=== PATIENT | male | born 1940 | race African-American/Black ===

== ENCOUNTER 2019-12-27 18:01 | Inpatient (IN) | payer MEDICARE, MEDICAID, SELFPAY ==
[2019-12-27] VITALS (13 sets, daily range): BP systolic 53–111; BP diastolic 38–72; PULSE 55–73; RESP 12–22; TEMP 34.7–37.2; O2SAT 92–100
--- NOTE | ~2019-12-27 | XR_ITS ---
XR chest port-a-cath/central 12/27/2019 21:17 Indication: Central line placement Procedure: AP portable chest Comparison: 03/01/2018 Findings: Right IJ central line tip near the cavoatrial junction. There is extensive bilateral mixed interstitial and airspace disease. No pneumothorax. No acute osseous abnormality. Impression: 1: Diffuse mixed interstitial and airspace disease, likely interstitial edema, possibly superimposed on chronic fibrosis. Reviewed, dictated and finalized at location A. R&D LAB TECHNICIAN Impression: 1: Diffuse mixed interstitial and airspace disease, likely interstitial edema, possibly superimposed on chronic fibrosis.
--- NOTE | ~2019-12-27 | CT_ITS ---
EXAMINATION: CT abdomen pelvis wo con DATE: 12/27/2019 22:25 INDICATION: Left lower quadrant abdominal pain TECHNIQUE: Computed tomography (CT) of the abdomen and pelvis was performed without intravenous contr ast. The dose-length product was 1404.10 mGy-cm. Automated exposure control and iterative reconstruct ion technique were employed. COMPARISON: None. FINDINGS: There is patchy bilateral airspace consolidation superimposed on pulmonary fibrosis. There is honeycombing in the lung bases. Cardiomegaly. No significant pleural or pericardial effusion. Ther e is atherosclerosis of the aorta and coronary arteries. There is bilateral gynecomastia. Calcified m ediastinal and hilar lymph nodes consistent with chronic granulomatous disease. The liver, spleen, pancreas, adrenal glands and kidneys are unremarkable. There are multiple air-flui d levels in nondilated small bowel. There is thickening of the sigmoid colon and rectum with mild tang rounding pericolonic infiltration of the fat. St catheter present in the bladder. No evidence for perforation or abscess. No acute osseous abnormality. IMPRESSION: 1. Wall thickening of the sigmoid colon and rectum with mild surrounding inflammation, compatible wit h colitis, most likely infectious. 2: Patchy bilateral airspace disease, suspicious for pneumonia. 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 3: Gynecomastia. Reviewed, dictated and finalized at location A. MOTIVE REPAIR TECHNICIAN IMPRESSION: 1. Wall thickening of the sigmoid colon and rectum with mild surrounding inflam mation, compatible with colitis, most likely infectious. 2: Patchy bilateral airspace disease, suspicious for pneumonia. 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 3: Gynecomastia.
--- NOTE | ~2019-12-27 | XR_ITS ---
EXAMINATION: XR abdomen/kub 1V DATE: 12/30/2019 09:09 INDICATION: Abdominal distention. TECHNIQUE: A supine view of the abdomen on 2 radiographs was obtained. COMPARISON: CT abdomen and pelvis 12/27/2019 FINDINGS: There are no dilated loops of bowel. There is a paucity of stool in the colon. IMPRESSION: 1. Nonobstructive bowel gas pattern. Reviewed, dictated and finalized at location A. ER
--- NOTE | ~2019-12-27 | CT_ITS ---
EXAMINATION: CT brain wo con DATE: 12/28/2019 00:31 INDICATION: CVA. TECHNIQUE: Computed tomography (CT) of the head was performed without intravenous contrast. The dose- length product was 681.00 mGy-cm. The mA was adjusted according to patient size. Iterative reconstruc tion technique was employed. COMPARISON: None FINDINGS: There are scattered moderate periventricular and subcortical white matter changes, most lik derek related to small vessel ischemic disease (microangiopathy). No acute intracranial hemorrhage, inf arction, mass or mass effect. There is intracranial atherosclerosis. Paranasal sinuses and mastoids a re pneumatized. No depressed skull fractures. IMPRESSION: 1. No acute intracranial abnormality. 2: Chronic age-related findings. Reviewed, dictated and finalized at location A. LATION CUPOLA CHARGER
--- NOTE | ~2019-12-27 | XR_ITS ---
EXAMINATION: XR chest 1V portable DATE: 12/29/2019 05:50 INDICATION: Respiratory failure. TECHNIQUE: A single frontal view of the chest was obtained. COMPARISON: Chest single view 12/27/2019, CT abdomen and pelvis 12/27/2019 FINDINGS: There are coarse interstitial opacities throughout the lungs bilaterally with architectural distortion. No pleural effusion or pneumothorax. The heart size is normal. Calcified hilar and media stinal lymph nodes are consistent with old granulomatous disease. A right internal jugular central ve nous catheter is seen with tip at the superior cavoatrial junction. IMPRESSION: 1. Stable diffuse lung disease, likely chronic interstitial lung disease. Reviewed, dictated and finalized at location A. NT PARTNER
--- NOTE | ~2019-12-27 | US_ITS ---
US renal BI 12/28/2019 13:08 Procedure: Realtime transabdominal ultrasound of the kidneys and bladder. Indication: Acute renal insufficiency Comparison: No prior studies for comparison. Findings: Renal echotexture is normal bilaterally without hydronephrosis, contour deforming mass or r enal calculus. The right kidney measures 8.5 cm and left kidney measures 8.1 cm. Bladder not well vis ualized due to catheterization. Impression: 1: Unremarkable renal ultrasound. No stones, masses or hydronephrosis. Reviewed, dictated and finalized at location A. CHIPPER Impression: 1: Unremarkable renal ultrasound. No stones, masses or hydronephrosis.
--- NOTE | 2019-12-27 18:06 | ED.GENADULT ---
HPI - General Adult General Chief complaint: Altered Mental Status Stated complaint: lethargy Time Seen by Provider: 12/27/19 18:03 Source: patient Mode of arrival: EMS Limitations: clinical condition History of Present Illness HPI narrative: The pt is an 79 y/o male who presents to the ED, via EMS from [facility], with c/o lethary that began this evening. Per nurse, staff at the [facility] check on the pt earlier tonight and noticed that he was lethargic and had a bout of diarrhea. The staff checked on him again an hour after and found that the pt was still lethargic and had another bout of diarrhea. The pt and [facility] staff, the pt reports diarrhea and ABD pain, but denies bloody stool, CP, or SOB. The pt has a PMHx of schizophrenia, COPD, asthma, Parkinson's disease, hypothyroidism, and diabetes. A complete HPI was limited due to the pt's clinical condition. MD complaint: Lethargy Onset (ago): hour(s) (this evening) Associated symptoms: other (reports diarrhea, ABD pain) Related Data Home Medications Medication Instructions Recorded Confirmed acetaminophen 650 mg PO BID 12/27/19 12/28/19 amlodipine 10 mg PO DAILY 12/27/19 12/28/19 aspirin 81 mg PO DAILY 12/27/19 12/28/19 benztropine 2 mg PO BID 12/27/19 12/28/19 bisacodyl 10 mg NC DAILY PRN 12/27/19 12/28/19 carbidopa-levodopa 1 tablet PO Q6H 12/27/19 12/28/19 cyanocobalamin (vitamin B-12) 1,000 mcg IM MONTHLY 12/27/19 12/28/19 donepezil 20 mg PO HS 12/27/19 12/28/19 ergocalciferol (vitamin D2) 50,000 unit PO MONTHLY 12/27/19 12/28/19 [Vitamin D2] famotidine 20 mg PO DAILY 12/27/19 12/28/19 fluticasone propion-salmeterol 1 inh INHALATION BID 12/27/19 12/28/19 [Advair Diskus] gabapentin 300 mg PO BID 12/27/19 12/28/19 haloperidol 5 mg PO BID 12/27/19 12/28/19 levothyroxine 50 mcg PO DAILY 12/27/19 12/28/19 loperamide 2 mg PO PRN PRN 12/27/19 12/28/19 lurasidone [Latuda] 120 mg PO DAILY 12/27/19 12/28/19 magnesium hydroxide [Milk of 30 ml PO DAILY PRN 12/27/19 12/28/19 Magnesia] metoprolol succinate 50 mg PO DAILY 12/27/19 12/28/19 montelukast 10 mg PO DAILY 12/27/19 12/28/19 nortriptyline 25 mg PO HS 12/27/19 12/28/19 psyllium husk (aspartame) 1 packet PO BID PRN 12/27/19 12/28/19 [Metamucil Fiber Singles] trazodone 25 mg PO HS 12/27/19 12/28/19 acetaminophen 650 mg PO Q6H PRN MDD 3gram 12/28/19 12/28/19 wyvhdukjt-egpxigws-cqshz-w.pet 1 applic NC QID PRN 12/28/19 12/28/19 [Preparation H Maximum Strength] Allergies Allergy/AdvReac Type Severity Reaction Status Date / Time No Known Allergies Allergy Verified 12/27/19 18:21 Review of Systems Review of Systems: All systems reviewed & are unremarkable except as noted in HPI and below ROS unobtainable: other (A complete ROS was limited due to the pt's clinical condition) Constitutional: Constitutional: Reports other (lethargy) Cardiovascular: Cardiovascular: Denies chest pain Respiratory: Respiratory: Denies dyspnea Gastrointestinal: Gastrointestinal: Reports abdominal pain, Reports diarrhea and Denies other (bloody stool) [facility] Past Medical History Medical History Anemia Anxiety Arthritis Asthma Back pain Cataracts, bilateral COPD (chronic obstructive pulmonary disease) Depression Diabetes Fractures rt wrist Hypertension Hypothyroid Parkinsons disease Schizophrenia Seizures UTI (urinary tract infection) Surgical History Surgical History No pertinent past surgical history Family History Family History (Updated 12/28/19 @ 02:47 by Zenaida Funez RN) Mother Renal failure Father Asbestos exposure Sibling Liver cancer Lung cancer Social History Social History Smoking status: Former smoker Smoking end date: 11/26/97 Alcohol intake: unknown Substance use: unknown Gender identity (if verbalized
[2019-12-27 19:20] LABS: Alveolar/Arterial O2 Gradient 9.6 mmHg; Base Excess ABG -9.9 mEq/l (+/-2.0); Fractional Inspired Oxygen 28 %; HCO3 ABG 17.2 mEq/l (22.0-26.0); Oxygen Content ABG 15.2 %vol (16.0-22.0); Oxygen Saturation ABG 98.3 % (95.0-100.0); Oxyhemoglobin 97.4 % THb (90.0-100.0); PCO2 ABG 42.1 mmHg (35.0-45.0); PO2 ABG 140.4 mmHg (80.0-100.0); PO2 FiO2 Ratio Arterial Blood 5.01 %; Total Hemoglobin 10.9 g/dL (12.0-18.0)
[2019-12-27 19:23] LABS: Device NASAL CANNULA; Modified Allen's Test Pass; Site Drawn LEFT RADIAL; pH ABG 7.228 (7.350-7.450)
[2019-12-27 19:37] LABS: Basophils Percent Auto 0.3 % (0.2-1.2); Hematocrit 34.8 % (42.0-52.0); Hemoglobin 10.5 g/dL (14.0-18.0); Immature Granulocyte Absolute 0.06 K/mm3 (0.00-0.031); Immature Granulocyte Percent A 0.6 % (0-0.5); Lymphocytes Absolute Auto 1.13 K/mm3 (0.9-3.2); Lymphocytes Percent Auto 11.1 % (18.3-44.2); Mean Corpuscular HGB Conc 30.2 g/dl (32-36); Mean Corpuscular Hemoglobin 30.3 pg (26-34); Mean Corpuscular Volume 100.6 fl (80-100); Mean Platelet Volume 9.9 fl (7.4-10.4); Monocytes Absolute Auto 0.9 K/mm3 (0.1-0.6); Monocytes Percent Auto 8.4 % (2.6-8.5); Neutrophils Absolute Auto 8.1 K/mm3 (1.3-6.7); Neutrophils Percent Auto 79.6 % (45.5-73.1); Nucleated Red Blood Cells Perc 0.2 % (0.0-0.2); Platelet Count Result 187 k/mm3 (150-375); Red Blood Count 3.46 M/mm3 (4.6-6.20); Red Cell Distribution Width 15.3 % (11.5-14.5); White Blood Count 10.2 K/mm3 (4.5-10.0)
--- NOTE | 2019-12-27 19:40 | PC.NURSE ---
pt bp 70/40 manual edp notified. second RN to assess bp. 68/40 manual bp obtained. no further orders at this time.
[2019-12-27] MEDS: SODIUM CHLORIDE 0.9% IV 1,000 ML 999 ML IV CONT ×2 (19:41→19:55)
[2019-12-27 19:46] LABS: INR 1.1
[2019-12-27 19:47] LABS: Partial Thromboplastin Time 32.2 SECONDS (22.3-36.8)
[2019-12-27 19:52] LABS: Alanine Aminotransferase 12 U/L (4-50); Albumin Level 3.6 g/dL (3.5-5.1); Alkaline Phosphatase 163 U/L (38-126); Aspartate Amino Transferase 44 U/L (17-59); Bilirubin,Total 1.2 mg/dL (0.2-1.3); Blood Urea Nitrogen 26 mg/dL (9-20); Calcium 8.5 mg/dL (8.4-10.2); Carbon Dioxide 20 mmol/L (22-30); Chloride 101 mmol/L (98-107); Estimated CRCL calculation 38 ml/min; Estimated Glomerular Filt Rate 44; Glucose 97 mg/dL (75-110); Lipase 278 U/L (23-300); Sodium 135 mmol/L (137-145)
--- NOTE | 2019-12-27 20:11 | PC.NURSE ---
pt stuck mult times for blood draw. edp notified.
--- NOTE | 2019-12-27 20:13 | PC.NURSE ---
third L ns hung pts bp 76/40 edp notified.
--- NOTE | 2019-12-27 20:14 | PC.NURSE ---
central line setup per edp.
--- NOTE | 2019-12-27 20:14 | PC.NURSE ---
REDRAW OF UNRECEIVED BLOOD SAMPLES WERE ATTEMPTED MANY TIMES BY MULTIPLE PEOPLE AND ALL WERE UNABLE TO OBTAIN SAMPLES. DOCTOR ORDERED A CENTRAL LINE TO BE PLACED SO THE NURSE IS GOING TO DRAW BLOOD SAMPLES FROM THAT ONCE IT'S IN PLACE.
--- NOTE | 2019-12-27 21:14 | PC.NURSE ---
called pharmacy about norepinphrine drip. they are processing it now.
[2019-12-27] MEDS: NOREPINEPHRINE 8 MG/D5W 250 ML 8 MG/250 ML BAG 9.4 MG IV CONT (21:29)
--- NOTE | 2019-12-27 22:07 | PC.NURSE ---
called ct to take pt down for scan
--- NOTE | 2019-12-27 22:13 | PC.NURSE ---
pt down to ct
[2019-12-27 22:27] LABS: Free T4 Free Thyroxine 1.27 ng/mL (0.78-2.19)
[2019-12-27 22:28] LABS: T4 Thyroxine 6.02 ug/dL (5.53-11.0)
[2019-12-27 22:29] LABS: Total Triiodothyronine (T3) 0.76 NG/ML (0.97-1.69)
[2019-12-27 22:58] LABS: Add Urine Microscopic? YES; Amorphous Sediment Urine Few; Appearance Urine Clear (Clear); Bacteria Urine Trace /hpf; Bilirubin Urine 2+ (Negative); Blood Urine Negative (Negative); Calcium Oxalate Crystals Urine Present /hpf; Color Urine Red (Yellow); Glucose Urine UA Negative (Negative); Ketones Urine Trace mg/dL (Negative); Leukocyte Esterase Ur Negative LEU/UL (Negative); Mucus Urine Heavy /lpf; Nitrate Urine Positive (Negative); Protein Urine 2+ mg/dL (Negative); Specific Grav Ur 1.024 (1.001-1.035); Squamous Epithelial Cell Urine Occasional /hpf (Few); WBC Urine 0-3 /hpf
--- NOTE | 2019-12-27 23:42 | PC.NURSE ---
pt's poa called Fior Garg. She wants to be updated on Uncles status at all times. [id number].
[2019-12-27] MEDS: SODIUM CHLORIDE 0.9% IV 1,000 ML 999 ML (23:55)
[2019-12-28] VITALS (39 sets, daily range): BP systolic 94–145; BP diastolic 41–79; PULSE 58–92; RESP 12–24; TEMP 34.6–37.3; O2SAT 91–100; BMI 28.1
[2019-12-28 00:14] LABS: Reflex Lactic Acid Yes or No Add Lactic
--- NOTE | 2019-12-28 00:45 | PM.IMHP ---
H&P: HPI History of Present Illness Chief complaint: SEPTIC SHOCK COLITIS Narrative: This is an 79 year old diabetic male with known history of COPD, schizophrenia, Parkinson's disease and hypothyroidism who presented to the hospital from [facility] secondary after being found to be poorly responsive at the [facility]. Nursing staff reported the sulma good also had diarrhea. It's not known if the patient has been on any antibiotics recently. On arrival to the hospital the patient was found to be hypotensive and has been treated with 4 liters of NS IV bolus and a central line and levophed has been started in the ER. CT abd/pelvis revealed colitis. He has been started on Vancomycin and zosyn in the ER. Executive Sous Chef, Dr. Lang has been consulted. On my encounter with the patient he is obtunded and encephalopathic. No history is obtainable from him. Review of Systems Review of Systems: ROS unobtainable: unobtainable due to mental condition PMFSH Past Medical History Medical History Anemia Anxiety Arthritis Asthma Back pain Cataracts, bilateral COPD (chronic obstructive pulmonary disease) Depression Diabetes Fractures rt wrist Hypertension Hypothyroid Parkinsons disease Schizophrenia Seizures UTI (urinary tract infection) Surgical History Surgical History No pertinent past surgical history Family History Family History Mother Renal failure Father Asbestos exposure Sibling Liver cancer Lung cancer Social History Social History Smoking status: Former smoker Smoking end date: 11/26/97 Alcohol intake: unknown Substance use: unknown Gender identity (if verbalized by the patient): Male Meds Home Medications and Allergies Home Medications Medication Instructions Recorded Confirmed Type acetaminophen 650 mg PO BID 12/27/19 12/28/19 History amlodipine 10 mg PO DAILY 12/27/19 12/28/19 History aspirin 81 mg PO DAILY 12/27/19 12/28/19 History benztropine 2 mg PO BID 12/27/19 12/28/19 History bisacodyl 10 mg AR DAILY PRN 12/27/19 12/28/19 History carbidopa-levodopa 1 tablet PO Q6H 12/27/19 12/28/19 History cyanocobalamin (vitamin B-12) 1,000 mcg IM MONTHLY 12/27/19 12/28/19 History donepezil 20 mg PO HS 12/27/19 12/28/19 History ergocalciferol (vitamin D2) 50,000 unit PO MONTHLY 12/27/19 12/28/19 History [Vitamin D2] famotidine 20 mg PO DAILY 12/27/19 12/28/19 History fluticasone propion-salmeterol 1 inh INHALATION BID 12/27/19 12/28/19 History [Advair Diskus] gabapentin 300 mg PO BID 12/27/19 12/28/19 History haloperidol 5 mg PO BID 12/27/19 12/28/19 History levothyroxine 50 mcg PO DAILY 12/27/19 12/28/19 History loperamide 2 mg PO PRN PRN 12/27/19 12/28/19 History lurasidone [Latuda] 120 mg PO DAILY 12/27/19 12/28/19 History magnesium hydroxide [Milk of 30 ml PO DAILY PRN 12/27/19 12/28/19 History Magnesia] metoprolol succinate 50 mg PO DAILY 12/27/19 12/28/19 History montelukast 10 mg PO DAILY 12/27/19 12/28/19 History nortriptyline 25 mg PO HS 12/27/19 12/28/19 History psyllium husk (aspartame) 1 packet PO BID PRN 12/27/19 12/28/19 History [Metamucil Fiber Singles] trazodone 25 mg PO HS 12/27/19 12/28/19 History acetaminophen 650 mg PO Q6H PRN MDD 3gram 12/28/19 12/28/19 History hwytdtleq-wxspbhrd-lnimo-w.pet 1 applic AR QID PRN 12/28/19 12/28/19 History [Preparation H Maximum Strength] Allergies Allergy/AdvReac Type Severity Reaction Status Date / Time No Known Allergies Allergy Verified 12/27/19 18:21 Vital Signs Vital Signs - 24 hr 12/27/19 18:08 12/27/19 19:40 12/27/19 20:00 Temperature 36.2 C L Pulse Rate 63 66 62 Respiratory Rate 18 12 17 Blood Pressure 111/72 70/40 L 71/38 L Pulse Oximetry 100 100 100 12/27/19 20:20 12/27
[2019-12-28 01:46] LABS: Lactic Acid 3.4 mmol/L (0.7-2.1)
[2019-12-28] MEDS: LACTATED RINGERS 1,000 ML 150 ML IV CONT (01:53)
--- NOTE | 2019-12-28 02:42 | ADMGEN ---
This patient, Norm Maldonado, was admitted to Intensive Care Unit-3. Patient/family oriented to hospital policies and general routines including ID bracelet, bed and alarms, visiting hours, pain management, procedures, bathroom and other care routines, personal items, smoking policy, room service/diet, and visiting hours. Valuables list has been completed. Information on how to activate the Rapid Response Team has been discussed. Patient/Family are encouraged to report perceived risks to care and to ask questions if they do not understand what they are told or what they should do.
[2019-12-28 02:52] LABS: Alveolar/Arterial O2 Gradient 152.2 mmHg; Base Excess ABG -7.8 mEq/l (+/-2.0); Fractional Inspired Oxygen 36 %; HCO3 ABG 19.6 mEq/l (22.0-26.0); Oxygen Content ABG 12.5 %vol (16.0-22.0); Oxyhemoglobin 78.4 % THb (90.0-100.0); PCO2 ABG 47.7 mmHg (35.0-45.0); PO2 FiO2 Ratio Arterial Blood 1.37 %; Total Hemoglobin 11.3 g/dL (12.0-18.0)
[2019-12-28 02:54] LABS: Oxygen Saturation ABG 77.4 % (95.0-100.0); PO2 ABG 49.2 mmHg (80.0-100.0); pH ABG 7.231 (7.350-7.450)
[2019-12-28 02:55] LABS: Device NASAL CANNULA; Modified Allen's Test Pass; Site Drawn LEFT RADIAL
[2019-12-28 04:49] LABS: Alveolar/Arterial O2 Gradient 223.3 mmHg; Base Excess ABG -6.1 mEq/l (+/-2.0); Fractional Inspired Oxygen 50 %; HCO3 ABG 20.1 mEq/l (22.0-26.0); Oxygen Content ABG 14.2 %vol (16.0-22.0); Oxygen Saturation ABG 95.4 % (95.0-100.0); Oxyhemoglobin 94.5 % THb (90.0-100.0); PCO2 ABG 42.8 mmHg (35.0-45.0); PO2 ABG 85.1 mmHg (80.0-100.0); Total Hemoglobin 10.6 g/dL (12.0-18.0)
[2019-12-28 04:52] LABS: Device HIGH FLOW THERAPY; Modified Allen's Test Pass; Site Drawn LEFT RADIAL
[2019-12-28] MEDS: SODIUM CHLORIDE 0.9% IV 1,000 ML 125 ML IV CONT ×3 (05:20→22:25)
[2019-12-28 06:06] LABS: Basophils Absolute Auto 0.1 K/mm3 (0.0-0.1); Basophils Percent Auto 0.5 % (0.2-1.2); Hematocrit 31.6 % (42.0-52.0); Hemoglobin 9.6 g/dL (14.0-18.0); Immature Granulocyte Percent A 0.9 % (0-0.5); Lymphocytes Absolute Auto 0.89 K/mm3 (0.9-3.2); Lymphocytes Percent Auto 8.2 % (18.3-44.2); Mean Corpuscular HGB Conc 30.4 g/dl (32-36); Mean Corpuscular Hemoglobin 30.2 pg (26-34); Mean Corpuscular Volume 99.4 fl (80-100); Mean Platelet Volume 9.8 fl (7.4-10.4); Monocytes Absolute Auto 1.1 K/mm3 (0.1-0.6); Monocytes Percent Auto 9.8 % (2.6-8.5); Neutrophils Absolute Auto 8.7 K/mm3 (1.3-6.7); Neutrophils Percent Auto 80.6 % (45.5-73.1); Platelet Count Result 176 k/mm3 (150-375); Red Blood Count 3.18 M/mm3 (4.6-6.20); White Blood Count 10.8 K/mm3 (4.5-10.0)
[2019-12-28 06:18] LABS: Blood Urea Nitrogen 27 mg/dL (9-20); Calcium 7.4 mg/dL (8.4-10.2); Carbon Dioxide 19 mmol/L (22-30); Chloride 104 mmol/L (98-107); Estimated CRCL calculation 36 ml/min; Estimated Glomerular Filt Rate 42; Glucose 119 mg/dL (75-110); Magnesium 2.3 mg/dL (1.6-2.3); Sodium 135 mmol/L (137-145)
[2019-12-28 07:04] LABS: Lactic Acid 1.9 mmol/L (0.7-2.1)
[2019-12-28] MEDS: DEXTROSE 50% 25 GM/50 ML SYRINGE IV PUSH (09:03)
[2019-12-28] MEDS: INSULIN HUMAN REGULAR (*BKC) 100 UNITS/ML 10 UNITS IV PUSH (09:04)
--- NOTE | 2019-12-28 09:05 | WPDCNINT ---
Assessment and Plan Assessment and plan (1) Septic shock: Code(s): A41.9 - Sepsis, unspecified organism; R65.21 - Severe sepsis with septic shock Status: Acute Assessment and Plan: patient with altered mental status, diarrhea, Hypotensive, elevated lactic acid, leukocytosis, acute kidney injury - likely colitis - patient started on Zosyn and p.o. vancomycin - on Levophed, maintain mean arterial pressure is greater than 65 mmHg - lactic acid this morning has normalized (2) Acute respiratory failure: Qualifiers: Respiratory failure complication: hypoxia Qualified Code(s): J96.01 - Acute respiratory failure with hypoxia Code(s): J96.00 - Acute respiratory failure, unspecified whether with hypoxia or hypercapnia Status: Acute Assessment and Plan: patient with increased O2 requirements likely related to septic shock. Chest x-ray shows diffuse mixed interstitial airspace disease likely interstitial edema, possibly superimposed on chronic fibrosis - continue high-flow nasal cannula, O2 sats have been adequate, will continue to monitor (3) CRISTA (acute kidney injury): Code(s): N17.9 - Acute kidney failure, unspecified Status: Acute Assessment and Plan: acute kidney injury most likely related to hypotension, septic shock, ATN, dehydration, diarrhea - patient received adequate IV fluids, continue maintenance IV fluids - monitor urine output, renal function electrolytes - hyperkalemia likely related acidosis secondary to diarrhea, acute kidney injury, will treat hyperkalemia aggressively and recheck BMP - obtain renal ultrasound, urine lytes (4) Colitis: Code(s): K52.9 - Noninfective gastroenteritis and colitis, unspecified Status: Acute Assessment and Plan: CT scan of the abdomen and pelvis showed colitis, patient on Zosyn and p.o. vancomycin - unknown if patient was on recent antibiotics - patient has diarrhea, stool has been sent for culture and C diff which is pending (5) Schizophrenia: Qualifiers: Schizophrenia type: unspecified Qualified Code(s): F20.9 - Schizophrenia, unspecified Code(s): F20.9 - Schizophrenia, unspecified Status: Chronic Assessment and Plan: history of schizophrenia, patient on Haldol at home currently on hold (6) Parkinsons disease: Code(s): G20 - Parkinson's disease Status: Chronic Assessment and Plan: will check if patient can take p.o., if so, will restart his carbidopa and levodopa (7) COPD (chronic obstructive pulmonary disease): Qualifiers: COPD type: unspecified COPD Qualified Code(s): J44.9 - Chronic obstructive pulmonary disease, unspecified Code(s): J44.9 - Chronic obstructive pulmonary disease, unspecified Status: Chronic Assessment and Plan: patient with history of COPD, will add p.r.n. bronchodilators - continue supplemental oxygen (8) Diabetes: Qualifiers: Diabetes mellitus type: type 2 Diabetes mellitus custodial insulin use: without custodial use Diabetes mellitus complication status: without complication Qualified Code(s): E11.9 - Type 2 diabetes mellitus without complications Code(s): E11.9 - Type 2 diabetes mellitus without complications Status: Chronic Assessment and Plan: blood sugars have been stable, add Accu-Cheks and sliding scale insulin (9) Acute encephalopathy: Code(s): G93.40 - Encephalopathy, unspecified Status: Acute Assessment and Plan: acute insert follow-up a thin likely related to dehydration, septic shock, colitis - patient more awake this morning and following commands appropriately, will continue to monitor (10) DVT prophylaxis: Code(s): Z29.9 - Encounter for prophylactic measures, unspecified Status: Acute Assessment and Plan: SCDs, will add heparin SQ Additional Plan will discuss with family when valarie
[2019-12-28] MEDS: SODIUM BICARBONATE 8.4% 50 MEQ/50 ML VIAL 100 MEQ IV PUSH (09:13)
--- NOTE | 2019-12-28 10:13 | ECG_ITS ---
Measurements Intervals Farrell Rate: 77 P: 58 VT: 241 QRS: -10 QRSD: 100 T: 89 QT: 378 QTc: 430 Interpretive Statements SINUS RHYTHM WITH FIRST DEGREE AV BLOCK LOW QRS VOLTAGE IN PRECORDIAL LEADS BORDERLINE ST-T WAVE ABNORMALITY- DIFFUSE LEADS ABNORMAL ECG Electronically Signed On 12-28-2019 14:10:44 [employer] by Haseeb Hoff D.O.
[2019-12-28] MEDS: ALBUTEROL SULFATE NEB 2.5 MG/0.5 ML INH 15 MG INHALATION (10:20)
[2019-12-28 10:33] LABS: Glucose Point of Care 125 (65-105)
[2019-12-28 12:26] LABS: Blood Urea Nitrogen 24 mg/dL (9-20); Calcium 7.3 mg/dL (8.4-10.2); Carbon Dioxide 25 mmol/L (22-30); Chloride 105 mmol/L (98-107); Estimated CRCL calculation 40 ml/min; Estimated Glomerular Filt Rate 47; Glucose 122 mg/dL (75-110); Potassium 4.3 mmol/L (3.4-5.0); Sodium 137 mmol/L (137-145)
[2019-12-28 12:45] LABS: Creatinine Urine 37.7 mg/dL
[2019-12-28 12:50] LABS: Potassium Urine Random 27.3 meq/L; Sodium Urine Random 90 meq/L
[2019-12-28] MEDS: HEPARIN SODIUM 5,000 UNITS/ML VIAL 5000 UNITS SUB-Q ×2 (13:21→21:30)
[2019-12-28] MEDS: NOREPINEPHRINE 8 MG/D5W 250 ML 8 MG/250 ML BAG 18.8 MG IV CONT (13:35)
--- NOTE | 2019-12-28 17:03 | PM.IMPN ---
Progress Note: A&P Assessment and Plan (1) Septic shock: Code(s): A41.9 - Sepsis, unspecified organism; R65.21 - Severe sepsis with septic shock Status: Acute Assessment and Plan: Patient has remained hypotensive despite adequate IV fluid boluses in the ER and maintaining pressure now on low-dose pressors. . Continue wide-spectrum antibiotics. Source of infection appears to be from GI tract in colitis. Lactic acid peaked at 3.4 and now normal. Blood cultures pending. Check urine culture. (2) Acute respiratory failure: Qualifiers: Respiratory failure complication: hypoxia Qualified Code(s): J96.01 - Acute respiratory failure with hypoxia Code(s): J96.00 - Acute respiratory failure, unspecified whether with hypoxia or hypercapnia Status: Acute Assessment and Plan: May be secondary to being fluid overloaded from aggressive IV fluid hydration. We will administer high-flow oxygen therapy to the patient Continuous pulse oximetry. Continue supplemental oxygen. Could be some component of interstitial lung disease also (3) Acute encephalopathy: Code(s): G93.40 - Encephalopathy, unspecified Status: Acute Assessment and Plan: Likely secondary to septic shock. CT unremarkable Acute metabolic encephalopathy (4) Colitis: Code(s): K52.9 - Noninfective gastroenteritis and colitis, unspecified Status: Acute Assessment and Plan: C diff is pending. Check stool cultures. Continue wide-spectrum antibiotics for colitis. Blood cultures have been ordered. Continue IV fluid hydration. (5) Macrocytic anemia: Code(s): D53.9 - Nutritional anemia, unspecified Status: Chronic Assessment and Plan: No signs of acute blood loss tonight. Monitor H&H. Transfuse p.r.n. can check B12 (6) Acute renal failure: Qualifiers: Acute renal failure type: unspecified Qualified Code(s): N17.9 - Acute kidney failure, unspecified Code(s): N17.9 - Acute kidney failure, unspecified Status: Acute Assessment and Plan: Continue IV fluid challenge overnight. Monitor renal function and urine output. Avoid nephrotoxic agents. Renally dose medications. Consider renal ultrasound if the patient's renal function has not improved potassium down to 4.3 (7) Diabetes: Qualifiers: Diabetes mellitus type: type 2 Diabetes mellitus terminal make up operator insulin use: without residential use Diabetes mellitus complication status: without complication Qualified Code(s): E11.9 - Type 2 diabetes mellitus without complications Code(s): E11.9 - Type 2 diabetes mellitus without complications Status: Chronic Assessment and Plan: Accu-Cheks, sliding scale insulin coverage, hypoglycemia protocol. (8) COPD (chronic obstructive pulmonary disease): Qualifiers: COPD type: unspecified COPD Qualified Code(s): J44.9 - Chronic obstructive pulmonary disease, unspecified Code(s): J44.9 - Chronic obstructive pulmonary disease, unspecified Status: Chronic Assessment and Plan: Continue oxygen therapy, bronchodilators. (9) Schizophrenia: Qualifiers: Schizophrenia type: unspecified Qualified Code(s): F20.9 - Schizophrenia, unspecified Code(s): F20.9 - Schizophrenia, unspecified Status: Chronic Assessment and Plan: Continue psychiatric medications including Haldol (10) Parkinsons disease: Code(s): G20 - Parkinson's disease Status: Chronic Assessment and Plan: Continue Sinemet and benztropine (11) Hypertension: Qualifiers: Hypertension type: unspecified Qualified Code(s): I10 - Essential (primary) hypertension Code(s): I10 - Essential (primary) hypertension Status: Chronic Assessment and Plan: Patient has septic shock tonight. Will monitor blood pressure and hold home antihypertensives resume when appropriate. Subjecti
[2019-12-28] MEDS: VANCOMYCIN ORAL 125 MG/2.5 ML SYRUP PO (17:12)
[2019-12-28 17:15] LABS: Glucose Point of Care 119 (65-105)
[2019-12-29] VITALS (13 sets, daily range): BP systolic 111–138; BP diastolic 42–100; PULSE 86–115; RESP 12–96; TEMP 36.8–37.6; O2SAT 19–100
[2019-12-29] MEDS: SODIUM CHLORIDE 0.9% IV 1,000 ML 125 ML IV CONT ×3 (05:55→23:26)
[2019-12-29 06:02] LABS: Basophils Percent Auto 0.1 % (0.2-1.2); Eosinophils Percent Auto 0.1 % (0-4.4); Hematocrit 26.9 % (42.0-52.0); Hemoglobin 8.5 g/dL (14.0-18.0); Immature Granulocyte Absolute 0.05 K/mm3 (0.00-0.031); Immature Granulocyte Percent A 0.7 % (0-0.5); Lymphocytes Absolute Auto 1.35 K/mm3 (0.9-3.2); Lymphocytes Percent Auto 17.6 % (18.3-44.2); Mean Corpuscular HGB Conc 31.6 g/dl (32-36); Mean Corpuscular Hemoglobin 30.4 pg (26-34); Mean Corpuscular Volume 96.1 fl (80-100); Mean Platelet Volume 8.9 fl (7.4-10.4); Monocytes Absolute Auto 0.6 K/mm3 (0.1-0.6); Monocytes Percent Auto 7.9 % (2.6-8.5); Neutrophils Absolute Auto 5.7 K/mm3 (1.3-6.7); Neutrophils Percent Auto 73.6 % (45.5-73.1); Platelet Count Result 132 k/mm3 (150-375); White Blood Count 7.7 K/mm3 (4.5-10.0)
[2019-12-29 06:17] LABS: Alanine Aminotransferase 14 U/L (4-50); Albumin Level 2.7 g/dL (3.5-5.1); Alkaline Phosphatase 89 U/L (38-126); Aspartate Amino Transferase 30 U/L (17-59); Bilirubin,Total 0.3 mg/dL (0.2-1.3); Blood Urea Nitrogen 15 mg/dL (9-20); Calcium 7.5 mg/dL (8.4-10.2); Carbon Dioxide 26 mmol/L (22-30); Chloride 103 mmol/L (98-107); Estimated CRCL calculation 55 ml/min; Estimated Glomerular Filt Rate > 60; Glucose 108 mg/dL (75-110); Lipase 25 U/L (23-300); Magnesium 2.3 mg/dL (1.6-2.3); Potassium 4.2 mmol/L (3.4-5.0); Sodium 136 mmol/L (137-145)
[2019-12-29 06:57] LABS: CRP 22.6 mg/dL (<1.0)
[2019-12-29] MEDS: HEPARIN SODIUM 5,000 UNITS/ML VIAL 5000 UNITS SUB-Q ×2 (08:55→20:45)
[2019-12-29 09:01] LABS: Glucose Point of Care 93 (65-105)
--- NOTE | 2019-12-29 12:51 | WPDINTPN ---
Progress Note: A&P Assessment and Plan (1) Septic shock: Code(s): A41.9 - Sepsis, unspecified organism; R65.21 - Severe sepsis with septic shock Status: Acute Assessment and Plan: patient with altered mental status, diarrhea, Hypotensive, elevated lactic acid, leukocytosis, acute kidney injury - likely ischemic colitis - patient started on Zosyn , will d/c po vanc as c-diff is unlikely - on Levophed, maintain mean arterial pressure is greater than 65 mmHg - lactic acid this morning has normalized - off pressors this am (2) Acute respiratory failure: Qualifiers: Respiratory failure complication: hypoxia Qualified Code(s): J96.01 - Acute respiratory failure with hypoxia Code(s): J96.00 - Acute respiratory failure, unspecified whether with hypoxia or hypercapnia Status: Acute Assessment and Plan: patient with increased O2 requirements likely related to septic shock. Chest x-ray shows diffuse mixed interstitial airspace disease likely interstitial edema, possibly superimposed on chronic fibrosis - continue high-flow nasal cannula, O2 sats have been adequate, will continue to monitor - cxr with chronic changes (3) CRISTA (acute kidney injury): Code(s): N17.9 - Acute kidney failure, unspecified Status: Acute Assessment and Plan: acute kidney injury most likely related to hypotension, septic shock, ATN, dehydration, diarrhea - patient received adequate IV fluids, continue maintenance IV fluids - monitor urine output, renal function electrolytes - hyperkalemia likely related acidosis secondary to diarrhea, acute kidney injury, will treat hyperkalemia aggressively and recheck BMP - creatinine has improved this am (4) Colitis: Code(s): K52.9 - Noninfective gastroenteritis and colitis, unspecified Status: Acute Assessment and Plan: CT scan of the abdomen and pelvis showed colitis, patient on Zosyn and p.o. vancomycin - unknown if patient was on recent antibiotics - patient has diarrhea, stool has been sent for culture and C diff which is pending - will wait for c-diff before d/c po vancomycin (5) Schizophrenia: Qualifiers: Schizophrenia type: unspecified Qualified Code(s): F20.9 - Schizophrenia, unspecified Code(s): F20.9 - Schizophrenia, unspecified Status: Chronic Assessment and Plan: history of schizophrenia, patient on Haldol at home currently on hold (6) Parkinsons disease: Code(s): G20 - Parkinson's disease Status: Chronic Assessment and Plan: will check if patient can take p.o., if so, will restart his carbidopa and levodopa (7) COPD (chronic obstructive pulmonary disease): Qualifiers: COPD type: unspecified COPD Qualified Code(s): J44.9 - Chronic obstructive pulmonary disease, unspecified Code(s): J44.9 - Chronic obstructive pulmonary disease, unspecified Status: Chronic Assessment and Plan: patient with history of COPD, will add p.r.n. bronchodilators - continue supplemental oxygen (8) Diabetes: Qualifiers: Diabetes mellitus type: type 2 Diabetes mellitus oil heaterman insulin use: without mcc use Diabetes mellitus complication status: without complication Qualified Code(s): E11.9 - Type 2 diabetes mellitus without complications Code(s): E11.9 - Type 2 diabetes mellitus without complications Status: Chronic Assessment and Plan: blood sugars have been stable, add Accu-Cheks and sliding scale insulin (9) Acute encephalopathy: Code(s): G93.40 - Encephalopathy, unspecified Status: Acute Assessment and Plan: acute insert follow-up a thin likely related to dehydration, septic shock, colitis - patient more awake this morning and following commands appropriately, will continue to monitor (10) DVT prophylaxis: Code(s): Z29.9 - Encounter for prophylactic measures, unspecified
[2019-12-29 14:22] LABS: Glucose Point of Care 86 (65-105)
[2019-12-29] MEDS: CARBIDOPA/LEVODOPA 25/100 MG TABLET 1 TABLET PO ×3 (14:42→23:27)
[2019-12-29] MEDS: BENZTROPINE MESYLATE 1 MG TABLET 2 MG PO (18:06)
[2019-12-29] MEDS: HALOPERIDOL 5 MG TABLET PO (18:06)
[2019-12-29 18:08] LABS: Glucose Point of Care 93 (65-105)
--- NOTE | 2019-12-29 18:12 | PM.IMPN ---
Progress Note: A&P Assessment and Plan (1) Septic shock: Code(s): A41.9 - Sepsis, unspecified organism; R65.21 - Severe sepsis with septic shock Status: Acute Assessment and Plan: Patient remained hypotensive despite adequate IV fluid boluses in the ER and maintaining pressure now on low-dose pressors. . Continue wide-spectrum antibiotics. Source of infection appears to be from GI tract in colitis. Lactic acid peaked at 3.4 and now normal. Blood cultures and urine are negative as are stool. (2) Acute respiratory failure: Qualifiers: Respiratory failure complication: hypoxia Qualified Code(s): J96.01 - Acute respiratory failure with hypoxia Code(s): J96.00 - Acute respiratory failure, unspecified whether with hypoxia or hypercapnia Status: Acute Assessment and Plan: May be secondary to being fluid overloaded from aggressive IV fluid hydration. Or septic picture. Could be some component of interstitial lung disease also Tapering O2 and saturations improving as treating underlying condition (3) Acute encephalopathy: Code(s): G93.40 - Encephalopathy, unspecified Status: Acute Assessment and Plan: Likely secondary to septic shock. CT unremarkable Acute metabolic encephalopathy resolved (4) Colitis: Code(s): K52.9 - Noninfective gastroenteritis and colitis, unspecified Status: Acute Assessment and Plan: C diff is negative. Check stool cultures so far negative. Continue wide-spectrum antibiotics for colitis. Blood cultures negative. Continue IV fluid hydration. (5) Macrocytic anemia: Code(s): D53.9 - Nutritional anemia, unspecified Status: Chronic Assessment and Plan: No signs of acute blood loss tonight. Monitor H&H. Transfuse p.r.n. (6) Acute renal failure: Qualifiers: Acute renal failure type: unspecified Qualified Code(s): N17.9 - Acute kidney failure, unspecified Code(s): N17.9 - Acute kidney failure, unspecified Status: Acute Assessment and Plan: Continue IV fluid Avoid nephrotoxic agents. Creatinine dropped to 1.2 today (7) Diabetes: Qualifiers: Diabetes mellitus type: type 2 Diabetes mellitus jail insulin use: without printed circuit boards plasma etcher use Diabetes mellitus complication status: without complication Qualified Code(s): E11.9 - Type 2 diabetes mellitus without complications Code(s): E11.9 - Type 2 diabetes mellitus without complications Status: Chronic Assessment and Plan: Accu-Cheks, sliding scale insulin coverage, hypoglycemia protocol. (8) COPD (chronic obstructive pulmonary disease): Qualifiers: COPD type: unspecified COPD Qualified Code(s): J44.9 - Chronic obstructive pulmonary disease, unspecified Code(s): J44.9 - Chronic obstructive pulmonary disease, unspecified Status: Chronic Assessment and Plan: Continue oxygen therapy, bronchodilators. (9) Schizophrenia: Qualifiers: Schizophrenia type: unspecified Qualified Code(s): F20.9 - Schizophrenia, unspecified Code(s): F20.9 - Schizophrenia, unspecified Status: Chronic Assessment and Plan: Continue psychiatric medications including Haldol (10) Parkinsons disease: Code(s): G20 - Parkinson's disease Status: Chronic Assessment and Plan: Continue Sinemet and benztropine (11) Hypertension: Qualifiers: Hypertension type: unspecified Qualified Code(s): I10 - Essential (primary) hypertension Code(s): I10 - Essential (primary) hypertension Status: Chronic Assessment and Plan: Patient has septic shock . Will monitor blood pressure and hold home antihypertensives resume when appropriate. Subjective Date/time seen: 12/29/19 18:12 Interval history: Date of visit 12/29/2019. 79-year-old white male correction resident with Parkinson's disease schizophrenia, hypertension, p
[2019-12-29] MEDS: IPRATROPIUM BR 0.02% INH SOLN 0.5 MG/2.5 ML VIAL INHALATION (19:54)
[2019-12-29] MEDS: DONEPEZIL HCL 10 MG TABLET 20 MG PO (20:45)
[2019-12-29 23:33] LABS: Glucose Point of Care 85 (65-105)
[2019-12-30] VITALS (10 sets, daily range): BP systolic 119–148; BP diastolic 51–96; PULSE 94–115; RESP 14–23; TEMP 36.6–37.7; O2SAT 95–98; BMI 10.0
[2019-12-30 04:49] LABS: Hemoglobin 8.1 g/dL (14.0-18.0); Mean Corpuscular HGB Conc 31.2 g/dl (32-36); Mean Corpuscular Hemoglobin 30.1 pg (26-34); Mean Corpuscular Volume 96.7 fl (80-100); Mean Platelet Volume 9.6 fl (7.4-10.4); Platelet Count Result 129 k/mm3 (150-375); Red Blood Count 2.69 M/mm3 (4.6-6.20); Red Cell Distribution Width 15.2 % (11.5-14.5); White Blood Count 7.2 K/mm3 (4.5-10.0)
[2019-12-30 05:00] LABS: Blood Urea Nitrogen 10 mg/dL (9-20); Carbon Dioxide 25 mmol/L (22-30); Chloride 106 mmol/L (98-107); Estimated CRCL calculation 60 ml/min; Estimated Glomerular Filt Rate > 60; Glucose 89 mg/dL (75-110); Magnesium 2.2 mg/dL (1.6-2.3); Sodium 136 mmol/L (137-145)
[2019-12-30] MEDS: CARBIDOPA/LEVODOPA 25/100 MG TABLET 1 TABLET PO ×3 (06:13→18:36)
[2019-12-30] MEDS: LEVOTHYROXINE SODIUM 50 MCG TABLET PO (06:13)
[2019-12-30 08:28] LABS: Glucose Point of Care 88 (65-105)
[2019-12-30] MEDS: BENZTROPINE MESYLATE 1 MG TABLET 2 MG PO ×2 (08:37→17:17)
[2019-12-30] MEDS: HEPARIN SODIUM 5,000 UNITS/ML VIAL 5000 UNITS SUB-Q ×2 (08:38→21:03)
[2019-12-30] MEDS: HALOPERIDOL 5 MG TABLET PO ×2 (08:38→17:16)
--- NOTE | 2019-12-30 09:22 | P.PNIM_ITS ---
Progress Note: A&P Assessment and Plan (1) Septic shock: Code(s): A41.9 - Sepsis, unspecified organism; R65.21 - Severe sepsis with septic shock Status: Acute Assessment and Plan: * Due to colitis * Resolved * 2/for transfer to medical floor (2) Acute respiratory failure: Qualifiers: Respiratory failure complication: hypoxia Qualified Code(s): J96.01 - Acute respiratory failure with hypoxia Code(s): J96.00 - Acute respiratory failure, unspecified whether with hypoxia or hypercapnia Status: Acute Assessment and Plan: * Likely due to sepsis with V/Q mismatch * Improved (3) Acute encephalopathy: Code(s): G93.40 - Encephalopathy, unspecified Status: Acute Assessment and Plan: * Resolved (4) Colitis: Code(s): K52.9 - Noninfective gastroenteritis and colitis, unspecified Status: Acute Assessment and Plan: * Continue empiric treatment * 2/4 KUB (5) Macrocytic anemia: Code(s): D53.9 - Nutritional anemia, unspecified Status: Chronic Assessment and Plan: * Remained stable * Monitor (6) Acute renal failure: Qualifiers: Acute renal failure type: unspecified Qualified Code(s): N17.9 - Acute kidney failure, unspecified Code(s): N17.9 - Acute kidney failure, unspecified Status: Acute Assessment and Plan: * Likely ATN due to sepsis * Resolved (7) Diabetes: Qualifiers: Diabetes mellitus type: type 2 Diabetes mellitus superintendent container terminal insulin use: without intermediate use Diabetes mellitus complication status: without complication Qualified Code(s): E11.9 - Type 2 diabetes mellitus without complications Code(s): E11.9 - Type 2 diabetes mellitus without complications Status: Chronic Assessment and Plan: * Accu-Cheks, sliding scale insulin coverage, hypoglycemia protocol. (8) COPD (chronic obstructive pulmonary disease): Qualifiers: COPD type: unspecified COPD Qualified Code(s): J44.9 - Chronic obstructive pulmonary disease, unspecified Code(s): J44.9 - Chronic obstructive pulmonary disease, unspecified Status: Chronic Assessment and Plan: * Continue oxygen therapy, bronchodilators. (9) Schizophrenia: Qualifiers: Schizophrenia type: unspecified Qualified Code(s): F20.9 - Schizophrenia, unspecified Code(s): F20.9 - Schizophrenia, unspecified Status: Chronic Assessment and Plan: * Continue psychiatric medications including Haldol (10) Parkinsons disease: Code(s): G20 - Parkinson's disease Status: Chronic Assessment and Plan: * Continue Sinemet and benztropine (11) Hypertension: Qualifiers: Hypertension type: unspecified Qualified Code(s): I10 - Essential (primary) hypertension Code(s): I10 - Essential (primary) hypertension Status: Chronic Assessment and Plan: * Monitor pressure and resume medications when appropriate Subjective Date/time seen: 12/30/19 09:22 Interval history: 2/4 feels much better today. Denied pain. Denies shortness of breath. Bowels move this morning. No bleeding. No urinary symptoms. Did not eat any breakfast. Review of Systems Review of Systems: All systems reviewed & are unremarkable except as noted in HPI and below Exam Narrative: Exam Narrative: Pupils equal reactive to light sclera anicteric Lungs more clear with no wheezing today CV no murmurs
--- NOTE | 2019-12-30 09:22 | PM.IMPN ---
Progress Note: A&P Assessment and Plan (1) Septic shock: Code(s): A41.9 - Sepsis, unspecified organism; R65.21 - Severe sepsis with septic shock Status: Acute Assessment and Plan: Due to colitis Resolved 2/for transfer to medical floor (2) Acute respiratory failure: Qualifiers: Respiratory failure complication: hypoxia Qualified Code(s): J96.01 - Acute respiratory failure with hypoxia Code(s): J96.00 - Acute respiratory failure, unspecified whether with hypoxia or hypercapnia Status: Acute Assessment and Plan: Likely due to sepsis with V/Q mismatch Improved (3) Acute encephalopathy: Code(s): G93.40 - Encephalopathy, unspecified Status: Acute Assessment and Plan: Resolved (4) Colitis: Code(s): K52.9 - Noninfective gastroenteritis and colitis, unspecified Status: Acute Assessment and Plan: Continue empiric treatment 2/4 KUB (5) Macrocytic anemia: Code(s): D53.9 - Nutritional anemia, unspecified Status: Chronic Assessment and Plan: Remained stable Monitor (6) Acute renal failure: Qualifiers: Acute renal failure type: unspecified Qualified Code(s): N17.9 - Acute kidney failure, unspecified Code(s): N17.9 - Acute kidney failure, unspecified Status: Acute Assessment and Plan: Likely ATN due to sepsis Resolved (7) Diabetes: Qualifiers: Diabetes mellitus type: type 2 Diabetes mellitus [facility] insulin use: without dedicated intermodal truck driver use Diabetes mellitus complication status: without complication Qualified Code(s): E11.9 - Type 2 diabetes mellitus without complications Code(s): E11.9 - Type 2 diabetes mellitus without complications Status: Chronic Assessment and Plan: Accu-Cheks, sliding scale insulin coverage, hypoglycemia protocol. (8) COPD (chronic obstructive pulmonary disease): Qualifiers: COPD type: unspecified COPD Qualified Code(s): J44.9 - Chronic obstructive pulmonary disease, unspecified Code(s): J44.9 - Chronic obstructive pulmonary disease, unspecified Status: Chronic Assessment and Plan: Continue oxygen therapy, bronchodilators. (9) Schizophrenia: Qualifiers: Schizophrenia type: unspecified Qualified Code(s): F20.9 - Schizophrenia, unspecified Code(s): F20.9 - Schizophrenia, unspecified Status: Chronic Assessment and Plan: Continue psychiatric medications including Haldol (10) Parkinsons disease: Code(s): G20 - Parkinson's disease Status: Chronic Assessment and Plan: Continue Sinemet and benztropine (11) Hypertension: Qualifiers: Hypertension type: unspecified Qualified Code(s): I10 - Essential (primary) hypertension Code(s): I10 - Essential (primary) hypertension Status: Chronic Assessment and Plan: Monitor pressure and resume medications when appropriate Subjective Date/time seen: 12/30/19 09:22 Interval history: 2/4 feels much better today. Denied pain. Denies shortness of breath. Bowels move this morning. No bleeding. No urinary symptoms. Did not eat any breakfast. Review of Systems Review of Systems: All systems reviewed & are unremarkable except as noted in HPI and below Exam Narrative: Exam Narrative: Pupils equal reactive to light sclera anicteric Lungs more clear with no wheezing today CV no murmurs, regular rate Abdomen distended but soft, bowel sounds are present, no guarding or rebound Extremities without edema Neuro alert. Speech slurred Psychiatric alert and cooperative. Pleasant. Oriented to person place and year. Thought month was still November. Objective Data Vital Signs Vital Signs: Vital Signs - 24 hr 12/29/19 10:00 12/29/19 12:00 12/29/19 14:00 Temperature 99.5 F 99.6 F 99.6 F Pulse Rate 97 104 H 108 H Respiratory Rate 18 21 H 96 H Blood Pressure
--- NOTE | 2019-12-30 11:45 | PC.NURSE ---
This patient, Norm Maldonado, was received from IMU on 12/30/19 at 1145. Personal belongings list checked and signed. Patient/family oriented to unit policies and routines
--- NOTE | 2019-12-30 12:17 | PC.NURSE ---
This patient, Norm Maldonado, was transferred to [ 316 bed 1] on 12/30/19 at 1140. Personal belongings sent with patient. Belongings list checked and signed with receiving [ ]. Report given to [Rachel ]. Appropriate documentation sent with patient.
[2019-12-30 14:30] LABS: Glucose Point of Care 148 (65-105)
[2019-12-30 17:30] LABS: Glucose Point of Care 122 (65-105)
[2019-12-30] MEDS: DONEPEZIL HCL 10 MG TABLET 20 MG PO (21:03)
[2019-12-30 21:15] LABS: Glucose Point of Care 126 (65-105)
[2019-12-31] MEDS: CARBIDOPA/LEVODOPA 25/100 MG TABLET 1 TABLET PO ×4 (00:33→17:57)
[2019-12-31 06:00] VITALS: BP 127/59; PULSE 94; RESP 20; TEMP 36.8; O2SAT 95
[2019-12-31] MEDS: LEVOTHYROXINE SODIUM 50 MCG TABLET PO (06:09)
[2019-12-31 06:17] LABS: Hematocrit 25.4 % (42.0-52.0); Hemoglobin 8.1 g/dL (14.0-18.0); Mean Corpuscular HGB Conc 31.9 g/dl (32-36); Mean Corpuscular Hemoglobin 30.2 pg (26-34); Mean Corpuscular Volume 94.8 fl (80-100); Mean Platelet Volume 9.6 fl (7.4-10.4); Platelet Count Result 170 k/mm3 (150-375); Red Blood Count 2.68 M/mm3 (4.6-6.20); Red Cell Distribution Width 14.9 % (11.5-14.5); White Blood Count 7.9 K/mm3 (4.5-10.0)
[2019-12-31 06:33] LABS: Blood Urea Nitrogen 6 mg/dL (9-20); Calcium 8.7 mg/dL (8.4-10.2); Carbon Dioxide 26 mmol/L (22-30); Chloride 103 mmol/L (98-107); Estimated CRCL calculation 66 ml/min; Estimated Glomerular Filt Rate > 60; Glucose 108 mg/dL (75-110); Potassium 3.8 mmol/L (3.4-5.0); Sodium 135 mmol/L (137-145)
[2019-12-31 07:51] LABS: Glucose Point of Care 103 (65-105)
[2019-12-31 08:05] VITALS: O2SAT 95
[2019-12-31] MEDS: BENZTROPINE MESYLATE 1 MG TABLET 2 MG PO ×2 (09:59→17:00)
[2019-12-31] MEDS: HALOPERIDOL 5 MG TABLET PO ×2 (09:59→17:00)
[2019-12-31] MEDS: HEPARIN SODIUM 5,000 UNITS/ML VIAL 5000 UNITS SUB-Q ×2 (10:00→21:18)
[2019-12-31 11:29] LABS: Glucose Point of Care 106 (65-105)
[2019-12-31 12:46] LABS: Glucose Point of Care 108 (65-105)
[2019-12-31 14:28] VITALS: BP 143/46; PULSE 89; RESP 20; TEMP 36.6; O2SAT 95
--- NOTE | 2019-12-31 14:40 | PC.NURSE ---
On 12/31/19, the student, [Ashanti Smith ], provided care and completed [email or web address] documentation on this patient. I have reviewed the student's documentation and agree with the findings.
--- NOTE | 2019-12-31 16:49 | P.PNIM_ITS ---
Progress Note: A&P Assessment and Plan (1) Septic shock: Code(s): A41.9 - Sepsis, unspecified organism; R65.21 - Severe sepsis with septic shock Status: Acute Assessment and Plan: * Due to colitis * Resolved * 2/4 transfer to medical floor (2) Acute respiratory failure: Qualifiers: Respiratory failure complication: hypoxia Qualified Code(s): J96.01 - Acute respiratory failure with hypoxia Code(s): J96.00 - Acute respiratory failure, unspecified whether with hypoxia or hypercapnia Status: Acute Assessment and Plan: * Likely due to sepsis with V/Q mismatch * Improved (3) Acute encephalopathy: Code(s): G93.40 - Encephalopathy, unspecified Status: Acute Assessment and Plan: * Resolved (4) Colitis: Code(s): K52.9 - Noninfective gastroenteritis and colitis, unspecified Status: Acute Assessment and Plan: * Continue empiric treatment * 2/4 KUB improved * 2/5 improved, likely back to facility soon. (5) Macrocytic anemia: Code(s): D53.9 - Nutritional anemia, unspecified Status: Chronic Assessment and Plan: * Remained stable * Monitor (6) Acute renal failure: Qualifiers: Acute renal failure type: unspecified Qualified Code(s): N17.9 - Acute kidney failure, unspecified Code(s): N17.9 - Acute kidney failure, unspecified Status: Acute Assessment and Plan: * Likely ATN due to sepsis * Resolved (7) Diabetes: Qualifiers: Diabetes mellitus type: type 2 Diabetes mellitus intermission coordinator insulin use: without [facility] use Diabetes mellitus complication status: without complication Qualified Code(s): E11.9 - Type 2 diabetes mellitus without complications Code(s): E11.9 - Type 2 diabetes mellitus without complications Status: Chronic Assessment and Plan: * Accu-Cheks, sliding scale insulin coverage, hypoglycemia protocol. (8) COPD (chronic obstructive pulmonary disease): Qualifiers: COPD type: unspecified COPD Qualified Code(s): J44.9 - Chronic obstructive pulmonary disease, unspecified Code(s): J44.9 - Chronic obstructive pulmonary disease, unspecified Status: Chronic Assessment and Plan: * Continue oxygen therapy, bronchodilators. (9) Schizophrenia: Qualifiers: Schizophrenia type: unspecified Qualified Code(s): F20.9 - Schizophrenia, unspecified Code(s): F20.9 - Schizophrenia, unspecified Status: Chronic Assessment and Plan: * Continue psychiatric medications including Haldol (10) Parkinsons disease: Code(s): G20 - Parkinson's disease Status: Chronic Assessment and Plan: * Continue Sinemet and benztropine (11) Hypertension: Qualifiers: Hypertension type: unspecified Qualified Code(s): I10 - Essential (primary) hypertension Code(s): I10 - Essential (primary) hypertension Status: Chronic Assessment and Plan: * Monitor pressure and resume medications when appropriate Subjective Date/time seen: 12/31/19 16:49 Interval history: 2/5 feels good. Wants more solid food. Denied pain. Denies shortness of breath. Bowels move this morning. No bleeding. No urinary symptoms. Did not eat any breakfast. Review of Systems Review of Systems: All systems reviewed & are unremarkable except as noted in HPI and below Exam Narrative: Exam Narrative: Pupils equal reactive to light sclera anict
--- NOTE | 2019-12-31 16:49 | PM.IMPN ---
Progress Note: A&P Assessment and Plan (1) Septic shock: Code(s): A41.9 - Sepsis, unspecified organism; R65.21 - Severe sepsis with septic shock Status: Acute Assessment and Plan: Due to colitis Resolved 2/4 transfer to medical floor (2) Acute respiratory failure: Qualifiers: Respiratory failure complication: hypoxia Qualified Code(s): J96.01 - Acute respiratory failure with hypoxia Code(s): J96.00 - Acute respiratory failure, unspecified whether with hypoxia or hypercapnia Status: Acute Assessment and Plan: Likely due to sepsis with V/Q mismatch Improved (3) Acute encephalopathy: Code(s): G93.40 - Encephalopathy, unspecified Status: Acute Assessment and Plan: Resolved (4) Colitis: Code(s): K52.9 - Noninfective gastroenteritis and colitis, unspecified Status: Acute Assessment and Plan: Continue empiric treatment 2/4 KUB improved 2/5 improved, likely back to facility soon. (5) Macrocytic anemia: Code(s): D53.9 - Nutritional anemia, unspecified Status: Chronic Assessment and Plan: Remained stable Monitor (6) Acute renal failure: Qualifiers: Acute renal failure type: unspecified Qualified Code(s): N17.9 - Acute kidney failure, unspecified Code(s): N17.9 - Acute kidney failure, unspecified Status: Acute Assessment and Plan: Likely ATN due to sepsis Resolved (7) Diabetes: Qualifiers: Diabetes mellitus type: type 2 Diabetes mellitus skilled nursing insulin use: without joint terminal attack controller use Diabetes mellitus complication status: without complication Qualified Code(s): E11.9 - Type 2 diabetes mellitus without complications Code(s): E11.9 - Type 2 diabetes mellitus without complications Status: Chronic Assessment and Plan: Accu-Cheks, sliding scale insulin coverage, hypoglycemia protocol. (8) COPD (chronic obstructive pulmonary disease): Qualifiers: COPD type: unspecified COPD Qualified Code(s): J44.9 - Chronic obstructive pulmonary disease, unspecified Code(s): J44.9 - Chronic obstructive pulmonary disease, unspecified Status: Chronic Assessment and Plan: Continue oxygen therapy, bronchodilators. (9) Schizophrenia: Qualifiers: Schizophrenia type: unspecified Qualified Code(s): F20.9 - Schizophrenia, unspecified Code(s): F20.9 - Schizophrenia, unspecified Status: Chronic Assessment and Plan: Continue psychiatric medications including Haldol (10) Parkinsons disease: Code(s): G20 - Parkinson's disease Status: Chronic Assessment and Plan: Continue Sinemet and benztropine (11) Hypertension: Qualifiers: Hypertension type: unspecified Qualified Code(s): I10 - Essential (primary) hypertension Code(s): I10 - Essential (primary) hypertension Status: Chronic Assessment and Plan: Monitor pressure and resume medications when appropriate Subjective Date/time seen: 12/31/19 16:49 Interval history: 2/5 feels good. Wants more solid food. Denied pain. Denies shortness of breath. Bowels move this morning. No bleeding. No urinary symptoms. Did not eat any breakfast. Review of Systems Review of Systems: All systems reviewed & are unremarkable except as noted in HPI and below Exam Narrative: Exam Narrative: Pupils equal reactive to light sclera anicteric Lungs more clear with no wheezing today CV no murmurs, regular rate Abdomen distended but soft, bowel sounds are present, no guarding or rebound Extremities without edema Neuro alert. Speech slurred Psychiatric alert and cooperative. Pleasant. Oriented to person, place, year, and month. Objective Data Vital Signs Vital Signs: Vital Signs - 24 hr 12/30/19 22:00 12/31/19 06:00 12/31/19 08:05 Temperature 98.1 F 98.2 F Pulse Rate 106 H 94 Respiratory Rate
[2019-12-31 17:10] LABS: Glucose Point of Care 97 (65-105)
[2019-12-31 17:30] LABS: Chloride Rand Ur 89 mmol/L (32-290); Chloride/Creatinine Rand Ur 222 (23-275); Creatinine Random Urine 40 mg/dL (20-320)
[2019-12-31 19:56] VITALS: O2SAT 95
[2019-12-31] MEDS: DONEPEZIL HCL 10 MG TABLET 20 MG PO (21:18)
[2019-12-31 21:37] LABS: Glucose Point of Care 136 (65-105)
[2019-12-31 22:00] VITALS: BP 137/69; PULSE 115; RESP 20; TEMP 36.7; O2SAT 93
[2020-01-01] MEDS: CARBIDOPA/LEVODOPA 25/100 MG TABLET 1 TABLET PO ×5 (00:27→23:36)
[2020-01-01] MEDS: LEVOTHYROXINE SODIUM 50 MCG TABLET PO (05:53)
[2020-01-01 06:00] VITALS: BP 136/57; PULSE 104; RESP 20; TEMP 37.9; O2SAT 94
[2020-01-01 06:07] LABS: Hematocrit 28.8 % (42.0-52.0); Hemoglobin 9.1 g/dL (14.0-18.0); Mean Corpuscular HGB Conc 31.6 g/dl (32-36); Mean Corpuscular Hemoglobin 29.7 pg (26-34); Mean Corpuscular Volume 94.1 fl (80-100); Mean Platelet Volume 8.9 fl (7.4-10.4); Platelet Count Result 188 k/mm3 (150-375); Red Blood Count 3.06 M/mm3 (4.6-6.20); Red Cell Distribution Width 14.9 % (11.5-14.5); White Blood Count 8.7 K/mm3 (4.5-10.0)
[2020-01-01 06:25] LABS: Blood Urea Nitrogen 7 mg/dL (9-20); Calcium 9.2 mg/dL (8.4-10.2); Carbon Dioxide 25 mmol/L (22-30); Chloride 102 mmol/L (98-107); Estimated CRCL calculation 55 ml/min; Estimated Glomerular Filt Rate > 60; Glucose 120 mg/dL (75-110); Sodium 136 mmol/L (137-145)
[2020-01-01 08:58] VITALS: PULSE 107; RESP 16; O2SAT 96
[2020-01-01] MEDS: BENZTROPINE MESYLATE 1 MG TABLET 2 MG PO ×2 (09:00→17:11)
[2020-01-01] MEDS: HALOPERIDOL 5 MG TABLET PO ×2 (09:00→17:11)
[2020-01-01] MEDS: HEPARIN SODIUM 5,000 UNITS/ML VIAL 5000 UNITS SUB-Q ×2 (09:01→22:00)
[2020-01-01] MEDS: POTASSIUM CHLORIDE 20 MEQ TABLET 40 MEQ PO ×2 (09:10→17:11)
[2020-01-01 09:40] LABS: Glucose Point of Care 106 (65-105)
[2020-01-01 12:59] LABS: Glucose Point of Care 131 (65-105)
[2020-01-01 14:00] VITALS: BP 120/54; PULSE 92; RESP 18; TEMP 36.4; O2SAT 95
--- NOTE | 2020-01-01 15:41 | P.PNIM_ITS ---
Progress Note: A&P Assessment and Plan (1) Septic shock: Code(s): A41.9 - Sepsis, unspecified organism; R65.21 - Severe sepsis with septic shock Status: Acute Assessment and Plan: * Due to colitis * Resolved * 2/4 transfer to medical floor (2) Acute respiratory failure: Qualifiers: Respiratory failure complication: hypoxia Qualified Code(s): J96.01 - Acute respiratory failure with hypoxia Code(s): J96.00 - Acute respiratory failure, unspecified whether with hypoxia or hypercapnia Status: Acute Assessment and Plan: * Likely due to sepsis with V/Q mismatch * Improved (3) Acute encephalopathy: Code(s): G93.40 - Encephalopathy, unspecified Status: Acute Assessment and Plan: * Resolved (4) Colitis: Code(s): K52.9 - Noninfective gastroenteritis and colitis, unspecified Status: Acute Assessment and Plan: * Continue empiric treatment * 2/4 KUB improved * 2/5 improved, likely back to facility soon. * 2/ continues to improve, anticipate discharge 01/02 if improvement continues (5) Macrocytic anemia: Code(s): D53.9 - Nutritional anemia, unspecified Status: Chronic Assessment and Plan: * Remained stable * Monitor (6) Acute renal failure: Qualifiers: Acute renal failure type: unspecified Qualified Code(s): N17.9 - Acute kidney failure, unspecified Code(s): N17.9 - Acute kidney failure, unspecified Status: Acute Assessment and Plan: * Likely ATN due to sepsis * Resolved (7) Diabetes: Qualifiers: Diabetes mellitus type: type 2 Diabetes mellitus fci insulin use: without fci use Diabetes mellitus complication status: without complication Qualified Code(s): E11.9 - Type 2 diabetes mellitus without complications Code(s): E11.9 - Type 2 diabetes mellitus without complications Status: Chronic Assessment and Plan: * Accu-Cheks, sliding scale insulin coverage, hypoglycemia protocol. (8) COPD (chronic obstructive pulmonary disease): Qualifiers: COPD type: unspecified COPD Qualified Code(s): J44.9 - Chronic obstructive pulmonary disease, unspecified Code(s): J44.9 - Chronic obstructive pulmonary disease, unspecified Status: Chronic Assessment and Plan: * Continue oxygen therapy, bronchodilators. (9) Schizophrenia: Qualifiers: Schizophrenia type: unspecified Qualified Code(s): F20.9 - Schizophrenia, unspecified Code(s): F20.9 - Schizophrenia, unspecified Status: Chronic Assessment and Plan: * Continue psychiatric medications including Haldol (10) Parkinsons disease: Code(s): G20 - Parkinson's disease Status: Chronic Assessment and Plan: * Continue Sinemet and benztropine (11) Hypertension: Qualifiers: Hypertension type: unspecified Qualified Code(s): I10 - Essential (primary) hypertension Code(s): I10 - Essential (primary) hypertension Status: Chronic Assessment and Plan: * Monitor pressure and resume medications when appropriate Subjective Date/time seen: 01/01/20 15:41 Interval history: Feels better. Mild diarrhea. Tolerating diet. No n/v. No chest pain or sob. Mild abomdinal cramps. Exam Narrative: Exam Narrative: Pupils equal reactive to light sclera anicteric Lungs more clear with no wheezing today CV no murmurs, regular rate Abdomen distended but soft, bowel sounds are present, mild
--- NOTE | 2020-01-01 15:41 | PM.IMPN ---
Progress Note: A&P Assessment and Plan (1) Septic shock: Code(s): A41.9 - Sepsis, unspecified organism; R65.21 - Severe sepsis with septic shock Status: Acute Assessment and Plan: Due to colitis Resolved 2/ transfer to medical floor (2) Acute respiratory failure: Qualifiers: Respiratory failure complication: hypoxia Qualified Code(s): J96.01 - Acute respiratory failure with hypoxia Code(s): J96.00 - Acute respiratory failure, unspecified whether with hypoxia or hypercapnia Status: Acute Assessment and Plan: Likely due to sepsis with V/Q mismatch Improved (3) Acute encephalopathy: Code(s): G93.40 - Encephalopathy, unspecified Status: Acute Assessment and Plan: Resolved (4) Colitis: Code(s): K52.9 - Noninfective gastroenteritis and colitis, unspecified Status: Acute Assessment and Plan: Continue empiric treatment 2/ KUB improved 2/ improved, likely back to facility soon. 2 continues to improve, anticipate discharge 01/02 if improvement continues (5) Macrocytic anemia: Code(s): D53.9 - Nutritional anemia, unspecified Status: Chronic Assessment and Plan: Remained stable Monitor (6) Acute renal failure: Qualifiers: Acute renal failure type: unspecified Qualified Code(s): N17.9 - Acute kidney failure, unspecified Code(s): N17.9 - Acute kidney failure, unspecified Status: Acute Assessment and Plan: Likely ATN due to sepsis Resolved (7) Diabetes: Qualifiers: Diabetes mellitus type: type 2 Diabetes mellitus electric deicer assembler insulin use: without electric deicer assembler use Diabetes mellitus complication status: without complication Qualified Code(s): E11.9 - Type 2 diabetes mellitus without complications Code(s): E11.9 - Type 2 diabetes mellitus without complications Status: Chronic Assessment and Plan: Accu-Cheks, sliding scale insulin coverage, hypoglycemia protocol. (8) COPD (chronic obstructive pulmonary disease): Qualifiers: COPD type: unspecified COPD Qualified Code(s): J44.9 - Chronic obstructive pulmonary disease, unspecified Code(s): J44.9 - Chronic obstructive pulmonary disease, unspecified Status: Chronic Assessment and Plan: Continue oxygen therapy, bronchodilators. (9) Schizophrenia: Qualifiers: Schizophrenia type: unspecified Qualified Code(s): F20.9 - Schizophrenia, unspecified Code(s): F20.9 - Schizophrenia, unspecified Status: Chronic Assessment and Plan: Continue psychiatric medications including Haldol (10) Parkinsons disease: Code(s): G20 - Parkinson's disease Status: Chronic Assessment and Plan: Continue Sinemet and benztropine (11) Hypertension: Qualifiers: Hypertension type: unspecified Qualified Code(s): I10 - Essential (primary) hypertension Code(s): I10 - Essential (primary) hypertension Status: Chronic Assessment and Plan: Monitor pressure and resume medications when appropriate Subjective Date/time seen: 01/01/20 15:41 Interval history: Feels better. Mild diarrhea. Tolerating diet. No n/v. No chest pain or sob. Mild abomdinal cramps. Exam Narrative: Exam Narrative: Pupils equal reactive to light sclera anicteric Lungs more clear with no wheezing today CV no murmurs, regular rate Abdomen distended but soft, bowel sounds are present, mild diffuse tenderness, no guarding or rebound Extremities without edema Neuro alert. Speech slurred Psychiatric alert and cooperative. Pleasant. Oriented to person, place, year, and month. Objective Data Vital Signs Vital Signs: Vital Signs - 24 hr 12/31/19 19:56 12/31/19 22:00 01/01/20 06:00 Temperature 98.0 F 100.3 F H Pulse Rate 115 H 104 H Respiratory Rate 20 20 Blood Pressure 137/69 136/57 L Pulse Oximetry 95 93 94 01/01/20
[2020-01-01 18:00] LABS: Glucose Point of Care 121 (65-105)
[2020-01-01 22:00] VITALS: BP 144/69; PULSE 103; RESP 18; TEMP 37.4; O2SAT 95
[2020-01-01] MEDS: DONEPEZIL HCL 10 MG TABLET 20 MG PO (22:00)
[2020-01-01 22:17] LABS: Glucose Point of Care 108 (65-105)
--- NOTE | 2020-01-02 02:09 | PCRCNOTE ---
Window of time for administration has passed. See next scheduled administration.
[2020-01-02 04:44] LABS: Hemoglobin 8.2 g/dL (14.0-18.0); Mean Corpuscular HGB Conc 31.5 g/dl (32-36); Mean Corpuscular Volume 95.2 fl (80-100); Mean Platelet Volume 9.2 fl (7.4-10.4); Platelet Count Result 177 k/mm3 (150-375); Red Blood Count 2.73 M/mm3 (4.6-6.20)
[2020-01-02 04:56] LABS: Blood Urea Nitrogen 7 mg/dL (9-20); Carbon Dioxide 26 mmol/L (22-30); Chloride 104 mmol/L (98-107); Estimated CRCL calculation 51 ml/min; Estimated Glomerular Filt Rate > 60; Glucose 111 mg/dL (75-110); Potassium 3.4 mmol/L (3.4-5.0); Sodium 137 mmol/L (137-145)
[2020-01-02] MEDS: LEVOTHYROXINE SODIUM 50 MCG TABLET PO (05:18)
[2020-01-02] MEDS: CARBIDOPA/LEVODOPA 25/100 MG TABLET 1 TABLET PO ×3 (05:18→17:29)
[2020-01-02 05:58] VITALS: BP 115/66; PULSE 99; RESP 18; TEMP 36.7; O2SAT 94
[2020-01-02] MEDS: HEPARIN SODIUM 5,000 UNITS/ML VIAL 5000 UNITS SUB-Q (08:54)
[2020-01-02] MEDS: BENZTROPINE MESYLATE 1 MG TABLET 2 MG PO ×2 (08:55→17:29)
[2020-01-02] MEDS: HALOPERIDOL 5 MG TABLET PO ×2 (08:55→17:30)
[2020-01-02 09:02] LABS: Glucose Point of Care 103 (65-105)
--- NOTE | 2020-01-02 10:47 | P.DS_ITS ---
DS: Diagnosis Admitting Diagnosis Admitting Diagnosis: Sepsis, unspecified organism Discharge Diagnosis (1) Septic shock: Code(s): A41.9 - Sepsis, unspecified organism; R65.21 - Severe sepsis with septic shock Status: Acute Assessment and Plan: * Due to colitis * Resolved * 2/4 transfer to medical floor (2) Acute respiratory failure: Qualifiers: Respiratory failure complication: hypoxia Qualified Code(s): J96.01 - Acute respiratory failure with hypoxia Code(s): J96.00 - Acute respiratory failure, unspecified whether with hypoxia or hypercapnia Status: Acute Assessment and Plan: * Likely due to sepsis with V/Q mismatch * Improved (3) Acute encephalopathy: Code(s): G93.40 - Encephalopathy, unspecified Status: Acute Assessment and Plan: * Resolved (4) Colitis: Code(s): K52.9 - Noninfective gastroenteritis and colitis, unspecified Status: Acute Assessment and Plan: * Continue empiric treatment * 2/4 KUB improved * 2/5 improved, likely back to facility soon. * 2/ continues to improve, anticipate discharge 2 if improvement continues (5) Macrocytic anemia: Code(s): D53.9 - Nutritional anemia, unspecified Status: Chronic Assessment and Plan: * Remained stable * Monitor (6) Acute renal failure: Qualifiers: Acute renal failure type: unspecified Qualified Code(s): N17.9 - Acute kidney failure, unspecified Code(s): N17.9 - Acute kidney failure, unspecified Status: Acute Assessment and Plan: * Likely ATN due to sepsis * Resolved (7) Diabetes: Qualifiers: Diabetes mellitus complication status: without complication Diabetes mellitus buttermaker insulin use: without mcfp use Diabetes mellitus type: type 2 Qualified Code(s): E11.9 - Type 2 diabetes mellitus without complications Code(s): E11.9 - Type 2 diabetes mellitus without complications Status: Chronic Assessment and Plan: * Accu-Cheks, sliding scale insulin coverage, hypoglycemia protocol. (8) COPD (chronic obstructive pulmonary disease): Qualifiers: COPD type: unspecified COPD Qualified Code(s): J44.9 - Chronic obstructive pulmonary disease, unspecified Code(s): J44.9 - Chronic obstructive pulmonary disease, unspecified Status: Chronic Assessment and Plan: * Continue oxygen therapy, bronchodilators. (9) Schizophrenia: Qualifiers: Schizophrenia type: unspecified Qualified Code(s): F20.9 - Schizophrenia, unspecified Code(s): F20.9 - Schizophrenia, unspecified Status: Chronic Assessment and Plan: * Continue psychiatric medications including Haldol (10) Parkinsons disease: Code(s): G20 - Parkinson's disease Status: Chronic Assessment and Plan: * Continue Sinemet and benztropine (11) Hypertension: Qualifiers: Hypertension type: unspecified Qualified Code(s): I10 - Essential (primary) hypertension Code(s): I10 - Essential (primary) hypertension Status: Chronic Assessment and Plan: * Monitor pressure and resume medications when appropriate DS: Summary Hospital Course Reason for hospitalization: Septic shock Hospital Course: Patient presented with septic shock. Found to have colitis by imaging. Treated with IV Zosyn and bowel rest. Diet was advanced. He tolerated well. Diarrhea was down to maximum of 3 stools per day. By day of discharge he was at his baseli
--- NOTE | 2020-01-02 10:47 | PM.DS ---
DS: Diagnosis Admitting Diagnosis Admitting Diagnosis: Sepsis, unspecified organism Discharge Diagnosis (1) Septic shock: Code(s): A41.9 - Sepsis, unspecified organism; R65.21 - Severe sepsis with septic shock Status: Acute Assessment and Plan: Due to colitis Resolved 2/ transfer to medical floor (2) Acute respiratory failure: Qualifiers: Respiratory failure complication: hypoxia Qualified Code(s): J96.01 - Acute respiratory failure with hypoxia Code(s): J96.00 - Acute respiratory failure, unspecified whether with hypoxia or hypercapnia Status: Acute Assessment and Plan: Likely due to sepsis with V/Q mismatch Improved (3) Acute encephalopathy: Code(s): G93.40 - Encephalopathy, unspecified Status: Acute Assessment and Plan: Resolved (4) Colitis: Code(s): K52.9 - Noninfective gastroenteritis and colitis, unspecified Status: Acute Assessment and Plan: Continue empiric treatment 2 KUB improved 2 improved, likely back to facility soon. 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 (8) COPD (chronic obstructive pulmonary disease): Qualifiers: COPD type: unspecified COPD Qualified Code(s): J44.9 - Chronic obstructive pulmonary disease, unspecified Code(s): J44.9 - Chronic obstructive pulmonary disease, unspecified Status: Chronic Assessment and Plan: Continue oxygen therapy, bronchodilators. (9) Schizophrenia: Qualifiers: Schizophrenia type: unspecified Qualified Code(s): F20.9 - Schizophrenia, unspecified Code(s): F20.9 - Schizophrenia, unspecified Status: Chronic Assessment and Plan: Continue psychiatric medications including Haldol (10) Parkinsons disease: Code(s): G20 - Parkinson's disease Status: Chronic Assessment and Plan: Continue Sinemet and benztropine (11) Hypertension: Qualifiers: Hypertension type: unspecified Qualified Code(s): I10 - Essential (primary) hypertension Code(s): I10 - Essential (primary) hypertension Status: Chronic Assessment and Plan: Monitor pressure and resume medications when appropriate DS: Summary Hospital Course Reason for hospitalization: Septic shock Hospital Course: Patient presented with septic shock. Found to have colitis by imaging. Treated with IV Zosyn and bowel rest. Diet was advanced. He tolerated well. Diarrhea was down to maximum of 3 stools per day. By day of discharge he was at his baseline mental status and baseline functional status. He was tolerating his diet. Status at Discharge Functional status at discharge: wheelchair bound Overall status at discharge: patient is back to baseline Time Spent with Patient Time attestation: Total time spent providing and/or coordinating discharge services: 35 minutes Time spent: Greater than 30 minutes Exam Narrative: Exam Narrative: Pupils equal reactive to light scler
[2020-01-02 12:19] LABS: Glucose Point of Care 109 (65-105)
[2020-01-02] MEDS: NEOMYCIN/POLYMYXIN/BACITRACIN OINTMENT PACKET 1 PACKET (13:22)
[2020-01-02 15:03] VITALS: BP 115/50; PULSE 85; RESP 16; TEMP 37; O2SAT 95
== END 2020-01-02 17:45 | DRG 871 ==
LOC: ANHED 20:06 → ANHICU 23:50 → ANH3MEDSUR 12-30 22:12 → ANHICU 01-05 13:33
PROVIDERS: Internal Medicine; Internal Medicine Critical Care Medicine; Admitting Provider Family Medicine; Emergency Provider Emergency Medicine; Visit Provider Internal Medicine
DX: A41.9 Sepsis, unspecified organism (principal); R65.21 Severe sepsis with septic shock; J96.01 Acute respiratory failure with hypoxia; N17.0 Acute kidney failure with tubular necrosis; G93.41 Metabolic encephalopathy; K52.9 Noninfective gastroenteritis and colitis, unspecified; J44.9 Chronic obstructive pulmonary disease, unspecified; F20.9 Schizophrenia, unspecified; G20 Parkinson's disease; I10 Essential (primary) hypertension; E03.9 Hypothyroidism, unspecified; E11.9 Type 2 diabetes mellitus without complications; M19.90 Unspecified osteoarthritis, unspecified site; D53.9 Nutritional anemia, unspecified; G40.909 Epilepsy, unspecified, not intractable, without status epilepticus; F41.8 Other specified anxiety disorders; E87.5 Hyperkalemia
CPT/HCPCS: 36415; 36556; 36600; 51701; 70450; 71045; 74018; 74176; 76775; 80048; 80053; 81001; 82436; 82570; 82805; 83605; 83690; 83735; 84100; 84133; 84300; 84436; 84439; 84443; 84480; 85025; 85027; 85610; 85730; 85999; 86140; 86850; 86900; 86901; 87040; 87045; 87046; 87081; 87086; 87324; 87427; 89055; 93005; 94640; 96361; 96365; 96366; 96375; 97110; 97161; 97165; 99291; A9270; C1751; J1644; J1815; J2543; J7030; J7120

== ENCOUNTER 2020-03-23 12:58 | Inpatient (IN) | payer MEDICARE, MEDICAID, SELFPAY ==
[2020-03-23] VITALS (12 sets, daily range): BP systolic 73–174; BP diastolic 51–116; PULSE 58–100; RESP 14–20; TEMP 36.4; O2SAT 95–100; BMI 27.5
--- NOTE | ~2020-03-23 | XR_ITS ---
XR chest 1V portable 03/28/2020 08:13 Indication: Pneumonia Procedure: AP portable chest Comparison: Comparison to multiple prior studies sequentially, with oldest reviewed study dated 01/2020. Findings: Persistent mixed interstitial and airspace disease predominantly affecting the lung bases, left greater than right. No significant pleural effusion. No pneumothorax. Chronic granulomatous dise ase noted in the mediastinum. No acute osseous abnormality. Impression: 1: No significant change to mixed interstitial and airspace disease predominantly affecting the lower lungs, compatible with pneumonia. Possible superimposed pulmonary fibrosis. Reviewed, dictated and finalized at location A. Impression: 1: No significant change to mixed interstitial and airspace disease predominant ly affecting the lower lungs, compatible with pneumonia. Possible superimposed pulmonary fibrosis.
--- NOTE | ~2020-03-23 | XR_ITS ---
XR foot LT 2V 03/27/2020 12:39 Indication: Painful left foot Procedure: 2 views left foot Comparison: No prior studies for comparison. Findings: Diffuse osteopenia. Extensive arterial calcifications. Demineralization limits evaluation f or subtle nondisplaced fractures. No gross fracture or malalignment. Lisfranc joint appears to be int act. No erosive changes are identified. No focal soft tissue abnormality. No foreign bodies. 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 Impression: 1: No acute bone or joint abnormality. Reviewed, dictated and finalized at location A. Impression: 1: No acute bone or joint abnormality.
--- NOTE | ~2020-03-23 | XR_ITS ---
XR chest 1V portable 03/23/2020 13:49 Indication: Lethargy. Patient unresponsive. Procedure: AP portable chest Comparison: 12/29/2019 Findings: Cardiomegaly. Bibasilar airspace disease. There is a calcified mediastinal lymph nodes cons istent with chronic granulomatous disease. Possible small effusion. No pneumothorax. Impression: 1: Bibasilar airspace disease, left greater than right, suspicious for pneumonia. Edema less favored. 2: Cardiomegaly. Reviewed, dictated and finalized at location A. Impression: 1: Bibasilar airspace disease, left greater than right, suspicious for pneumoni a. Edema less favored. 2: Cardiomegaly.
--- NOTE | ~2020-03-23 | XR_ITS ---
XR chest 1V portable DATE: 03/25/2020 10:07 INDICATION: Pneumonia TECHNIQUE: Portable upright AP chest on 03/25/2020 at 0952 hours COMPARISON: 03/23/2020 portable upright AP chest 12/27/2019 portable AP chest 03/01/2018 two-view chest FINDINGS: There are increased interstitial markings including bilateral Rayo B-lines and evidence o f bronchiectasis, favoring the lower lung zones. The findings are likely due to chronic interstitial fibrotic changes. Superimposed interstitial edema is not excluded. The minor fissure appears prominen t which might be secondary to subpleural edema. There is pulmonary vascular redistribution. There may be very slight pleural effusions. Clinical correlation is advised. There may be mild atelectasis at the right lung base. No pulmonary consolidation is evident. Heart size appears borderline. There is aortic calcification and unfolding. The chin superimposes partially the apices, obscuring these areas. Diffuse idiopathic skeletal hyperostosis of the thoracic spine. Diffuse osteopenia. IMPRESSION: Chronic interstitial fibrotic changes and probable bronchiectasis of the lungs, predomina ting in the lower lung zones and superimposed pulmonary interstitial edema secondary to congestive ch anges is not excluded. Reviewed, dictated and finalized at location A. IMPRESSION: Chronic interstitial fibrotic changes and probable bronchiectasis o f the lungs, predominating in the lower lung zones and superimposed pulmonary i nterstitial edema secondary to congestive changes is not excluded.
--- NOTE | 2020-03-23 13:01 | ECG_ITS ---
Measurements Intervals [place] Rate: 74 P: 37 [place]: 199 QRS: -18 QRSD: 97 T: 125 QT: 371 QTc: 412 Interpretive Statements SINUS RHYTHM VOLTAGE CRITERIA FOR LVH NONSPECIFIC ST & T-WAVE ABNORMALITY- DIFFUSE LEADS BORDERLINE ECG Electronically Signed On 03-23-2020 17:41:32 CDT by Haseeb Hoff D.O.
[2020-03-23 13:33] LABS: Eosinophils Percent Auto 0.2 % (0-4.4); Hematocrit 35.2 % (42.0-52.0); Hemoglobin 10.9 g/dL (14.0-18.0); Immature Granulocyte Absolute 0.01 K/mm3 (0.00-0.031); Immature Granulocyte Percent A 0.2 % (0-0.5); Lymphocytes Absolute Auto 1.86 K/mm3 (0.9-3.2); Mean Corpuscular Hemoglobin 29.5 pg (26-34); Mean Corpuscular Volume 95.1 fl (80-100); Mean Platelet Volume 9.3 fl (7.4-10.4); Monocytes Absolute Auto 0.3 K/mm3 (0.1-0.6); Monocytes Percent Auto 7.5 % (2.6-8.5); Neutrophils Absolute Auto 2.3 K/mm3 (1.3-6.7); Neutrophils Percent Auto 51.1 % (45.5-73.1); Platelet Count Result 168 k/mm3 (150-375); Red Cell Distribution Width 13.8 % (11.5-14.5); White Blood Count 4.5 K/mm3 (4.5-10.0)
[2020-03-23 13:42] LABS: Prothrombin Time 12.7 Seconds (11.1-14.7)
[2020-03-23 13:45] LABS: Alanine Aminotransferase 14 U/L (4-50); Albumin Level 4.1 g/dL (3.5-5.1); Alkaline Phosphatase 76 U/L (38-126); Aspartate Amino Transferase 23 U/L (17-59); Bilirubin,Total 0.3 mg/dL (0.2-1.3); Blood Urea Nitrogen 16 mg/dL (9-20); Calcium 9.2 mg/dL (8.4-10.2); Carbon Dioxide 25 mmol/L (22-30); Chloride 105 mmol/L (98-107); Estimated CRCL calculation 58 ml/min; Estimated Glomerular Filt Rate 59; Glucose 119 mg/dL (75-110); Lipase 67 U/L (23-300); Potassium 4.3 mmol/L (3.4-5.0); Sodium 139 mmol/L (137-145)
[2020-03-23 13:57] LABS: Troponin I < 0.012 ng/mL (0.000-0.034)
[2020-03-23] MEDS: SODIUM CHLORIDE 0.9% IV 1,000 ML 999 ML IV CONT (14:49)
[2020-03-23] MEDS: SODIUM CHLORIDE 0.9% IV 1,000 ML 500 ML (14:49)
--- NOTE | 2020-03-23 15:11 | ED.GENADULT ---
HPI - General Adult General Chief complaint: Unspecified Stated complaint: alteredLOC History of Present Illness HPI narrative: Patient is an 79-year-old male who presents to the ER from his retirement due to having an episode of acute confusion with hypotension. In route patient has become oriented x3 and has had some normal blood pressures. Patient reports he is got some mild lower abdominal discomfort due to constipation. He is denying having fevers or chills or sweats or difficulty breathing. Patient seems to have inability to move himself around and the chart shows a has some chronic muscle wasting. Related Data Home Medications Medication Instructions Recorded Confirmed Latuda 120 mg PO DAILY 12/27/19 12/28/19 Metamucil Fiber Singles 1 packet PO BID PRN 12/27/19 12/28/19 acetaminophen 650 mg PO BID 12/27/19 12/28/19 aspirin 81 mg PO DAILY 12/27/19 12/28/19 benztropine 2 mg PO BID 12/27/19 12/28/19 bisacodyl 10 mg MN DAILY PRN 12/27/19 12/28/19 carbidopa-levodopa 1 tablet PO Q6H 12/27/19 12/28/19 cyanocobalamin (vitamin B-12) 1,000 mcg IM MONTHLY 12/27/19 12/28/19 donepezil 20 mg PO HS 12/27/19 12/28/19 ergocalciferol (vitamin D2) 50,000 unit PO MONTHLY 12/27/19 12/28/19 [Vitamin D2] famotidine 20 mg PO DAILY 12/27/19 12/28/19 fluticasone propion-salmeterol 1 inh INHALATION BID 12/27/19 12/28/19 [Advair Diskus] gabapentin 300 mg PO BID 12/27/19 12/28/19 haloperidol 5 mg PO BID 12/27/19 12/28/19 levothyroxine 50 mcg PO DAILY 12/27/19 12/28/19 loperamide 2 mg PO PRN PRN 12/27/19 12/28/19 magnesium hydroxide [Milk of 30 ml PO DAILY PRN 12/27/19 12/28/19 Magnesia] metoprolol succinate 50 mg PO DAILY 12/27/19 12/28/19 montelukast 10 mg PO DAILY 12/27/19 12/28/19 nortriptyline 25 mg PO HS 12/27/19 12/28/19 trazodone 25 mg PO HS 12/27/19 12/28/19 Preparation H Maximum Strength 1 applic MN QID PRN 12/28/19 12/28/19 acetaminophen 650 mg PO Q6H PRN MDD 3gram 12/28/19 12/28/19 Allergies Allergy/AdvReac Type Severity Reaction Status Date / Time No Known Allergies Allergy Verified 03/23/20 16:00 Review of Systems Review of Systems: All systems reviewed & are unremarkable except as noted in HPI and below ROS unobtainable: Yes other (Limited due to mental health disorder) Constitutional: Constitutional: Denies chills, Denies fever(s) and Reports weakness (chronic) ENT: Denies nasal congestion and Denies sore throat Cardiovascular: Cardiovascular: Denies chest pain and Denies radiating jaw, neck or arm pain Respiratory: Respiratory: Denies chest congestion, Denies cough and Denies dyspnea Gastrointestinal: Gastrointestinal: Reports abdominal pain, Reports constipation, Denies nausea and Denies vomiting [facility] Social History Social History Smoking status: Former smoker Smoking end date: 11/26/97 Alcohol intake: unknown Substance use: unknown Gender identity (if verbalized by the patient): Male Exam Narrative: Exam Narrative: GENERAL: Chronically ill-appearing, morbidly obese, and in no acute distress. HEAD: Normocephalic, atraumatic. ENT: Mucous membranes moist. CHEST: Clear to auscultation. No respiratory distress. HEART: Regular rate and rhythm. Normal peripheral pulses. ABDOMEN: Soft, mild lower abdominal discomfort without rebound or guarding, nondistended, normal active bowel sounds. SKIN: Warm, dry, no rash. NEURO: No focal deficits. Alert and oriented x3. PSYCH: Normal mood and affect. Course Course Emergency Course: Concern for pneumonia on chest x-ray, given hypotension at retirement and some hypotension here that has improved with IV fluid would like to observe the patient overnight and give IV antibiotics. Discussed with hospitalist service who is accepted the patient. Vital Signs Vital signs: Vital Signs Temperature 97.6 F 03/23/20 13:06 Pulse Rate 77 03/23/20 13:06 Respiratory Rate 20 03/23/20 13:06 Blood Pressur
[2020-03-23 15:20] LABS: Add Urine Microscopic? YES; Appearance Urine Clear (Clear); Bilirubin Urine Negative (Negative); Blood Urine Negative (Negative); Color Urine Yellow (Yellow); Glucose Urine UA Negative (Negative); Ketones Urine Negative (Negative); Leukocyte Esterase Ur Negative LEU/UL (Negative); Mucus Urine Rare /lpf; Nitrate Urine Negative (Negative); Protein Urine Negative (Negative); RBC Urine 0-2 /hpf (0-2); Specific Grav Ur 1.015 (1.001-1.035); WBC Urine 0-3 /hpf
[2020-03-23 17:04] LABS: Troponin I < 0.012 ng/mL (0.000-0.034)
--- NOTE | 2020-03-23 17:04 | ECG_ITS ---
Measurements Intervals [place] Rate: 34 P: [place]: 0 QRS: -14 QRSD: 98 T: 143 QT: 535 QTc: 405 Interpretive Statements SINUS BRADYCARDIA WITH SECOND DEGREE AV BLOCK, TYPE I ([place]) VOLTAGE CRITERIA FOR LVH T WAVE ABNORMALITY IN HIGH LATERAL LEADS- CONSIDER ISCHEMIA ABNORMAL ECG Electronically Signed On 03-23-2020 17:47:23 CDT by Haseeb Hoff D.O.
--- NOTE | 2020-03-23 17:10 | ECG_ITS ---
Measurements Intervals [place] Rate: 88 P: 31 [place]: 204 QRS: -14 QRSD: 93 T: 107 QT: 391 QTc: 475 Interpretive Statements SINUS RHYTHM BORDERLINE AV CONDUCTION DELAY CONSIDER INFERIOR INFARCT, AGE INDETERMINATE BORDERLINE T WAVE ABNORMALITY- LATERAL LEADS ABNORMAL ECG Electronically Signed On 03-23-2020 17:44:30 CDT by Haseeb Hoff D.O.
--- NOTE | 2020-03-23 17:17 | PC.NURSE ---
0.5mg atropine given per verbal order by Dr. Boyle at 1707 for HR of 27.
--- NOTE | 2020-03-23 18:57 | ADMGEN ---
This patient, Norm Maldonado, was admitted to Intensive Care Unit-3 at 1857. Patient/family oriented to hospital policies and general routines including ID bracelet, bed and alarms, visiting hours, pain management, procedures, bathroom and other care routines, personal items, smoking policy, room service/diet, and visiting hours. Valuables list has been completed. Information on how to activate the Rapid Response Team has been discussed. Patient/Family are encouraged to report perceived risks to care and to ask questions if they do not understand what they are told or what they should do.
--- NOTE | 2020-03-23 20:32 | PM.IMHP ---
H&P: HPI History of Present Illness Chief complaint: pneumonia Narrative: Norm Maldonado is a 79 year old male resides at a long term [facility]. The patient had an acute episode of confusion with hypotension. EN route the patient became orientated x3 and had normal blood pressure at that time. Patient had some lower abdominal discomfort due to constipation. No fever no chills no cough. Patient became hypotensive here and had a prolonged p.r. interval the patient also became bradycardic. The patient was admitted into ICU as a IMU step-down. The patient was also cyst checked for covid 19. Bibasilar airspace disease, left greater than right suspicious for pneumonia. Edema less favored. Cardiomegaly. Patient was started on a Zithromax and Rocephin. Of a covid 19 swab was obtained. Patient was placed on isolation. CRP an LDH have not been monitor. Date of service 03/23/2020 Review of Systems Review of Systems: Narrative: The patient has a history of schizophrenia. He is difficult to understand because he does not have his teeth in at this time. All systems reviewed & are unremarkable except as noted in HPI and below Constitutional: Constitutional: Reports as per HPI and Reports no additional constitutional complaints Eyes: Eyes: Reports as per HPI and Reports no additional eye complaints ENT: Reports system reviewed and no additional complaints, except as documented and Reports Normal hearing present Cardiovascular: Cardiovascular: Reports no additional cardiovascular complaints Respiratory: Respiratory: Reports no additional respiratory complaints and Reports no additional respiratory complaints Gastrointestinal: Gastrointestinal: Reports as per HPI and Reports no additional gastrointestinal complaints Musculoskeletal: Musculoskeletal: Reports no additional musculoskeletal complaints Integumentary/Breasts: Skin/Breast: Reports system reviewed and no additional complaints, except as docu and Reports as per HPI Neurologic: Reports system reviewed and no additional complaints, except as documented, Reports as per HPI and Reports Normal hearing present Psychiatric: Psychiatric: Reports no additional psychiatric complaints and Reports as per HPI Endocrine: Endocrine: Reports no additional endocrine complaints Hematologic/Lymphatic: Hematologic/Lymphatic: Reports no additional hematologic/lymphatic complaints Allergic/Immunologic: Allergic/Immunologic: Reports no additional allergic/immunologic complaints [facility] Surgical History Surgical History No pertinent past surgical history Family History Family History Mother Renal failure Father Asbestos exposure Sibling Liver cancer Lung cancer Social History Social History (Updated 03/23/20 @ 20:46 by Lina Griffith NP) Social History: He is from [facility]. He stated he was never and never had any children. He is a full code. Smoking status: Former smoker Smoking end date: 11/26/97 Alcohol intake: unknown Substance use: unknown Living arrangements: long term Occupation/Education: retired Gender identity (if verbalized by the patient): Male Spiritual care concerns: No Meds Home Medications and Allergies Home Medications Medication Instructions Recorded Confirmed Type Latuda 120 mg PO DAILY 12/27/19 12/28/19 History Metamucil Fiber Singles 1 packet PO BID PRN 12/27/19 12/28/19 History acetaminophen 650 mg PO BID 12/27/19 12/28/19 History aspirin 81 mg PO DAILY 12/27/19 12/28/19 History benztropine 2 mg PO BID 12/27/19 12/28/19 History bisacodyl 10 mg NM DAILY PRN 12/27/19 12/28/19 History carbidopa-levodopa 1 tablet PO Q6H 12/27/19 12/28/19 History cyanocobalamin (vitamin B-12) 1,000 mcg IM MONTHLY 12/27/19 12/28/19 History donepezil 20 mg PO HS 12/27/19 12/28/19
[2020-03-23 21:16] LABS: Troponin I < 0.012 ng/mL (0.000-0.034)
[2020-03-23] MEDS: hydrALAZINE HCL 20 MG/ML VIAL 10 MG IV PUSH (21:42)
[2020-03-23] MEDS: BENZTROPINE MESYLATE 1 MG TABLET 2 MG PO (21:42)
[2020-03-23] MEDS: GABAPENTIN 300 MG CAPSULE PO (21:43)
[2020-03-23] MEDS: TRAZODONE HCL 50 MG TABLET 25 MG PO (21:43)
[2020-03-23] MEDS: HALOPERIDOL 5 MG TABLET PO (21:43)
[2020-03-23] MEDS: NORTRIPTYLINE HCL 25 MG CAPSULE PO (21:43)
[2020-03-23] MEDS: CARBIDOPA/LEVODOPA 25/100 MG TABLET 1 TABLET PO (21:43)
[2020-03-24] VITALS (9 sets, daily range): BP systolic 127–167; BP diastolic 56–113; PULSE 59–83; RESP 13–23; TEMP 35.9–37.1; O2SAT 96–100
[2020-03-24] MEDS: LEVOTHYROXINE SODIUM 75 MCG TABLET PO (05:41)
[2020-03-24] MEDS: hydrALAZINE HCL 20 MG/ML VIAL 10 MG IV PUSH (06:30)
[2020-03-24 06:53] LABS: Potassium 3.9 mmol/L (3.4-5.0)
[2020-03-24 06:58] LABS: Albumin Level 3.8 g/dL (3.5-5.1); Alkaline Phosphatase 73 U/L (38-126); Aspartate Amino Transferase 22 U/L (17-59); Bilirubin,Total 0.3 mg/dL (0.2-1.3); Blood Urea Nitrogen 14 mg/dL (9-20); CRP 2.1 mg/dL (<1.0); Calcium 8.8 mg/dL (8.4-10.2); Carbon Dioxide 21 mmol/L (22-30); Chloride 108 mmol/L (98-107); Estimated CRCL calculation 57 ml/min; Estimated Glomerular Filt Rate > 60; Glucose 109 mg/dL (75-110); Lactate Dehydrogenase 378 U/L (313-618); Magnesium 2.1 mg/dL (1.6-2.3); Sodium 138 mmol/L (137-145)
[2020-03-24 07:01] LABS: Eosinophils Percent Auto 0.2 % (0-4.4); Hematocrit 34.1 % (42.0-52.0); Hemoglobin 10.9 g/dL (14.0-18.0); Immature Granulocyte Absolute 0.03 K/mm3 (0.00-0.031); Immature Granulocyte Percent A 0.6 % (0-0.5); Lymphocytes Absolute Auto 1.64 K/mm3 (0.9-3.2); Lymphocytes Percent Auto 32.5 % (18.3-44.2); Mean Corpuscular Hemoglobin 29.8 pg (26-34); Mean Corpuscular Volume 93.2 fl (80-100); Mean Platelet Volume 9.2 fl (7.4-10.4); Monocytes Absolute Auto 0.4 K/mm3 (0.1-0.6); Monocytes Percent Auto 8.5 % (2.6-8.5); Neutrophils Absolute Auto 2.9 K/mm3 (1.3-6.7); Neutrophils Percent Auto 58.2 % (45.5-73.1); Platelet Count Result 170 k/mm3 (150-375); Red Blood Count 3.66 M/mm3 (4.6-6.20); Red Cell Distribution Width 13.7 % (11.5-14.5); White Blood Count 5.1 K/mm3 (4.5-10.0)
[2020-03-24 08:15] LABS: Alanine Aminotransferase < 4 U/L (4-50)
[2020-03-24] MEDS: BENZTROPINE MESYLATE 1 MG TABLET 2 MG PO ×2 (09:04→21:15)
[2020-03-24] MEDS: FAMOTIDINE 20 MG TABLET PO (09:05)
[2020-03-24] MEDS: GABAPENTIN 300 MG CAPSULE PO ×2 (09:05→21:15)
[2020-03-24] MEDS: HALOPERIDOL 5 MG TABLET PO ×2 (09:05→21:16)
[2020-03-24] MEDS: CARBIDOPA/LEVODOPA 25/100 MG TABLET 1 TABLET PO ×4 (09:05→21:15)
[2020-03-24] MEDS: MONTELUKAST SODIUM 10 MG TABLET PO (09:06)
[2020-03-24] MEDS: ASPIRIN 81 MG CHEWABLE TABLET PO (09:06)
[2020-03-24 09:28] LABS: Glucose Point of Care 112 (65-105)
[2020-03-24 09:43] LABS: Free T4 Free Thyroxine Reflex 0.71 ng/dL (0.78-2.19)
[2020-03-24] MEDS: ENOXAPARIN 100 MG/ML SYRINGE 85 MG SUB-Q (13:00)
[2020-03-24 13:42] LABS: Glucose Point of Care 132 (65-105)
--- NOTE | 2020-03-24 15:05 | PCDIET ---
This patient, Norm Maldonado, was transferred to [ [id number]] on 03/24/20 at 1505. Personal belongings sent with patient. Belongings list checked and signed with receiving [ ]. Report given to [LEE Enrique ]. Appropriate documentation sent with patient.
--- NOTE | 2020-03-24 15:09 | PM.IMPN ---
Progress Note: A&P Assessment and Plan (1) Hypotensive episode: Code(s): I95.9 - Hypotension, unspecified Status: Acute Assessment and Plan: The patient's blood pressure is now elevated so will do p.r.n. hydralazine. 03/24/20 15:09 Patient is elderly resident of [facility] was sent to emergency department as he was most confused and was found to have hypotension as well as bradycardia, patient was found to have pneumonia, however there was a concern the patient may have COVID-19 as he is elderly and may have atypical response his CRP is slightly elevated his D-dimer is slightly elevated however his lymphocytes are normal range chest x-ray does not show significant concern for COVID-19 most importantly does not have fever, however his elderly resident of [facility] may have atypical presentation, will keep the patient isolated with droplet precaution, therefore patient was seen but not examined. Patient has a elevated D-dimer there is a concern the patient may be positive for COVID-19 and COVID-19 is known to hypercoagulable state will start the patient on Lovenox will stop once COVID-19 is negative (2) Bradycardia: Code(s): R00.1 - Bradycardia, unspecified Status: Acute Assessment and Plan: Will hold metoprolol for today. Reassess tomorrow. (3) Pneumonia: Code(s): J18.9 - Pneumonia, unspecified organism Status: Acute Assessment and Plan: The patient is to been treated with azithromycin and Rocephin. Sputum cultures pending. Patient is being checked for covid 19. Continue with albuterol inhaler and Advair. (4) Schizophrenia: Qualifiers: Schizophrenia type: unspecified Qualified Code(s): F20.9 - Schizophrenia, unspecified Code(s): F20.9 - Schizophrenia, unspecified Status: Chronic Assessment and Plan: Continue with Latuda, trazodone, Haldol, and nortriptyline (5) Hypothyroid: Qualifiers: Hypothyroidism type: unspecified Qualified Code(s): E03.9 - Hypothyroidism, unspecified Code(s): E03.9 - Hypothyroidism, unspecified Status: Chronic Assessment and Plan: Continue with levothyroxine and check thyroid level. (6) Hypertension: Qualifiers: Hypertension type: unspecified Qualified Code(s): I10 - Essential (primary) hypertension Code(s): I10 - Essential (primary) hypertension Status: Chronic Assessment and Plan: P.r.n. hydralazine with holding the metoprolol for tonight. (7) COPD (chronic obstructive pulmonary disease): Qualifiers: COPD type: unspecified COPD Qualified Code(s): J44.9 - Chronic obstructive pulmonary disease, unspecified Code(s): J44.9 - Chronic obstructive pulmonary disease, unspecified Status: Chronic Assessment and Plan: Continue with Advair and albuterol treatments. Continue with Singulair. (8) Parkinsons disease: Code(s): G20 - Parkinson's disease Status: Chronic Assessment and Plan: Continue with Aricept Subjective Date/time seen: 03/24/20 15:09 Patient is elderly resident [facility] was sent to emergency department as he was most confused and was found to have hypotension as well as bradycardia, patient was found to have pneumonia, however there was a concern the patient may have COVID-19 as he is elderly and may have atypical response his CRP is slightly elevated his D-dimer is slightly elevated however his lymphocytes are normal range chest x-ray does not show significant concern for COVID-19 most importantly does not have fever, however his elderly resident of [facility] may have atypical presentation, will keep the patient isolated with droplet precaution, therefore patient was seen but not examined. Review of Systems Review of Systems: ROS unobtainable: Yes unobtainable due to medical condition Exam Narrative: Exam Narrative: Elderly frail temperature is 96.7 pulse is 60 respiratory
[2020-03-24] MEDS: NORTRIPTYLINE HCL 25 MG CAPSULE PO (21:16)
[2020-03-24] MEDS: TRAZODONE HCL 50 MG TABLET 25 MG PO (21:17)
[2020-03-24 21:53] LABS: Glucose Point of Care 125 (65-105)
[2020-03-25 02:00] VITALS: BP 125/66; PULSE 60; RESP 16; TEMP 36.4; O2SAT 97
[2020-03-25 06:00] VITALS: BP 148/68; PULSE 61; RESP 20; TEMP 36.4; O2SAT 97
[2020-03-25] MEDS: LEVOTHYROXINE SODIUM 75 MCG TABLET PO (07:01)
[2020-03-25 08:06] LABS: Basophils Percent Auto 0.2 % (0.2-1.2); Hematocrit 33.8 % (42.0-52.0); Hemoglobin 10.7 g/dL (14.0-18.0); Immature Granulocyte Absolute 0.05 K/mm3 (0.00-0.031); Lymphocytes Absolute Auto 1.63 K/mm3 (0.9-3.2); Lymphocytes Percent Auto 32.1 % (18.3-44.2); Mean Corpuscular HGB Conc 31.7 g/dl (32-36); Mean Corpuscular Hemoglobin 29.6 pg (26-34); Mean Corpuscular Volume 93.4 fl (80-100); Mean Platelet Volume 10.1 fl (7.4-10.4); Monocytes Absolute Auto 0.5 K/mm3 (0.1-0.6); Monocytes Percent Auto 8.9 % (2.6-8.5); Neutrophils Absolute Auto 2.9 K/mm3 (1.3-6.7); Neutrophils Percent Auto 57.8 % (45.5-73.1); Platelet Count Result 178 k/mm3 (150-375); Red Blood Count 3.62 M/mm3 (4.6-6.20); Red Cell Distribution Width 13.9 % (11.5-14.5); White Blood Count 5.1 K/mm3 (4.5-10.0)
[2020-03-25 08:18] LABS: Albumin Level 3.8 g/dL (3.5-5.1); Alkaline Phosphatase 67 U/L (38-126); Aspartate Amino Transferase 25 U/L (17-59); Bilirubin,Total 0.4 mg/dL (0.2-1.3); Blood Urea Nitrogen 15 mg/dL (9-20); Calcium 8.9 mg/dL (8.4-10.2); Carbon Dioxide 26 mmol/L (22-30); Chloride 106 mmol/L (98-107); Estimated CRCL calculation 52 ml/min; Estimated Glomerular Filt Rate > 60; Glucose 106 mg/dL (75-110); Potassium 4.8 mmol/L (3.4-5.0); Sodium 139 mmol/L (137-145)
[2020-03-25 08:20] LABS: Alanine Aminotransferase < 6 U/L (4-50)
[2020-03-25] MEDS: ASPIRIN 81 MG CHEWABLE TABLET PO (08:37)
[2020-03-25] MEDS: FAMOTIDINE 20 MG TABLET PO (08:37)
[2020-03-25] MEDS: GABAPENTIN 300 MG CAPSULE PO ×2 (08:38→22:22)
[2020-03-25] MEDS: CARBIDOPA/LEVODOPA 25/100 MG TABLET 1 TABLET PO ×4 (08:38→22:21)
[2020-03-25] MEDS: BENZTROPINE MESYLATE 1 MG TABLET 2 MG PO ×2 (08:38→22:21)
[2020-03-25] MEDS: HALOPERIDOL 5 MG TABLET PO ×2 (08:38→22:22)
[2020-03-25] MEDS: MONTELUKAST SODIUM 10 MG TABLET PO (08:39)
[2020-03-25 10:00] VITALS: BP 110/61; PULSE 83; RESP 20; TEMP 36.7; O2SAT 98
[2020-03-25 10:42] LABS: D Dimer 0.73 ug/mL (<0.48)
[2020-03-25 12:00] VITALS: BP 109/56; PULSE 92; RESP 18; TEMP 36.4; O2SAT 96
--- NOTE | 2020-03-25 16:08 | PM.IMPN ---
Progress Note: A&P Assessment and Plan (1) Hypotensive episode: Code(s): I95.9 - Hypotension, unspecified Status: Acute Assessment and Plan: The patient's blood pressure is now elevated so will do p.r.n. hydralazine. 03/25/20 16:08 [facility] is [facility] was sent to emergency department as he was most confused and was found to have hypotension as well as bradycardia, patient was found to have pneumonia, however there was a concern the patient may have COVID-19 as he is elderly and may have atypical response his CRP is slightly elevated his D-dimer is slightly elevated however his lymphocytes are normal range chest x-ray does not show significant concern for COVID-19 most importantly does not have fever, however his [facility] may have atypical presentation, will keep the patient isolated with droplet precaution, therefore patient was seen but not examined. Patient has a elevated D-dimer there is a concern the patient may be positive for COVID-19 and COVID-19 is known to hypercoagulable state will start the patient on Lovenox will stop once COVID-19 is negative, today still quite confused and unable to provide any ROS. (2) Bradycardia: Code(s): R00.1 - Bradycardia, unspecified Status: Acute Assessment and Plan: Will hold metoprolol for today. Reassess tomorrow. (3) Pneumonia: Code(s): J18.9 - Pneumonia, unspecified organism Status: Acute Assessment and Plan: The patient is to been treated with azithromycin and Rocephin. Sputum cultures pending. Patient is being checked for covid 19. Continue with albuterol inhaler and Advair. (4) Schizophrenia: Qualifiers: Schizophrenia type: unspecified Qualified Code(s): F20.9 - Schizophrenia, unspecified Code(s): F20.9 - Schizophrenia, unspecified Status: Chronic Assessment and Plan: Continue with Latuda, trazodone, Haldol, and nortriptyline (5) Hypothyroid: Qualifiers: Hypothyroidism type: unspecified Qualified Code(s): E03.9 - Hypothyroidism, unspecified Code(s): E03.9 - Hypothyroidism, unspecified Status: Chronic Assessment and Plan: Continue with levothyroxine and check thyroid level. (6) Hypertension: Qualifiers: Hypertension type: unspecified Qualified Code(s): I10 - Essential (primary) hypertension Code(s): I10 - Essential (primary) hypertension Status: Chronic Assessment and Plan: P.r.n. hydralazine with holding the metoprolol for tonight. (7) COPD (chronic obstructive pulmonary disease): Qualifiers: COPD type: unspecified COPD Qualified Code(s): J44.9 - Chronic obstructive pulmonary disease, unspecified Code(s): J44.9 - Chronic obstructive pulmonary disease, unspecified Status: Chronic Assessment and Plan: Continue with Advair and albuterol treatments. Continue with Singulair. (8) Parkinsons disease: Code(s): G20 - Parkinson's disease Status: Chronic Assessment and Plan: Continue with Aricept Subjective Date/time seen: 03/25/20 16:08 [facility] is [facility] was [facility] to [facility] department as he was most confused and was found to have hypotension as well as bradycardia, patient was found to have pneumonia, however there was a concern the patient may have COVID-19 as he is elderly and may have atypical response his CRP is slightly elevated his D-dimer is slightly elevated however his lymphocytes are normal range chest x-ray does not show significant concern for COVID-19 most importantly does not have fever, however his [facility] may have atypical presentation, will keep the patient isolated with droplet precaution, therefore patient was seen but not examined. Patient has a elevated D-dimer there is a concern the patient may be positive for COVID-19 and COVID-19 is known to hypercoagulable s
[2020-03-25 18:00] VITALS: BP 137/63; PULSE 87; RESP 18; TEMP 36.4; O2SAT 98
[2020-03-25 22:00] VITALS: BP 131/89; PULSE 88; RESP 18; TEMP 36.3; O2SAT 99
[2020-03-25] MEDS: NORTRIPTYLINE HCL 25 MG CAPSULE PO (22:22)
[2020-03-25] MEDS: TRAZODONE HCL 50 MG TABLET 25 MG PO (22:23)
[2020-03-26] VITALS (8 sets, daily range): BP systolic 115–142; BP diastolic 51–78; PULSE 73–118; RESP 16–20; TEMP 36.5–36.7; O2SAT 95–100
[2020-03-26 06:07] LABS: Eosinophils Percent Auto 0.4 % (0-4.4); Hematocrit 31.1 % (42.0-52.0); Immature Granulocyte Absolute 0.01 K/mm3 (0.00-0.031); Immature Granulocyte Percent A 0.2 % (0-0.5); Lymphocytes Percent Auto 45.4 % (18.3-44.2); Mean Corpuscular HGB Conc 32.2 g/dl (32-36); Mean Corpuscular Hemoglobin 29.7 pg (26-34); Mean Corpuscular Volume 92.3 fl (80-100); Mean Platelet Volume 9.4 fl (7.4-10.4); Monocytes Absolute Auto 0.4 K/mm3 (0.1-0.6); Monocytes Percent Auto 8.4 % (2.6-8.5); Neutrophils Absolute Auto 2.1 K/mm3 (1.3-6.7); Neutrophils Percent Auto 45.6 % (45.5-73.1); Platelet Count Result 178 k/mm3 (150-375); Red Blood Count 3.37 M/mm3 (4.6-6.20); White Blood Count 4.6 K/mm3 (4.5-10.0)
[2020-03-26 06:21] LABS: Albumin Level 3.5 g/dL (3.5-5.1); Alkaline Phosphatase 65 U/L (38-126); Aspartate Amino Transferase 23 U/L (17-59); Bilirubin,Total 0.2 mg/dL (0.2-1.3); Blood Urea Nitrogen 13 mg/dL (9-20); Carbon Dioxide 28 mmol/L (22-30); Chloride 103 mmol/L (98-107); Estimated CRCL calculation 44 ml/min; Estimated Glomerular Filt Rate > 60; Glucose 101 mg/dL (75-110); Potassium 4.2 mmol/L (3.4-5.0); Sodium 137 mmol/L (137-145)
[2020-03-26 06:30] LABS: Alanine Aminotransferase < 6 U/L (4-50)
[2020-03-26] MEDS: LEVOTHYROXINE SODIUM 75 MCG TABLET PO (06:37)
[2020-03-26 08:03] LABS: SARS-CoV-2 RNA PCR Negative
[2020-03-26] MEDS: ASPIRIN 81 MG CHEWABLE TABLET PO (08:32)
[2020-03-26] MEDS: ERGOCALCIFEROL 50,000 UNIT CAPSULE 50000 UNITS PO (08:32)
[2020-03-26] MEDS: CARBIDOPA/LEVODOPA 25/100 MG TABLET 1 TABLET PO ×4 (08:32→20:56)
[2020-03-26] MEDS: BENZTROPINE MESYLATE 1 MG TABLET 2 MG PO ×2 (08:32→20:55)
[2020-03-26] MEDS: HALOPERIDOL 5 MG TABLET PO ×2 (08:33→20:56)
[2020-03-26] MEDS: MONTELUKAST SODIUM 10 MG TABLET PO (08:33)
[2020-03-26] MEDS: FAMOTIDINE 20 MG TABLET PO (08:33)
[2020-03-26] MEDS: GABAPENTIN 300 MG CAPSULE PO ×2 (08:33→20:56)
[2020-03-26] MEDS: CYANOCOBALAMIN INJ 1,000 MCG/ML VIAL 1000 MCG IM (08:33)
--- NOTE | 2020-03-26 13:15 | ECG_ITS ---
Measurements Intervals [place] Rate: 86 P: 57 VT: 199 QRS: -8 QRSD: 94 T: 137 QT: 396 QTc: 475 Interpretive Statements SINUS RHYTHM DELAYED PRECORDIAL R/S TRANSITION T WAVE ABNORMALITY IN HIGH LATERAL LEADS- CONSIDER ISCHEMIA BASELINE ARTIFACT- V5 ABNORMAL ECG Electronically Signed On 03-26-2020 13:52:43 CDT by Haseeb Hoff D.O.
--- NOTE | 2020-03-26 13:48 | PM.IMPN ---
Progress Note: A&P Assessment and Plan (1) Hypotensive episode: Code(s): I95.9 - Hypotension, unspecified Status: Acute Assessment and Plan: BP 87/51 at presentation. Several other soft blood pressures recorded. He then had an elevated reading at 174/116 so prn hydralazine was added. However, he has become hypotensive again. Continue to hold metoprolol Continue to monitor blood pressures Q6H. Stop prn hydralazine and monitor blood pressure trends (2) Bradycardia: Code(s): R00.1 - Bradycardia, unspecified Status: Acute Assessment and Plan: Patient had bradycardia at presentation and was noted to have second degree AV block type I. Cardiology notified per ED documentation but no consult has been made. Initially admitted to IMU but stepped down to 3 medsurg. Subsequent EKG did not reveal AV block. It is possible that this event was related to a vagal response. Monitor patient on telemetry for 24 hours. Repeat EKG Continue to hold metoprolol. Will need to consider reduction of metoprolol by 50% or discontinuing metoprolol at discharge (3) Pneumonia: Code(s): J18.9 - Pneumonia, unspecified organism Status: Acute Assessment and Plan: CXR revealed bibasilar airspace disease suspicious for pneumonia. COVID-19 was negative. Patient endorses cough. He has been afebrile and without leukocytosis. He has maintained adequate oxygen saturations without supplemental O2. Continue Azithromycin and Rocephin. Continue albuterol MDI Continue to monitor oxygen saturation and vitals (4) Schizophrenia: Qualifiers: Schizophrenia type: unspecified Qualified Code(s): F20.9 - Schizophrenia, unspecified Code(s): F20.9 - Schizophrenia, unspecified Status: Chronic Assessment and Plan: Appears stable. Continue with Latuda, trazodone, Haldol, and nortriptyline (5) Hypothyroid: Qualifiers: Hypothyroidism type: unspecified Qualified Code(s): E03.9 - Hypothyroidism, unspecified Code(s): E03.9 - Hypothyroidism, unspecified Status: Chronic Assessment and Plan: TSH within normal limits. Continue with levothyroxine (6) Hypertension: Qualifiers: Hypertension type: unspecified Qualified Code(s): I10 - Essential (primary) hypertension Code(s): I10 - Essential (primary) hypertension Status: Chronic Assessment and Plan: Patient has a history of HTN but has had hypotensive episodes as above. Continue to hold metoprolol Continue to monitor blood pressure trend. 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 There is no A1c noted in EMR. He notes a history of peripheral neuropathy and complains of numbness and tingling to his left foot. Initiate accu-checks ACHS, SSI, and hypoglycemic protocol Continue gabapentin Obtain A1c Continue gabapentin (8) COPD (chronic obstructive pulmonary disease): Qualifiers: COPD type: unspecified COPD Qualified Code(s): J44.9 - Chronic obstructive pulmonary disease, unspecified Code(s): J44.9 - Chronic obstructive pulmonary disease, unspecified Status: Chronic Assessment and Plan: Stable. Does not appear to be in exacerbation. 99% on room air. Continue with Advair, albuterol, and singulair. (9) Parkinsons disease: Code(s): G20 - Parkinson's disease Status: Chronic Assess
[2020-03-26 17:47] LABS: Glucose Point of Care 95 (65-105)
[2020-03-26 17:50] LABS: Hemoglobin A1C 6.1 % (<5.7)
[2020-03-26] MEDS: NORTRIPTYLINE HCL 25 MG CAPSULE PO (20:56)
[2020-03-26 21:45] LABS: Glucose Point of Care 98 (65-105)
[2020-03-27] VITALS (14 sets, daily range): BP systolic 112–154; BP diastolic 49–71; PULSE 68–103; RESP 16–20; TEMP 36.4–37; O2SAT 93–97
[2020-03-27] MEDS: LEVOTHYROXINE SODIUM 75 MCG TABLET PO (05:34)
[2020-03-27 07:08] LABS: Hematocrit 31.3 % (42.0-52.0); Hemoglobin 9.9 g/dL (14.0-18.0); Immature Granulocyte Absolute 0.01 K/mm3 (0.00-0.031); Immature Granulocyte Percent A 0.2 % (0-0.5); Lymphocytes Absolute Auto 2.31 K/mm3 (0.9-3.2); Mean Corpuscular HGB Conc 31.6 g/dl (32-36); Mean Corpuscular Hemoglobin 29.7 pg (26-34); Mean Platelet Volume 10.3 fl (7.4-10.4); Monocytes Absolute Auto 0.5 K/mm3 (0.1-0.6); Monocytes Percent Auto 10.2 % (2.6-8.5); Neutrophils Absolute Auto 2.1 K/mm3 (1.3-6.7); Neutrophils Percent Auto 42.6 % (45.5-73.1); Platelet Count Result 180 k/mm3 (150-375); Red Blood Count 3.33 M/mm3 (4.6-6.20); Red Cell Distribution Width 14.1 % (11.5-14.5); White Blood Count 4.9 K/mm3 (4.5-10.0)
[2020-03-27 07:24] LABS: Albumin Level 3.6 g/dL (3.5-5.1); Alkaline Phosphatase 64 U/L (38-126); Aspartate Amino Transferase 24 U/L (17-59); Bilirubin,Total 0.2 mg/dL (0.2-1.3); Blood Urea Nitrogen 16 mg/dL (9-20); Calcium 9.1 mg/dL (8.4-10.2); Carbon Dioxide 26 mmol/L (22-30); Chloride 102 mmol/L (98-107); Estimated CRCL calculation 49 ml/min; Estimated Glomerular Filt Rate > 60; Glucose 102 mg/dL (75-110); Potassium 4.2 mmol/L (3.4-5.0); Sodium 135 mmol/L (137-145)
[2020-03-27] MEDS: BENZTROPINE MESYLATE 1 MG TABLET 2 MG PO ×2 (07:37→20:09)
[2020-03-27] MEDS: CARBIDOPA/LEVODOPA 25/100 MG TABLET 1 TABLET PO ×4 (07:37→20:09)
[2020-03-27] MEDS: HALOPERIDOL 5 MG TABLET PO ×2 (07:37→20:09)
[2020-03-27] MEDS: FAMOTIDINE 20 MG TABLET PO (07:38)
[2020-03-27] MEDS: GABAPENTIN 300 MG CAPSULE PO ×2 (07:39→20:09)
[2020-03-27] MEDS: MONTELUKAST SODIUM 10 MG TABLET PO (07:40)
[2020-03-27] MEDS: ASPIRIN 81 MG CHEWABLE TABLET PO (07:41)
[2020-03-27 07:42] LABS: Alanine Aminotransferase < 6 U/L (4-50)
[2020-03-27 11:59] LABS: Glucose Point of Care 129 (65-105)
--- NOTE | 2020-03-27 14:53 | PM.IMPN ---
Progress Note: A&P Assessment and Plan (1) Hypotensive episode: Code(s): I95.9 - Hypotension, unspecified Status: Acute Assessment and Plan: BP 87/51 at presentation. Several other soft blood pressures recorded. He then had an elevated reading at 174/116 so prn hydralazine was added. However, he has become hypotensive again. Continue to hold metoprolol Continue to monitor blood pressures Q6H. Stop prn hydralazine and monitor blood pressure trends Patient is elderly resident of shelter was sent to emergency department as he was most confused and was found to have hypotension as well as bradycardia, patient was found to have pneumonia, however there was a concern the patient may have COVID-19 as he is elderly and may have atypical response his CRP is slightly elevated his D-dimer is slightly elevated however his lymphocytes are normal range chest x-ray does not show significant concern for COVID-19 most importantly does not have fever, however his elderly resident of shelter may have atypical presentation, will keep the patient isolated with droplet precaution, therefore patient was seen but not examined. Patient has a elevated D-dimer there is a concern the patient may be positive for COVID-19 and COVID-19 is known to hypercoagulable state will start the patient on Lovenox will stop once COVID-19 is negative, on 03/26 patient was found to have COVID-19 negative, today is able to provide some ROS denies any cough or shrotness of breath, does c/o pain in left foot unable to say what happened, left midfoot is tender, x-ray of the did not show any injury, metoprolol is still on hold, patient HR and BP are in normal range, will monitor and plan. (2) Bradycardia: Code(s): R00.1 - Bradycardia, unspecified Status: Acute Assessment and Plan: Patient had bradycardia at presentation and was noted to have second degree AV block type I. Cardiology notified per ED documentation but no consult has been made. Initially admitted to IMU but stepped down to 3 medsurg. Subsequent EKG did not reveal AV block. It is possible that this event was related to a vagal response. Monitor patient on telemetry for 24 hours. Repeat EKG Continue to hold metoprolol. Will need to consider reduction of metoprolol by 50% or discontinuing metoprolol at discharge (3) Pneumonia: Code(s): J18.9 - Pneumonia, unspecified organism Status: Acute Assessment and Plan: CXR revealed bibasilar airspace disease suspicious for pneumonia. COVID-19 was negative. Patient endorses cough. He has been afebrile and without leukocytosis. He has maintained adequate oxygen saturations without supplemental O2. Continue Azithromycin and Rocephin. Continue albuterol MDI Continue to monitor oxygen saturation and vitals (4) Schizophrenia: Qualifiers: Schizophrenia type: unspecified Qualified Code(s): F20.9 - Schizophrenia, unspecified Code(s): F20.9 - Schizophrenia, unspecified Status: Chronic Assessment and Plan: Appears stable. Continue with Latuda, trazodone, Haldol, and nortriptyline (5) Hypothyroid: Qualifiers: Hypothyroidism type: unspecified Qualified Code(s): E03.9 - Hypothyroidism, unspecified Code(s): E03.9 - Hypothyroidism, unspecified Status: Chronic Assessment and Plan: TSH within normal limits. Continue with levothyroxine (6) Hypertension: Qualifiers: Hypertension type: unspecified Qualified Code(s): I10 - Essential (primary) hypertension Code(s): I10 - Essential (primary) hypertension Status: Chronic Assessment and Plan: Patient has a history of HTN but has had hypotensive episodes as above. Continue to hold metoprolol Continue to monitor blood pressure trend. 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
[2020-03-27 18:39] LABS: Glucose Point of Care 130 (65-105)
[2020-03-27] MEDS: NORTRIPTYLINE HCL 25 MG CAPSULE PO (20:09)
[2020-03-27 21:37] LABS: Glucose Point of Care 87 (65-105)
[2020-03-28] VITALS (8 sets, daily range): BP systolic 122–153; BP diastolic 59–63; PULSE 70–95; RESP 16–20; TEMP 36.4–36.8; O2SAT 95–98
[2020-03-28 06:18] LABS: Eosinophils Percent Auto 0.2 % (0-4.4); Hematocrit 31.7 % (42.0-52.0); Hemoglobin 10.1 g/dL (14.0-18.0); Immature Granulocyte Absolute 0.01 K/mm3 (0.00-0.031); Immature Granulocyte Percent A 0.2 % (0-0.5); Lymphocytes Absolute Auto 1.83 K/mm3 (0.9-3.2); Lymphocytes Percent Auto 44.9 % (18.3-44.2); Mean Corpuscular HGB Conc 31.9 g/dl (32-36); Mean Corpuscular Hemoglobin 29.9 pg (26-34); Mean Corpuscular Volume 93.8 fl (80-100); Mean Platelet Volume 9.4 fl (7.4-10.4); Monocytes Absolute Auto 0.4 K/mm3 (0.1-0.6); Monocytes Percent Auto 9.8 % (2.6-8.5); Neutrophils Absolute Auto 1.8 K/mm3 (1.3-6.7); Neutrophils Percent Auto 44.9 % (45.5-73.1); Platelet Count Result 171 k/mm3 (150-375); Red Blood Count 3.38 M/mm3 (4.6-6.20); Red Cell Distribution Width 13.8 % (11.5-14.5); White Blood Count 4.1 K/mm3 (4.5-10.0)
[2020-03-28 06:41] LABS: Albumin Level 3.7 g/dL (3.5-5.1); Alkaline Phosphatase 64 U/L (38-126); Aspartate Amino Transferase 22 U/L (17-59); Bilirubin,Total 0.2 mg/dL (0.2-1.3); Blood Urea Nitrogen 17 mg/dL (9-20); Calcium 9.6 mg/dL (8.4-10.2); Carbon Dioxide 32 mmol/L (22-30); Chloride 100 mmol/L (98-107); Estimated CRCL calculation 50 ml/min; Estimated Glomerular Filt Rate > 60; Glucose 99 mg/dL (75-110); Potassium 4.5 mmol/L (3.4-5.0); Sodium 136 mmol/L (137-145)
[2020-03-28] MEDS: LEVOTHYROXINE SODIUM 75 MCG TABLET PO (07:00)
[2020-03-28 07:07] LABS: Glucose Point of Care 94 (65-105)
[2020-03-28 08:17] LABS: Alanine Aminotransferase < 12 U/L (4-50)
[2020-03-28] MEDS: ASPIRIN 81 MG CHEWABLE TABLET PO (09:52)
[2020-03-28] MEDS: HALOPERIDOL 5 MG TABLET PO (09:52)
[2020-03-28] MEDS: CARBIDOPA/LEVODOPA 25/100 MG TABLET 1 TABLET PO ×2 (09:52→12:28)
[2020-03-28] MEDS: FAMOTIDINE 20 MG TABLET PO (09:53)
[2020-03-28] MEDS: GABAPENTIN 300 MG CAPSULE PO (09:53)
[2020-03-28] MEDS: MONTELUKAST SODIUM 10 MG TABLET PO (09:53)
[2020-03-28] MEDS: BENZTROPINE MESYLATE 1 MG TABLET 2 MG PO (09:53)
[2020-03-28] MEDS: AMLODIPINE BESYLATE 2.5 MG TABLET PO (09:55)
--- NOTE | 2020-03-28 11:31 | PM.DS ---
DS: Diagnosis Admitting Diagnosis Admitting Diagnosis: Pneumonia, unspecified organism Discharge Diagnosis (1) Hypotensive episode: Code(s): I95.9 - Hypotension, unspecified Status: Acute Assessment and Plan: BP 87/51 at presentation. Several other soft blood pressures recorded. He then had an elevated reading at 174/116 so prn hydralazine was added. However, he has become hypotensive again. Continue to hold metoprolol Continue to monitor blood pressures Q6H. Stop prn hydralazine and monitor blood pressure trends Patient is [facility] was sent to emergency department as he was most confused and was found to have hypotension as well as bradycardia, patient was found to have pneumonia, however there was a concern the patient may have COVID-19 as he is elderly and may have atypical response his CRP is slightly elevated his D-dimer is slightly elevated however his lymphocytes are normal range chest x-ray does not show significant concern for COVID-19 most importantly does not have fever, however his [facility] may have atypical presentation, will keep the patient isolated with droplet precaution, therefore patient was seen but not examined. Patient has a elevated D-dimer there is a concern the patient may be positive for COVID-19 and COVID-19 is known to hypercoagulable state will start the patient on Lovenox will stop once COVID-19 is negative, on 03/26 patient was found to have COVID-19 negative, today is able to provide some ROS denies any cough or shrotness of breath, does c/o pain in left foot unable to say what happened, left midfoot is tender, x-ray of the did not show any injury, metoprolol is still on hold, patient HR and BP are in normal range, will monitor and plan. (2) Bradycardia: Code(s): R00.1 - Bradycardia, unspecified Status: Acute Assessment and Plan: Patient had bradycardia at presentation and was noted to have second degree AV block type I. Cardiology notified per ED documentation but no consult has been made. Initially admitted to IMU but stepped down to 3 medsurg. Subsequent EKG did not reveal AV block. It is possible that this event was related to a vagal response. Monitor patient on telemetry for 24 hours. Repeat EKG Continue to hold metoprolol. Will need to consider reduction of metoprolol by 50% or discontinuing metoprolol at discharge (3) Pneumonia: Code(s): J18.9 - Pneumonia, unspecified organism Status: Acute Assessment and Plan: CXR revealed bibasilar airspace disease suspicious for pneumonia. COVID-19 was negative. Patient endorses cough. He has been afebrile and without leukocytosis. He has maintained adequate oxygen saturations without supplemental O2. Continue Azithromycin and Rocephin. Continue albuterol MDI Continue to monitor oxygen saturation and vitals (4) Schizophrenia: Qualifiers: Schizophrenia type: unspecified Qualified Code(s): F20.9 - Schizophrenia, unspecified Code(s): F20.9 - Schizophrenia, unspecified Status: Chronic Assessment and Plan: Appears stable. Continue with Latuda, trazodone, Haldol, and nortriptyline (5) Hypothyroid: Qualifiers: Hypothyroidism type: unspecified Qualified Code(s): E03.9 - Hypothyroidism, unspecified Code(s): E03.9 - Hypothyroidism, unspecified Status: Chronic Assessment and Plan: TSH within normal limits. Continue with levothyroxine (6) Hypertension: Qualifiers: Hypertension type: unspecified Qualified Code(s): I10 - Essential (primary) hypertension Code(s): I10 - Essential (primary) hypertension Status: Chronic Assessment and Plan: Patient has a history of HTN but has had hypotensive episodes as above. Continue to hold metoprolol Continue to monitor blood pressure trend. (7) Diabetes: Qualifiers: Diabetes qamar
[2020-03-28 12:35] LABS: Glucose Point of Care 93 (65-105)
[2020-03-28 12:35] LABS: Glucose Point of Care 107 (65-105)
== END 2020-03-28 15:00 | DRG 195 ==
LOC: ANHED 17:21 → ANHICU 18:05 → ANH3MEDSUR 03-24 14:46
PROVIDERS: Emergency Medicine; Nurse Practitioner; Physician Assistant; Admitting Provider Internal Medicine; Emergency Provider Emergency Medicine; Visit Provider Family Medicine
DX: J18.9 Pneumonia, unspecified organism (principal); Z20.828 Contact with and (suspected) exposure to other viral communicable diseases; I95.9 Hypotension, unspecified; R00.1 Bradycardia, unspecified; F20.9 Schizophrenia, unspecified; E03.9 Hypothyroidism, unspecified; G20 Parkinson's disease; E66.01 Morbid (severe) obesity due to excess calories; I10 Essential (primary) hypertension; I44.1 Atrioventricular block, second degree; E11.9 Type 2 diabetes mellitus without complications
CPT/HCPCS: 36415; 71045; 73620; 80053; 81001; 83036; 83615; 83690; 83735; 84439; 84443; 84484; 85025; 85380; 85610; 86140; 87040; 87635; 93005; 94640; 96365; 96368; 96375; 96376; 99285; A9270; G0378; J0360; J0456; J0696; J1650; J3420; J7030; U0003

== ENCOUNTER 2020-08-11 16:04 | Emergency (ER) | payer MEDICARE, MEDICAID, SELFPAY ==
[2020-08-11] VITALS (14 sets, daily range): BP systolic 117–204; BP diastolic 62–99; PULSE 61–70; RESP 14–21; TEMP 36.4; O2SAT 100
--- NOTE | ~2020-08-11 | XR_ITS ---
EXAMINATION: XR foot LT min 3V DATE: 08/11/2020 17:23 INDICATION: Pain at the base of the fifth metatarsal. TECHNIQUE: Dorsoplantar, oblique and lateral views of the left foot were obtained. 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 Alignment is normal. Promi nent diffuse osteopenia which decreases sensitivity for nondisplaced fracture. No acute fractures xiomy ntified. Likely old healed fractures at the necks of the third and fourth and possibly second metatar sals. Mild osteoarthritis at the first metatarsophalangeal joint. No cortical erosions or periosteal reaction. Globular dystrophic calcification projecting over Kager's fat pad. Small plantar calcaneal spur. Minimal enthesopathic ossification at the distal Achilles tendon. Scattered vascular calcificat ions. Soft tissue swelling over the dorsum of the left foot. No soft tissue gas or radiopaque foreign bodies. IMPRESSION: 1. No acute osseous abnormality. Reviewed, dictated and finalized at location A.
--- NOTE | 2020-08-11 17:16 | ED.GENADULT ---
HPI - General Adult General Chief complaint: Unspecified Stated complaint: LETHARGY/GARBLED SPEECH Time Seen by Provider: 08/11/20 16:33 History of Present Illness HPI narrative: Patient is an 80-year-old male who presents the ER with concerns for [facility]bled [facility]. Patient is oriented and says he is only here for his left foot pain. Denies any other issues. Does have some mild stuttering and is little bit more difficult to understand due to the lack of dentition. Related Data Home Medications Medication Instructions Recorded Confirmed Latuda 120 mg PO DAILY 12/27/19 03/23/20 Metamucil Fiber Singles 1 packet PO BID PRN 12/27/19 03/23/20 acetaminophen 650 mg PO BID 12/27/19 03/23/20 aspirin 81 mg PO DAILY 12/27/19 03/23/20 benztropine 2 mg PO BID 12/27/19 03/23/20 carbidopa-levodopa 1 tablet PO Q6H 12/27/19 03/23/20 cyanocobalamin (vitamin B-12) 1,000 mcg IM MONTHLY 12/27/19 03/23/20 donepezil 20 mg PO HS 12/27/19 03/23/20 ergocalciferol (vitamin D2) 50,000 unit PO MONTHLY 12/27/19 03/23/20 [Vitamin D2] famotidine 20 mg PO DAILY 12/27/19 03/23/20 fluticasone propion-salmeterol 1 inh INHALATION BID 12/27/19 03/23/20 [Advair Diskus] gabapentin 300 mg PO BID 12/27/19 03/23/20 haloperidol 5 mg PO BID 12/27/19 03/23/20 loperamide 2 mg PO PRN PRN 12/27/19 03/23/20 magnesium hydroxide [Milk of 30 ml PO DAILY PRN 12/27/19 03/23/20 Magnesia] montelukast 10 mg PO DAILY 12/27/19 03/23/20 nortriptyline 25 mg PO HS 12/27/19 03/23/20 trazodone 25 mg PO HS 12/27/19 03/23/20 albuterol sulfate [ProAir HFA] 2 puff INHALATION Q4H PRN 03/23/20 03/23/20 levothyroxine 75 mcg PO DAILY 03/23/20 03/23/20 metoprolol succinate PO 08/11/20 Allergies Allergy/AdvReac Type Severity Reaction Status Date / Time No Known Allergies Allergy Verified 08/11/20 17:15 Review of Systems Review of Systems: All systems reviewed & are unremarkable except as noted in HPI and below Constitutional: Constitutional: Denies chills and Denies fever(s) ENT: Denies nasal congestion and Denies sore throat Cardiovascular: Cardiovascular: Denies chest pain and Denies radiating jaw, neck or arm pain Gastrointestinal: Gastrointestinal: Denies abdominal pain, Denies nausea and Denies vomiting Musculoskeletal: Musculoskeletal: Reports arthralgias and Denies joint swelling Neurologic: Denies headache(s), Denies focal weakness and Denies numbness PMFSH Social History Social History (Updated 03/23/20 @ 20:46 by Lina Griffith NP) Social History: He is from [facility]. He stated he was never and never had any children. He is a full code. Smoking status: Former smoker Smoking end date: 11/26/97 Alcohol intake: unknown Substance use: unknown Gender identity (if verbalized by the patient): Male Spiritual care concerns: No Exam Narrative: Exam Narrative: GENERAL: Well-appearing, well-nourished, and in no acute distress. HEAD: Normocephalic, atraumatic. ENT: Mucous membranes moist. CHEST: Clear to auscultation. No respiratory distress. HEART: Regular rate and rhythm. Normal peripheral pulses. ABDOMEN: Soft, nontender, nondistended. EXTREMITIES: Normal range of motion. Tender to palpation over the base of the fifth metatarsal on the left foot where there appears to be chronic rubbing injury/callus. No edema. SKIN: Warm, dry, no rash. NEURO: Alert and oriented x3. Course Vital Signs Vital signs: Vital Signs Temperature 97.5 F L 08/11/20 16:05 Pulse Rate 63 08/11/20 16:05 Respiratory Rate 14 08/11/20 16:05 Blood Pressure 117/99 H 08/11/20 16:05 Pulse Oximetry 100 08/11/20 16:05 Temperature 97.5 F L 08/11/20 16:05 Pulse Rate 63 08/11/20 18:46 Respiratory Rate 21 H 08/11/20 16:14 Blood Pressure 202/84 H 08/11/20 18:46 Pulse Oximetry 100 08/11/20 18:46 Medical Decision Making Vital Signs Vital Signs: Vital Signs Temperature 97.5 F L
--- NOTE | 2020-08-11 17:37 | PC.NURSE ---
Attempts to collect blood unsuccessful x2 per this RN.
[2020-08-11 17:56] LABS: Basophils Percent Auto 0.2 % (0.2-1.2); Eosinophils Percent Auto 0.2 % (0-4.4); Hemoglobin 10.6 g/dL (14.0-18.0); Immature Granulocyte Absolute 0.01 K/mm3 (0.00-0.031); Immature Granulocyte Percent A 0.2 % (0-0.5); Lymphocytes Percent Auto 33.6 % (18.3-44.2); Mean Corpuscular HGB Conc 31.2 g/dl (32-36); Mean Corpuscular Hemoglobin 29.9 pg (26-34); Mean Platelet Volume 9.1 fl (7.4-10.4); Monocytes Absolute Auto 0.5 K/mm3 (0.1-0.6); Monocytes Percent Auto 10.5 % (2.6-8.5); Neutrophils Absolute Auto 2.8 K/mm3 (1.3-6.7); Neutrophils Percent Auto 55.3 % (45.5-73.1); Platelet Count Result 206 k/mm3 (150-375); Red Blood Count 3.54 M/mm3 (4.6-6.20); Red Cell Distribution Width 14.5 % (11.5-14.5); White Blood Count 5.1 K/mm3 (4.5-10.0)
[2020-08-11 18:03] LABS: Add Urine Microscopic? YES; Appearance Urine Clear (Clear); Bilirubin Urine Negative (Negative); Blood Urine Negative (Negative); Color Urine Yellow (Yellow); Glucose Urine UA Negative (Negative); Hyaline Casts Urine 50+ /lpf; Ketones Urine Negative (Negative); Leukocyte Esterase Ur Negative LEU/UL (Negative); Mucus Urine Rare /lpf; Nitrate Urine Negative (Negative); Protein Urine 1+ mg/dL (Negative); RBC Urine 0-2 /hpf (0-2); Squamous Epithelial Cell Urine Rare /hpf (Few)
--- NOTE | 2020-08-11 18:16 | PC.NURSE ---
All of patient's blood collected per bi technical lead was unreceived per lab. Preparing to call phlebotomy to come down and attempt.
--- NOTE | 2020-08-11 18:54 | PC.NURSE ---
Phlebotomy at bedside for lab draw attempt.
[2020-08-11 19:24] LABS: Anion Gap 4 mmol/L (8-16); Blood Urea Nitrogen 14 mg/dL (9-20); Calcium 9.1 mg/dL (8.4-10.2); Carbon Dioxide 28 mmol/L (22-30); Chloride 105 mmol/L (98-107); Estimated CRCL calculation 66 ml/min; Estimated Glomerular Filt Rate > 60; Glucose 109 mg/dL (75-110); Potassium 4.3 mmol/L (3.4-5.0); Sodium 137 mmol/L (137-145)
--- NOTE | 2020-08-11 22:30 | PC.NURSE ---
berenice care provided at this time. full linen change and diaper placed on pt
== END 2020-08-11 22:30 ==
PROVIDERS: Emergency Provider Emergency Medicine
DX: M79.672 Pain in left foot (principal); Z87.891 Personal history of nicotine dependence
CPT/HCPCS: 36415; 51701; 73630; 80048; 81001; 85025; 99283

== ENCOUNTER 2021-07-15 16:55 | Inpatient (IN) | payer MEDICARE, MEDICAID, SELFPAY ==
[2021-07-15] VITALS (10 sets, daily range): BP systolic 142–158; BP diastolic 73–91; PULSE 56–68; RESP 13–20; TEMP 36.1–37.2; O2SAT 97–100
--- NOTE | ~2021-07-15 | CT_ITS ---
EXAMINATION: CT diagnostic chest wo con DATE: 07/17/2021 10:12 INDICATION: Cough. New oxygen requirement TECHNIQUE: Computed tomography (CT) of the chest was performed without intravenous contrast. Automate d exposure control and iterative reconstruction technique were employed. Exam dose: 793.67 mGy-cm to chrystal exam DLP. COMPARISON: Serial chest radiographs from 07/15/2021 through 03/01/2018 FINDINGS: Extensive patchy bilateral interstitial fibrosis is noted, involving particularly the anter ior segment of the right upper lobe, lateral segment middle lobe, lingula and both lower lobes. Super imposed interstitial pneumonitis is not excluded. Correlation with patient temperature and white bloo d cell count is recommended. Cardiomegaly. No thoracic aortic aneurysm. No pericardial or pleural effusion. There are extensive calcified nodes of the asif and mediastinum. No hilar or mediastinal mass lesion or lymphadenopathy is evident on this limited noncontrast examination. Degenerative disc disease of the lower cervical spine. Mild anterior wedging of T4 and T5. Chronic. 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 No suspicious osteolytic or osteoblast ic lesions are noted. Normal morphology of the adrenal glands. Included upper abdominal structures are unremarkable. IMPRESSION: Extensive patchy bilateral interstitial fibrosis; interstitial superimposed pneumonitis is not excluded Reviewed, dictated and finalized at Location [facility]. Reviewed, dictated and finalized at location A. IMPRESSION: Extensive patchy bilateral interstitial fibrosis; interstitial sup erimposed pneumonitis is not excluded
--- NOTE | ~2021-07-15 | CT_ITS ---
EXAMINATION: CT brain wo con DATE: 07/16/2021 02:42 INDICATION: Confusion, altered mental status. Lethargy. Difficult to wake. TECHNIQUE: Computed tomography (CT) of the head was performed without intravenous contrast. The mA wa s adjusted according to patient size. Iterative reconstruction technique was employed. Exam dose: 68 1.00 mGy-cm total exam DLP. COMPARISON: 12/28/2019 CT brain FINDINGS: Vertebral, basilar and prominent bilateral carotid siphon internal carotid artery calcifica tions. There is nonspecific diminished attenuation of the subcortical and periventricular cerebral white mat ter, likely due to chronic small vessel ischemic changes. There is moderately prominent cerebral and cerebellar volume loss. No intracranial mass lesion or hemorrhage or cerebrovascular accident is evident. There is no midline shift or mass effect effect. No subdural or epidural hematoma. Bilateral ocular lens replacements. No orbital mass lesion. No fracture or bone destruction of the cranial vault. Mastoid air cells and paranasal sinuses are normally developed and aerated. IMPRESSION: Cerebral atherosclerosis and chronic small vessel ischemic changes of cerebral white mat ter Moderate cerebral and cerebellar atrophy No acute intracranial finding Reviewed, dictated and finalized at [facility]. Reviewed, dictated and finalized at location A. IMPRESSION: Cerebral atherosclerosis and chronic small vessel ischemic changes of cerebral white matter Moderate cerebral and cerebellar atrophy No acute intracranial finding
--- NOTE | ~2021-07-15 | XR_ITS ---
EXAMINATION: XR barium swallow modified DATE: 07/16/2021 13:09 INDICATION: Dysphagia. Parkinson's disease. TECHNIQUE: The patient was given barium-containing material of multiple consistencies to swallow by josé manuel zhou speech pathologist while I performed fluoroscopy. Dose-area product was 1.499 Gy-cm2. 1.7 minutes fluoroscopy time FINDINGS: Oral Stage: Within functional limits Pharyngeal Phase: Within functional limits Cervical/Esophageal Stage: Within functional limits IMPRESSION: Modified esophagram findings as above. Please refer to the speech therapy report for spec [facility] recommendations. Reviewed, dictated and finalized at [facility]. Reviewed, dictated and finalized at location A. IMPRESSION: Modified esophagram findings as above. Please refer to the speech t herapy report for specific recommendations.
--- NOTE | ~2021-07-15 | XR_ITS ---
XR chest 2V DATE: 07/15/2021 17:59 INDICATION: Hypertension. Transient alteration of awareness. TECHNIQUE: AP and lateral views COMPARISON: 04/14/2020 portable AP chest FINDINGS: Chronic interstitial fibrotic changes of the lungs are noted, most prominent in the left lo wer lung. There is evidence of old pulmonary granulomatous disease. No interval pulmonary consolidation is evident. Cardiomegaly. Aortic calcification and unfolding. Diffuse osteopenia. IMPRESSION: Chronic interstitial fibrotic changes of the lungs, most pronounced in the left lower radha g Cardiomegaly, aortic atherosclerosis Reviewed, dictated and finalized at location A. IMPRESSION: Chronic interstitial fibrotic changes of the lungs, most pronounced in the left lower lung Cardiomegaly, aortic atherosclerosis
--- NOTE | 2021-07-15 17:05 | ECG_ITS ---
Measurements Intervals [place] Rate: 62 P: 68 [place]: 221 QRS: -5 QRSD: 101 T: 132 QT: 384 QTc: 391 Interpretive Statements SINUS RHYTHM WITH FIRST DEGREE AV BLOCK DELAYED PRECORDIAL R/S TRANSITION NONSPECIFIC ST & T-WAVE ABNORMALITY- DIFFUSE LEADS ABNORMAL ECG Electronically Signed On 07-15-2021 20:44:48 CDT by Haseeb Hoff D.O.
[2021-07-15 17:30] LABS: Add Urine Microscopic? NO; Appearance Urine Clear (Clear); Bilirubin Urine Negative (Negative); Blood Urine Negative (Negative); Color Urine Yellow (Yellow); Glucose Urine UA Negative (Negative); Ketones Urine Negative (Negative); Leukocyte Esterase Ur Negative LEU/UL (Negative); Nitrate Urine Negative (Negative); Protein Urine Negative (Negative); Specific Grav Ur 1.016 (1.001-1.035); Urobilinogen Urine Negative mg/dL (<2.0)
[2021-07-15 17:53] LABS: Eosinophils Absolute Auto 0.2 K/mm3 (0-0.3); Eosinophils Percent Auto 3.1 % (0-4.4); Hematocrit 33.9 % (42.0-52.0); Hemoglobin 10.4 g/dL (14.0-18.0); Immature Granulocyte Absolute 0.02 K/mm3 (0.00-0.031); Immature Granulocyte Percent A 0.4 % (0-0.5); Lymphocytes Absolute Auto 2.38 K/mm3 (0.9-3.2); Lymphocytes Percent Auto 45.9 % (18.3-44.2); Mean Corpuscular HGB Conc 30.7 g/dl (32-36); Mean Corpuscular Hemoglobin 30.4 pg (26-34); Mean Corpuscular Volume 99.1 fl (80-100); Mean Platelet Volume 9.8 fl (7.4-10.4); Monocytes Absolute Auto 0.5 K/mm3 (0.1-0.6); Monocytes Percent Auto 10.2 % (2.6-8.5); Neutrophils Absolute Auto 2.1 K/mm3 (1.3-6.7); Neutrophils Percent Auto 40.4 % (45.5-73.1); Platelet Count Result 153 k/mm3 (150-375); Red Blood Count 3.42 M/mm3 (4.6-6.20); Red Cell Distribution Width 14.2 % (11.5-14.5); White Blood Count 5.2 K/mm3 (4.5-10.0)
[2021-07-15] MEDS: LACTATED RINGERS 1,000 ML 150 ML IV CONT (18:01)
[2021-07-15 18:04] LABS: Alanine Aminotransferase 9 U/L (4-50); Albumin Level 3.8 g/dL (3.5-5.1); Alkaline Phosphatase 94 U/L (38-126); Anion Gap 8 mmol/L (8-16); Aspartate Amino Transferase 28 U/L (17-59); Bilirubin,Total 0.2 mg/dL (0.2-1.3); Blood Urea Nitrogen 19 mg/dL (9-20); Carbon Dioxide 25 mmol/L (22-30); Chloride 102 mmol/L (98-107); Estimated Glomerular Filt Rate > 60; Glucose 108 mg/dL (65-110); Potassium 4.2 mmol/L (3.4-5.0); Sodium 135 mmol/L (137-145)
[2021-07-15 18:28] LABS: Fractional Inspired Oxygen 21 %; HCO3 VBG 28.2 mEq/l (24.0-30.0); PCO2 VBG 56.7 mmHg (42.0-48.0); PO2 VBG 47.9 mmHg (35.0-45.0); pH VBG 7.314 (7.300-7.400)
[2021-07-15 18:29] LABS: Device ROOM AIR
[2021-07-15 18:41] LABS: Ammonia 15 umol/L (9-30)
--- NOTE | 2021-07-15 19:48 | PC.NURSE ---
pt remains asleep. arousable to loud speech but unable to answer questions. per last shift RN, pt a/o x 1-2 since arrival.
--- NOTE | 2021-07-15 20:41 | PM.IMHP ---
H&P: HPI History of Present Illness Date/Time: 07/15/21 20:41 Chief Complaint: ALTERED MENTAL STATUS Narrative: This is an 79 year old male with known history of COPD, schizophrenia, Parkinson's disease , hypothyroidism , T2 DM who presented to the hospital from [facility] due to a staph concerns for the patient's decreased responsiveness. At the time of my visit in the emergency room patient was awake and alert however he was confused could not answer my question but was able to follow some simple commands. Preliminary workup is significant for a blood gas with pCO2 of 56 and a PO2 in the 40s a chest x-ray was clear and a BMP and CBC unremarkable. Patient is unable to give any history which has been obtained mainly from reviewing old medical records and emergency room records as well. Patient has been placed in observation. Review of Systems Review of Systems: ROS unobtainable: Yes unobtainable due to mental status PMFSH Past Medical History Medical History (Updated 07/15/21 @ 22:47 by Vijay Espinal MD) Anemia Anxiety Arthritis Asthma Back pain Cataracts, bilateral COPD (chronic obstructive pulmonary disease) Depression Diabetes Fractures rt wrist Hypertension Hypothyroid Parkinsons disease Schizophrenia Seizures UTI (urinary tract infection) Surgical History Surgical History No pertinent past surgical history Family History Family History Mother Renal failure Father Asbestos exposure Sibling Liver cancer Lung cancer Social History Social History (Updated 03/23/20 @ 20:46 by Lina Griffith NP) Social History: He is from [facility]. He stated he was never and never had any children. He is a full code. Smoking status: Former smoker Smoking end date: 11/26/97 Alcohol intake: unknown Substance use: unknown Gender identity (if verbalized by the patient): Male Spiritual care concerns: No Meds Home Medications and Allergies Home Medications Medication Instructions Recorded Confirmed Type Latuda 120 mg PO DAILY 12/27/19 03/23/20 History Metamucil Fiber Singles 1 packet PO BID PRN 12/27/19 03/23/20 History acetaminophen 650 mg PO BID 12/27/19 03/23/20 History aspirin 81 mg PO DAILY 12/27/19 03/23/20 History benztropine 2 mg PO BID 12/27/19 03/23/20 History carbidopa-levodopa 1 tablet PO Q6H 12/27/19 03/23/20 History cyanocobalamin (vitamin B-12) 1,000 mcg IM MONTHLY 12/27/19 03/23/20 History donepezil 20 mg PO HS 12/27/19 03/23/20 History ergocalciferol (vitamin D2) 50,000 unit PO MONTHLY 12/27/19 03/23/20 History [Vitamin D2] famotidine 20 mg PO DAILY 12/27/19 03/23/20 History fluticasone propion-salmeterol 1 inh INHALATION BID 12/27/19 03/23/20 History [Advair Diskus] gabapentin 300 mg PO BID 12/27/19 03/23/20 History haloperidol 10 mg PO BID 12/27/19 03/23/20 History loperamide 2 mg PO PRN PRN 12/27/19 03/23/20 History magnesium hydroxide [Milk of 30 ml PO DAILY PRN 12/27/19 03/23/20 History Magnesia] montelukast 10 mg PO DAILY 12/27/19 03/23/20 History nortriptyline 25 mg PO HS 12/27/19 03/23/20 History trazodone 25 mg PO HS 12/27/19 03/23/20 History albuterol sulfate [ProAir HFA] 2 puff INHALATION Q4H PRN 03/23/20 03/23/20 History levothyroxine 75 mcg PO DAILY 03/23/20 03/23/20 History metoprolol succinate PO 08/11/20 History amantadine HCl 100 mg PO DAILY 07/15/21 07/15/21 History glipizide 2.5 mg PO DAILY 07/15/21 07/15/21 History Allergies Allergy/AdvReac Type Severity Reaction Status Date / Time No Known Allergies Allergy Verified 07/15/21 18:08 Vital Signs Vital Signs - 24 hr 07/15/21 16:56 07/15/21 17:28 07/15/21 18:50 Temperature 98.9 F Pulse Rate 65 64 59 L Respiratory Rate 20 20 20 Blood Pressure 158/76 H 155/73 H 158/87 H Pulse Oximetry 100 97 97 Exam Narrative: P
--- NOTE | 2021-07-15 20:55 | ED.AMS ---
HPI - Altered Mental Status General Chief Complaint: Altered Mental Status Stated Complaint: AMS Time Seen by Provider: 07/15/21 17:12 Source: EMS Mode of arrival: EMS Limitations: altered mental status and clinical condition History of Present Illness HPI narrative: 81-year-old male Here from residential with little supporting documentation apart from brief EMS report and note Apparently the patient is typically demented and oriented x1-2 It is said today he was difficult to wake up for residential staff but that EMS thought him to be more at normal baseline Patient not meaningfully contribute any history although he does seem to indicate that he is not having pain anywhere Related Data Home Medications Medication Instructions Recorded Confirmed Latuda 120 mg PO DAILY 12/27/19 03/23/20 Metamucil Fiber Singles 1 packet PO BID PRN 12/27/19 03/23/20 acetaminophen 650 mg PO BID 12/27/19 03/23/20 aspirin 81 mg PO DAILY 12/27/19 03/23/20 benztropine 2 mg PO BID 12/27/19 03/23/20 carbidopa-levodopa 1 tablet PO Q6H 12/27/19 03/23/20 cyanocobalamin (vitamin B-12) 1,000 mcg IM MONTHLY 12/27/19 03/23/20 donepezil 20 mg PO HS 12/27/19 03/23/20 ergocalciferol (vitamin D2) 50,000 unit PO MONTHLY 12/27/19 03/23/20 [Vitamin D2] famotidine 20 mg PO DAILY 12/27/19 03/23/20 fluticasone propion-salmeterol 1 inh INHALATION BID 12/27/19 03/23/20 [Advair Diskus] gabapentin 300 mg PO BID 12/27/19 03/23/20 haloperidol 10 mg PO BID 12/27/19 03/23/20 loperamide 2 mg PO PRN PRN 12/27/19 03/23/20 magnesium hydroxide [Milk of 30 ml PO DAILY PRN 12/27/19 03/23/20 Magnesia] montelukast 10 mg PO DAILY 12/27/19 03/23/20 nortriptyline 25 mg PO HS 12/27/19 03/23/20 trazodone 25 mg PO HS 12/27/19 03/23/20 albuterol sulfate [ProAir HFA] 2 puff INHALATION Q4H PRN 03/23/20 03/23/20 levothyroxine 75 mcg PO DAILY 03/23/20 03/23/20 metoprolol succinate PO 08/11/20 amantadine HCl 100 mg PO DAILY 07/15/21 07/15/21 glipizide 2.5 mg PO DAILY 07/15/21 07/15/21 Allergies Allergy/AdvReac Type Severity Reaction Status Date / Time No Known Allergies Allergy Verified 07/15/21 18:08 Review of Systems Review of Systems: ROS unobtainable: Yes unobtainable due to mental status [facility] Past Medical History Medical History (Updated 07/15/21 @ 22:47 by Vijay Espinal MD) Anemia Anxiety Arthritis Asthma Back pain Cataracts, bilateral COPD (chronic obstructive pulmonary disease) Depression Diabetes Fractures rt wrist Hypertension Hypothyroid Parkinsons disease Schizophrenia Seizures UTI (urinary tract infection) Surgical History Surgical History No pertinent past surgical history Family History Family History Mother Renal failure Father Asbestos exposure Sibling Liver cancer Lung cancer Social History Social History (Updated 03/23/20 @ 20:46 by Lina Griffith NP) Social History: He is from [facility]. He stated he was never and never had any children. He is a full code. Smoking status: Former smoker Smoking end date: 11/26/97 Alcohol intake: unknown Substance use: unknown Gender identity (if verbalized by the patient): Male Spiritual care concerns: No Exam Const: General: cooperative, no acute distress and ill appearing Limitations: altered mental status Other: Frail, elderly HENMT: Head: normal to inspection, normocephalic, atraumatic, no contusions and no hematomas Ears: external ears normal General nose exam: no epistaxis Mouth: Yes dry mucous membranes Eyes: Conjunctivae: conjunctivae normal EOM: EOMs intact bilaterally Neck: Neck: normal visual inspection, supple and no JVD Resp: Effort & Inspection: normal respiratory effort and not labored Auscultation: clear to auscultation bilaterally, no rales, no rhonchi, no wheezes and other (BS =) Cardi
[2021-07-15 23:49] LABS: Glucose Point of Care 97 mg/dl (65-105)
[2021-07-16] VITALS (22 sets, daily range): BP systolic 133–193; BP diastolic 56–82; PULSE 47–100; RESP 12–22; TEMP 35.9–36.8; O2SAT 98–100; BMI 34.0
--- NOTE | 2021-07-16 02:00 | PC.NURSE ---
This patient, Norm Maldonado, was admitted to IMU Room 201-01. Patient unable to be fully oriented to hospital policies and general routines due to drowsiness. Patient encouraged to report perceived risks to care and to ask questions if they do not understand what they are told or what they should do.
[2021-07-16] MEDS: LACTATED RINGERS 1,000 ML 75 ML IV CONT (04:17)
--- NOTE | 2021-07-16 04:44 | ECG_ITS ---
Measurements Intervals [place] Rate: 51 P: 51 [place]: 281 QRS: -14 QRSD: 96 T: 31 QT: 454 QTc: 419 Interpretive Statements SINUS BRADYCARDIA WITH FIRST DEGREE AV BLOCK BORDERLINE R WAVE PROGRESSION, ANTERIOR LEADS NONSPECIFIC ST & T-WAVE ABNORMALITY- DIFFUSE LEADS ABNORMAL ECG Electronically Signed On 07-16-2021 6:52:05 CDT by Haseeb Hoff D.O.
[2021-07-16 05:27] LABS: Hematocrit 38.1 % (42.0-52.0); Hemoglobin 11.3 g/dL (14.0-18.0); Immature Platelet Fraction Pct 3.7 % (0.9-11.2); Mean Corpuscular HGB Conc 29.7 g/dl (32-36); Mean Corpuscular Hemoglobin 30.4 pg (26-34); Mean Corpuscular Volume 102.4 fl (80-100); Mean Platelet Volume 9.8 fl (7.4-10.4); Platelet Count Result 136 k/mm3 (150-375); Red Blood Count 3.72 M/mm3 (4.6-6.20); Red Cell Distribution Width 13.9 % (11.5-14.5); White Blood Count 4.9 K/mm3 (4.5-10.0)
[2021-07-16 05:48] LABS: Potassium 4.8 mmol/L (3.4-5.0)
[2021-07-16 05:49] LABS: Anion Gap 9 mmol/L (8-16); Blood Urea Nitrogen 18 mg/dL (9-20); Calcium 8.8 mg/dL (8.4-10.2); Carbon Dioxide 24 mmol/L (22-30); Chloride 102 mmol/L (98-107); Estimated CRCL calculation 63 ml/min; Estimated Glomerular Filt Rate > 60; Glucose 77 mg/dL (65-110); Sodium 135 mmol/L (137-145)
[2021-07-16 07:59] LABS: Glucose Point of Care 77 mg/dl (65-105)
[2021-07-16] MEDS: EUCERIN CREAM 120 GM JAR 1 APPLIC TOPICAL (08:49)
[2021-07-16] MEDS: TOLNAFTATE 1% POWDER 45 GM BTL 1 APPLIC TOPICAL ×2 (08:49→22:26)
[2021-07-16] MEDS: FLUTICASONE/SALMETEROL 115-21 MCG INHALER 1 PUFF 2 PUFF INHALATION ×2 (09:22→21:26)
[2021-07-16] MEDS: hydrALAZINE HCL 20 MG/ML VIAL 10 MG IV PUSH (12:28)
--- NOTE | 2021-07-16 12:32 | PM.IMPN ---
Progress Note: A&P Assessment and Plan (1) AMS (altered mental status): Code(s): R41.82 - Altered mental status, unspecified Status: Acute Assessment and Plan: Suspect to be a combination of metabolic encephalopathy and hypoxic respiratory failure with hypercarbia as well Home medications reviewed Patient is on an extensive list of psychotropic medications Suspect a degree of dementia as reports are the patient is typically oriented x1-2 CT head no acute findings Check urine and blood culture Check troponin level Sputum cx and CT chest given cough Check CRP and procalcitonin Supportive care Swallow evaluation today (2) Acute respiratory failure with hypercapnia: Code(s): J96.02 - Acute respiratory failure with hypercapnia Status: Acute Assessment and Plan: BiPAP as needed Breathing treatments (3) Seizures: Code(s): R56.9 - Unspecified convulsions Status: Acute Assessment and Plan: Resume home meds Continue to monitor (4) Schizophrenia: Qualifiers: Schizophrenia type: unspecified Qualified Code(s): F20.9 - Schizophrenia, unspecified Code(s): F20.9 - Schizophrenia, unspecified Status: Chronic Assessment and Plan: Resume home meds Stable (5) Parkinsons disease: Code(s): G20 - Parkinson's disease Status: Chronic Assessment and Plan: Resume carbidopa levodopa (6) COPD (chronic obstructive pulmonary disease): Qualifiers: COPD type: unspecified COPD Qualified Code(s): J44.9 - Chronic obstructive pulmonary disease, unspecified Code(s): J44.9 - Chronic obstructive pulmonary disease, unspecified Status: Chronic Assessment and Plan: Continue breathing treatments. Subjective Date/time seen: 07/16/21 12:32 Hypertensive overnight, low heart rates down to the 40s observed, on BiPAP this morning when I visited with him. Impression above swallowing ability, and will have speech evaluation today. Hypoglycemic this morning. No urine output overnight, bladder scan the St inserted. 600 mL drained initially followed by 200 mL. Exam Narrative: Gen: Lethargic, intermittently alert Abd: Soft, NT, ND Heart: RRR Lungs: CTAB Ext: Trace bilateral lower extremity edema Objective Data Vital Signs Vital Signs: Vital Signs - 24 hr 07/15/21 16:56 07/15/21 17:28 07/15/21 18:50 Temperature 98.9 F Pulse Rate 65 64 59 L Respiratory Rate 20 20 20 Blood Pressure 158/76 H 155/73 H 158/87 H Pulse Oximetry 100 97 97 07/15/21 20:48 07/15/21 21:12 07/15/21 21:17 Temperature 97.0 F L Pulse Rate 68 67 Respiratory Rate 18 14 14 Blood Pressure 153/76 H Pulse Oximetry 100 100 07/15/21 22:17 07/15/21 22:42 07/15/21 23:53 Temperature 97.3 F L Pulse Rate 67 66 56 L Respiratory Rate 16 13 18 Blood Pressure 149/91 H 142/80 H Pulse Oximetry 99 100 100 07/15/21 23:54 07/16/21 00:45 07/16/21 00:52 Temperature Pulse Rate 60 65 Respiratory Rate 17 14 12 Blood Pressure 144/79 H Pulse Oximetry 100 100 07/16/21 01:42 07/16/21 01:45 07/16/21 01:51 Temperature 96.7 F L 98.2 F Pulse Rate 51 L 65 64 Respiratory Rate 15 22 H 19 Blood Pressure 169/82 H 152/62 H Pulse Oximetry 98 100 100 07/16/21 01:58 07/16/21 03:45 07/16/21 04:00 Temperature 96.9 F L Pulse Rate 62 52 L 55 L Respiratory Rate 15 Blood Pressure 174/66 H Pulse Oximetry 100 100 07/16/21 04:38 07/16/21 06:00 07/16/21 07:50 Temperature 97.1 F L Pulse Rate 47 L 51 L 100 Respiratory Rate 16 Blood Pressure 168/70 H Pulse Oximetry 100 07/16/21 08:00 07/16/21 09:34 07/16/21 10:00 Temperature Pulse Rate 52 L 58 L Respiratory Rate Blood Pressure Pulse Oximetry 100 99 07/16/21 12:00 Temperature 97.7 F Pulse Rate 59 L Respiratory Rate 16 Blood Pressure 193/79 H Pulse Oximetry 100 Intake/Output Intake/Output: Intake & Output 07/13/21 08
[2021-07-16 12:40] LABS: Glucose Point of Care 93 mg/dl (65-105)
[2021-07-16] MEDS: CARBIDOPA/LEVODOPA 25/100 MG TABLET 1 TABLET PO ×3 (13:27→22:25)
[2021-07-16] MEDS: GABAPENTIN 300 MG CAPSULE PO ×2 (13:27→18:36)
[2021-07-16] MEDS: FAMOTIDINE 20 MG TABLET PO (13:27)
[2021-07-16] MEDS: MONTELUKAST SODIUM 10 MG TABLET PO (13:28)
[2021-07-16] MEDS: AMANTADINE HCL 100 MG CAPSULE PO (13:29)
[2021-07-16] MEDS: HALOPERIDOL 5 MG TABLET 10 MG PO ×2 (13:29→18:37)
[2021-07-16] MEDS: ASPIRIN 81 MG CHEWABLE TABLET PO (13:34)
--- NOTE | 2021-07-16 13:44 | PCSTNOTE ---
Please refer to the Bedside Swallow Evaluation in the EMR. Please note, silent aspiration cannot be ruled out at bedside.
--- NOTE | 2021-07-16 13:45 | PCSTNOTE ---
Please refer to the Modified Barium Swallow Evaluation in the EMR.
[2021-07-16 14:41] LABS: CRP 1.7 mg/dL (<1.0)
[2021-07-16 14:50] LABS: Troponin I < 0.012 ng/mL (0.000-0.034)
[2021-07-16 17:05] LABS: Base Excess ABG 1.3 mEq/l (+/-2.0); Fractional Inspired Oxygen 21 %; HCO3 ABG 27.4 mEq/l (22.0-26.0); Oxygen Content ABG 17.4 %vol (16.0-22.0); Oxygen Saturation ABG 97.3 % (95.0-100.0); Oxyhemoglobin 96.3 % THb (90.0-100.0); PCO2 ABG 49.1 mmHg (35.0-45.0); PO2 ABG 100.2 mmHg (80.0-100.0); PO2 FiO2 Ratio Arterial Blood 4.77 %; Total Hemoglobin 12.8 g/dL (12.0-18.0); pH ABG 7.364 (7.350-7.450)
[2021-07-16 17:09] LABS: Device ROOM AIR; Modified Allen's Test Unable to perform; Site Drawn RIGHT RADIAL
[2021-07-16 18:31] LABS: Glucose Point of Care 147 mg/dl (65-105)
[2021-07-16] MEDS: BENZONATATE 100 MG CAPSULE 200 MG PO (18:35)
[2021-07-16] MEDS: BENZTROPINE MESYLATE 1 MG TABLET 2 MG PO (18:36)
[2021-07-16 20:52] LABS: Glucose Point of Care 122 mg/dl (65-105)
[2021-07-16] MEDS: traZODone HCL 25 MG TABLET PO (22:26)
[2021-07-16] MEDS: DONEPEZIL HCL 10 MG TABLET 20 MG PO (22:26)
[2021-07-17] VITALS (14 sets, daily range): BP systolic 107–158; BP diastolic 50–74; PULSE 68–93; RESP 14–21; TEMP 35.6–36.4; O2SAT 93–100
[2021-07-17 01:36] LABS: SARS-CoV-2 RNA PCR Negative
[2021-07-17] MEDS: LEVOTHYROXINE SODIUM 88 MCG TABLET PO (06:06)
[2021-07-17 08:35] LABS: Glucose Point of Care 120 mg/dl (65-105)
[2021-07-17] MEDS: FLUTICASONE/SALMETEROL 115-21 MCG INHALER 1 PUFF 2 PUFF INHALATION ×2 (08:50→21:18)
--- NOTE | 2021-07-17 09:03 | PM.IMPN ---
Progress Note: A&P Assessment and Plan (1) AMS (altered mental status): Code(s): R41.82 - Altered mental status, unspecified Status: Acute Assessment and Plan: Suspect to be a combination of metabolic encephalopathy and hypoxic respiratory failure with hypercarbia as well Patient is on an extensive list of psychotropic medications Suspect a degree of dementia as reports are the patient is typically oriented x1-2 His mental status is improving CT head no acute findings Check urine and blood culture Troponin level negative Sputum culture and CT chest given cough Supportive care Swallow evaluation 07/16 no evidence of aspiration or laryngeal penetration Appetite is better, d/c IVF (2) Acute respiratory failure with hypercapnia: Code(s): J96.02 - Acute respiratory failure with hypercapnia Status: Acute Assessment and Plan: BiPAP as needed, has not had real need and his CO2 on ABG only mildly elevated Does have night time desaturation, will obtain overnight ox Breathing treatments (3) Seizures: Code(s): R56.9 - Unspecified convulsions Status: Acute Assessment and Plan: Resume home meds Continue to monitor (4) Schizophrenia: Qualifiers: Schizophrenia type: unspecified Qualified Code(s): F20.9 - Schizophrenia, unspecified Code(s): F20.9 - Schizophrenia, unspecified Status: Chronic Assessment and Plan: Resume home meds Stable (5) Parkinsons disease: Code(s): G20 - Parkinson's disease Status: Chronic Assessment and Plan: Resume carbidopa levodopa (6) COPD (chronic obstructive pulmonary disease): Qualifiers: COPD type: unspecified COPD Qualified Code(s): J44.9 - Chronic obstructive pulmonary disease, unspecified Code(s): J44.9 - Chronic obstructive pulmonary disease, unspecified Status: Chronic Assessment and Plan: Continue albuterol and home montelukast Subjective Date/time seen: 07/17/21 09:03 Had some desaturation to upper 80s overnight and BiPAP was used, unclear whynot just O2 supp. He feels better. More alert. Dinner went well yesterday ate full dinner. Review of Systems Review of Systems: All systems reviewed & are unremarkable except as noted in HPI and below Exam Narrative: Gen: Lethargic, intermittently alert Abd: Soft, NT, ND Heart: RRR Lungs: CTAB Ext: Trace bilateral lower extremity edema Objective Data Vital Signs Vital Signs: Vital Signs - 24 hr 07/16/21 09:34 07/16/21 10:00 07/16/21 12:00 Temperature 97.7 F Pulse Rate 58 L 60 Respiratory Rate 16 Blood Pressure 193/79 H Pulse Oximetry 99 100 07/16/21 13:45 07/16/21 14:00 07/16/21 16:00 Temperature 97.9 F Pulse Rate 80 80 Respiratory Rate 20 Blood Pressure 133/56 L 135/74 Pulse Oximetry 100 07/16/21 18:00 07/16/21 20:00 07/16/21 22:00 Temperature 96.9 F L Pulse Rate 90 77 89 Respiratory Rate 20 Blood Pressure 143/69 H Pulse Oximetry 100 07/16/21 23:08 07/17/21 00:00 07/17/21 01:40 Temperature 97.3 F L Pulse Rate 82 81 79 Respiratory Rate 19 19 Blood Pressure 154/60 H Pulse Oximetry 100 100 07/17/21 04:00 07/17/21 05:45 07/17/21 07:57 Temperature 97.5 F L 96.9 F L Pulse Rate 77 87 68 Respiratory Rate 21 H 16 Blood Pressure 107/50 L 140/61 Pulse Oximetry 99 100 07/17/21 09:00 Temperature Pulse Rate 76 Respiratory Rate 18 Blood Pressure Pulse Oximetry 93 Intake/Output Intake/Output: Intake & Output 07/14/21 07/15/21 07/16/21 07/17/21 23:59 23:59 23:59 23:59 Intake Total 1360 200 Output Total 600 500 Balance 760 -300 Meds/Results Medications: Active Medications Generic Name Dose Route Start Last Admin Trade Name Ramonq PRN Reason Stop Dose Admin Acetaminophen 650 mg 07/16/21 04:11 Acetaminophen 325 Mg Tablet PO Q6H PRN Fever Or Pain Albuterol 2 puff 07/16/21 04:11 A
[2021-07-17] MEDS: MONTELUKAST SODIUM 10 MG TABLET PO (09:17)
[2021-07-17] MEDS: AMANTADINE HCL 100 MG CAPSULE PO (09:17)
[2021-07-17] MEDS: ENOXAPARIN 40 MG/0.4 ML SYRINGE SUB-Q (09:18)
[2021-07-17] MEDS: BENZTROPINE MESYLATE 1 MG TABLET 2 MG PO ×2 (09:18→17:19)
[2021-07-17] MEDS: METOPROLOL SUCCINATE EXT REL 50 MG TABCR PO (09:18)
[2021-07-17] MEDS: GABAPENTIN 300 MG CAPSULE PO ×3 (09:18→17:19)
[2021-07-17] MEDS: CARBIDOPA/LEVODOPA 25/100 MG TABLET 1 TABLET PO ×4 (09:19→20:54)
[2021-07-17] MEDS: HALOPERIDOL 5 MG TABLET 10 MG PO ×2 (09:20→17:18)
[2021-07-17] MEDS: BENZONATATE 100 MG CAPSULE 200 MG PO (09:20)
[2021-07-17] MEDS: FAMOTIDINE 20 MG TABLET PO (09:20)
[2021-07-17] MEDS: PSYLLIUM SUGAR FREE POWDER PACKET 1 PACKET PO ×2 (09:21→17:19)
[2021-07-17] MEDS: EUCERIN CREAM 120 GM JAR 1 APPLIC TOPICAL (09:21)
[2021-07-17] MEDS: TOLNAFTATE 1% POWDER 45 GM BTL 1 APPLIC TOPICAL ×2 (09:21→20:54)
[2021-07-17] MEDS: ASPIRIN 81 MG CHEWABLE TABLET PO (09:24)
[2021-07-17 12:47] LABS: Glucose Point of Care 127 mg/dl (65-105)
--- NOTE | 2021-07-17 16:58 | PC.NURSE ---
This patient, Norm Maldonado, was received from IMU on 07/17/21 at 1658. Patient/family oriented to unit policies and routines
[2021-07-17 17:25] LABS: Glucose Point of Care 97 mg/dl (65-105)
[2021-07-17 19:24] LABS: Glucose Point of Care 112 mg/dl (65-105)
[2021-07-17] MEDS: traZODone HCL 25 MG TABLET PO (20:53)
[2021-07-17] MEDS: DONEPEZIL HCL 10 MG TABLET 20 MG PO (20:53)
[2021-07-17 21:53] LABS: Glucose Point of Care 118 mg/dl (65-105)
[2021-07-18] VITALS (7 sets, daily range): BP systolic 117–147; BP diastolic 51–73; PULSE 69–88; RESP 20–22; TEMP 36.2–36.7; O2SAT 94–98; BMI 38.8
--- NOTE | 2021-07-18 00:21 | PCRCNOTE ---
Apnea link started 2339. Pt room air, all connections are green.
[2021-07-18] MEDS: LEVOTHYROXINE SODIUM 88 MCG TABLET PO (06:14)
[2021-07-18 07:21] LABS: Hematocrit 31.3 % (42.0-52.0); Hemoglobin 9.9 g/dL (14.0-18.0); Mean Corpuscular HGB Conc 31.6 g/dl (32-36); Mean Corpuscular Hemoglobin 30.7 pg (26-34); Mean Corpuscular Volume 96.9 fl (80-100); Mean Platelet Volume 9.5 fl (7.4-10.4); Platelet Count Result 145 k/mm3 (150-375); Red Blood Count 3.23 M/mm3 (4.6-6.20); Red Cell Distribution Width 14.2 % (11.5-14.5); White Blood Count 8.5 K/mm3 (4.5-10.0)
[2021-07-18 07:31] LABS: Anion Gap 7 mmol/L (8-16); Blood Urea Nitrogen 24 mg/dL (9-20); Calcium 8.9 mg/dL (8.4-10.2); Carbon Dioxide 26 mmol/L (22-30); Chloride 103 mmol/L (98-107); Estimated CRCL calculation 54 ml/min; Estimated Glomerular Filt Rate 59; Glucose 121 mg/dL (65-110); Potassium 4.1 mmol/L (3.4-5.0); Sodium 136 mmol/L (137-145)
[2021-07-18 08:03] LABS: Glucose Point of Care 115 mg/dl (65-105)
[2021-07-18] MEDS: CARBIDOPA/LEVODOPA 25/100 MG TABLET 1 TABLET PO ×4 (08:33→20:42)
[2021-07-18] MEDS: GABAPENTIN 300 MG CAPSULE PO ×3 (08:33→18:05)
[2021-07-18] MEDS: AMANTADINE HCL 100 MG CAPSULE PO (08:33)
[2021-07-18] MEDS: BENZONATATE 100 MG CAPSULE 200 MG PO (08:33)
[2021-07-18] MEDS: HALOPERIDOL 5 MG TABLET 10 MG PO ×2 (08:33→18:04)
[2021-07-18] MEDS: METOPROLOL SUCCINATE EXT REL 50 MG TABCR PO (08:33)
[2021-07-18] MEDS: BENZTROPINE MESYLATE 1 MG TABLET 2 MG PO ×2 (08:33→18:03)
[2021-07-18] MEDS: MONTELUKAST SODIUM 10 MG TABLET PO (08:34)
[2021-07-18] MEDS: PSYLLIUM SUGAR FREE POWDER PACKET 1 PACKET PO ×2 (08:34→18:04)
[2021-07-18] MEDS: ENOXAPARIN 40 MG/0.4 ML SYRINGE SUB-Q (08:34)
[2021-07-18] MEDS: FAMOTIDINE 20 MG TABLET PO (08:34)
[2021-07-18] MEDS: ASPIRIN 81 MG CHEWABLE TABLET PO (08:34)
[2021-07-18] MEDS: EUCERIN CREAM 120 GM JAR 1 APPLIC TOPICAL (08:36)
[2021-07-18] MEDS: TOLNAFTATE 1% POWDER 45 GM BTL 1 APPLIC TOPICAL ×2 (08:37→20:42)
[2021-07-18 12:42] LABS: Glucose Point of Care 99 mg/dl (65-105)
[2021-07-18 16:38] LABS: Glucose Point of Care 103 mg/dl (65-105)
--- NOTE | 2021-07-18 18:35 | PM.IMPN ---
Progress Note: A&P Assessment and Plan (1) Encephalopathy: Code(s): G93.40 - Encephalopathy, unspecified Status: Acute Assessment and Plan: Resolving, patient appears to be at baseline, which is AO1-2. During interview today, patient was AO2-3 and able to follow commands. CT head no acute findings, urine & blood culture not remarkable so far Passed swallow eval 07/16 without evidence of aspiration or laryngeal penetration Suspect to be a combination of metabolic encephalopathy and hypoxic respiratory failure with hypercarbia as well - can repeat abg tomorrow Patient is on an extensive list of psychotropic medications (2) Acute respiratory failure with hypercapnia: Code(s): J96.02 - Acute respiratory failure with hypercapnia Status: Acute Assessment and Plan: Showing some signs of scarring & fibrosis likely related to chronic COPD some concern for pneumonitis, however patient tolerated swallow study and is on RA, but will ctm Does have night time desaturation, will obtain overnight ox Breathing treatments (3) Seizures: Code(s): R56.9 - Unspecified convulsions Status: Acute Assessment and Plan: Resume home meds Continue to monitor (4) Schizophrenia: Qualifiers: Schizophrenia type: unspecified Qualified Code(s): F20.9 - Schizophrenia, unspecified Code(s): F20.9 - Schizophrenia, unspecified Status: Chronic Assessment and Plan: Resume home meds Stable (5) Parkinsons disease: Code(s): G20 - Parkinson's disease Status: Chronic Assessment and Plan: Resume carbidopa levodopa (6) COPD (chronic obstructive pulmonary disease): Qualifiers: COPD type: unspecified COPD Qualified Code(s): J44.9 - Chronic obstructive pulmonary disease, unspecified Code(s): J44.9 - Chronic obstructive pulmonary disease, unspecified Status: Chronic Assessment and Plan: Continue albuterol and home montelukast Subjective Date/time seen: 07/18/21 18:35 AO 2-3: aware of name and that he is in hospital, also knows year. Does not know why he is here. Review of Systems Review of Systems: All systems reviewed & are unremarkable except as noted in HPI and below Exam Const: General: no acute distress Neck: Neck: no JVD Resp: Effort & Inspection: normal respiratory effort Auscultation: clear to auscultation bilaterally Cardio: Rate: regular rate Rhythm: regular rhythm GI: GI Palp: Yes Soft to palpation and No Tenderness to palpation present (GI) Objective Data Vital Signs Vital Signs: Vital Signs - 24 hr 07/17/21 20:00 07/17/21 21:19 07/18/21 00:00 Temperature 96.9 F L 97.2 F L Pulse Rate 85 70 81 Respiratory Rate 20 14 22 H Blood Pressure 135/59 L 126/55 L Pulse Oximetry 97 94 07/18/21 04:00 07/18/21 08:33 07/18/21 10:00 Temperature 97.4 F L 97.5 F L Pulse Rate 72 72 88 Respiratory Rate 22 H 20 Blood Pressure 136/52 L 147/66 H Pulse Oximetry 94 98 07/18/21 14:00 Temperature 98.1 F Pulse Rate 69 Respiratory Rate 20 Blood Pressure 117/60 Pulse Oximetry 95 Intake/Output Intake/Output: Intake & Output 07/15/21 07/16/21 07/17/21 07/18/21 23:59 23:59 23:59 23:59 Intake Total 1360 880 580 Output Total 600 975 750 Balance 760 -95 -170 Meds/Results Medications: Active Medications Generic Name Dose Route Start Last Admin Trade Name Freq PRN Reason Stop Dose Admin Acetaminophen 650 mg 07/16/21 04:11 Acetaminophen 325 Mg Tablet PO Q6H PRN Fever Or Pain Albuterol 2 puff 07/16/21 04:11 Albuterol Sulfate (*Sp) Aerosol 1 Puff INHALATION Q4H PRN shortness of breath Amantadine HCl 100 mg 07/16/21 09:00 07/18/21 08:33 Amantadine Hcl 100 Mg Capsule PO 100 mg DAILY CHRISTINA Administration Aspirin 81 mg 07/16/21 08:00 07/18/21 08:34 Aspirin 81 Mg Chewable Tablet PO 81 mg DAILY@0800 [facility] Administration Benzonatate 200
[2021-07-18] MEDS: traZODone HCL 25 MG TABLET PO (20:42)
[2021-07-18] MEDS: DONEPEZIL HCL 10 MG TABLET 20 MG PO (20:42)
[2021-07-18 21:18] LABS: Glucose Point of Care 112 mg/dl (65-105)
[2021-07-19] VITALS (10 sets, daily range): BP systolic 106–153; BP diastolic 49–93; PULSE 64–76; RESP 12–21; TEMP 35.6–36.7; O2SAT 90–100
[2021-07-19] MEDS: LEVOTHYROXINE SODIUM 88 MCG TABLET PO (05:56)
[2021-07-19 06:08] LABS: Basophils Percent Auto 0.1 % (0.2-1.2); Eosinophils Absolute Auto 0.2 K/mm3 (0-0.3); Eosinophils Percent Auto 2.6 % (0-4.4); Hematocrit 36.3 % (42.0-52.0); Hemoglobin 11.1 g/dL (14.0-18.0); Immature Granulocyte Absolute 0.02 K/mm3 (0.00-0.031); Immature Granulocyte Percent A 0.3 % (0-0.5); Lymphocytes Absolute Auto 2.34 K/mm3 (0.9-3.2); Lymphocytes Percent Auto 33.6 % (18.3-44.2); Mean Corpuscular HGB Conc 30.6 g/dl (32-36); Mean Corpuscular Hemoglobin 29.6 pg (26-34); Mean Corpuscular Volume 96.8 fl (80-100); Mean Platelet Volume 9.7 fl (7.4-10.4); Monocytes Absolute Auto 0.7 K/mm3 (0.1-0.6); Monocytes Percent Auto 10.2 % (2.6-8.5); Neutrophils Absolute Auto 3.7 K/mm3 (1.3-6.7); Neutrophils Percent Auto 53.2 % (45.5-73.1); Platelet Count Result 152 k/mm3 (150-375); Red Blood Count 3.75 M/mm3 (4.6-6.20)
[2021-07-19 06:24] LABS: Albumin Level 3.7 g/dL (3.5-5.1); Alkaline Phosphatase 87 U/L (38-126); Anion Gap 10 mmol/L (8-16); Aspartate Amino Transferase 30 U/L (17-59); Bilirubin,Total 0.7 mg/dL (0.2-1.3); Blood Urea Nitrogen 22 mg/dL (9-20); Calcium 9.3 mg/dL (8.4-10.2); Carbon Dioxide 26 mmol/L (22-30); Chloride 99 mmol/L (98-107); Estimated CRCL calculation 61 ml/min; Estimated Glomerular Filt Rate > 60; Glucose 99 mg/dL (65-110); Magnesium 2.2 mg/dL (1.6-2.3); Phosphorus 3.8 mg/dL (2.5-4.5); Potassium 4.6 mmol/L (3.4-5.0); Sodium 135 mmol/L (137-145)
--- NOTE | 2021-07-19 06:58 | PC.NURSE ---
LAB CALLED WITH A CRITICAL TEST RESULT. I RECEIVED THE INFORMATION ON THE RESULTS OVER THE VOIC[facility] AND MISUNDERSTOOD THE PATIENT NAME I CHARTED IT FOR SHASHABHARTI TORRES. CALLED DR. BLANKENSHIP TO CLARIFY THE LAB RESULT WAS NOT FOR THIS PATIENT. SENDING BACK Claudio BEANYODIT TO PHARMACY
[2021-07-19 08:01] LABS: Glucose Point of Care 95 mg/dl (65-105)
[2021-07-19] MEDS: FLUTICASONE/SALMETEROL 115-21 MCG INHALER 1 PUFF 2 PUFF INHALATION ×2 (08:17→21:39)
[2021-07-19] MEDS: BENZTROPINE MESYLATE 1 MG TABLET 2 MG PO ×2 (09:51→18:15)
[2021-07-19] MEDS: BENZONATATE 100 MG CAPSULE 200 MG PO (09:51)
[2021-07-19] MEDS: MONTELUKAST SODIUM 10 MG TABLET PO (09:51)
[2021-07-19] MEDS: FAMOTIDINE 20 MG TABLET PO (09:52)
[2021-07-19] MEDS: GABAPENTIN 300 MG CAPSULE PO ×3 (09:52→18:15)
[2021-07-19] MEDS: CARBIDOPA/LEVODOPA 25/100 MG TABLET 1 TABLET PO ×4 (09:52→20:14)
[2021-07-19] MEDS: AMANTADINE HCL 100 MG CAPSULE PO (09:52)
[2021-07-19] MEDS: ASPIRIN 81 MG CHEWABLE TABLET PO (09:52)
[2021-07-19] MEDS: METOPROLOL SUCCINATE EXT REL 50 MG TABCR PO (09:52)
[2021-07-19] MEDS: ENOXAPARIN 40 MG/0.4 ML SYRINGE SUB-Q (09:53)
[2021-07-19] MEDS: PSYLLIUM SUGAR FREE POWDER PACKET 1 PACKET PO ×2 (09:53→18:15)
[2021-07-19] MEDS: EUCERIN CREAM 120 GM JAR 1 APPLIC TOPICAL (09:53)
[2021-07-19] MEDS: HALOPERIDOL 5 MG TABLET 10 MG PO ×2 (09:53→18:15)
[2021-07-19] MEDS: TOLNAFTATE 1% POWDER 45 GM BTL 1 APPLIC TOPICAL ×2 (09:53→20:16)
--- NOTE | 2021-07-19 10:12 | PCOTNOTE ---
Attempted to see 07/18. Pt. not appropriate for OT, dependent at baseline
[2021-07-19 11:43] LABS: Alanine Aminotransferase 9 U/L (4-50)
[2021-07-19 12:03] LABS: Glucose Point of Care 130 mg/dl (65-105)
--- NOTE | 2021-07-19 17:52 | PM.IMPN ---
Progress Note: A&P Assessment and Plan (1) Encephalopathy: Code(s): G93.40 - Encephalopathy, unspecified Status: Acute Assessment and Plan: Resolving, patient appears to be at baseline, which is AO1-2. During interview today, patient was AO2-3 and able to follow commands. CT head no acute findings, urine & blood culture not remarkable so far Passed swallow eval 07/16 without evidence of aspiration or laryngeal penetration Suspect to be a combination of metabolic encephalopathy and hypoxic respiratory failure with hypercarbia as well - can repeat abg As necessary Patient is on an extensive list of psychotropic medications (2) UTI (urinary tract infection): Code(s): N39.0 - Urinary tract infection, site not specified Status: Acute Assessment and Plan: most likely cause of encephalopathy as above Citrobacter growing in urine patient already has QT prolonging agents, therefore we will opt for Bactrim over Levaquin monitor for symptoms, mentation already improving with antibiotics (3) Acute respiratory failure with hypercapnia: Code(s): J96.02 - Acute respiratory failure with hypercapnia Status: Acute Assessment and Plan: Showing some signs of scarring & fibrosis likely related to chronic COPD some concern for pneumonitis, however patient tolerated swallow study and is on RA, but will ctm Does have night time desaturation, will obtain overnight ox Breathing treatments (4) Seizures: Code(s): R56.9 - Unspecified convulsions Status: Acute Assessment and Plan: Resume home meds Continue to monitor (5) Schizophrenia: Qualifiers: Schizophrenia type: unspecified Qualified Code(s): F20.9 - Schizophrenia, unspecified Code(s): F20.9 - Schizophrenia, unspecified Status: Chronic Assessment and Plan: Resume home meds Stable (6) Parkinsons disease: Code(s): G20 - Parkinson's disease Status: Chronic Assessment and Plan: Resume carbidopa levodopa (7) COPD (chronic obstructive pulmonary disease): Qualifiers: COPD type: unspecified COPD Qualified Code(s): J44.9 - Chronic obstructive pulmonary disease, unspecified Code(s): J44.9 - Chronic obstructive pulmonary disease, unspecified Status: Chronic Assessment and Plan: Continue albuterol and home montelukast Subjective Date/time seen: 07/19/21 17:52 Alert and oriented to self and year, knows he is in a hospital but not which one. Not answering more detailed questions. Review of Systems Review of Systems: Limited given patient's mentation. Exam Const: Other: Resting comfortably, eating, smiles and answers questions promptly. Neck: Neck: no JVD Resp: Effort & Inspection: normal respiratory effort Auscultation: clear to auscultation bilaterally Cardio: Rate: regular rate Rhythm: regular rhythm GI: Inspection: non-distended GI Palp: Yes Soft to palpation and No Tenderness to palpation present (GI) Skin: General skin exam: normal color and no rashes or lesions noted Neuro: Other: Not able to follow commands for detailed neurological exam. Objective Data Vital Signs Vital Signs: Vital Signs - 24 hr 07/18/21 18:00 07/18/21 20:00 07/19/21 00:00 Temperature 98.1 F 97.9 F 97.0 F L Pulse Rate 70 71 64 Respiratory Rate 20 20 18 Blood Pressure 127/51 L 132/73 153/65 H Pulse Oximetry 98 98 97 07/19/21 04:00 07/19/21 06:00 07/19/21 08:19 Temperature 97.4 F L 97.4 F L Pulse Rate 65 65 Respiratory Rate 20 20 Blood Pressure 144/58 H 144/58 H Pulse Oximetry 98 98 90 07/19/21 09:52 07/19/21 10:08 07/19/21 13:48 Temperature 96.1 F L 98.1 F Pulse Rate 76 67 68 Respiratory Rate 20 16 Blood Pressure 134/49 L 142/93 H Pulse Oximetry 99 97 Intake/Output Intake/Output: Intake & Output 07/16/21 07/17/21 07/18/21 07/19/21 23:59 23:59 23:59 23:59 Intake Total 1360 880 940 880 Output
[2021-07-19 18:13] LABS: Glucose Point of Care 112 mg/dl (65-105)
[2021-07-19] MEDS: traZODone HCL 25 MG TABLET PO (20:14)
[2021-07-19] MEDS: DONEPEZIL HCL 10 MG TABLET 20 MG PO (20:14)
[2021-07-19 21:11] LABS: Glucose Point of Care 105 mg/dl (65-105)
[2021-07-20] VITALS (10 sets, daily range): BP systolic 120–148; BP diastolic 48–60; PULSE 58–67; RESP 12–22; TEMP 36.3–36.8; O2SAT 97–100
[2021-07-20 05:27] LABS: Eosinophils Absolute Auto 0.2 K/mm3 (0-0.3); Eosinophils Percent Auto 2.7 % (0-4.4); Hematocrit 31.2 % (42.0-52.0); Immature Granulocyte Absolute 0.01 K/mm3 (0.00-0.031); Immature Granulocyte Percent A 0.2 % (0-0.5); Lymphocytes Absolute Auto 2.09 K/mm3 (0.9-3.2); Lymphocytes Percent Auto 35.7 % (18.3-44.2); Mean Corpuscular HGB Conc 32.1 g/dl (32-36); Mean Corpuscular Hemoglobin 30.6 pg (26-34); Mean Corpuscular Volume 95.4 fl (80-100); Monocytes Absolute Auto 0.6 K/mm3 (0.1-0.6); Monocytes Percent Auto 10.2 % (2.6-8.5); Neutrophils Percent Auto 51.2 % (45.5-73.1); Platelet Count Result 145 k/mm3 (150-375); Red Blood Count 3.27 M/mm3 (4.6-6.20); Red Cell Distribution Width 13.8 % (11.5-14.5); White Blood Count 5.9 K/mm3 (4.5-10.0)
[2021-07-20 05:47] LABS: Albumin Level 3.5 g/dL (3.5-5.1); Alkaline Phosphatase 89 U/L (38-126); Anion Gap 8 mmol/L (8-16); Aspartate Amino Transferase 24 U/L (17-59); Bilirubin,Total 0.2 mg/dL (0.2-1.3); Blood Urea Nitrogen 18 mg/dL (9-20); Calcium 9.1 mg/dL (8.4-10.2); Carbon Dioxide 27 mmol/L (22-30); Chloride 100 mmol/L (98-107); Estimated CRCL calculation 66 ml/min; Estimated Glomerular Filt Rate > 60; Glucose 103 mg/dL (65-110); Magnesium 2.1 mg/dL (1.6-2.3); Phosphorus 4.2 mg/dL (2.5-4.5); Potassium 3.6 mmol/L (3.4-5.0); Sodium 135 mmol/L (137-145)
[2021-07-20] MEDS: LEVOTHYROXINE SODIUM 88 MCG TABLET PO (06:07)
[2021-07-20] MEDS: FLUTICASONE/SALMETEROL 115-21 MCG INHALER 1 PUFF 2 PUFF INHALATION ×2 (07:40→20:20)
[2021-07-20 08:11] LABS: Glucose Point of Care 93 mg/dl (65-105)
[2021-07-20 08:45] LABS: Alanine Aminotransferase < 6 U/L (4-50)
[2021-07-20] MEDS: BENZTROPINE MESYLATE 1 MG TABLET 2 MG PO ×2 (10:07→16:56)
[2021-07-20] MEDS: FAMOTIDINE 20 MG TABLET PO (10:07)
[2021-07-20] MEDS: MONTELUKAST SODIUM 10 MG TABLET PO (10:07)
[2021-07-20] MEDS: AMANTADINE HCL 100 MG CAPSULE PO (10:07)
[2021-07-20] MEDS: CARBIDOPA/LEVODOPA 25/100 MG TABLET 1 TABLET PO ×4 (10:07→20:26)
[2021-07-20] MEDS: GABAPENTIN 300 MG CAPSULE PO ×3 (10:08→16:56)
[2021-07-20] MEDS: ASPIRIN 81 MG CHEWABLE TABLET PO (10:08)
[2021-07-20] MEDS: ENOXAPARIN 40 MG/0.4 ML SYRINGE SUB-Q (10:08)
[2021-07-20] MEDS: EUCERIN CREAM 120 GM JAR 1 APPLIC TOPICAL (10:08)
[2021-07-20] MEDS: TOLNAFTATE 1% POWDER 45 GM BTL 1 APPLIC TOPICAL (10:09)
[2021-07-20] MEDS: PSYLLIUM SUGAR FREE POWDER PACKET 1 PACKET PO ×2 (10:09→16:56)
[2021-07-20] MEDS: METOPROLOL SUCCINATE EXT REL 50 MG TABCR PO (10:09)
--- NOTE | 2021-07-20 10:29 | PM.IMPN ---
Progress Note: A&P Assessment and Plan (1) Encephalopathy: Code(s): G93.40 - Encephalopathy, unspecified Status: Acute Assessment and Plan: waxing and waning, today patient answering to name, where as yesterday and was aware where he was and what year was most likely associated with urinary tract infection, will continue to treat with antibiotics CT head no acute findings, blood culture not remarkable so far Passed swallow eval 07/16 without evidence of aspiration or laryngeal penetration; will consider repeating today if patient continues to be some somnolent Patient is on an extensive list of psychotropic medications, polypharmacy may contribute to altered mentation, will scale back medications as much as feasible (2) UTI (urinary tract infection): Code(s): N39.0 - Urinary tract infection, site not specified Status: Acute Assessment and Plan: most likely cause of encephalopathy as above Citrobacter growing in urine patient already has QT prolonging agents, therefore we will opt for Bactrim over Levaquin monitor for symptoms (3) Acute respiratory failure with hypercapnia: Code(s): J96.02 - Acute respiratory failure with hypercapnia Status: Acute Assessment and Plan: Showing some signs of scarring & fibrosis likely related to chronic COPD some concern for pneumonitis, however patient tolerated swallow study and is on RA, but will ctm Does have night time desaturation, will obtain overnight ox Breathing treatments (4) Seizures: Code(s): R56.9 - Unspecified convulsions Status: Acute Assessment and Plan: does not appear to be on chronic therapy will try to get more detail, including what chronic maintenance he is on for her (5) Schizophrenia: Qualifiers: Schizophrenia type: unspecified Qualified Code(s): F20.9 - Schizophrenia, unspecified Code(s): F20.9 - Schizophrenia, unspecified Status: Chronic Assessment and Plan: Resume home meds Stable (6) Parkinsons disease: Code(s): G20 - Parkinson's disease Status: Chronic Assessment and Plan: Resume carbidopa levodopa (7) COPD (chronic obstructive pulmonary disease): Qualifiers: COPD type: unspecified COPD Qualified Code(s): J44.9 - Chronic obstructive pulmonary disease, unspecified Code(s): J44.9 - Chronic obstructive pulmonary disease, unspecified Status: Chronic Assessment and Plan: Continue albuterol and home montelukast Subjective Date/time seen: 07/20/21 10:30 not able to engage in meaningful interview Review of Systems Review of Systems: All systems reviewed & are unremarkable except as noted in HPI and below Exam Const: General: no acute distress Neck: Neck: no JVD Resp: Effort & Inspection: normal respiratory effort Auscultation: clear to auscultation bilaterally Cardio: Rate: regular rate Rhythm: regular rhythm GI: GI Palp: Yes Soft to palpation and No Tenderness to palpation present (GI) Objective Data Vital Signs Vital Signs: Vital Signs - 24 hr 07/19/21 13:48 07/19/21 17:40 07/19/21 20:00 Temperature 98.1 F 96.2 F L Pulse Rate 68 65 65 Respiratory Rate 16 12 12 Blood Pressure 142/93 H 141/53 H Pulse Oximetry 97 100 100 07/19/21 22:00 07/20/21 02:00 07/20/21 06:00 Temperature 97.8 F 98.3 F 97.3 F L Pulse Rate 71 66 58 L Respiratory Rate 21 H 18 21 H Blood Pressure 106/74 145/58 H 148/59 H Pulse Oximetry 100 97 100 07/20/21 08:25 07/20/21 10:09 Temperature 97.8 F Pulse Rate 59 L 60 Respiratory Rate 12 Blood Pressure 128/48 L Pulse Oximetry 99 Intake/Output Intake/Output: Intake & Output 07/17/21 07/18/21 07/19/21 07/20/21 23:59 23:59 23:59 23:59 Intake Total 283 564 8600 400 Output Total 975 1350 1400 900 Balance -95 -410 410 -500 Meds/Results Medications: Active Medications Generic Name Dose Route Start Last Admin Trade Name Ramon
[2021-07-20 12:17] LABS: Glucose Point of Care 120 mg/dl (65-105)
[2021-07-20 16:50] LABS: Glucose Point of Care 98 mg/dl (65-105)
[2021-07-20] MEDS: DONEPEZIL HCL 10 MG TABLET 20 MG PO (20:26)
[2021-07-20 21:13] LABS: Glucose Point of Care 107 mg/dl (65-105)
[2021-07-21 00:22] VITALS: BP 149/48; PULSE 66; RESP 22; TEMP 36.3; O2SAT 96
[2021-07-21] MEDS: TOLNAFTATE 1% POWDER 45 GM BTL 1 APPLIC TOPICAL ×2 (02:03→08:02)
[2021-07-21 04:27] VITALS: BP 134/48; PULSE 65; RESP 22; TEMP 36.4; O2SAT 97
[2021-07-21] MEDS: LEVOTHYROXINE SODIUM 88 MCG TABLET PO (05:14)
[2021-07-21 05:43] LABS: Basophils Percent Auto 0.2 % (0.2-1.2); Eosinophils Absolute Auto 0.2 K/mm3 (0-0.3); Eosinophils Percent Auto 3.1 % (0-4.4); Hematocrit 32.3 % (42.0-52.0); Hemoglobin 10.2 g/dL (14.0-18.0); Immature Granulocyte Absolute 0.02 K/mm3 (0.00-0.031); Immature Granulocyte Percent A 0.3 % (0-0.5); Lymphocytes Percent Auto 39.2 % (18.3-44.2); Mean Corpuscular HGB Conc 31.6 g/dl (32-36); Mean Corpuscular Hemoglobin 30.1 pg (26-34); Mean Corpuscular Volume 95.3 fl (80-100); Mean Platelet Volume 9.6 fl (7.4-10.4); Monocytes Absolute Auto 0.7 K/mm3 (0.1-0.6); Monocytes Percent Auto 11.1 % (2.6-8.5); Neutrophils Absolute Auto 2.7 K/mm3 (1.3-6.7); Neutrophils Percent Auto 46.1 % (45.5-73.1); Platelet Count Result 168 k/mm3 (150-375); Red Blood Count 3.39 M/mm3 (4.6-6.20); White Blood Count 5.9 K/mm3 (4.5-10.0)
[2021-07-21 05:54] LABS: Albumin Level 3.6 g/dL (3.5-5.1); Alkaline Phosphatase 90 U/L (38-126); Anion Gap 6 mmol/L (8-16); Aspartate Amino Transferase 25 U/L (17-59); Bilirubin,Total 0.2 mg/dL (0.2-1.3); Blood Urea Nitrogen 19 mg/dL (9-20); Calcium 9.1 mg/dL (8.4-10.2); Carbon Dioxide 27 mmol/L (22-30); Chloride 101 mmol/L (98-107); Estimated CRCL calculation 61 ml/min; Estimated Glomerular Filt Rate > 60; Glucose 100 mg/dL (65-110); Magnesium 2.1 mg/dL (1.6-2.3); Potassium 3.7 mmol/L (3.4-5.0); Sodium 134 mmol/L (137-145)
[2021-07-21 07:53] LABS: Alanine Aminotransferase < 4 U/L (4-50)
[2021-07-21] MEDS: FLUTICASONE/SALMETEROL 115-21 MCG INHALER 1 PUFF 2 PUFF INHALATION (07:58)
[2021-07-21 07:59] VITALS: O2SAT 95
[2021-07-21] MEDS: AMANTADINE HCL 100 MG CAPSULE PO (07:59)
[2021-07-21] MEDS: ENOXAPARIN 40 MG/0.4 ML SYRINGE SUB-Q (07:59)
[2021-07-21] MEDS: GABAPENTIN 300 MG CAPSULE PO ×2 (08:00→13:24)
[2021-07-21] MEDS: BENZONATATE 100 MG CAPSULE 200 MG PO (08:00)
[2021-07-21] MEDS: CARBIDOPA/LEVODOPA 25/100 MG TABLET 1 TABLET PO ×2 (08:00→13:24)
[2021-07-21] MEDS: MONTELUKAST SODIUM 10 MG TABLET PO (08:00)
[2021-07-21] MEDS: ASPIRIN 81 MG CHEWABLE TABLET PO (08:00)
[2021-07-21] MEDS: FAMOTIDINE 20 MG TABLET PO (08:01)
[2021-07-21] MEDS: METOPROLOL SUCCINATE EXT REL 50 MG TABCR PO (08:01)
[2021-07-21] MEDS: PSYLLIUM SUGAR FREE POWDER PACKET 1 PACKET PO (08:01)
[2021-07-21] MEDS: BENZTROPINE MESYLATE 1 MG TABLET 2 MG PO (08:01)
[2021-07-21] MEDS: EUCERIN CREAM 120 GM JAR 1 APPLIC TOPICAL (08:02)
[2021-07-21 08:51] LABS: Glucose Point of Care 94 mg/dl (65-105)
[2021-07-21 10:59] VITALS: BP 129/46; PULSE 64; RESP 20; TEMP 36; O2SAT 96
[2021-07-21 14:36] LABS: Glucose Point of Care 110 mg/dl (65-105)
[2021-07-21 14:42] VITALS: BP 140/53; PULSE 63; RESP 20; TEMP 36.1; O2SAT 96
--- NOTE | 2021-07-21 23:50 | PM.DS ---
DS: Admitting Diagnosis Admitting Diagnosis ams DS: Discharge Diagnosis Discharge Diagnosis (1) UTI (urinary tract infection): Code(s): N39.0 - Urinary tract infection, site not specified Status: Acute DS: Summary Hospital Course Hospital Course: 81yo man with Parkinson's and schizophrenia presenting from inpatient nursing facility for altered mentation. CT head not showing bleed or any acute intracranial process. Chronic atherosclerosis and atrophy consistent with known dementia. Urinalysis showing acute UTI, and patient treated with po antibiotics. Given plethora of QTc prolonging agents, opted for bactrim instead of Levaquin .Swallow evaluation done, and no evidence of aspiration, and so diet resumed, and po antibiotics continued. Patient was back to baseline at time of discharge. He was answering questions and able to convey where he was and his name and year. Continued remainder of home meds. Time Spent with Patient Time attestation: Total time spent providing and/or coordinating discharge services: Exam Const: General: no acute distress Neck: Neck: no JVD Resp: Effort & Inspection: normal respiratory effort Auscultation: clear to auscultation bilaterally Cardio: Rate: regular rate Rhythm: regular rhythm GI: GI Palp: Yes Soft to palpation and No Tenderness to palpation present (GI) Discharge Plan Discharge Attending physician on discharge: Lazaro Hernandez Consulting providers: Jose Cole ; Haseeb Hoff ; Wai Bains Discharging Clinician: Lazaro Hernandez Patient Disposition: [place] [facility] Activity: no shower and no driving Diet: heart healthy, diabetic, low sodium, low cholesterol and low fat Stand Alone Forms: General Discharge Information Follow-up/Referrals: Jose Cole MD [Physician] - Call for Appointment Discharge Medications: Continued acetaminophen 325 mg Tablet 650 mg PO Q6H PRN (Reason: Fever Or Pain) RF: 0 haloperidol 5 mg Tablet 10 mg PO BID RF: 0 loperamide 2 mg Capsule 2 mg PO PRN PRN (Reason: Diarrhea) RF: 0 donepezil 10 mg Tablet 20 mg PO HS RF: 0 nortriptyline 25 mg Capsule 25 mg PO HS RF: 0 famotidine 20 mg Tablet 20 mg PO DAILY RF: 0 magnesium hydroxide [Milk of Magnesia] 400 mg/5 mL Suspension 30 ml PO DAILY PRN (Reason: Constipation) RF: 0 cyanocobalamin (vitamin B-12) 1,000 mcg/mL Solution 1,000 mcg IM MONTHLY RF: 0 benztropine 2 mg Tablet 2 mg PO BID RF: 0 gabapentin 300 mg Capsule 300 mg PO TID RF: 0 aspirin 81 mg Tablet,Chewable 81 mg PO DAILY RF: 0 montelukast 10 mg Tablet 10 mg PO DAILY RF: 0 ergocalciferol (vitamin D2) [Vitamin D2] 1,250 mcg (50,000 unit) Capsule 50,000 unit PO MONTHLY RF: 0 carbidopa-levodopa 25-100 mg Tablet 1 tablet PO Q6H RF: 0 Metamucil Fiber Singles 3.4 gram Powder In Packet 1 packet PO BID PRN (Reason: Constipation) RF: 0 Latuda 120 mg Tablet 120 mg PO DAILY RF: 0 albuterol sulfate [ProAir HFA] 90 mcg/actuation Hfa Aerosol Inhaler 2 puff INHALATION Q4H PRN (Reason: shortness of breath) RF: 0 metoprolol succinate 50 mg tablet extended release 24 hr 50 mg PO DAILY RF: 0 amantadine HCl 100 mg Capsule 100 mg PO DAILY RF: 0 glipizide 2.5 mg Tablet Extended Release 24hr 2.5 mg PO DAILY RF: 0 fluticasone propion-salmeterol [Advair Diskus] 250-50 mcg/dose Blister With Device 1 inh INHALATION Q12H RF: 0 levothyroxine 88 mcg Tablet 88 mcg PO DAILY RF: 0 nystatin [Nystop] 100,000 unit/gram Powder 1 applic TOPICAL TID RF: 0 emollient [Vanicream] Cream 1 applic TOPICAL DAILY RF: 0 Held trazodone 50 mg Tablet 25 mg PO HS RF: 0 Hold Instructions: Resume on 07/28/21. Date of admission: 07/15/21 22:40 Primary Care Provider: PHYSICIAN,TIBC[employer] DEVELOPER Admitting Provider: Kellee Pardo V. Attending physician on admission: Dee Dee Alvares Condition: Serious
== END 2021-07-21 14:50 | DRG 689 ==
LOC: ANHED 22:47 → ANHIMU 07-16 07:05 → ANH2MED 07-21 12:37 → ANHIMU 07-22 14:48
PROVIDERS: Emergency Medicine; Internal Medicine; Admitting Provider Internal Medicine; Emergency Provider Emergency Medicine; Visit Provider Internal Medicine Nephrology
DX: N39.0 Urinary tract infection, site not specified (principal); J96.02 Acute respiratory failure with hypercapnia; G93.41 Metabolic encephalopathy; B96.89 Other specified bacterial agents as the cause of diseases classified elsewhere; Z20.822 Contact with and (suspected) exposure to COVID-19; R56.9 Unspecified convulsions; J44.9 Chronic obstructive pulmonary disease, unspecified; F20.9 Schizophrenia, unspecified; G20 Parkinson's disease; E03.9 Hypothyroidism, unspecified; E11.9 Type 2 diabetes mellitus without complications; D64.9 Anemia, unspecified; F41.9 Anxiety disorder, unspecified; F32.9 Major depressive disorder, single episode, unspecified; M19.90 Unspecified osteoarthritis, unspecified site; I10 Essential (primary) hypertension; Z87.891 Personal history of nicotine dependence
CPT/HCPCS: 36415; 36600; 51701; 70450; 71046; 71250; 80048; 80053; 81003; 82140; 82803; 82805; 82948; 83735; 84100; 84145; 84484; 85025; 85027; 85055; 86140; 87040; 87077; 87086; 87088; 87186; 92610; 92611; 93005; 94002; 94003; 94640; 94762; 96360; 96361; 97161; 99291; A9270; C9803; J0360; J1650; J7120; U0003; U0005

== ENCOUNTER 2021-09-07 08:27 | Outpatient (CLI) | payer MEDICARE, MEDICAID, SELFPAY ==
--- NOTE | ~2021-09-07 | CT_ITS ---
EXAMINATION: CT foot LT w con DATE: 09/07/2021 09:41 INDICATION: Diabetic wound TECHNIQUE: High resolution computed tomography (CT) of the left foot and ankle was performed with 100 mL Omnipaque-350 intravenous contrast. Additional sagittal and coronal reconstructions were performe d. Automated exposure control and iterative reconstruction technique were employed. The dose-length p roduct was 88.01 mGy-cm. COMPARISON: Radiograph dated 08/11/2020 FINDINGS: Second-fifth claw toes. There is also increase dorsiflexion at the first interphalangeal joint. The f irst distal phalanx appears small suggesting prior osteotomy at the tuft. No evident cortical erosion s or periosteal reaction to suggest osteomyelitis. No acute fracture. Old healed fractures suggests a t the necks of the third, fourth and possibly second metacarpals based primarily on the appearance of the prior radiographs. Mild osteoarthritis at the first metatarsophalangeal joint. There is diffuse fatty atrophy of the intrinsic musculature of the foot. Soft tissue swelling with subcutaneous edema over the dorsum of the foot. There is three-vessel runoff to below the level of the left ankle. No mansi int effusions, abscess or other abnormal fluid collections. No abnormally enhancing lesions identifie d. Small plantar calcaneal spur and mild enthesopathic ossification at the distal Achilles tendon. Ad ditional heterotopic ossification at T8 Kager fat pad. IMPRESSION: 1. No abscess, evident osteomyelitis or other acute osseous abnormality. Reviewed, dictated and finalized at location A.
[2021-09-07 09:20] LABS: Estimated Glomerular Filt Rate 47
== END 2021-09-07 08:28 | disposition home or self-care (01) ==
PROVIDERS: Visit Provider Nurse Practitioner Family
DX: L97.529 Non-pressure chronic ulcer of other part of left foot with unspecified severity (principal); E11.621 Type 2 diabetes mellitus with foot ulcer; E11.622 Type 2 diabetes mellitus with other skin ulcer
CPT/HCPCS: 73701; Q9967

== ENCOUNTER 2021-10-13 09:01 | Inpatient (IN) | payer MEDICARE, MEDICAID, SELFPAY ==
[2021-10-13] VITALS (22 sets, daily range): BP systolic 135–162; BP diastolic 65–86; PULSE 59–83; RESP 12–19; TEMP 36.5–36.6; O2SAT 93–100; BMI 29.9
--- NOTE | ~2021-10-13 | CT_ITS ---
EXAMINATION: CT abdomen pelvis w con DATE: 10/13/2021 10:55 INDICATION: Abdominal pain. TECHNIQUE: Computed tomography (CT) of the abdomen and pelvis was performed with 100 mL Omnipaque 350 intravenous contrast. Automated exposure control and iterative reconstruction technique were employe d. The dose-length product was 1585.01 mGy-cm. COMPARISON: CT abdomen and pelvis 12/27/2019, chest CT 07/17/2021 FINDINGS: The visualized portions of the lung bases demonstrate severe chronic interstitial lung dise ase. No pleural effusion. The heart size is normal. No pericardial effusion. Calcified hilar and medi astinal lymph nodes are consistent with old granulomatous disease. The liver, gallbladder, spleen, pa ncreas, and left adrenal gland are normal. There is a 1.8 cm mass of fat in right adrenal gland, cons istent with a myelolipoma. There is cortical thinning of the kidneys. There is a large volume of stoo l in the colon. There is wall thickening of the rectosigmoid, which is distended. The appendix is nor mal. There are no pathologically enlarged lymph nodes. There is no free intraperitoneal fluid. There is chronic diffuse bladder wall thickening, likely secondary to chronic obstruction from the mildly e nlarged prostate. There is mild thoracolumbar spondylosis. IMPRESSION: 1. Wall thickening of the rectosigmoid, which is distended, consistent with colitis and adynamic ileu s. 2. Severe chronic interstitial lung disease. Reviewed, dictated and finalized at location A. DEMONSTRATION AGENT IMPRESSION: 1. Wall thickening of the rectosigmoid, which is distended, consistent with col itis and adynamic ileus. 2. Severe chronic interstitial lung disease.
--- NOTE | ~2021-10-13 | CT_ITS ---
EXAMINATION: CT chest high resolution wo co DATE: 10/14/2021 18:25 INDICATION: ILD TECHNIQUE: Computed tomography (CT) of the chest was performed without intravenous contrast. Addition al 3D reconstructions utilizing coronal maximum intensity projection (MIP) were performed. Automated exposure control and iterative reconstruction technique were employed. The dose-length product was 66 8.57 mGy-cm. COMPARISON: 07/17/2021 FINDINGS: Decreased lung volumes with no significant change in peripheral and lower lung predominant irregular septal line thickening, groundglass opacities and peripheral honeycombing consistent with usual inter stitial pneumonia (UIP) pattern chronic interstitial lung disease. There is mild associated clinical bronchiectasis in the most severely affected regions of lung. No pleural effusion. Mild cardiomegaly. Small amount of atherosclerotic coronary artery calcification. Aortic valve calcific location. No pe ricardial effusion. Thoracic aorta is normal in caliber with additional scattered atherosclerotic inocencio cification. Multiple calcified mediastinal and bilateral hilar lymph nodes consistent with old granul omatous disease. Esophagus appears mildly patulous. Vicariously excreted contrast from an earlier con trast-enhanced CT delineates multiple relatively more lucent gallstones in the dependent aspect of th e normal gallbladder. 1.8 cm macroscopic fat attenuation right adrenal myelolipoma. IMPRESSION: 1. No significant change in extensive chronic interstitial lung disease with usual interstitial pneum onia (UIP) pattern. This can be caused by collagen vascular disease, hypersensitivity pneumonitis, me dications/drugs, or can be idiopathic. 2. Cholelithiasis. Reviewed, dictated and finalized at location A. ING APPAREL FOLDER IMPRESSION: 1. No significant change in extensive chronic interstitial lung disease with us ual interstitial pneumonia (UIP) pattern. This can be caused by collagen vascul ar disease, hypersensitivity pneumonitis, medications/drugs, or can be idiopath ic. 2. Cholelithiasis.
--- NOTE | ~2021-10-13 | CT_ITS ---
EXAMINATION: CT brain wo con DATE: 10/14/2021 18:25 INDICATION: Altered mental status TECHNIQUE: Computed tomography (CT) of the head was performed without intravenous contrast. Sagittal and coronal reconstructions were performed. The mA was adjusted according to patient size. Iterative reconstruction technique was employed. The dose-length product was 681.00 mGy-cm. COMPARISON: head CT dated 07/16/2021 FINDINGS: No acute intracranial hemorrhage, acute infarction or abnormal extra axial fluid collection. There is moderate scattered white matter hypoattenuation consistent with chronic small vessel ischemic diseas e. Symmetric prominence of the sulci and ventricles consistent with mild to moderate age-appropriate diffuse cerebral volume loss. No mass/mass effect. Changes of left intraocular lens replacement. The orbits, paranasal sinuses and mastoid air cells are normal. Intracranial calcified cerebral atheroscl erosis is noted. IMPRESSION: 1. No acute intracranial process. 2. Age-related changes including mild to moderate diffuse on loss and moderate scattered white matter hypoattenuation consistent with chronic small vessel ischemic disease. Reviewed, dictated and finalized at location A. ORT FILLER IMPRESSION: 1. No acute intracranial process. 2. Age-related changes including mild to moderate diffuse on loss and moderate scattered white matter hypoattenuation consistent with chronic small vessel isc hemic disease.
--- NOTE | ~2021-10-13 | XR_ITS ---
EXAMINATION: XR abdomen/kub 1V EXAM DATE: 10/15/2021 14:47 INDICATION: Abdominal distention. TECHNIQUE: Frontal projection(s) of the abdomen for interpretation. Correlation is made to CT abdomen pelvis from 10/13/2021. FINDINGS: Moderate to large amount of colonic gas and stool, could be ileus. No dilated air-filled sm all bowel loops. There is no organomegaly. There are bony degenerative changes. IMPRESSION: Moderate to large amount of colonic stool and gas, consider constipation, colonic ileus. Reviewed, dictated and finalized at location A. BLOOD TESTER IMPRESSION: Moderate to large amount of colonic stool and gas, consider consti pation, colonic ileus.
[2021-10-13 10:02] LABS: Basophils Percent Auto 0.3 % (0.2-1.2); Eosinophils Percent Auto 0.4 % (0-4.4); Hematocrit 34.8 % (42.0-52.0); Immature Granulocyte Absolute 0.02 K/mm3 (0.00-0.031); Immature Granulocyte Percent A 0.3 % (0-0.5); Lymphocytes Absolute Auto 2.74 K/mm3 (0.9-3.2); Lymphocytes Percent Auto 36.9 % (18.3-44.2); Mean Corpuscular HGB Conc 31.6 g/dl (32-36); Mean Platelet Volume 9.9 fl (7.4-10.4); Monocytes Absolute Auto 0.9 K/mm3 (0.1-0.6); Monocytes Percent Auto 11.7 % (2.6-8.5); Neutrophils Absolute Auto 3.7 K/mm3 (1.3-6.7); Neutrophils Percent Auto 50.4 % (45.5-73.1); Platelet Count Result 186 k/mm3 (150-375); Red Blood Count 3.55 M/mm3 (4.6-6.20); Red Cell Distribution Width 15.3 % (11.5-14.5); White Blood Count 7.4 K/mm3 (4.5-10.0)
--- NOTE | 2021-10-13 10:02 | ED.ABDPAIN ---
HPI - Abdominal Pain General Chief Complaint: Abdominal Pain Stated Complaint: diarrhea, abd pain Time Seen by Provider: 10/13/21 09:07 Source: patient Mode of arrival: EMS Limitations: no limitations History of Present Illness HPI narrative: Patient is a 81-year-old male presenting with chief complaint of diarrhea over the past 2 days. Patient also reports intermittent abdominal cramping to his lower left in upper left quadrant. Patient denies any blood or mucus in his stool. He denies any nausea or vomiting. Patient reports at this time he does not have any abdominal pain. He reports he is not sure how many bouts of diarrhea he has had as he wears depends diapers. Patient reports that he resides at [facility]. Staff states KUB yesterday was performed and did not show bowel obstruction but they are still concerned for obstruction. He denies any known causes for his symptoms. Patient denies any fevers, chest pain, shortness of breath, weakness or acute neurologic deficits. Related Data Home Medications Medication Instructions Recorded Confirmed Latuda 120 mg PO DAILY 12/27/19 07/16/21 Metamucil Fiber Singles 1 packet PO BID PRN 12/27/19 07/16/21 acetaminophen 650 mg PO Q6H PRN 12/27/19 07/16/21 aspirin 81 mg PO DAILY 12/27/19 07/16/21 benztropine 2 mg PO BID 12/27/19 07/16/21 carbidopa-levodopa 1 tablet PO Q6H 12/27/19 07/16/21 cyanocobalamin (vitamin B-12) 1,000 mcg IM MONTHLY 12/27/19 07/16/21 donepezil 20 mg PO HS 12/27/19 07/16/21 ergocalciferol (vitamin D2) 50,000 unit PO MONTHLY 12/27/19 07/16/21 [Vitamin D2] famotidine 20 mg PO DAILY 12/27/19 07/16/21 gabapentin 300 mg PO TID 12/27/19 07/16/21 haloperidol 10 mg PO BID 12/27/19 07/16/21 loperamide 2 mg PO PRN PRN 12/27/19 07/16/21 magnesium hydroxide [Milk of 30 ml PO DAILY PRN 12/27/19 07/16/21 Magnesia] montelukast 10 mg PO DAILY 12/27/19 07/16/21 nortriptyline 25 mg PO HS 12/27/19 07/16/21 trazodone 25 mg PO HS 12/27/19 07/16/21 albuterol sulfate [ProAir HFA] 2 puff INHALATION Q4H PRN 03/23/20 07/16/21 metoprolol succinate 50 mg PO DAILY 08/11/20 07/16/21 amantadine HCl 100 mg PO DAILY 07/15/21 07/15/21 glipizide 2.5 mg PO DAILY 07/15/21 07/15/21 emollient [Vanicream] 1 applic TOPICAL DAILY 07/16/21 07/16/21 fluticasone propion-salmeterol 1 inh INHALATION Q12H 07/16/21 07/16/21 [Advair Diskus] levothyroxine 88 mcg PO DAILY 07/16/21 07/16/21 nystatin [Nystop] 1 applic TOPICAL TID 07/16/21 07/16/21 Allergies Allergy/AdvReac Type Severity Reaction Status Date / Time No Known Allergies Allergy Verified 10/13/21 09:07 Review of Systems Review of Systems: CONSTITUTIONAL: Denies fever, chills, or sweats. EYES: Denies visual changes, redness, or discharge. ENT: Denies rhinorrhea, congestion, sore throat, or otalgia. CARDIOVASCULAR: Denies chest pain, palpitations, or edema. RESPIRATORY: Denies cough or dyspnea. GASTROINTESTINAL: Reports intermittent abdominal pain and diarrhea. Denies nausea and vomiting GENITOURINARY: Denies dysuria or hematuria. SKIN: Denies rash or itching. MUSCULOSKELETAL: Denies back pain, joint pain, or myalgia. NEUROLOGIC: Denies headache, numbness, dizziness, or weakness. PSYCHIATRIC: Denies anxiety or depression. [facility] Past Medical History Medical History (Updated 10/13/21 @ 13:51 by Denia Cordon PA-C) Anemia Anxiety Arthritis Asthma Back pain Cataracts, bilateral COPD (chronic obstructive pulmonary disease) Depression Diabetes Fractures rt wrist Hypertension Hypothyroid Parkinsons disease Schizophrenia Seizures UTI (urinary tract infection) UTI (urinary tract infection) Surgical History Surgical History No pertinent past surgical history Family History Family History Mother Renal failure Father Asbestos exposure Sibling Liver cancer Lung cancer Social History
[2021-10-13 10:14] LABS: Alanine Aminotransferase 39 U/L (4-50); Albumin Level 4.1 g/dL (3.5-5.1); Alkaline Phosphatase 114 U/L (38-126); Anion Gap 9 mmol/L (8-16); Aspartate Amino Transferase 30 U/L (17-59); Bilirubin,Total 0.4 mg/dL (0.2-1.3); Blood Urea Nitrogen 20 mg/dL (9-20); Calcium 9.5 mg/dL (8.4-10.2); Carbon Dioxide 24 mmol/L (22-30); Chloride 107 mmol/L (98-107); Estimated Glomerular Filt Rate > 60; Glucose 106 mg/dL (65-110); Lipase 35 U/L (23-300); Potassium 3.9 mmol/L (3.4-5.0); Sodium 140 mmol/L (137-145)
[2021-10-13 11:28] LABS: Add Urine Microscopic? YES; Appearance Urine Cloudy (Clear); Bacteria Urine Trace /hpf; Bilirubin Urine Negative (Negative); Blood Urine Negative (Negative); Color Urine Yellow (Yellow); Glucose Urine UA Negative (Negative); Ketones Urine Negative (Negative); Leukocyte Esterase Ur 3+ LEU/UL (Negative); Nitrate Urine Positive (Negative); Protein Urine Negative (Negative); Specific Grav Ur 1.015 (1.001-1.035); Urobilinogen Urine Negative mg/dL (<2.0); WBC Clumps Urine Present /HPF; WBC Urine >75 /hpf
[2021-10-13] MEDS: PANTOPRAZOLE SODIUM IV 40 MG VIAL IV PUSH ×2 (13:11→20:21)
--- NOTE | 2021-10-13 14:30 | ADMGEN ---
This patient, Norm Maldonado, was admitted to Medical Room 253-01. Patient/family oriented to hospital policies and general routines including ID bracelet, bed and alarms, visiting hours, pain management, procedures, bathroom and other care routines, personal items, smoking policy, room service/diet, and visiting hours. Information on how to activate the Rapid Response Team has been discussed. Patient/Family are encouraged to report perceived risks to care and to ask questions if they do not understand what they are told or what they should do.
--- NOTE | 2021-10-13 14:36 | PM.IMHP ---
H&P: HPI History of Present Illness Date/Time: 10/13/21 14:36 this is a 81-year-old male patient who resides at a assisted facility. The patient was complaining of having diarrhea for the last 2 days. He has been having intermittent abdominal pain he tells me that he is having pain in the left upper quadrant as well as the lower quadrant as well. He denied any blood or mucus in his stool. No nausea or vomiting. The patient was not able to describe how many loose stools he had are the consistency of the stool. The patient does wear depends diapers and is unable to determine how many times he has had loose bowel movement. The patient had a KUB yesterday reportedly and it did not show any bowel obstruction. Patient denied any fever chest pain. No shortness of breath. No weakness. Abdominal wall CT was read as wall thickening of the rectosigmoid, which is distended, consistent with colitis and adynamic ileus. Severe chronic interstitial lung disease. The patient was started on Protonix and ceftriaxone. The patient was found have UTI. A rectal exam was performed in the emergency room in the stool was soft but did not appear bloody. Hemoccult shows positive. H&H is 11.0 in 34.0. Which appears to be his baseline. The patient was found to be positive for UTI. The patient is being admitted to observation status on the date of service of 10/13/2021. Chief Complaint: Abdominal discomfort Review of Systems Review of Systems: All systems reviewed & are unremarkable except as noted in HPI and below Constitutional: Constitutional: Reports as per HPI and Reports no additional constitutional complaints Eyes: Eyes: Reports as per HPI and Reports no additional eye complaints ENT: Reports system reviewed and no additional complaints, except as documented and Reports Normal hearing present Cardiovascular: Cardiovascular: Reports no additional cardiovascular complaints Respiratory: Respiratory: Reports no additional respiratory complaints and Reports no additional respiratory complaints Gastrointestinal: Gastrointestinal: Reports as per HPI and Reports no additional gastrointestinal complaints Musculoskeletal: Musculoskeletal: Reports no additional musculoskeletal complaints Integumentary/Breasts: Skin/Breast: Reports system reviewed and no additional complaints, except as docu and Reports as per HPI Neurologic: Reports system reviewed and no additional complaints, except as documented, Reports as per HPI and Reports Normal hearing present Psychiatric: Psychiatric: Reports no additional psychiatric complaints and Reports as per HPI Endocrine: Endocrine: Reports no additional endocrine complaints Hematologic/Lymphatic: Hematologic/Lymphatic: Reports no additional hematologic/lymphatic complaints Allergic/Immunologic: Allergic/Immunologic: Reports no additional allergic/immunologic complaints [facility] Past Medical History Medical History (Updated 10/13/21 @ 15:03 by Lina Griffith NP) Anemia Anxiety Arthritis Asthma Back pain Cataracts, bilateral COPD (chronic obstructive pulmonary disease) Depression Diabetes Fractures rt wrist Hypertension Hypothyroid Parkinsons disease Schizophrenia Seizures UTI (urinary tract infection) UTI (urinary tract infection) Surgical History Surgical History No pertinent past surgical history Family History Family History Mother Renal failure Father Asbestos exposure Sibling Liver cancer Lung cancer Social History Social History Social History: He is from [facility]. He stated he was never and never had any children. He is a full code. Smoking status: Unknown if ever smoked Smoking end date: 11/26/97 Alcohol intake: unknown Substance use: unknown Gender identity (if verba
[2021-10-13 15:54] LABS: Hematocrit 38.5 % (42.0-52.0)
[2021-10-13 16:35] LABS: Glucose Point of Care 133 mg/dl (65-105)
[2021-10-13] MEDS: metroNIDAZOLE 250 MG TABLET 500 MG PO ×2 (17:20→20:21)
[2021-10-13] MEDS: SENNA/DOCUSATE SODIUM TABLET 1 TAB PO (20:21)
[2021-10-13 20:56] LABS: Hematocrit 36.3 % (42.0-52.0); Hemoglobin 11.7 g/dL (14.0-18.0)
[2021-10-13 21:14] LABS: Glucose Point of Care 104 mg/dl (65-105)
[2021-10-14] VITALS (8 sets, daily range): BP systolic 115–132; BP diastolic 56–78; PULSE 70–77; RESP 14–18; TEMP 36.4–36.6; O2SAT 93–100
[2021-10-14] MEDS: NORTRIPTYLINE HCL 25 MG CAPSULE PO (00:12)
[2021-10-14] MEDS: DONEPEZIL HCL 10 MG TABLET 20 MG PO ×2 (00:12→20:41)
[2021-10-14] MEDS: HALOPERIDOL 5 MG TABLET 10 MG PO ×2 (00:13→20:41)
[2021-10-14] MEDS: traZODone HCL 25 MG TABLET PO ×2 (00:13→20:41)
[2021-10-14] MEDS: CARBIDOPA/LEVODOPA 25/100 MG TABLET 1 TABLET PO ×4 (00:13→20:41)
[2021-10-14] MEDS: BENZTROPINE MESYLATE 1 MG TABLET 2 MG PO ×3 (00:13→20:41)
[2021-10-14] MEDS: GABAPENTIN 300 MG CAPSULE PO ×3 (00:13→20:42)
[2021-10-14] MEDS: ALBUTEROL SULFATE (*SP) AEROSOL 1 PUFF 2 PUFF INHALATION ×2 (02:16→20:10)
[2021-10-14 03:35] LABS: Alanine Aminotransferase 13 U/L (4-50); Albumin Level 3.9 g/dL (3.5-5.1); Alkaline Phosphatase 112 U/L (38-126); Anion Gap 8 mmol/L (8-16); Aspartate Amino Transferase 29 U/L (17-59); Bilirubin,Total 0.5 mg/dL (0.2-1.3); Blood Urea Nitrogen 20 mg/dL (9-20); Calcium 9.5 mg/dL (8.4-10.2); Carbon Dioxide 26 mmol/L (22-30); Chloride 105 mmol/L (98-107); Estimated CRCL calculation 49 ml/min; Estimated Glomerular Filt Rate > 60; Glucose 121 mg/dL (65-110); Lactate Dehydrogenase 470 U/L (313-618); Potassium 3.7 mmol/L (3.4-5.0); Sodium 139 mmol/L (137-145)
[2021-10-14 03:36] LABS: Basophils Percent Auto 0.2 % (0.2-1.2); Eosinophils Percent Auto 0.4 % (0-4.4); Hematocrit 33.1 % (42.0-52.0); Hemoglobin 10.6 g/dL (14.0-18.0); Hemoglobin A1C 5.9 % (<5.7); Immature Granulocyte Absolute 0.01 K/mm3 (0.00-0.031); Immature Granulocyte Percent A 0.2 % (0-0.5); Lactic Acid Reflex 1.1 mmol/L (0.7-2.1); Lymphocytes Absolute Auto 2.07 K/mm3 (0.9-3.2); Lymphocytes Percent Auto 37.2 % (18.3-44.2); Mean Corpuscular Volume 96.8 fl (80-100); Mean Platelet Volume 9.7 fl (7.4-10.4); Monocytes Absolute Auto 0.7 K/mm3 (0.1-0.6); Monocytes Percent Auto 11.7 % (2.6-8.5); Neutrophils Absolute Auto 2.8 K/mm3 (1.3-6.7); Neutrophils Percent Auto 50.3 % (45.5-73.1); Nucleated Red Blood Cells Perc 0.4 % (0.0-0.2); Platelet Count Result 190 k/mm3 (150-375); Red Blood Count 3.42 M/mm3 (4.6-6.20); White Blood Count 5.6 K/mm3 (4.5-10.0)
[2021-10-14] MEDS: LEVOTHYROXINE SODIUM 88 MCG TABLET PO (05:32)
[2021-10-14] MEDS: metroNIDAZOLE 250 MG TABLET 500 MG PO ×4 (05:32→23:28)
[2021-10-14 07:48] LABS: Glucose Point of Care 97 mg/dl (65-105)
[2021-10-14] MEDS: PANTOPRAZOLE SODIUM IV 40 MG VIAL IV PUSH ×2 (09:20→20:42)
[2021-10-14] MEDS: EUCERIN CREAM 120 GM JAR 1 APPLIC TOPICAL (09:21)
[2021-10-14 10:05] LABS: Hematocrit 32.5 % (42.0-52.0); Hemoglobin 10.6 g/dL (14.0-18.0)
[2021-10-14 11:44] LABS: Glucose Point of Care 94 mg/dl (65-105)
--- NOTE | 2021-10-14 12:13 | PCSTNOTE ---
Patient did not awaken to therapist speech. Nurse Rosa reported patient has received some medication that is making him too drowsy to participate in Bedside Swallow Eval. Will complete when patient more awake and alert.
[2021-10-14] MEDS: ASPIRIN 81 MG CHEWABLE TABLET PO (12:14)
[2021-10-14] MEDS: MONTELUKAST SODIUM 10 MG TABLET PO (12:15)
[2021-10-14] MEDS: METOPROLOL SUCCINATE EXT REL 50 MG TABCR PO (12:23)
--- NOTE | 2021-10-14 14:10 | PCSTNOTE ---
ST attempted bedside swallow evaluation after lunch in the afternoon. Patient was unable to be aroused despite sternal rub. MD Fraser aware and decided to make the patient NPO. ST to attempt again tomorrow if the patient is alert for PO trials.
--- NOTE | 2021-10-14 14:17 | PM.IMPN ---
Progress Note: A&P Assessment and Plan (1) AMS (altered mental status): Code(s): R41.82 - Altered mental status, unspecified Status: Acute Assessment and Plan: Patient very somnolent but arouses to sternal rub. He did receive a bulk of his medications late into the evening which may have hangover effect. Consider also related tot he UTI. Will hold his morning medications (RN informed) and monitor closely. Glucose is stable and within normal limits. Will check CT of the brain. Informed later that patient is now more awake and alert. (2) Adynamic ileus: Code(s): K56.0 - Paralytic ileus Status: Acute Assessment and Plan: CT scan shows large volume stool in the colon with wall thickening of the rectosigmoid, which is distended, consistent with colitis and adynamic ileus. He had a soapsuds enema with some stool output. Flagyl added. Continue with laxatives and stool softeners. Continue Flagyl (3) Urinary tract infection: Qualifiers: Hematuria presence: without hematuria Urinary tract infection type: acute cystitis Qualified Code(s): N30.00 - Acute cystitis without hematuria Code(s): N39.0 - Urinary tract infection, site not specified Status: Acute Assessment and Plan: UA noted. Urine and blood cultures are pending. Patient has been started on ceftriaxone. Follow-up on urine culture results. Narrow antibiotics when able. UCx returned as GNB. (4) ILD (interstitial lung disease): Code(s): J84.9 - Interstitial pulmonary disease, unspecified Status: Acute Assessment and Plan: Patient has had evidence of interstitial lung disease since at least 2018. CT scan on admission now classifying it as severe chronic interstitial lung disease. Etiology unclear. Will check swallow study. Check SUZETTE, Ig in the morning. Check HRCT. Not on O2. Consider pulmonary consult or have him follow up as outpatient. (5) Stool guaiac positive: Code(s): R19.5 - Other fecal abnormalities Status: Acute Assessment and Plan: Patient is guaiac positive. Probably has mild colitis noted on CT scan. Hemoglobin 11.0 on admission has been in the 10-11 range since admission. No overt signs of acute blood loss. May consider GI consult. However at this time patient was slightly positive stool guaiac related to the colitis. Continue to monitor. (6) Seizures: Code(s): R56.9 - Unspecified convulsions Status: Acute Assessment and Plan: History of seizures. Continue with home gabapentin. (7) Schizophrenia: Qualifiers: Schizophrenia type: unspecified Qualified Code(s): F20.9 - Schizophrenia, unspecified Code(s): F20.9 - Schizophrenia, unspecified Status: Chronic Assessment and Plan: Difficult to assess. Patient is on Latuda and Haldol which have been continued. He is also on Cogentin to ameliorate the side effects. Will continue these current medications but considered decreasing Haldol if he continues to be overly somnolent. (8) Parkinsons disease: Code(s): G20 - Parkinson's disease Status: Chronic Assessment and Plan: Difficult to assess. Continue with Sinemet and donepezil. Patietn very somnolent so will hold nortriptyline. Continue trazodone for now. (9) Hypothyroid: Qualifiers: Hypothyroidism type: unspecified Qualified Code(s): E03.9 - Hypothyroidism, unspecified Code(s): E03.9 - Hypothyroidism, unspecified Status: Chronic Assessment and Plan: TSH is normal. Continue with levothyroxine. (10) Hypertension: Qualifiers: Hypertension type: unspecified Qualified Code(s): I10 - Essential (primary) hypertension Code(s): I10 - Essential (primary) hypertension Status: Chronic Assessment and Plan: Patient's blood pressure was reviewed on 10/14 Blood pressure remains well controlled.
[2021-10-14 16:23] LABS: Glucose Point of Care 89 mg/dl (65-105)
[2021-10-14] MEDS: FLUTICASONE/SALMETEROL 115-21 MCG INHALER 1 PUFF 2 PUFF INHALATION (20:09)
[2021-10-14] MEDS: SENNA/DOCUSATE SODIUM TABLET 1 TAB PO (20:41)
[2021-10-14 21:31] LABS: Glucose Point of Care 102 mg/dl (65-105)
[2021-10-15] MEDS: ALBUTEROL SULFATE (*SP) AEROSOL 1 PUFF 2 PUFF INHALATION ×4 (03:38→17:40)
[2021-10-15 05:11] VITALS: BP 122/65; PULSE 64; RESP 20; TEMP 37; O2SAT 93
[2021-10-15] MEDS: LEVOTHYROXINE SODIUM 88 MCG TABLET PO (05:30)
[2021-10-15] MEDS: metroNIDAZOLE 250 MG TABLET 500 MG PO ×4 (05:30→22:49)
[2021-10-15] MEDS: GABAPENTIN 300 MG CAPSULE PO ×3 (05:30→20:26)
[2021-10-15 07:59] LABS: Glucose Point of Care 95 mg/dl (65-105)
[2021-10-15] MEDS: CARBIDOPA/LEVODOPA 25/100 MG TABLET 1 TABLET PO ×4 (09:15→20:27)
[2021-10-15] MEDS: BENZTROPINE MESYLATE 1 MG TABLET 2 MG PO ×2 (09:15→20:26)
[2021-10-15 09:16] VITALS: PULSE 64
[2021-10-15] MEDS: METOPROLOL SUCCINATE EXT REL 50 MG TABCR PO (09:16)
[2021-10-15] MEDS: MONTELUKAST SODIUM 10 MG TABLET PO (09:17)
[2021-10-15] MEDS: FLUTICASONE/SALMETEROL 115-21 MCG INHALER 1 PUFF 2 PUFF INHALATION ×2 (09:17→17:40)
[2021-10-15] MEDS: HALOPERIDOL 5 MG TABLET 10 MG PO ×2 (09:18→20:29)
[2021-10-15] MEDS: ASPIRIN 81 MG CHEWABLE TABLET PO (09:18)
[2021-10-15] MEDS: EUCERIN CREAM 120 GM JAR 1 APPLIC TOPICAL (09:19)
[2021-10-15 09:57] LABS: Albumin Level 4.1 g/dL (3.5-5.1); Anion Gap 12 mmol/L (8-16); Blood Urea Nitrogen 27 mg/dL (9-20); Calcium 9.5 mg/dL (8.4-10.2); Carbon Dioxide 22 mmol/L (22-30); Chloride 107 mmol/L (98-107); Estimated CRCL calculation 43 ml/min; Estimated Glomerular Filt Rate 54; Glucose 112 mg/dL (65-110); Magnesium 2.2 mg/dL (1.6-2.3); Phosphorus 4.9 mg/dL (2.5-4.5); Sodium 141 mmol/L (137-145)
[2021-10-15 10:05] LABS: Immunoglobulin A 687 mg/dL (70-400); Immunoglobulin G 2503 mg/dL (700-1600); Immunoglobulin M 110 mg/dL (40-230)
[2021-10-15 10:08] LABS: Basophils Percent Auto 0.4 % (0.2-1.2); Eosinophils Percent Auto 0.4 % (0-4.4); Hematocrit 36.2 % (42.0-52.0); Hemoglobin 11.2 g/dL (14.0-18.0); Immature Granulocyte Absolute 0.02 K/mm3 (0.00-0.031); Immature Granulocyte Percent A 0.4 % (0-0.5); Lymphocytes Absolute Auto 2.05 K/mm3 (0.9-3.2); Mean Corpuscular HGB Conc 30.9 g/dl (32-36); Mean Corpuscular Hemoglobin 31.1 pg (26-34); Mean Corpuscular Volume 100.6 fl (80-100); Mean Platelet Volume 9.8 fl (7.4-10.4); Monocytes Absolute Auto 0.8 K/mm3 (0.1-0.6); Monocytes Percent Auto 13.5 % (2.6-8.5); Neutrophils Absolute Auto 2.7 K/mm3 (1.3-6.7); Neutrophils Percent Auto 48.3 % (45.5-73.1); Nucleated Red Blood Cells Perc 0.4 % (0.0-0.2); Platelet Count Result 203 k/mm3 (150-375); Red Cell Distribution Width 15.4 % (11.5-14.5); White Blood Count 5.5 K/mm3 (4.5-10.0)
[2021-10-15 11:57] LABS: Glucose Point of Care 119 mg/dl (65-105)
--- NOTE | 2021-10-15 12:00 | PCSTNOTE ---
Please refer to the Bedside Swallow Evaluation in the EMR. Please note, silent aspiration cannot be ruled out at bedside.
--- NOTE | 2021-10-15 12:49 | PM.IMPN ---
Progress Note: A&P Assessment and Plan (1) AMS (altered mental status): Code(s): R41.82 - Altered mental status, unspecified Status: Acute Assessment and Plan: Likely 2/2 to medication dosing time previous afternoon plus urinary tract infection. CT w/o acute findings to explain the somnolence. Significantly improved today and is likely at or near baseline given the sleepiness that can be caused from Parkinson's treatment medications. Will continue to monitor. -Treat UTI -Limit sedating medication -Out of bed to chair (2) Bacteremia due to Gram-positive bacteria: Code(s): R78.81 - Bacteremia Status: Acute Assessment and Plan: BCX x 1 with gram positive cocci clusters in the setting of patient with UTI and altered mental status. Afebrile w/o leukocytosis but elevated monocytes. -Repeat blood cultures -Pharmacy consulted for dosing of vancomycin -Increase ceftriaxone 2g IV daily for now (3) Urinary tract infection: Qualifiers: Hematuria presence: without hematuria Urinary tract infection type: acute cystitis Qualified Code(s): N30.00 - Acute cystitis without hematuria Code(s): N39.0 - Urinary tract infection, site not specified Status: Acute Assessment and Plan: Citrobacter koseri pansensitive on urine culture. If repeat blood cultures unremarkable will de-escalate and start cefdinir 300 mg twice a day for a total of 7 days of treatment. -Continue ceftriaxone day 2/3 (4) ILD (interstitial lung disease): Code(s): J84.9 - Interstitial pulmonary disease, unspecified Status: Acute Assessment and Plan: HRCT notes relatively unchanged ILD w/ cholelithiasis. SUZETTE pending. IgA and IgG elevated. IgM normal. Saturating well on room air. -Will consult pulmonology tomorrow morning (5) Adynamic ileus: Code(s): K56.0 - Paralytic ileus Status: Acute Assessment and Plan: Has had a few bowel movements but persistently distended without being tense or having peritoneal signs. Pseudo-obstruction?Notable thickening of rectosigmoid on CT w/ stool guaiac positive w/o signs of overt GI bleed. Will monitor in house and may consult GI. Clinically the patient appears to be improving overall. Will get KUB to see if less stool burden vs more overt signs of obstruction. -KUB -CBC daily (6) Macrocytic anemia: Code(s): D53.9 - Nutritional anemia, unspecified Status: Chronic Assessment and Plan: MCV 100.3 Will check labs. -Vitamin b12 -Folate (7) Parkinsons disease: Code(s): G20 - Parkinson's disease Status: Chronic Assessment and Plan: No notable tremor on exam. On sinemet, donepezil, nortriptyline and trazodone at home. -Continue home medications (8) Schizophrenia: Qualifiers: Schizophrenia type: unspecified Qualified Code(s): F20.9 - Schizophrenia, unspecified Code(s): F20.9 - Schizophrenia, unspecified Status: Chronic Assessment and Plan: Controlled w/ latuda and haloperidol. Continue home medications. -Haloperidol 10 mg BID -Latuda 120 mg po daily (9) Hypertension: Qualifiers: Hypertension type: unspecified Qualified Code(s): I10 - Essential (primary) hypertension Code(s): I10 - Essential (primary) hypertension Status: Chronic Assessment and Plan: Well controlled on metoprolol. -Metoprolol xl 50 mg daily (10) Hypothyroid: Qualifiers: Hypothyroidism type: unspecified Qualified Code(s): E03.9 - Hypothyroidism, unspecified Code(s): E03.9 - Hypothyroidism, unspecified Status: Chronic Assessment and Plan: TSH within range on lab. Euthyroid. Continue home levothyroxine dose. -Levothyroxine 88 mcg daily (11) Seizures: Code(s): R56.9 - Unspecified convulsions Status: Acute Assessment and Plan: History of seizue. Will continue home gabapentin. -G
[2021-10-15 14:10] VITALS: BP 113/51; PULSE 72; RESP 18; TEMP 36; O2SAT 97
--- NOTE | 2021-10-15 14:48 | PC.NURSE ---
Patient to Xray per stretcher [id number] 10/15/21
[2021-10-15] MEDS: PANTOPRAZOLE 40 MG TABLET PO ×2 (15:00→20:30)
--- NOTE | 2021-10-15 16:24 | PC.NURSE ---
Pharmacy unable to obtain dose of Latuda for Sunday. Discussed issue with Dr Abreu & patient's niece, Fior Garg. Fior states that she would rather med be held for one day rather than substitute with Sergio. Fior states patient has had bad reactions with medication changes. Pharmacy notified of these conversations.
[2021-10-15 16:53] LABS: Glucose Point of Care 159 mg/dl (65-105)
[2021-10-15] MEDS: SALINE LOCK FLUSH 10 ML IV PUSH ×3 (17:35→20:31)
[2021-10-15 17:41] VITALS: O2SAT 94
[2021-10-15] MEDS: MAGNESIUM HYDROXIDE SUSP 30 ML UDC PO (17:55)
[2021-10-15] MEDS: polyethylene glycoL 3350 17 GM POWD.PACK PO ×2 (17:55→20:30)
[2021-10-15] MEDS: DONEPEZIL HCL 10 MG TABLET 20 MG PO (20:29)
[2021-10-15] MEDS: SENNA/DOCUSATE SODIUM TABLET 1 TAB PO (20:29)
[2021-10-15] MEDS: traZODone HCL 25 MG TABLET PO (20:31)
[2021-10-15 20:42] LABS: Glucose Point of Care 91 mg/dl (65-105)
[2021-10-15 21:41] VITALS: BP 128/57; PULSE 65; RESP 16; TEMP 36.1; O2SAT 99
[2021-10-16] MEDS: ALBUTEROL SULFATE (*SP) AEROSOL 1 PUFF 2 PUFF INHALATION ×4 (01:58→22:41)
[2021-10-16 04:42] VITALS: BP 121/56; PULSE 65; RESP 16; TEMP 36.1; O2SAT 95
[2021-10-16] MEDS: metroNIDAZOLE 250 MG TABLET 500 MG PO ×4 (05:55→23:26)
[2021-10-16] MEDS: SALINE LOCK FLUSH 10 ML IV PUSH ×5 (05:55→21:18)
[2021-10-16] MEDS: LEVOTHYROXINE SODIUM 88 MCG TABLET PO (05:56)
[2021-10-16] MEDS: GABAPENTIN 300 MG CAPSULE PO ×3 (05:56→21:13)
[2021-10-16 06:56] LABS: Basophils Percent Auto 0.2 % (0.2-1.2); Hematocrit 34.2 % (42.0-52.0); Hemoglobin 10.7 g/dL (14.0-18.0); Immature Granulocyte Absolute 0.03 K/mm3 (0.00-0.031); Immature Granulocyte Percent A 0.6 % (0-0.5); Lymphocytes Percent Auto 36.5 % (18.3-44.2); Mean Corpuscular HGB Conc 31.3 g/dl (32-36); Mean Corpuscular Hemoglobin 30.1 pg (26-34); Mean Corpuscular Volume 96.3 fl (80-100); Mean Platelet Volume 9.7 fl (7.4-10.4); Monocytes Absolute Auto 0.7 K/mm3 (0.1-0.6); Neutrophils Absolute Auto 2.5 K/mm3 (1.3-6.7); Neutrophils Percent Auto 48.7 % (45.5-73.1); Platelet Count Result 185 k/mm3 (150-375); Red Blood Count 3.55 M/mm3 (4.6-6.20); Red Cell Distribution Width 14.8 % (11.5-14.5); White Blood Count 5.2 K/mm3 (4.5-10.0)
[2021-10-16 07:20] LABS: Anion Gap 11 mmol/L (8-16); Blood Urea Nitrogen 29 mg/dL (9-20); Calcium 9.2 mg/dL (8.4-10.2); Carbon Dioxide 25 mmol/L (22-30); Chloride 108 mmol/L (98-107); Estimated CRCL calculation 46 ml/min; Estimated Glomerular Filt Rate 59; Glucose 124 mg/dL (65-110); Potassium 3.9 mmol/L (3.4-5.0); Sodium 144 mmol/L (137-145)
[2021-10-16 08:00] LABS: Glucose Point of Care 107 mg/dl (65-105)
--- NOTE | 2021-10-16 08:13 | PM.IMPN ---
Progress Note: A&P Assessment and Plan (1) AMS (altered mental status): Code(s): R41.82 - Altered mental status, unspecified Status: Acute Assessment and Plan: Likely 2/2 to medication dosing time previous afternoon plus urinary tract infection. CT w/o acute findings to explain the somnolence. Even more improved today after lurasidone has been held due to outage. -Treat UTI -Limit sedating medication -PT/OT (2) Bacteremia due to Gram-positive bacteria: Code(s): R78.81 - Bacteremia Status: Acute Assessment and Plan: BCX x 1 with gram positive cocci clusters in the setting of patient with UTI and altered mental status. Afebrile. Repeat blood cultures w/ no growth but positive culture w/o speciation. Will continue broad coverage until speciation of organism. -Pharmacy consulted for dosing of vancomycin -Ceftriaxone 2g IV (3) Urinary tract infection: Qualifiers: Hematuria presence: without hematuria Urinary tract infection type: acute cystitis Qualified Code(s): N30.00 - Acute cystitis without hematuria Code(s): N39.0 - Urinary tract infection, site not specified Status: Acute Assessment and Plan: Citrobacter koseri pansensitive on urine culture. Today is the last day of treatment of UTI required with ceftriaxone. -Continue ceftriaxone day 3/ (4) ILD (interstitial lung disease): Code(s): J84.9 - Interstitial pulmonary disease, unspecified Status: Acute Assessment and Plan: HRCT notes relatively unchanged ILD w/ cholelithiasis. SUZETTE pending. IgA and IgG elevated. IgM normal. Saturating well on room air. -Pulmonology consulted (5) Adynamic ileus: Code(s): K56.0 - Paralytic ileus Status: Acute Assessment and Plan: Has had a few bowel movements but persistently distended without being tense or having peritoneal signs. Pseudo-obstruction?Notable thickening of rectosigmoid on CT w/ stool guaiac positive w/o signs of overt GI bleed. Will monitor in house and may consult GI. KUB notes significant stool burden. Soap suds enema unsuccessful. -Suppository x 1 (6) Macrocytic anemia: Code(s): D53.9 - Nutritional anemia, unspecified Status: Chronic Assessment and Plan: MCV 100.3 Will check labs. (7) Parkinsons disease: Code(s): G20 - Parkinson's disease Status: Chronic Assessment and Plan: No notable tremor on exam. On sinemet, donepezil, nortriptyline and trazodone at home. -Continue home medications (8) Schizophrenia: Qualifiers: Schizophrenia type: unspecified Qualified Code(s): F20.9 - Schizophrenia, unspecified Code(s): F20.9 - Schizophrenia, unspecified Status: Chronic Assessment and Plan: Controlled w/ latuda and haloperidol. Today latuda/lurasidone was held today due to a pharmacy outage. Yesterday nursing was kind enough to discuss this with his contact, Karyn, who preferred to hold the lurasidone for just today instead of substituting geodon. With holding the lurasidone the patient is remarkably more alert and interactive. Patient may benefit from discussing a decrease in lurasidone with the prescribing physician. -Haloperidol 10 mg BID -Latuda 120 mg po held today (9) Hypertension: Qualifiers: Hypertension type: unspecified Qualified Code(s): I10 - Essential (primary) hypertension Code(s): I10 - Essential (primary) hypertension Status: Chronic Assessment and Plan: Well controlled on metoprolol. -Metoprolol xl 50 mg daily (10) Hypothyroid: Qualifiers: Hypothyroidism type: unspecified Qualified Code(s): E03.9 - Hypothyroidism, unspecified Code(s): E03.9 - Hypothyroidism, unspecified Status: Chronic Assessment and Plan: TSH within range on lab. Euthyroid. Continue home levothyroxine dose. -Levothyroxine 88 mcg daily (11) Seizures:
[2021-10-16] MEDS: polyethylene glycoL 3350 17 GM POWD.PACK PO ×2 (08:17→21:13)
[2021-10-16 08:18] VITALS: PULSE 65
[2021-10-16] MEDS: PANTOPRAZOLE 40 MG TABLET PO ×2 (08:18→21:15)
[2021-10-16] MEDS: HALOPERIDOL 5 MG TABLET 10 MG PO ×2 (08:18→21:13)
[2021-10-16] MEDS: METOPROLOL SUCCINATE EXT REL 50 MG TABCR PO (08:18)
[2021-10-16] MEDS: MONTELUKAST SODIUM 10 MG TABLET PO (08:18)
[2021-10-16] MEDS: BENZTROPINE MESYLATE 1 MG TABLET 2 MG PO ×2 (08:18→21:14)
[2021-10-16] MEDS: ASPIRIN 81 MG CHEWABLE TABLET PO (08:20)
[2021-10-16] MEDS: EUCERIN CREAM 120 GM JAR 1 APPLIC TOPICAL (08:20)
[2021-10-16] MEDS: CARBIDOPA/LEVODOPA 25/100 MG TABLET 1 TABLET PO ×4 (08:21→21:13)
[2021-10-16] MEDS: FLUTICASONE/SALMETEROL 115-21 MCG INHALER 1 PUFF 2 PUFF INHALATION ×2 (09:27→22:41)
[2021-10-16 11:42] LABS: Glucose Point of Care 122 mg/dl (65-105)
[2021-10-16] MEDS: cefTRIAXone 2 GM in SODIUM CHLORIDE 0.9% IV 100 ML IVPB (12:31)
[2021-10-16 14:00] VITALS: BP 122/48; PULSE 64; RESP 16; TEMP 36.1; O2SAT 100
[2021-10-16] MEDS: BISACODYL 10 MG SUPPOSITORY RECTAL (15:49)
[2021-10-16] MEDS: MAGNESIUM HYDROXIDE SUSP 30 ML UDC PO (15:49)
[2021-10-16 17:14] LABS: Glucose Point of Care 134 mg/dl (65-105)
[2021-10-16] MEDS: traZODone HCL 25 MG TABLET PO (21:13)
[2021-10-16] MEDS: DONEPEZIL HCL 10 MG TABLET 20 MG PO (21:14)
[2021-10-16] MEDS: SENNA/DOCUSATE SODIUM TABLET 1 TAB PO (21:15)
[2021-10-16] MEDS: TAMSULOSIN HCL 0.4 MG CAPSULE PO (21:26)
[2021-10-16 22:08] VITALS: BP 145/56; PULSE 65; RESP 20; TEMP 36.1; O2SAT 97
[2021-10-16 22:14] LABS: Glucose Point of Care 131 mg/dl (65-105)
[2021-10-16 22:48] VITALS: PULSE 68; O2SAT 93
[2021-10-17] VITALS (7 sets, daily range): BP systolic 126–152; BP diastolic 53–62; PULSE 65–72; RESP 16–20; TEMP 36.1–36.6; O2SAT 91–100
--- NOTE | 2021-10-17 | ECHO_ITS ---
Patient Info Name: Norm Maldonado Age: 81 years : 1940 Gender: Male Ht: 77 in Wt: 252 lbs BSA: 2.51 m2 HR: 67 bpm BP: 126 / 51 mmHg Heart Rhythm: Sinus Rhythm Technical Quality: Fair Exam Date: 10/17/2021 1:06 PM Exam Location: [facility] Patient Status: Inpatient Admit Date: 10/14/2021 Staff Ordering Physician: Fam Fraser MD Patient Relations Director: NATALY Attending Provider: Fam Fraser MD Exam Type: CA echo doppler color flow Study Info Indications - BACTEREMIA Complete two-dimensional, color flow and Doppler transthoracic echocardiogram is performed. Summary 1. Complete two-dimensional, color flow and Doppler transthoracic echocardiogram is performed. 2. Technically somewhat challenging exam. 3. Normal left and right ventricular systolic function. 4. Mildly sclerotic aortic valve which is not stenotic. 5. Diastolic noncompliance. Left Ventricle Left ventricular chamber dimension is normal. Left ventricular systolic function is normal, estimated at 60-65%. The left ventricular diastolic function is grade I diastolic dysfunction. Right Ventricle Right ventricular chamber dimension is normal. Left Atria Left atrial chamber dimension is normal. Right Atria Right atrial chamber dimension is normal. Aortic Valve The aortic valve is trileaflet. There is mild aortic valve sclerosis. Pulmonic Valve The pulmonic valve is not well visualized. Mitral Valve The mitral valve has normal leaflets. Tricuspid Valve The tricuspid valve leaflets are normal. Pericardium/Pleural The pericardium appears normal. Aorta The aortic root size at the sinus of Valsalva is normal. Left Ventricular Outflow Tract Name Value Normal LVOT 2D LVOT Diameter 2.3 cm LVOT Doppler LVOT Peak Gradient 2 mmHg LVOT Mean Gradient 1 mmHg LVOT VTI 21 cm LVOT VTI/AV VTI Ratio 0.7 LVOT Stroke Volume 88 ml LVOT CO 5.6 l/min LVOT CI 2.2 l/min/m2 Pulmonic Valve Name Value Normal PV Doppler PV Peak Gradient 3 mmHg Mitral Valve Name Value Normal MV Doppler MV Decel [place] 284 cm/s2 MV PHT 59 ms MV Area (PHT) 3.7 cm2 4.0-5.0 MV Diastolic Function MV E Peak Velocity 58 cm/s
[2021-10-17] MEDS: ALTEPLASE 2 MG VIAL (CATHFLO) IV PUSH (01:22)
[2021-10-17] MEDS: ALBUTEROL SULFATE (*SP) AEROSOL 1 PUFF 2 PUFF INHALATION ×3 (04:49→20:33)
[2021-10-17 05:14] LABS: Basophils Percent Auto 0.2 % (0.2-1.2); Eosinophils Percent Auto 0.4 % (0-4.4); Immature Granulocyte Absolute 0.03 K/mm3 (0.00-0.031); Immature Granulocyte Percent A 0.5 % (0-0.5); Lymphocytes Absolute Auto 1.71 K/mm3 (0.9-3.2); Lymphocytes Percent Auto 30.3 % (18.3-44.2); Mean Corpuscular HGB Conc 32.4 g/dl (32-36); Mean Corpuscular Hemoglobin 31.4 pg (26-34); Mean Corpuscular Volume 97.1 fl (80-100); Mean Platelet Volume 9.5 fl (7.4-10.4); Monocytes Absolute Auto 0.6 K/mm3 (0.1-0.6); Monocytes Percent Auto 10.6 % (2.6-8.5); Neutrophils Absolute Auto 3.3 K/mm3 (1.3-6.7); Nucleated Red Blood Cells Perc 0.4 % (0.0-0.2); Platelet Count Result 183 k/mm3 (150-375); Red Cell Distribution Width 14.6 % (11.5-14.5); White Blood Count 5.7 K/mm3 (4.5-10.0)
[2021-10-17] MEDS: metroNIDAZOLE 250 MG TABLET 500 MG PO ×4 (05:18→23:15)
[2021-10-17] MEDS: GABAPENTIN 300 MG CAPSULE PO ×3 (05:19→21:11)
[2021-10-17] MEDS: SALINE LOCK FLUSH 10 ML IV PUSH ×3 (05:19→21:12)
[2021-10-17] MEDS: LEVOTHYROXINE SODIUM 88 MCG TABLET PO (05:30)
[2021-10-17 05:50] LABS: Anion Gap 5 mmol/L (8-16); Blood Urea Nitrogen 22 mg/dL (9-20); Calcium 9.3 mg/dL (8.4-10.2); Carbon Dioxide 31 mmol/L (22-30); Chloride 103 mmol/L (98-107); Estimated CRCL calculation 53 ml/min; Estimated Glomerular Filt Rate > 60; Glucose 127 mg/dL (65-110); Potassium 3.9 mmol/L (3.4-5.0); Sodium 139 mmol/L (137-145)
[2021-10-17 06:58] LABS: Folic Acid 6.5 ng/mL (2.76->20); Vitamin B12 > 1000.0 pg/mL (239-931)
[2021-10-17 07:56] LABS: Glucose Point of Care 119 mg/dl (65-105)
[2021-10-17] MEDS: FLUTICASONE/SALMETEROL 115-21 MCG INHALER 1 PUFF 2 PUFF INHALATION ×2 (08:36→20:34)
[2021-10-17] MEDS: ENOXAPARIN 40 MG/0.4 ML SYRINGE SUB-Q (09:22)
[2021-10-17] MEDS: MONTELUKAST SODIUM 10 MG TABLET PO (09:22)
[2021-10-17] MEDS: METOPROLOL SUCCINATE EXT REL 50 MG TABCR PO (09:22)
[2021-10-17] MEDS: polyethylene glycoL 3350 17 GM POWD.PACK PO ×2 (09:22→21:11)
[2021-10-17] MEDS: CARBIDOPA/LEVODOPA 25/100 MG TABLET 1 TABLET PO ×4 (09:23→21:12)
[2021-10-17] MEDS: HALOPERIDOL 5 MG TABLET 10 MG PO ×2 (09:23→21:11)
[2021-10-17] MEDS: ASPIRIN 81 MG CHEWABLE TABLET PO (09:23)
[2021-10-17] MEDS: EUCERIN CREAM 120 GM JAR 1 APPLIC TOPICAL (09:23)
[2021-10-17] MEDS: PANTOPRAZOLE 40 MG TABLET PO ×2 (09:23→21:12)
[2021-10-17] MEDS: BENZTROPINE MESYLATE 1 MG TABLET 2 MG PO ×2 (09:23→21:12)
--- NOTE | 2021-10-17 10:25 | PM.CNPUL ---
Assessment and Plan Assessment and plan (1) ILD (interstitial lung disease): Code(s): J84.9 - Interstitial pulmonary disease, unspecified Status: Acute Assessment and Plan: 81-year-old man with a history of psychiatric illness chronically on psychiatric medications, history of Parkinson's disease has had bilateral interstitial lung disease on chest CT. The patient has no specific respiratory complaints although he is not very active. Review of previous abdominal CT done in December of 2019 also showed bibasilar interstitial lung disease, which has not progressed significantly in the lung bases over the last 20 months ,as shown by CT imaging. the etiology of interstitial lung disease is unclear. 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 SUZETTE testing is pending. Will extent testing for possible underlying autoimmune disease. (2) COPD (chronic obstructive pulmonary disease): Qualifiers: COPD type: unspecified COPD Qualified Code(s): J44.9 - Chronic obstructive pulmonary disease, unspecified Code(s): J44.9 - Chronic obstructive pulmonary disease, unspecified Status: Chronic (3) Parkinsons disease: Code(s): G20 - Parkinson's disease Status: Chronic (4) Schizophrenia: Qualifiers: Schizophrenia type: unspecified Qualified Code(s): F20.9 - Schizophrenia, unspecified Code(s): F20.9 - Schizophrenia, unspecified Status: Chronic History of Present Illness History of Present Illness Consult date: 10/17/21 Chief complaint: adynamic ileus with diarrhea Narrative: This 81-year-old man was admitted into the hospital 4 days ago with a 2 day history of diarrhea and intermittent abdominal pain. I was asked to see the patient regarding chronic interstitial lung disease detected by chest CT. The patient has history of multiple medical problems including psychiatric illness chronically on psychiatric medications, history of Parkinson's disease, history of COPD on maintenance bronchodilators. He had diarrhea and loose bowel movements for 2 days as well as intermittent abdominal pain. He had no fever or chills. He had no respiratory symptoms such as coughing or shortness of breath. The patient has been treated for possible UTI. Currently his GI symptoms have improved. The patient denied having respiratory symptoms such as cough sputum production or shortness of breath. Patient is not very active as he lives in a correction. Recent chest CT showed interstitial lung disease bilaterally. Previous abdominal CT done in December of 2019 also showed bibasilar interstitial lung disease changes. Review of Systems Review of Systems: Patient is a poor historian. He has remote history of smoking. He has also history of COPD; he stated that he never history of lung disease but his brother from lung disease. [facility] Past Medical History Medical History (Updated 10/15/21 @ 15:28 by Ivette Abreu MD) Anemia Anxiety Arthritis Asthma Back pain Cataracts, bilateral COPD (chronic obstructive pulmonary disease) Depression Diabetes Fractures rt wrist Hypertension Hypothyroid ILD (interstitial lung disease) Parkinsons disease Schizophrenia Seizures Type 2 diabetes mellitus without complication UTI (urinary tract infection) UTI (urinary tract infection) Surgical History Surgical History No pertinent past surgical history Family History Family History Mother Renal failure Father Asbestos exposure Sibling Liver cancer Lung cancer Social History Social History Social History: He is from [facility]. He stated he was never and never had any children. He is a full code. Smoking status: Former smoker Tobacco type: cigars
[2021-10-17 11:30] LABS: Glucose Point of Care 138 mg/dl (65-105)
--- NOTE | 2021-10-17 11:56 | PM.IMPN ---
Progress Note: A&P Assessment and Plan (1) AMS (altered mental status): Code(s): R41.82 - Altered mental status, unspecified Status: Acute Assessment and Plan: Likely 2/2 to medications plus urinary tract infection. CT brain w/o acute findings to explain the somnolence. Much improved today. Latruda has been held due to outage. Nortriptyline stopped. Continue to monitor but symptoms appear to be resolving. Limit sedating medication. Continue PT/OT. (2) Bacteremia due to Gram-positive bacteria: Code(s): R78.81 - Bacteremia Status: Acute Assessment and Plan: BCx 10/13 1of2 positive with gram positive cocci in clusters so Vanco added and BCx repeated 10/15. BCx 10/13 positive for Coag Negative Staph. Repeat 10/15 BCx also positive for gram positive cocci in clusters now. Continue Vanco and Rocephin for now. Repeat BCx. Check Echo (3) Urinary tract infection: Qualifiers: Hematuria presence: without hematuria Urinary tract infection type: acute cystitis Qualified Code(s): N30.00 - Acute cystitis without hematuria Code(s): N39.0 - Urinary tract infection, site not specified Status: Acute Assessment and Plan: UA reviewed. Citrobacter koseri pansensitive on urine culture. He has completed a course of ceftriaxone but will continue until repeat BCx results known. Not voided but exam benign and renal function improving. Check bladder scan (4) ILD (interstitial lung disease): Code(s): J84.9 - Interstitial pulmonary disease, unspecified Status: Acute Assessment and Plan: HRCT notes relatively unchanged ILD w/ cholelithiasis. SUZETTE pending. IgA and IgG elevated. IgM normal. Saturating well on room air. Pulmonology consulted and appreciate their input. (5) Adynamic ileus: Code(s): K56.0 - Paralytic ileus Status: Acute Assessment and Plan: Has had a few bowel movements but persistently distended without being tense or having peritoneal signs. Pseudo-obstruction?Notable thickening of rectosigmoid on CT w/ stool guaiac positive w/o signs of overt GI bleed. Patient is guaiac positive felt related to the colitis. Hgb stable. KUB 10/15 notes significant stool burden. Soap suds enema unsuccessful. Had BMx2 yesterday. Continue Senna, Miralax. Continue Flagyl. (6) Colitis: Code(s): K52.9 - Noninfective gastroenteritis and colitis, unspecified Status: Acute Assessment and Plan: As above (7) Macrocytic anemia: Code(s): D53.9 - Nutritional anemia, unspecified Status: Chronic Assessment and Plan: MCV 100.3 B12/Folate normal. [place] related to his medications. (8) Parkinsons disease: Code(s): G20 - Parkinson's disease Status: Chronic Assessment and Plan: No notable tremor on exam. On Sinemet, donepezil and trazodone at home. Nortriptyline stopped. Continue home medications otherwise (9) Schizophrenia: Qualifiers: Schizophrenia type: unspecified Qualified Code(s): F20.9 - Schizophrenia, unspecified Code(s): F20.9 - Schizophrenia, unspecified Status: Chronic Assessment and Plan: Controlled w/ latuda and haloperidol. Latuda/lurasidone on hold due to a pharmacy outage. Yesterday nursing was kind enough to discuss this with his contact, Karyn, who preferred to hold the lurasidone for just today instead of substituting geodon. With holding the lurasidone the patient is remarkably more alert and interactive. Patient may benefit from discussing a decrease in lurasidone with the prescribing physician. Continue Haloperidol 10 mg BID but Latuda 120 mg po remains on hold (10) Hypertension: Qualifiers: Hypertension type: unspecified Qualified Code(s): I10 - Essential (primary) hypertension Code(s): I10 - Essential (primary) hypertension Status: Chronic Assessment and Plan: Well controlled on metoprolol.
[2021-10-17] MEDS: cefTRIAXone 2 GM in SODIUM CHLORIDE 0.9% IV 100 ML IVPB (16:55)
[2021-10-17 17:14] LABS: Glucose Point of Care 107 mg/dl (65-105)
[2021-10-17] MEDS: DONEPEZIL HCL 10 MG TABLET 20 MG PO (21:11)
[2021-10-17] MEDS: traZODone HCL 25 MG TABLET PO (21:11)
[2021-10-17] MEDS: SENNA/DOCUSATE SODIUM TABLET 1 TAB PO (21:12)
[2021-10-17] MEDS: TAMSULOSIN HCL 0.4 MG CAPSULE PO (21:12)
[2021-10-17 21:42] LABS: Glucose Point of Care 121 mg/dl (65-105)
[2021-10-18] VITALS (8 sets, daily range): BP systolic 120–127; BP diastolic 58–79; PULSE 64–68; RESP 14–18; TEMP 36.4–36.6; O2SAT 92–100
[2021-10-18] MEDS: ALBUTEROL SULFATE (*SP) AEROSOL 1 PUFF 2 PUFF INHALATION ×4 (02:14→20:17)
[2021-10-18] MEDS: GABAPENTIN 300 MG CAPSULE PO ×3 (05:19→20:43)
[2021-10-18] MEDS: SALINE LOCK FLUSH 10 ML IV PUSH ×3 (05:20→20:45)
[2021-10-18] MEDS: LEVOTHYROXINE SODIUM 88 MCG TABLET PO (05:20)
[2021-10-18] MEDS: metroNIDAZOLE 250 MG TABLET 500 MG PO ×3 (05:20→16:59)
[2021-10-18 06:56] LABS: Basophils Percent Auto 0.2 % (0.2-1.2); Eosinophils Percent Auto 0.7 % (0-4.4); Hematocrit 33.3 % (42.0-52.0); Hemoglobin 10.3 g/dL (14.0-18.0); Immature Granulocyte Absolute 0.06 K/mm3 (0.00-0.031); Immature Platelet Fraction Pct 3.1 % (0.9-11.2); Lymphocytes Absolute Auto 2.19 K/mm3 (0.9-3.2); Lymphocytes Percent Auto 36.1 % (18.3-44.2); Mean Corpuscular HGB Conc 30.9 g/dl (32-36); Mean Corpuscular Hemoglobin 30.7 pg (26-34); Mean Corpuscular Volume 99.4 fl (80-100); Mean Platelet Volume 10.5 fl (7.4-10.4); Monocytes Absolute Auto 0.8 K/mm3 (0.1-0.6); Monocytes Percent Auto 12.9 % (2.6-8.5); Neutrophils Percent Auto 49.1 % (45.5-73.1); Nucleated Red Blood Cells Perc 0.3 % (0.0-0.2); Platelet Count Result 177 k/mm3 (150-375); Red Blood Count 3.35 M/mm3 (4.6-6.20); Red Cell Distribution Width 14.8 % (11.5-14.5); White Blood Count 6.1 K/mm3 (4.5-10.0)
[2021-10-18 07:09] LABS: Anion Gap 8 mmol/L (8-16); Blood Urea Nitrogen 17 mg/dL (9-20); Calcium 9.1 mg/dL (8.4-10.2); Carbon Dioxide 25 mmol/L (22-30); Chloride 103 mmol/L (98-107); Estimated CRCL calculation 63 ml/min; Estimated Glomerular Filt Rate > 60; Glucose 109 mg/dL (65-110); Potassium 4.1 mmol/L (3.4-5.0); Sodium 136 mmol/L (137-145)
[2021-10-18 07:53] LABS: Glucose Point of Care 105 mg/dl (65-105)
[2021-10-18] MEDS: FLUTICASONE/SALMETEROL 115-21 MCG INHALER 1 PUFF 2 PUFF INHALATION ×2 (09:05→20:17)
[2021-10-18] MEDS: PANTOPRAZOLE 40 MG TABLET PO ×2 (10:06→20:43)
[2021-10-18] MEDS: MONTELUKAST SODIUM 10 MG TABLET PO (10:06)
[2021-10-18] MEDS: BENZTROPINE MESYLATE 1 MG TABLET 2 MG PO ×2 (10:06→20:44)
[2021-10-18] MEDS: ENOXAPARIN 40 MG/0.4 ML SYRINGE SUB-Q (10:06)
[2021-10-18] MEDS: CARBIDOPA/LEVODOPA 25/100 MG TABLET 1 TABLET PO ×4 (10:06→20:44)
[2021-10-18] MEDS: ASPIRIN 81 MG CHEWABLE TABLET PO (10:07)
[2021-10-18] MEDS: METOPROLOL SUCCINATE EXT REL 50 MG TABCR PO (10:07)
[2021-10-18] MEDS: EUCERIN CREAM 120 GM JAR 1 APPLIC TOPICAL (10:08)
[2021-10-18] MEDS: polyethylene glycoL 3350 17 GM POWD.PACK PO ×2 (10:09→20:44)
[2021-10-18 11:53] LABS: Glucose Point of Care 123 mg/dl (65-105)
[2021-10-18] MEDS: cefTRIAXone 2 GM in SODIUM CHLORIDE 0.9% IV 100 ML IVPB (12:00)
--- NOTE | 2021-10-18 15:58 | PM.IMPN ---
Progress Note: A&P Assessment and Plan (1) AMS (altered mental status): Code(s): R41.82 - Altered mental status, unspecified Status: Acute Assessment and Plan: Likely 2/2 to medications plus urinary tract infection. CT brain w/o acute findings to explain the somnolence. Much improved yesterday but worse today possibly related to resuming the Latruda. Nortriptyline stopped. Better now. Continue to monitor. Limit sedating medication. Continue PT/OT. Hold Latuda and Trazodone. (2) Bacteremia due to Gram-positive bacteria: Code(s): R78.81 - Bacteremia Status: Acute Assessment and Plan: BCx 10/13 1of2 positive with gram positive cocci in clusters so Vanco added and BCx repeated 10/15. BCx 10/13 positive for Coag Negative Staph. Repeat 10/15 BCx also positive for gram positive cocci in clusters now. Continue Vanco and Rocephin for now. Repeat BCx NGTD. Echo showing nml EF with diatolic dysfunction. If last set of BCx remains negative, then will plan to stop abx. (3) Urinary tract infection: Qualifiers: Hematuria presence: without hematuria Urinary tract infection type: acute cystitis Qualified Code(s): N30.00 - Acute cystitis without hematuria Code(s): N39.0 - Urinary tract infection, site not specified Status: Acute Assessment and Plan: UA reviewed. Citrobacter koseri pansensitive on urine culture. He has completed a course of ceftriaxone but will continue until repeat BCx results known. Bladder scan was normal. Continue Flomax. (4) ILD (interstitial lung disease): Code(s): J84.9 - Interstitial pulmonary disease, unspecified Status: Acute Assessment and Plan: HRCT noted relatively unchanged ILD w/ cholelithiasis. SUZETTE pending. IgA and IgG elevated. IgM normal. Saturating well on room air. Pulmonology consulted and appreciate their input. (5) Adynamic ileus: Code(s): K56.0 - Paralytic ileus Status: Acute Assessment and Plan: Abd was distended and thickening of rectosigmoid on CT w/ stool guaiac positive w/o signs of overt GI bleed. Guaiac positive felt related to the colitis. Hgb stable. KUB 10/15 notes significant stool burden. Soap suds enema unsuccessful. With bowel prep, he is having more frequent BMs. Abd pain better. Continue Senna, Miralax. Continue Flagyl. (6) Colitis: Code(s): K52.9 - Noninfective gastroenteritis and colitis, unspecified Status: Acute Assessment and Plan: As above (7) Macrocytic anemia: Code(s): D53.9 - Nutritional anemia, unspecified Status: Chronic Assessment and Plan: Hgb stable in the 10-11 range. He has macrocytosis. B12/Folate normal. Monitor. (8) Parkinsons disease: Code(s): G20 - Parkinson's disease Status: Chronic Assessment and Plan: No notable tremor on exam. On Sinemet, donepezil, nortriptyline and trazodone at home. Nortriptyline has been stopped due tot he somnolence. Will stop trazodone as well. Continue home medications otherwise. (9) Schizophrenia: Qualifiers: Schizophrenia type: unspecified Qualified Code(s): F20.9 - Schizophrenia, unspecified Code(s): F20.9 - Schizophrenia, unspecified Status: Chronic Assessment and Plan: Patient takes Latuda and haloperidol for schizophrenia. Latuda was on hold due to a pharmacy outage. With holding the Latuda, the patient became more alert and interactive. He received the Latuda yesterday and much more somnolent today. Will hold Latuda and continue Haloperidol 10 mg BID. (10) Hypertension: Qualifiers: Hypertension type: unspecified Qualified Code(s): I10 - Essential (primary) hypertension Code(s): I10 - Essential (primary) hypertension Status: Chronic Assessment and Plan: BP reviewed on 10/18. Well controlled on Metoprolol xl 50 mg daily (11) Hypothyroid: Qualifiers: H
[2021-10-18 16:35] LABS: Glucose Point of Care 113 mg/dl (65-105)
--- NOTE | 2021-10-18 17:14 | PC.NURSE ---
I discussed with laboratory the patient's vancomycin trough. They stated they have a machine down and will run the vancomycin trough as soon as the machine is running. I notified pharmacy.
[2021-10-18 17:55] LABS: Vancomycin Trough 12.4 ug/mL (10.0-20.0)
[2021-10-18] MEDS: TAMSULOSIN HCL 0.4 MG CAPSULE PO (20:43)
[2021-10-18] MEDS: SENNA/DOCUSATE SODIUM TABLET 1 TAB PO (20:44)
[2021-10-18] MEDS: HALOPERIDOL 5 MG TABLET 10 MG PO (20:44)
[2021-10-18] MEDS: DONEPEZIL HCL 10 MG TABLET 20 MG PO (20:44)
[2021-10-18 21:14] LABS: Glucose Point of Care 154 mg/dl (65-105)
[2021-10-19] MEDS: metroNIDAZOLE 250 MG TABLET 500 MG PO ×4 (00:18→17:01)
[2021-10-19] MEDS: ALBUTEROL SULFATE (*SP) AEROSOL 1 PUFF 2 PUFF INHALATION ×4 (03:15→20:15)
[2021-10-19 05:25] VITALS: BP 134/65; PULSE 67; RESP 18; TEMP 36.5; O2SAT 93
[2021-10-19] MEDS: GABAPENTIN 300 MG CAPSULE PO ×3 (06:25→20:38)
[2021-10-19] MEDS: LEVOTHYROXINE SODIUM 88 MCG TABLET PO (06:25)
[2021-10-19] MEDS: SALINE LOCK FLUSH 10 ML IV PUSH ×2 (06:26→13:21)
[2021-10-19 08:11] LABS: Glucose Point of Care 102 mg/dl (65-105)
[2021-10-19 09:17] VITALS: O2SAT 93
[2021-10-19] MEDS: FLUTICASONE/SALMETEROL 115-21 MCG INHALER 1 PUFF 2 PUFF INHALATION ×2 (09:17→20:15)
[2021-10-19] MEDS: MONTELUKAST SODIUM 10 MG TABLET PO (09:20)
[2021-10-19] MEDS: PANTOPRAZOLE 40 MG TABLET PO ×2 (09:20→20:38)
[2021-10-19 09:21] VITALS: PULSE 71
[2021-10-19] MEDS: METOPROLOL SUCCINATE EXT REL 50 MG TABCR PO (09:21)
[2021-10-19] MEDS: polyethylene glycoL 3350 17 GM POWD.PACK PO ×2 (09:21→20:38)
[2021-10-19] MEDS: HALOPERIDOL 5 MG TABLET 10 MG PO ×2 (09:21→20:38)
[2021-10-19] MEDS: ENOXAPARIN 40 MG/0.4 ML SYRINGE SUB-Q (09:21)
[2021-10-19] MEDS: CARBIDOPA/LEVODOPA 25/100 MG TABLET 1 TABLET PO ×3 (09:21→17:01)
[2021-10-19] MEDS: BENZTROPINE MESYLATE 1 MG TABLET 2 MG PO ×2 (09:21→20:38)
[2021-10-19] MEDS: ASPIRIN 81 MG CHEWABLE TABLET PO (09:21)
[2021-10-19] MEDS: EUCERIN CREAM 120 GM JAR 1 APPLIC TOPICAL (09:22)
[2021-10-19 09:45] VITALS: O2SAT 94
[2021-10-19] MEDS: cefTRIAXone 2 GM in SODIUM CHLORIDE 0.9% IV 100 ML IVPB (12:01)
[2021-10-19 12:43] LABS: Glucose Point of Care 131 mg/dl (65-105)
[2021-10-19 15:19] VITALS: BP 141/51; PULSE 73; RESP 20; TEMP 36.4; O2SAT 97
--- NOTE | 2021-10-19 16:28 | PM.DS ---
DS: Admitting Diagnosis Discharge Date 10/19/21 Admitting Diagnosis Altered mental status DS: Discharge Diagnosis Discharge Diagnosis (1) AMS (altered mental status): Code(s): R41.82 - Altered mental status, unspecified Status: Acute Assessment and Plan: Likely 2/2 to medications plus urinary tract infection. CT brain w/o acute findings to explain the somnolence. He was treated with abx. Much improved with home medication adjustments and abx. We held his Latruda, Nortriptyline and Trazodone. He worked with PT/OT. He feels well today. (2) Bacteremia due to Gram-positive bacteria: Code(s): R78.81 - Bacteremia Status: Acute Assessment and Plan: BCx 10/13 1of2 positive with gram positive cocci in clusters so Vanco added and BCx repeated 10/15. BCx 10/13 positive for Coag Negative Staph. Repeat 10/15 BCx also positive for Coag Negative Staph. Repeat BCx 11/16 NGTD. Echo showing nml EF with diatolic dysfunction and no mention of vegetations but limited exam. [place] the positive BCx were contaminant. (3) Urinary tract infection: Qualifiers: Hematuria presence: without hematuria Urinary tract infection type: acute cystitis Qualified Code(s): N30.00 - Acute cystitis without hematuria Code(s): N39.0 - Urinary tract infection, site not specified Status: Acute Assessment and Plan: UA reviewed. Citrobacter koseri pansensitive on urine culture. He has completed a course of ceftriaxone. Bladder scan was normal. Straight cath revealed 550mL. He was started on Flomax. (4) ILD (interstitial lung disease): Code(s): J84.9 - Interstitial pulmonary disease, unspecified Status: Acute Assessment and Plan: HRCT chest noted relatively unchanged ILD w/ cholelithiasis. SUZETTE pending. IgA and IgG elevated. IgM normal. Saturating well on room air. Pulmonology was consulted and appreciate their input. (5) Adynamic ileus: Code(s): K56.0 - Paralytic ileus Status: Acute Assessment and Plan: Abdomen was distended and thickening of rectosigmoid on CT w/ stool guaiac positive w/o signs of overt GI bleed. Guaiac positive felt related to the colitis. Hgb stable in the 10-11 range. KUB 10/15 notes significant stool burden. Soap suds enema unsuccessful. With bowel regiment, he is having more frequent BMs. Abd pain better. Completed a course of Flagyl for the possible colitis. (6) Colitis: Code(s): K52.9 - Noninfective gastroenteritis and colitis, unspecified Status: Acute Assessment and Plan: As above (7) Macrocytic anemia: Code(s): D53.9 - Nutritional anemia, unspecified Status: Chronic Assessment and Plan: Hgb stable in the 10-11 range. He has macrocytosis. B12/Folate normal. (8) Parkinsons disease: Code(s): G20 - Parkinson's disease Status: Chronic Assessment and Plan: No notable tremor on exam. On Sinemet, donepezil, nortriptyline and trazodone at home. Nortriptyline and Trazodone were held due to the somnolence. (9) Schizophrenia: Qualifiers: Schizophrenia type: unspecified Qualified Code(s): F20.9 - Schizophrenia, unspecified Code(s): F20.9 - Schizophrenia, unspecified Status: Chronic Assessment and Plan: Patient takes Latuda and haloperidol for schizophrenia. Latuda was on hold due to a pharmacy outage. With holding the Latuda, the patient became more alert and interactive. He received Latuda but again became much more somnolent. Will continue to hold Latuda until seen by psychiatry. Continue Haloperidol 10 mg BID. (10) Hypertension: Qualifiers: Hypertension type: unspecified Qualified Code(s): I10 - Essential (primary) hypertension Code(s): I10 - Essential (primary) hypertension Status: Chronic Assessment and Plan: BP monitored closely and remained well controlled on Metoprolol x
[2021-10-19 16:55] LABS: Glucose Point of Care 144 mg/dl (65-105)
[2021-10-19 17:42] LABS: EDCOVIDSCREEN Negative (Negative)
[2021-10-19 20:07] VITALS: BP 120/86; PULSE 79; RESP 18; TEMP 36.8; O2SAT 95
[2021-10-19 20:34] LABS: SS-A <1.0; SS-B <1.0
[2021-10-19] MEDS: DONEPEZIL HCL 10 MG TABLET 20 MG PO (20:37)
[2021-10-19] MEDS: SENNA/DOCUSATE SODIUM TABLET 1 TAB PO (20:38)
[2021-10-19] MEDS: TAMSULOSIN HCL 0.4 MG CAPSULE PO (20:38)
[2021-10-19 21:00] LABS: Glucose Point of Care 123 mg/dl (65-105)
[2021-10-19 21:10] LABS: JO 1 Antibody <1.0; Scleroderma 70 Antibody <1.0
[2021-10-19 22:36] LABS: Anti Cyclic Citrullinated Pept <16 Units (<20)
[2021-10-21 11:14] LABS: ANCA Screen Negative (Negative)
--- NOTE | 2021-10-26 12:55 | PC.NURSE ---
11/16 blood cx are negative. Dr[address] Evelio rodriguez.
--- NOTE | 2021-11-03 14:25 | PC.NURSE ---
Anti cyclic CP WNL at <16 ANCA is negative SUZETTE is negative Blood cx are negative. Dr. Fraser aware. Called [place] to have patient follow up with Dr. Flores in 6 months.
== END 2021-10-19 21:30 | DRG 389 ==
LOC: ANHED 09:31 → ANH2MED 13:03
PROVIDERS: Family Medicine; Internal Medicine Pulmonary Disease; Nurse Practitioner; Physician Assistant; Admitting Provider Internal Medicine; Emergency Provider Emergency Medicine; Visit Provider Internal Medicine
DX: K56.0 Paralytic ileus (principal); J84.9 Interstitial pulmonary disease, unspecified; N30.00 Acute cystitis without hematuria; R78.81 Bacteremia; B96.89 Other specified bacterial agents as the cause of diseases classified elsewhere; Z20.822 Contact with and (suspected) exposure to COVID-19; R41.82 Altered mental status, unspecified; T50.905A Adverse effect of unspecified drugs, medicaments and biological substances, initial encounter; K52.9 Noninfective gastroenteritis and colitis, unspecified; J44.9 Chronic obstructive pulmonary disease, unspecified; R19.5 Other fecal abnormalities; I10 Essential (primary) hypertension; E03.9 Hypothyroidism, unspecified; G20 Parkinson's disease; E11.42 Type 2 diabetes mellitus with diabetic polyneuropathy; E11.36 Type 2 diabetes mellitus with diabetic cataract; H26.9 Unspecified cataract; R56.9 Unspecified convulsions; D53.9 Nutritional anemia, unspecified; F20.9 Schizophrenia, unspecified; Z79.84 Long term (current) use of oral hypoglycemic drugs; Z79.82 Long term (current) use of aspirin; Z79.899 Other long term (current) drug therapy; Z87.891 Personal history of nicotine dependence
CPT/HCPCS: 36415; 36569; 51701; 70450; 71250; 74018; 74177; 80048; 80053; 80069; 80202; 81001; 82607; 82728; 82746; 82784; 82948; 83036; 83605; 83615; 83690; 83735; 84443; 85014; 85018; 85025; 85055; 86021; 86038; 86200; 86235; 87040; 87077; 87086; 87088; 87186; 87426; 92610; 93306; 94640; 96365; 96366; 96375; 96376; 97162; 97165; 99285; A9270; C1751; C9113; C9803; G0378; J0696; J1650; J2997; J3370; Q9967

== ENCOUNTER 2021-11-30 12:59 | Emergency (ER) | payer MEDICARE, MEDICAID, SELFPAY ==
[2021-11-30] VITALS (36 sets, daily range): BP systolic 103–154; BP diastolic 30–91; PULSE 47–69; RESP 10–21; TEMP 36.4; O2SAT 94–100
--- NOTE | ~2021-11-30 | XR_ITS ---
EXAMINATION: XR chest 1V portable DATE: 11/30/2021 13:25 INDICATION: Low oxygen saturation. TECHNIQUE: frontal view of the chest was obtained. COMPARISON: Chest radiograph dated 07/15/[address] dated 10/14/2021 FINDINGS: Coarse reticular opacities in the bilateral mid and lower lung zones, left greater than right corresp onding to bronchiectasis and usual interstitial pneumonia (UIP) pattern chronic interstitial lung dis ease on prior CT. No definitive new airspace opacities, pleural effusion or pneumothorax. Calcified b ilateral hilar and mediastinal lymph nodes consistent with old granulomatous disease. The cardiomedia stinal silhouette is within normal limits for AP technique. There are bridging osteophytes at multipl e levels in the spine, consistent with diffuse idiopathic skeletal hyperostosis (DISH). IMPRESSION: 1. Stable appearance of lower lung predominant severe chronic interstitial lung disease. Difficult to exclude superimposed mild pulmonary edema or pneumonia. Reviewed, dictated and finalized at location B. ECTOR BARREL
--- NOTE | ~2021-11-30 | CT_ITS ---
EXAMINATION: CT brain wo con DATE: 11/30/2021 14:34 INDICATION: Altered mental state. Lethargy. TECHNIQUE: Computed tomography (CT) of the head was performed without intravenous contrast. The mA wa s adjusted according to patient size. Iterative reconstruction technique was employed. Exam dose: 68 1.00 mGy-cm total exam DLP. COMPARISON: 10/14/2021 CT brain FINDINGS: There is left vertebral artery, basilar artery and bilateral carotid siphon and supraclinoi d internal carotid artery calcification. There is nonspecific diminished attenuation of the cerebral white matter, likely due to chronic small vessel ischemic changes. No intracranial mass lesion or hemorrhage or cerebrovascular accident is detected. No midline shift o r mass effect. No subdural or epidural hematoma is detected. Bilateral lens replacements. No orbital mass lesion. No skull fracture or bone destruction is detected. There is minimal focal soft tissue thickening of the right ethmoid air cells; the paranasal sinuses a nd mastoid air cells are otherwise unremarkable. IMPRESSION: Cerebral atherosclerosis and chronic small vessel ischemic changes of the cerebral white matter No acute intracranial finding Reviewed, dictated and finalized at Location [facility]. Reviewed, dictated and finalized at location A. FIRST ASSISTANT
--- NOTE | 2021-11-30 13:15 | ECG_ITS ---
Measurements Intervals [place] Rate: 52 P: 50 VA: 225 QRS: -8 QRSD: 97 T: 169 QT: 450 QTc: 419 Interpretive Statements SINUS BRADYCARDIA WITH FIRST DEGREE AV BLOCK DELAYED PRECORDIAL R/S TRANSITION VOLTAGE CRITERIA FOR LVH T WAVE ABNORMALITY IN HIGH LATERAL LEADS- CONSIDER ISCHEMIA BASELINE ARTIFACT- V5 ABNORMAL ECG Electronically Signed On 11-30-2021 13:40:12 SCREEN PRINTING SUPERVISOR by Haseeb Hoff D.O.
[2021-11-30 13:31] LABS: Alveolar/Arterial O2 Gradient 26.5 mmHg; Base Excess ABG 0.7 mEq/l (+/-2.0); Carboxyhemoglobin 0.5 % THb (0-2.0); Fractional Inspired Oxygen 21 %; HCO3 ABG 25.3 mEq/l (22.0-26.0); Methemoglobin ABG 0.1 %THb (0-1.5); Modified Allen's Test Pass; Oxygen Content ABG 15.2 %vol (16.0-22.0); Oxygen Saturation ABG 95.1 % (95.0-100.0); PCO2 ABG 40.7 mmHg (35.0-45.0); PO2 ABG 74.5 mmHg (80.0-100.0); PO2 FiO2 Ratio Arterial Blood 3.55 %; Reduced Hemoglobin 6.4 %THb (0-5.0); Site Drawn RIGHT RADIAL; Total Hemoglobin 11.6 g/dL (12.0-18.0); pH ABG 7.412 (7.350-7.450)
[2021-11-30 13:32] LABS: Device ROOM AIR
--- NOTE | 2021-11-30 13:45 | ED.AMS ---
HPI - Altered Mental Status General Chief Complaint: Altered Mental Status Stated Complaint: LETHARGIC, LOW O2 Time Seen by Provider: 11/30/21 13:05 Source: EMS Mode of arrival: EMS Limitations: dementia History of Present Illness HPI narrative: This is an 81 year old male who presents from [facility] for evaluation of low oxygen saturation and lethargy. EMS reported to nursing staff patient's oxygen level was 93% on room air and he is currently 98% on room air. He is able to tell you his name, age and place. He is lethargy but denies all complaints. Related Data Home Medications Medication Instructions Recorded Confirmed Latuda 120 mg PO DAILY 12/27/19 10/13/21 Metamucil Fiber Singles 1 packet PO BID PRN 12/27/19 10/13/21 acetaminophen 650 mg PO Q6H PRN 12/27/19 10/13/21 aspirin 81 mg PO DAILY 12/27/19 10/13/21 benztropine 2 mg PO BID 12/27/19 10/13/21 carbidopa-levodopa 1 tablet PO Q6H 12/27/19 10/13/21 cyanocobalamin (vitamin B-12) 1,000 mcg IM MONTHLY 12/27/19 10/13/21 donepezil 20 mg PO HS 12/27/19 10/13/21 ergocalciferol (vitamin D2) 50,000 unit PO MONTHLY 12/27/19 10/13/21 [Vitamin D2] gabapentin 300 mg PO TID 12/27/19 10/13/21 magnesium hydroxide [Milk of 30 ml PO DAILY PRN 12/27/19 10/13/21 Magnesia] montelukast 10 mg PO DAILY 12/27/19 10/13/21 nortriptyline 25 mg PO HS 12/27/19 10/13/21 trazodone 25 mg PO HS 12/27/19 10/13/21 metoprolol succinate 50 mg PO DAILY 08/11/20 10/13/21 emollient [Vanicream] 1 applic TOPICAL DAILY PRN 07/16/21 10/13/21 fluticasone propion-salmeterol 1 inh INHALATION Q12H 07/16/21 10/13/21 [Advair Diskus] levothyroxine 88 mcg PO DAILY 07/16/21 10/13/21 nystatin [Nystop] 1 applic TOPICAL TID PRN 07/16/21 10/13/21 Allergies Allergy/AdvReac Type Severity Reaction Status Date / Time No Known Allergies Allergy Verified 10/13/21 14:59 Review of Systems Review of Systems: ROS unobtainable: Yes unobtainable due to medical condition and other (lethargic) PMFSH Past Medical History Medical History Anemia Anxiety Arthritis Asthma Back pain Cataracts, bilateral COPD (chronic obstructive pulmonary disease) Depression Diabetes Fractures rt wrist Hypertension Hypothyroid ILD (interstitial lung disease) Parkinsons disease Schizophrenia Seizures Type 2 diabetes mellitus without complication UTI (urinary tract infection) UTI (urinary tract infection) Surgical History Surgical History No pertinent past surgical history Family History Family History Mother Renal failure Father Asbestos exposure Sibling Liver cancer Lung cancer Social History Social History Social History: He is from [facility]. He stated he was never and never had any children. He is a full code. Smoking status: Former smoker Tobacco type: cigars Smoking end date: 11/26/97 Alcohol intake: former Substance use: never Gender identity (if verbalized by the patient): Male Spiritual care concerns: No Exam Const: General: ill appearing Nutritional Appearance: obese Orientation/consciousness: patient oriented x3 Other: lethargic HENMT: Head: normocephalic and atraumatic Face and sinus: normal facial exam, sinuses nontender and face symmetric Eyes: EOM: EOMs intact bilaterally Other: pinpoint pupil Resp: Effort & Inspection: normal respiratory effort and no retractions Auscultation: clear to auscultation bilaterally Cardio: Rate: bradycardic Rhythm: regular rhythm Heart sounds: no murmurs GI: GI Palp: Yes Soft to palpation, No Tenderness to palpation present (GI) and No Guarding due to palpation present (GI) Auscultation: normal bowel sounds Skin: General skin exam: normal color Neuro: Genera
[2021-11-30 14:27] LABS: Add Urine Microscopic? YES; Appearance Urine Clear (Clear); Bilirubin Urine Negative (Negative); Blood Urine Negative (Negative); Color Urine Yellow (Yellow); Glucose Urine UA Negative (Negative); Ketones Urine Negative (Negative); Leukocyte Esterase Ur Negative LEU/UL (Negative); Mucus Urine Rare /lpf; Nitrate Urine Negative (Negative); Protein Urine Negative (Negative); RBC Urine 0-2 /hpf (0-2); Specific Grav Ur 1.014 (1.001-1.035); WBC Urine 0-3 /hpf
[2021-11-30 14:48] LABS: Basophils Percent Auto 0.2 % (0.2-1.2); Eosinophils Absolute Auto 0.1 K/mm3 (0-0.3); Eosinophils Percent Auto 0.9 % (0-4.4); Hematocrit 34.9 % (42.0-52.0); Immature Granulocyte Absolute 0.02 K/mm3 (0.00-0.031); Immature Granulocyte Percent A 0.3 % (0-0.5); Lymphocytes Absolute Auto 2.43 K/mm3 (0.9-3.2); Lymphocytes Percent Auto 41.4 % (18.3-44.2); Mean Corpuscular HGB Conc 31.5 g/dl (32-36); Mean Corpuscular Hemoglobin 31.3 pg (26-34); Mean Corpuscular Volume 99.1 fl (80-100); Mean Platelet Volume 9.7 fl (7.4-10.4); Monocytes Absolute Auto 0.8 K/mm3 (0.1-0.6); Neutrophils Absolute Auto 2.5 K/mm3 (1.3-6.7); Neutrophils Percent Auto 43.2 % (45.5-73.1); Platelet Count Result 190 k/mm3 (150-375); Red Blood Count 3.52 M/mm3 (4.6-6.20); Red Cell Distribution Width 14.8 % (11.5-14.5); White Blood Count 5.9 K/mm3 (4.5-10.0)
[2021-11-30 14:59] LABS: Alanine Aminotransferase 8 U/L (4-50); Alkaline Phosphatase 89 U/L (38-126); Anion Gap 8 mmol/L (8-16); Aspartate Amino Transferase 26 U/L (17-59); Bilirubin,Total 0.4 mg/dL (0.2-1.3); Blood Urea Nitrogen 15 mg/dL (9-20); Calcium 9.1 mg/dL (8.4-10.2); Carbon Dioxide 28 mmol/L (22-30); Chloride 104 mmol/L (98-107); Estimated CRCL calculation 54 ml/min; Estimated Glomerular Filt Rate > 60; Glucose 129 mg/dL (65-110); Magnesium 2.6 mg/dL (1.6-2.3); Potassium 4.1 mmol/L (3.4-5.0); Sodium 140 mmol/L (137-145)
[2021-11-30 15:00] LABS: Lactic Acid Reflex 1.3 mmol/L (0.7-2.1)
[2021-11-30 15:04] LABS: Prothrombin Time 13.4 Seconds (11.1-14.7)
[2021-11-30 15:05] LABS: Partial Thromboplastin Time 29.6 SECONDS (22.3-36.8)
[2021-11-30] MEDS: SODIUM CHLORIDE 0.9% IV 1,000 ML 999 ML IV CONT (15:52)
== END 2021-12-01 00:44 ==
PROVIDERS: Emergency Provider General Practice
DX: R40.0 Somnolence (principal); D64.9 Anemia, unspecified; J44.9 Chronic obstructive pulmonary disease, unspecified; J84.9 Interstitial pulmonary disease, unspecified; E11.9 Type 2 diabetes mellitus without complications; I10 Essential (primary) hypertension; E03.9 Hypothyroidism, unspecified; G20 Parkinson's disease; M19.90 Unspecified osteoarthritis, unspecified site; F41.9 Anxiety disorder, unspecified; F20.9 Schizophrenia, unspecified; Z87.891 Personal history of nicotine dependence; Z79.82 Long term (current) use of aspirin; Z87.440 Personal history of urinary (tract) infections; R00.1 Bradycardia, unspecified; I67.2 Cerebral atherosclerosis
CPT/HCPCS: 36415; 36600; 70450; 71045; 80053; 81001; 82375; 82805; 83050; 83605; 83735; 85025; 85610; 85730; 93005; 96360; 99284; J7030

== ENCOUNTER 2022-01-13 19:09 | Emergency (ER) | payer OTHER, SELFPAY ==
[2022-01-13] VITALS (7 sets, daily range): BP systolic 143–154; BP diastolic 51–66; PULSE 45–53; RESP 10–14; TEMP 36.3; O2SAT 100
--- NOTE | ~2022-01-13 | XR_ITS ---
EXAMINATION: XR chest 2V EXAM DATE: 01/13/2022 19:41 INDICATION: AMS;hx of COPD, HTN,type 2 DM, parkinson's . TECHNIQUE: Frontal and lateral projections of the chest obtained and reviewed. Comparison is made to prior examination from 11/30/2021. FINDINGS: Again there is bilateral mid and lower lung zone abnormal reticulation, airspace disease, c ertainly have a chronic component, interstitial lung disease. No definite superimposed acute airspace disease or definite interval change. No pneumothorax or pleural effusion. Mild cardiomegaly. There a re bony degenerative changes. IMPRESSION: Pulmonary fibrosis without definite acute superimposed pneumonia. Cardiomegaly. Reviewed, dictated and finalized at location G. ST BUFFER
--- NOTE | 2022-01-13 19:16 | ECG_ITS ---
Measurements Intervals [place] Rate: 45 P: 55 WV: 252 QRS: -3 QRSD: 82 T: -50 QT: 468 QTc: 408 Interpretive Statements SINUS BRADYCARDIA WITH FIRST DEGREE AV BLOCK CONSIDER INFERIOR INFARCT, AGE INDETERMINATE NONSPECIFIC ST & T-WAVE ABNORMALITY- ANTEROLAT/HIGH LAT LEADS BASELINE ARTIFACT- I, II, AVR, AVL, AVF, V4-V6 ABNORMAL ECG Electronically Signed On 01-20-2022 14:39:47 RAIL MANAGER by Haseeb Hoff D.O.
[2022-01-13 19:42] LABS: Basophils Percent Auto 0.2 % (0.2-1.2); Eosinophils Absolute Auto 0.1 K/mm3 (0-0.3); Eosinophils Percent Auto 1.4 % (0-4.4); Hematocrit 35.1 % (42.0-52.0); Hemoglobin 10.7 g/dL (14.0-18.0); Immature Granulocyte Absolute 0.03 K/mm3 (0.00-0.031); Immature Granulocyte Percent A 0.5 % (0-0.5); Lymphocytes Absolute Auto 2.87 K/mm3 (0.9-3.2); Lymphocytes Percent Auto 48.9 % (18.3-44.2); Mean Corpuscular HGB Conc 30.5 g/dl (32-36); Mean Corpuscular Hemoglobin 30.7 pg (26-34); Mean Corpuscular Volume 100.6 fl (80-100); Mean Platelet Volume 9.5 fl (7.4-10.4); Monocytes Absolute Auto 0.6 K/mm3 (0.1-0.6); Monocytes Percent Auto 10.1 % (2.6-8.5); Neutrophils Absolute Auto 2.3 K/mm3 (1.3-6.7); Neutrophils Percent Auto 38.9 % (45.5-73.1); Platelet Count Result 225 k/mm3 (150-375); Red Blood Count 3.49 M/mm3 (4.6-6.20); Red Cell Distribution Width 14.5 % (11.5-14.5); White Blood Count 5.9 K/mm3 (4.5-10.0)
[2022-01-13 19:55] LABS: INR 1.1; Prothrombin Time 13.5 Seconds (11.1-14.7)
[2022-01-13 19:56] LABS: Albumin Level 3.9 g/dL (3.5-5.1); Alkaline Phosphatase 81 U/L (38-126); Anion Gap 4 mmol/L (8-16); Aspartate Amino Transferase 24 U/L (17-59); Bilirubin,Total 0.4 mg/dL (0.2-1.3); Blood Urea Nitrogen 14 mg/dL (9-20); Calcium 9.3 mg/dL (8.4-10.2); Carbon Dioxide 30 mmol/L (22-30); Chloride 104 mmol/L (98-107); Estimated CRCL calculation 64 ml/min; Estimated Glomerular Filt Rate > 60; Glucose 88 mg/dL (65-110); Potassium 4.4 mmol/L (3.4-5.0); Sodium 138 mmol/L (137-145)
[2022-01-13 20:01] LABS: Alanine Aminotransferase < 4 U/L (4-50)
[2022-01-13 21:08] LABS: Add Urine Microscopic? YES; Appearance Urine Clear (Clear); Bilirubin Urine Negative (Negative); Blood Urine Negative (Negative); Color Urine Yellow (Yellow); Glucose Urine UA Negative (Negative); Ketones Urine Negative (Negative); Leukocyte Esterase Ur Negative LEU/UL (Negative); Nitrate Urine Negative (Negative); Protein Urine Negative (Negative); Specific Grav Ur 1.013 (1.001-1.035); Squamous Epithelial Cell Urine Rare /hpf (Few)
--- NOTE | 2022-01-14 00:18 | ED.GENADULT ---
HPI - General Adult General Chief complaint: Altered Mental Status Stated complaint: UNRESPONSIVE, NOW RESPONDING Time Seen by Provider: 01/13/22 19:11 History of Present Illness HPI narrative: Patient is an 81-year-old male who presents to the ER with altered mental status. Apparently patient was poorly responsive the alf but for EMS patient was responding. At this time patient is alert and oriented x2 and at his neurologic baseline. He has some slurred speech which is normal forearm. He has no reports of pain or discomfort. Denies runny nose or sore throat or cough. No fevers or chills. Related Data Home Medications Medication Instructions Recorded Confirmed Latuda 120 mg PO DAILY 12/27/19 10/13/21 Metamucil Fiber Singles 1 packet PO BID PRN 12/27/19 10/13/21 acetaminophen 650 mg PO Q6H PRN 12/27/19 10/13/21 aspirin 81 mg PO DAILY 12/27/19 10/13/21 benztropine 2 mg PO BID 12/27/19 10/13/21 carbidopa-levodopa 1 tablet PO Q6H 12/27/19 10/13/21 cyanocobalamin (vitamin B-12) 1,000 mcg IM MONTHLY 12/27/19 10/13/21 donepezil 20 mg PO HS 12/27/19 10/13/21 ergocalciferol (vitamin D2) 50,000 unit PO MONTHLY 12/27/19 10/13/21 [Vitamin D2] gabapentin 300 mg PO TID 12/27/19 10/13/21 magnesium hydroxide [Milk of 30 ml PO DAILY PRN 12/27/19 10/13/21 Magnesia] montelukast 10 mg PO DAILY 12/27/19 10/13/21 nortriptyline 25 mg PO HS 12/27/19 10/13/21 trazodone 25 mg PO HS 12/27/19 10/13/21 metoprolol succinate 50 mg PO DAILY 08/11/20 10/13/21 emollient [Vanicream] 1 applic TOPICAL DAILY PRN 07/16/21 10/13/21 fluticasone propion-salmeterol 1 inh INHALATION Q12H 07/16/21 10/13/21 [Advair Diskus] levothyroxine 88 mcg PO DAILY 07/16/21 10/13/21 nystatin [Nystop] 1 applic TOPICAL TID PRN 07/16/21 10/13/21 Allergies Allergy/AdvReac Type Severity Reaction Status Date / Time No Known Allergies Allergy Verified 01/13/22 19:40 Review of Systems Review of Systems: All systems reviewed & are unremarkable except as noted in HPI and below ROS unobtainable: Yes unobtainable due to mental status Constitutional: Constitutional: Denies chills and Denies fever(s) Cardiovascular: Cardiovascular: Denies chest pain and Denies radiating jaw, neck or arm pain Respiratory: Respiratory: Denies cough and Denies dyspnea Gastrointestinal: Gastrointestinal: Denies abdominal pain, Denies nausea and Denies vomiting PMFSH Past Medical History Medical History Anemia Anxiety Arthritis Asthma Back pain Cataracts, bilateral COPD (chronic obstructive pulmonary disease) Depression Diabetes Fractures rt wrist Hypertension Hypothyroid ILD (interstitial lung disease) Parkinsons disease Schizophrenia Seizures Type 2 diabetes mellitus without complication UTI (urinary tract infection) UTI (urinary tract infection) Surgical History Surgical History No pertinent past surgical history Family History Family History Mother Renal failure Father Asbestos exposure Sibling Liver cancer Lung cancer Social History Social History Social History: He is from [facility]. He stated he was never and never had any children. He is a full code. Smoking status: Former smoker Tobacco type: cigars Smoking end date: 11/26/97 Alcohol intake: former Substance use: never Gender identity (if verbalized by the patient): Male Spiritual care concerns: No Exam Narrative: GENERAL: Chronically ill-appearing, obese, and in no acute distress. HEAD: Normocephalic, atraumatic. EYES: PERRL and EOMI. ENT: Mucous membranes moist. CHEST: Clear to auscultation. No respiratory distress. HEART: Regular rate and rhythm. Normal peripheral pulses. ABDOMEN: Soft, nontender, nondistended. EXT
--- NOTE | 2022-01-14 01:55 | PC.NURSE ---
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
[2022-01-14 02:29] VITALS: BP 172/73; PULSE 60; RESP 14; O2SAT 96
[2022-01-14 03:05] VITALS: BP 155/82; PULSE 54; RESP 15; O2SAT 94
== END 2022-01-14 03:13 ==
PROVIDERS: Emergency Provider Emergency Medicine
DX: R41.0 Disorientation, unspecified (principal); J44.9 Chronic obstructive pulmonary disease, unspecified; E11.9 Type 2 diabetes mellitus without complications; M19.90 Unspecified osteoarthritis, unspecified site; I11.0 Hypertensive heart disease with heart failure; E03.9 Hypothyroidism, unspecified; J84.9 Interstitial pulmonary disease, unspecified; G20 Parkinson's disease; F41.9 Anxiety disorder, unspecified; F32.A Depression, unspecified; F20.9 Schizophrenia, unspecified; Z87.440 Personal history of urinary (tract) infections; Z87.891 Personal history of nicotine dependence; I51.7 Cardiomegaly; J84.10 Pulmonary fibrosis, unspecified; Z79.82 Long term (current) use of aspirin
CPT/HCPCS: 36415; 71046; 80053; 81001; 85025; 85610; 93005; 99283

== ENCOUNTER 2022-06-20 08:48 | Outpatient (CLI) | payer OTHER, SELFPAY ==
--- NOTE | ~2022-06-20 | XR_ITS ---
XR chest 2V 06/20/2022 10:11 Indication: Cough. Chest pain. Hypertension. Procedure: AP and lateral views of the chest Comparison: Comparison to multiple prior studies sequentially, with oldest reviewed study dated 03/2022. Findings: There is extensive mixed interstitial and airspace disease with increasing confluence in th e right midlung, likely representing chronic interstitial fibrosis with superimposed acute pneumonia. There is evidence for chronic granulomatous disease of the mediastinum. No pneumothorax. No acute os seous abnormality. Impression: 1: Chronic interstitial fibrosis with probable acute superimposed pneumonia right midlung. 2: Cardiomegaly. Reviewed, dictated and finalized at location A. Impression: 1: Chronic interstitial fibrosis with probable acute superimposed pneumonia rig ht midlung. 2: Cardiomegaly.
--- NOTE | ~2022-06-20 | CT_ITS ---
EXAMINATION: CT diagnostic chest w con DATE: 06/20/2022 10:04 INDICATION: Cough. Hypertension. Chest pain. TECHNIQUE: Computed tomography (CT) of the chest was performed with 75 cc Omnipaque 300 intravenous c ontrast. The dose-length product was 635.73 mGy-cm. Automated exposure control and iterative reconstr uction technique were employed. COMPARISON: CT dated 10/14/2021 FINDINGS: Decreased lung volumes. There has been interval progression of chronic interstitial lung di sease with honeycombing in the lower lobes. No endobronchial lesions. Increased areas of groundglass opacification and consolidation. Cannot exclude acute superimposed pneumonia. Cardiomegaly. There are calcified mediastinal lymph nodes, consistent with chronic granulomatous disease. Small hiatal herni a. Cardiomegaly. IMPRESSION: 1. Interval progression of extensive chronic interstitial lung disease with a pattern consistent with usual interstitial pneumonia. Increased patchy areas of groundglass opacification and consolidation are present, acute superimposed pneumonia not excluded. Reviewed, dictated and finalized at location A. IMPRESSION: 1. Interval progression of extensive chronic interstitial lung disease with a p attern consistent with usual interstitial pneumonia. Increased patchy areas of groundglass opacification and consolidation are present, acute superimposed pne umonia not excluded.
[2022-06-20 09:54] LABS: Estimated Glomerular Filt Rate > 60
== END 2022-06-20 08:49 | disposition home or self-care (01) ==
DX: R05.9 Cough, unspecified (principal); J84.9 Interstitial pulmonary disease, unspecified; I51.7 Cardiomegaly
CPT/HCPCS: 71046; 71260; Q9967

== ENCOUNTER 2022-11-21 20:20 | Inpatient (IN) | payer OTHER, SELFPAY ==
[2022-11-21] VITALS (14 sets, daily range): BP systolic 117–143; BP diastolic 63–89; PULSE 100–121; RESP 18–26; TEMP 39.4; O2SAT 68–100
--- NOTE | ~2022-11-21 | XR_ITS ---
EXAMINATION: XR chest 1V portable Exam Date/Time: 11/22/2022 16:12 GUARD IMMIGRATION HISTORY: FLUID OVERLOAD? Comparison: X-ray chest 11/21/2022. RESULT: Lines, tubes, and devices: None. Lungs and pleura: Grossly unchanged bilateral mid and lower lung airspace disease, overlying chronic interstitial changes. Cardiomediastinal silhouette: Stable. Other: No acute osseous or upper abdominal finding. IMPRESSION: Grossly unchanged pulmonary opacities may reflect pulmonary edema or infection. Reviewed, dictated and finalized at location K. D IMMIGRATION
--- NOTE | ~2022-11-21 | XR_ITS ---
EXAMINATION: XR barium swallow modified DATE: 11/23/2022 13:26 INDICATION: Silent aspiration. TECHNIQUE: The patient was given barium-containing material of multiple consistencies to swallow by josé manuel zhou speech pathologist while I performed fluoroscopy. Dose-area product was [id number] Gy-cm2. FINDINGS: Oral Stage: Reduced labial seal/lip tension Reduced lingual movement Pharyngeal Phase: Reduced laryngeal elevation Reduced pharyngeal squeeze Piriform sinus residue Cervical/Esophageal Stage: Within functional limits IMPRESSION: Modified esophagram findings as above. Please refer to the speech therapy report [facility]. Reviewed, dictated and finalized at Location [facility]. Reviewed, dictated and finalized at location A. IMPRESSION: Modified esophagram findings as above. Please refer to the speech t herapy report for specific recommendations.
--- NOTE | ~2022-11-21 | XR_ITS ---
EXAMINATION: XR chest 1V portable DATE: 11/30/2022 09:10 INDICATION: Cardiopulmonary failure. TECHNIQUE: A single frontal view of the chest was obtained. COMPARISON: Chest single view at 5:07 AM FINDINGS: There are airspace and interstitial opacities in all lung zones bilaterally. No pleural eff usion or pneumothorax. The heart size is normal. Calcified hilar and mediastinal lymph nodes are cons istent with old granulomatous disease. The endotracheal tube tip is 4.8 cm above the kerri. The naso gastric tube tip is beyond the inferior margin of the radiograph, but at least to the stomach. IMPRESSION: 1. Stable diffuse lung disease, consistent with chronic interstitial lung disease with superimposed p neumonia versus pulmonary edema. Reviewed, dictated and finalized at location A. H WINDER IMPRESSION: 1. Stable diffuse lung disease, consistent with chronic interstitial lung disea se with superimposed pneumonia versus pulmonary edema.
--- NOTE | ~2022-11-21 | XR_ITS ---
Portable chest x-ray Comparison: 11/29/2022 Clinical History: Intubation Findings: Endotracheal tube and NG tube are in satisfactory positions. Extensive hazy and interstiti al disease is unchanged. Cardiomediastinal silhouette is stable. Bones and soft tissues are unremark able. Impression: Stable diffuse pulmonary disease. Stable support tubes. Reviewed, dictated and finalized at [facility]. L REMOVER Impression: Stable diffuse pulmonary disease. Stable support tubes.
--- NOTE | ~2022-11-21 | CT_ITS ---
EXAMINATION: CT chest abdomen pelvis wo con DATE: 11/27/2022 17:26 INDICATION: abdominal distension, hypoxemia . TECHNIQUE: Computed tomography (CT) of the chest, abdomen, and pelvis was performed with 100 mL Omnip aque-350 intravenous contrast. Automated exposure control and iterative reconstruction technique were employed. The dose-length product was 1693.83 mGy-cm. COMPARISON: 11/21/2022. FINDINGS: Examination is limited by motion artifact. Thoracic aorta: No significant dilation or calcification. Lung parenchyma and airways: Increased dependent right lower lobe consolidation. Increased left and r ight mid and upper lobe groundglass and consolidative opacities. Endotracheal tube terminates in the midthoracic trachea. Thoracic inlet, axillae and chest wall: No thyroid or soft tissue mass. No axillary lymphadenopathy. Mediastinum: Calcified left hilar and mediastinal nodes. Heart and pericardium: Cardiomegaly. No pericardial effusion. Coronary artery calcifications: Mild. Pleura: No effusion or mass. Thoracic bones: No acute osseous finding in the chest. ABDOMEN/PELVIS: Liver: Normal. Biliary/Gallbladder: Gallbladder is normal. No bile duct dilation. Pancreas: Fatty infiltrated. Spleen: Normal. Adrenals: Right adrenal myelolipoma. Kidneys: No mass, stone, or hydronephrosis. GI tract: NG tube, terminating at the pylorus. Persistent air dilation of the sigmoid. Persistent and unchanged sigmoid and rectal wall edema. Normal appendix. Mesentery/Peritoneum: No ascites, mass, or free air. Retroperitoneum: No mass. Atherosclerotic abdominal aortic and/or arterial calcifications. Pelvis: Bladder decompressed by a St, with persistent wall thickening. Absent uterus. Soft Tissues: Soft tissues and body wall unremarkable. Abdominopelvic bones: No acute osseous finding in the abdomen/pelvis. IMPRESSION: Motion limited examination. Pulmonary opacities concerning for worsening pulmonary edema/infection. U nchanged distal sigmoid colitis and proctitis. Increased sigmoid dilation which may represent ileus o r partial obstruction. Persistent bladder wall thickening secondary to decompression versus cystitis. Reviewed, dictated and finalized at location K. TY SHERIFF K9 HANDLER IMPRESSION: Motion limited examination. Pulmonary opacities concerning for worsening pulmon oksana edema/infection. Unchanged distal sigmoid colitis and proctitis. Increased sigmoid dilation which may represent ileus or partial obstruction. Persistent b ladder wall thickening secondary to decompression versus cystitis.
--- NOTE | ~2022-11-21 | XR_ITS ---
EXAMINATION: XR chest 1V Exam Date/Time: 11/21/2022 21:15 WIRELESS WATCHER HISTORY: TRANSIENT ALTERATION OF AWARENESS Comparison: 06/20/2022, CT chest 06/20/2022. RESULT: Lines, tubes, and devices: None. Lungs and pleura: Patchy areas of subsegmental airspace disease in the left mid and lower lung, over lying chronic coarse interstitial opacities. Left lateral costophrenic angle blunting. Cardiomediastinal silhouette: Stable. Multiple calcified lymph nodes. Other: No acute osseous or upper abdominal finding. IMPRESSION: Left mid and lower lung airspace disease may reflect atelectasis or the consolidation of pneumonia. P ossible small left pleural effusion. Chronic interstitial lung disease. Reviewed, dictated and finalized at location K. LESS WATCHER IMPRESSION: Left mid and lower lung airspace disease may reflect atelectasis or the consoli dation of pneumonia. Possible small left pleural effusion. Chronic interstitial lung disease.
--- NOTE | ~2022-11-21 | CT_ITS ---
EXAMINATION: CT abdomen pelvis wo con DATE: 11/21/2022 22:03 INDICATION: BLQ AP TECHNIQUE: Computed tomography (CT) of the abdomen and pelvis was performed without intravenous contr ast. Automated exposure control and iterative reconstruction technique were employed. The dose-length product was 1556.72 mGy-cm. COMPARISON: 10/13/2021. FINDINGS: Exam limited by motion and beam hardening artifact from arm positioning.. Lower thorax: Increased dependent bilateral groundglass and consolidative opacities, with underlying coarse interstitial change and fibrosis. Cardiomegaly. Pulmonary arterial hypertension. Calcified hil ar and mediastinal lymph nodes Liver: Normal. Biliary/Gallbladder: Gallbladder is normal. No bile duct dilation. Pancreas: Fatty infiltrated Spleen: Normal. Adrenals: Right adrenal myelolipoma. Kidneys: No mass, stone, or hydronephrosis. GI tract: No small bowel dilation. Persistent dilation of the air-filled sigmoid. Distal sigmoid and rectal wall thickening. Normal appendix. Mesentery/Peritoneum: No ascites, mass, or free air. Retroperitoneum: No mass. Atherosclerotic abdominal aortic and/or arterial calcifications. Pelvis: The bladder is mostly decompressed, with apparent wall thickening. Soft Tissues: Soft tissues and body wall unremarkable. Bones: No acute osseous finding. IMPRESSION: Pulmonary opacities may reflect pulmonary edema in the appropriate clinical context. Infection is not excluded. Distal sigmoid colitis as can be seen with infectious, inflammatory, and ischemic etiologi es. Bladder wall thickening may be secondary to cystitis, outlet obstruction, or inadequate distentio n. Reviewed, dictated and finalized at location K. TERIA HELPER IMPRESSION: Pulmonary opacities may reflect pulmonary edema in the appropriate clinical con text. Infection is not excluded. Distal sigmoid colitis as can be seen with inf ectious, inflammatory, and ischemic etiologies. Bladder wall thickening may be secondary to cystitis, outlet obstruction, or inadequate distention.
--- NOTE | ~2022-11-21 | XR_ITS ---
EXAMINATION: XR abdomen NG/feed tube insert DATE: 11/27/2022 13:38 INDICATION: Nasogastric tube placement. TECHNIQUE: A supine view of the abdomen was obtained. COMPARISON: Chest single view at 12:52 PM FINDINGS: The lower abdomen is excluded. The nasogastric tube tip is in the distal stomach. There are airspace opacities and interstitial opacities in all lung zones bilaterally. Calcified hilar and med iastinal lymph nodes are consistent with old granulomas disc disease. IMPRESSION: 1. Nasogastric tube tip in the distal stomach. 2. Diffuse lung disease, consistent with chronic interstitial lung disease with superimposed pneumoni a versus pulmonary edema. Worsening in right lower lung zone from 12:59 PM may be atelectasis or pneu monia. Reviewed, dictated and finalized at location A. NING PROCESSOR IMPRESSION: 1. Nasogastric tube tip in the distal stomach. 2. Diffuse lung disease, consistent with chronic interstitial lung disease with superimposed pneumonia versus pulmonary edema. Worsening in right lower lung z one from 12:59 PM may be atelectasis or pneumonia.
--- NOTE | ~2022-11-21 | US_ITS ---
EXAMINATION: US renal BI DATE: 11/22/2022 15:41 INDICATION: Acute renal insufficiency TECHNIQUE: Multiple ultrasound grayscale images of the kidneys were obtained. COMPARISON: 12/28/2019 FINDINGS: The right kidney measures 10.1 x 5.1 x 6.0 cm. The left kidney measures 10.3 x 5.3 x 5.4 cm. The kidn eys demonstrate normal echogenicity. There is no hydronephrosis in either kidney. No stones identifi ed. The bladder is visualized, likely decompressed.. IMPRESSION: 1. Normal kidneys without hydronephrosis. Reviewed, dictated and finalized at location A. KSMITH APPRENTICE
--- NOTE | ~2022-11-21 | XR_ITS ---
EXAMINATION: XR chest 1V portable DATE: 11/26/2022 13:42 INDICATION: Cough. TECHNIQUE: A single frontal view of the chest was obtained. COMPARISON: Chest single view 11/14/2022, CT abdomen and pelvis 11/21/2022, chest CT 06/20/2022 FINDINGS: There are airspace and interstitial opacities in all lung zones bilaterally, worst in right mid and upper lung zones and left mid and lower lung zones. No pleural effusion or pneumothorax. The heart size is normal. There are prominent paracardial fat pads. Calcified mediastinal lymph nodes ar e consistent with old granulomatous disease. IMPRESSION: 1. Diffuse lung disease with interval worsening on the right, consistent with chronic interstitial aracely ng disease with superimposed pneumonia versus pulmonary edema. Reviewed, dictated and finalized at location A. FRYER ASSEMBLER IMPRESSION: 1. Diffuse lung disease with interval worsening on the right, consistent with c hronic interstitial lung disease with superimposed pneumonia versus pulmonary e rebeca.
--- NOTE | ~2022-11-21 | XR_ITS ---
Portable chest x-ray Comparison: 11/28/2022 Clinical History: Intubation Findings: Endotracheal tube and NG tube are in satisfactory positions. [id number] pulmonary ed neto pattern present with possible underlying chronic interstitial disease. Cardiomediastinal silhoue tte is stable. Bones and soft tissues are unremarkable. Impression: Suspected mild to moderate pulmonary edema pattern with probable underlying diffuse chronic interstit ial disease. Reviewed, dictated and finalized at location . ISION REPAIRER Impression: Suspected mild to moderate pulmonary edema pattern with probable underlying dif fuse chronic interstitial disease.
--- NOTE | ~2022-11-21 | XR_ITS ---
Portable chest x-ray Comparison: 11/27/2022 Clinical History: Tube placement Findings: Endotracheal tube and NG tube are in satisfactory positions. Moderate to advanced pulmonar y edema pattern is present. Possible underlying chronic interstitial disease. Cardiomediastinal silh ouette is stable. Bones and soft tissues are unremarkable. Impression: Probable moderate to advanced pulmonary edema pattern with possible underlying chronic interstitial d isease. Correlate clinically. Support tubes, as above. Reviewed, dictated and finalized at [facility]. ER REPAIR SUPERVISOR Impression: Probable moderate to advanced pulmonary edema pattern with possible underlying chronic interstitial disease. Correlate clinically. Support tubes, as above.
--- NOTE | ~2022-11-21 | XR_ITS ---
EXAMINATION: XR chest ET placement DATE: 11/27/2022 13:08 INDICATION: Decreased oxygen saturation. TECHNIQUE: A single frontal view of the chest was obtained. COMPARISON: Chest single view at 1:36 AM FINDINGS: There are airspace and interstitial opacities throughout the lungs bilaterally. No pleural effusion or pneumothorax. The heart size is normal. Calcified hilar and mediastinal lymph nodes are c onsistent with old granulomatous disease. The endotracheal tube tip is 1.2 cm above the kerri. IMPRESSION: 1. Worsened diffuse lung disease, consistent with chronic interstitial lung disease with superimposed pneumonia versus pulmonary edema. Reviewed, dictated and finalized at location A. L PRODUCTS ASSEMBLER IMPRESSION: 1. Worsened diffuse lung disease, consistent with chronic interstitial lung dis ease with superimposed pneumonia versus pulmonary edema.
--- NOTE | ~2022-11-21 | XR_ITS ---
EXAMINATION: XR chest 1V portable DATE: 11/27/2022 01:41 INDICATION: Increased oxygen requirement. TECHNIQUE: A single frontal view of the chest was obtained. COMPARISON: Chest single view 11/26/2022 FINDINGS: There are interstitial and airspace opacities in all lung zones bilaterally, worst in right mid and upper lung zones and left mid and lower lung zones. No pleural effusion or pneumothorax. The heart size is normal. There are prominent paracardial fat pads. Calcified mediastinal and hilar lymp h nodes are consistent with old granulomatous disease. IMPRESSION: 1. Stable diffuse lung disease, consistent with chronic interstitial lung disease with superimposed p neumonia versus pulmonary edema. Reviewed, dictated and finalized at location A. OR IMPRESSION: 1. Stable diffuse lung disease, consistent with chronic interstitial lung disea se with superimposed pneumonia versus pulmonary edema.
[2022-11-21 21:08] LABS: Basophils Absolute Auto 0.1 K/mm3 (0.0-0.1); Basophils Percent Auto 0.6 % (0.2-1.2); Eosinophils Percent Auto 0.1 % (0-4.4); Hematocrit 37.2 % (42.0-52.0); Hemoglobin 11.3 g/dL (14.0-18.0); Immature Granulocyte Absolute 0.03 K/mm3 (0.00-0.031); Immature Granulocyte Percent A 0.3 % (0-0.5); Lymphocytes Absolute Auto 2.37 K/mm3 (0.9-3.2); Lymphocytes Percent Auto 24.2 % (18.3-44.2); Mean Corpuscular HGB Conc 30.4 g/dl (32-36); Mean Corpuscular Hemoglobin 30.6 pg (26-34); Mean Corpuscular Volume 100.8 fl (80-100); Mean Platelet Volume 9.7 fl (7.4-10.4); Monocytes Absolute Auto 1.1 K/mm3 (0.1-0.6); Monocytes Percent Auto 11.2 % (2.6-8.5); Neutrophils Absolute Auto 6.2 K/mm3 (1.3-6.7); Neutrophils Percent Auto 63.6 % (45.5-73.1); Nucleated Red Blood Cells Perc 0.2 % (0.0-0.2); Platelet Count Result 194 k/mm3 (150-375); Red Blood Count 3.69 M/mm3 (4.6-6.20); Red Cell Distribution Width 13.7 % (11.5-14.5); White Blood Count 9.8 K/mm3 (4.5-10.0)
[2022-11-21 21:19] LABS: Lactic Acid Reflex 2.9 mmol/L (0.7-2.0)
[2022-11-21 21:19] LABS: INR 1.2; Prothrombin Time 14.9 Seconds (11.1-14.7)
[2022-11-21 21:25] LABS: Alanine Aminotransferase 16 U/L (6-50); Albumin Level 4.5 g/dL (3.5-5.1); Alkaline Phosphatase 99 U/L (38-126); Anion Gap 6 mmol/L (8-16); Aspartate Amino Transferase 33 U/L (17-59); Bilirubin,Total 0.6 mg/dL (0.2-1.3); Blood Urea Nitrogen 34 mg/dL (9-20); Calcium 9.9 mg/dL (8.4-10.2); Carbon Dioxide 35 mmol/L (22-30); Chloride 101 mmol/L (98-107); Estimated CRCL calculation 23 ml/min; Estimated Glomerular Filt Rate 25; Glucose 135 mg/dL (65-110); Lipase 104 U/L (23-300); Potassium 4.5 mmol/L (3.4-5.0); Sodium 142 mmol/L (137-145)
[2022-11-21 21:35] LABS: CRP 17.3 mg/dL (<1.0)
[2022-11-21 21:44] LABS: Influenza A QL RT-PCR Negative (Negative); Influenza B QL RT-PCR Negative (Negative); RSV RNA, RT-PCR Negative (Negative); SARS-CoV-2 RNA PCR Negative
--- NOTE | 2022-11-21 22:40 | ED.GENADULT ---
HPI - General Adult General Chief complaint: Recheck/Abnormal Lab/Rx Stated complaint: BOWEL OBSTRUCTION Time Seen by Provider: 11/21/22 20:27 History of Present Illness HPI narrative: Patient is an 82-year-old male who presents to the ER for concerns of an abdominal issue. According to the senior living patient had a KUB earlier in the day and there is concern for possible bowel obstruction. [facility] others will call to provide information as to why imaging was performed. Patient with dementia and unable to provide history. Patient does seem to be uncomfortable. Found to be febrile upon arrival here. Related Data Home Medications Medication Instructions Recorded Confirmed acetaminophen 325 mg tablet 650 mg PO Q6H PRN Fever Or Pain 12/27/19 11/22/22 aspirin 81 mg chewable tablet 81 mg PO DAILY 12/27/19 11/22/22 carbidopa 25 mg-levodopa 100 mg 1 tablet PO Q6H 12/27/19 11/22/22 tablet donepezil 10 mg tablet 20 mg PO HS 12/27/19 11/22/22 lurasidone 120 mg tablet (Latuda) 120 mg PO DAILY 12/27/19 11/22/22 magnesium hydroxide 400 mg/5 mL 30 ml PO DAILY PRN Constipation 12/27/19 11/22/22 oral suspension (Milk of Magnesia) montelukast 10 mg tablet 10 mg PO DAILY 12/27/19 11/22/22 nortriptyline 25 mg capsule 25 mg PO HS 12/27/19 11/22/22 psyllium husk (aspartame) 3.4 gram 1 packet PO BID PRN Constipation 12/27/19 11/22/22 oral powder packet (Metamucil Fiber Singles) trazodone 50 mg tablet 25 mg PO HS 12/27/19 11/22/22 metoprolol succinate 50 mg 50 mg PO DAILY 08/11/20 11/22/22 tablet,extended release 24 hr emollient (Vanicream topical) 1 applic topical DAILY PRN Wound 07/16/21 11/22/22 to left foot fluticasone 250 mcg-salmeterol 50 1 inh inhalation Q12H 07/16/21 11/22/22 mcg/dose blistr powdr for inhalation (Advair Diskus) levothyroxine 88 mcg tablet 88 mcg PO DAILY 07/16/21 11/22/22 nystatin 100,000 unit/gram topical 1 applic topical TID PRN redness 07/16/21 11/22/22 powder (Nystop) cholecalciferol (vitamin D3) 125 125 mcg PO DAILY 11/22/22 11/22/22 mcg (5,000 unit) tablet furosemide 20 mg tablet 20 mg PO BID 11/22/22 11/22/22 gabapentin 100 mg capsule 100 mg PO QID 11/22/22 11/22/22 gabapentin 400 mg capsule 400 mg PO QID 11/22/22 11/22/22 glipizide 2.5 mg tablet, extended 2.5 mg PO DAILY 11/22/22 11/22/22 release 24 hr mecobalamin (vitamin B12) 1,000 100 mcg PO DAILY 11/22/22 11/22/22 mcg chewable tablet multivit with minerals-iron 18 1 tablet PO DAILY 11/22/22 11/22/22 mg-folic ac 400 mcg-vit K 25 mcg tablet (Adults Multivitamin) Allergies Allergy/AdvReac Type Severity Reaction Status Date / Time No Known Allergies Allergy Verified 11/22/22 03:19 Review of Systems Review of Systems: ROS unobtainable: Yes unobtainable due to mental status PMFSH Past Medical History Medical History Anemia Anxiety Arthritis Asthma Back pain Cataracts, bilateral COPD (chronic obstructive pulmonary disease) Depression Diabetes Fractures rt wrist Hypertension Hypothyroid ILD (interstitial lung disease) Parkinsons disease Schizophrenia Seizures Type 2 diabetes mellitus without complication UTI (urinary tract infection) UTI (urinary tract infection) Surgical History Surgical History No pertinent past surgical history Family History Family History Mother Renal failure Father Asbestos exposure Sibling Liver cancer Lung cancer Social History Social History Social History: He is from [facility]. He stated he was never and never had any children. He is a full code. Smoking status: Former smoker Tobacco type: cigars Smoking end date: 11/26/97 Alcohol intake: former Substance use: never Gender identity (if verbaliz
--- NOTE | 2022-11-21 22:46 | PM.IMHP ---
H&P: HPI History of Present Illness Date/Time: 11/21/22 22:46 Chief Complaint: Abdominal pain Narrative: This is an 82-year-old male with past medical history significant for Parkinson's disease, type 2 diabetes mellitus, peripheral diabetic neuropathy, diabetic foot, hypertension, chronic constipation, chronic back pain, COPD, schizophrenia. 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 Preliminary workup was significant for CT of abdomen and pelvis was reported as: IMPRESSION: Pulmonary opacities may reflect pulmonary edema in the appropriate clinical context. Infection is not excluded. Distal sigmoid colitis as can be seen with infectious, inflammatory, and ischemic etiologies. Bladder wall thickening may be secondary to cystitis, outlet obstruction, or inadequate distention. Chest x-ray was reported as: IMPRESSION: Left mid and lower lung airspace disease may reflect atelectasis or the consolidation of pneumonia. Possible small left pleural effusion. Chronic interstitial lung disease. Basic metabolic profile was significant for a creatinine of 2.9 BUN 34 Review of Systems Review of Systems: ROS unobtainable: Yes unobtainable due to mental status (Obtundation) [facility] Past Medical History Medical History Anemia Anxiety Arthritis Asthma Back pain Cataracts, bilateral COPD (chronic obstructive pulmonary disease) Depression Diabetes Fractures rt wrist Hypertension Hypothyroid ILD (interstitial lung disease) Parkinsons disease Schizophrenia Seizures Type 2 diabetes mellitus without complication UTI (urinary tract infection) UTI (urinary tract infection) Surgical History Surgical History No pertinent past surgical history Family History Family History Mother Renal failure Father Asbestos exposure Sibling Liver cancer Lung cancer Social History Social History Social History: He is from [facility]. He stated he was never and never had any children. He is a full code. Smoking status: Former smoker Tobacco type: cigars Smoking end date: 11/26/97 Alcohol intake: former Substance use: never Gender identity (if verbalized by the patient): Male Spiritual care concerns: No Meds Home Medications and Allergies Home Medications Medication Instructions Recorded Confirmed Type acetaminophen 325 mg tablet 650 mg PO Q6H PRN Fever Or Pain 12/27/19 11/22/22 History aspirin 81 mg chewable tablet 81 mg PO DAILY 12/27/19 11/22/22 History carbidopa 25 mg-levodopa 100 mg 1 tablet PO Q6H 12/27/19 11/22/22 History tablet donepezil 10 mg tablet 20 mg PO HS 12/27/19 11/22/22 History lurasidone 120 mg tablet (Latuda) 120 mg PO DAILY 12/27/19 11/22/22 History magnesium hydroxide 400 mg/5 mL 30 ml PO DAILY PRN Constipation 12/27/19 11/22/22 History oral suspension (Milk of Magnesia) montelukast 10 mg tablet 10 mg PO DAILY 12/27/19 11/22/22 History nortriptyline 25 mg capsule 25 mg PO HS 12/27/19 11/22/22 History psyllium husk (aspartame) 3.4 gram 1 packet PO BID PRN Constipation 12/27/19 11/22/22 History oral powder packet (Metamucil Fiber Singles) trazodone 50 mg tablet 25 mg PO HS 12/27/19 11/22/22 History metoprolol succinate 50 mg 50 mg PO DAILY 08/11/20 11/22/22 History tablet,extended release 24 hr emollient (Vanicream topical) 1 applic topical DAILY PRN Wound 07/16/21 11/22/22 History to left foot fluticasone 250 mcg-salmetero
[2022-11-21 23:54] LABS: Appearance Urine Clear (Clear); Bilirubin Urine 1+ (Negative); Blood Urine Negative (Negative); Glucose Urine UA Negative (Negative); Ketones Urine Trace mg/dL (Negative); Leukocyte Esterase Ur Negative LEU/UL (Negative); Nitrate Urine Negative (Negative); Protein Urine Trace mg/dL (Negative); Specific Grav Ur 1.025 (1.001-1.035)
[2022-11-22] VITALS (10 sets, daily range): BP systolic 114–129; BP diastolic 40–60; PULSE 86–94; RESP 16–22; TEMP 36.4–37.3; O2SAT 94–100; BMI 30.9
[2022-11-22 00:01] LABS: Add Urine Microscopic? YES; Color Urine Dark Yellow (Yellow)
[2022-11-22 00:04] LABS: Bacteria Urine Trace /hpf; Calcium Oxalate Crystals Urine Present /hpf; Mucus Urine Rare /lpf; Squamous Epithelial Cell Urine Moderate /hpf (Few)
[2022-11-22 00:06] LABS: Reflex Lactic Acid Yes or No Add Lactic
[2022-11-22] MEDS: SODIUM CHLORIDE 0.9% IV 1,000 ML 125 ML IV CONT ×2 (00:49→06:32)
[2022-11-22 00:59] LABS: Lactic Acid 1.7 mmol/L (0.7-2.0)
--- NOTE | 2022-11-22 03:17 | ADMGEN ---
This patient, Norm Maldonado, was admitted to Medical Room 345-01. Patient/family oriented to hospital policies and general routines including ID bracelet, bed and alarms, visiting hours, pain management, procedures, bathroom and other care routines, personal items, smoking policy, room service/diet, and visiting hours. Information on how to activate the Rapid Response Team has been discussed. Patient/Family are encouraged to report perceived risks to care and to ask questions if they do not understand what they are told or what they should do.
[2022-11-22] MEDS: CARBIDOPA/LEVODOPA 25/100 MG TABLET 1 TABLET PO ×4 (07:04→23:18)
[2022-11-22] MEDS: LEVOTHYROXINE SODIUM 88 MCG TABLET PO (07:04)
[2022-11-22] MEDS: FLUTICASONE/SALMETEROL 115-21 MCG INHALER 1 PUFF 2 PUFF INHALATION ×2 (09:01→20:35)
[2022-11-22] MEDS: GABAPENTIN 100 MG CAPSULE PO ×4 (09:31→20:44)
[2022-11-22] MEDS: MONTELUKAST SODIUM 10 MG TABLET PO (09:31)
[2022-11-22] MEDS: CHOLECALCIFEROL 1,000 UNITS TABLET 5000 UNITS PO (09:31)
[2022-11-22] MEDS: TOLNAFTATE 1% POWDER 45 GM BTL 1 APPLIC TOPICAL (09:32)
[2022-11-22] MEDS: METOPROLOL SUCCINATE EXT REL 50 MG TABCR PO (09:32)
[2022-11-22] MEDS: HALOPERIDOL 5 MG TABLET 10 MG PO ×2 (09:32→20:43)
[2022-11-22] MEDS: HEPARIN SODIUM 5,000 UNITS/ML VIAL 5000 UNITS SUB-Q ×2 (09:32→20:43)
[2022-11-22] MEDS: FAMOTIDINE 20 MG TABLET PO ×2 (09:32→17:14)
[2022-11-22] MEDS: GABAPENTIN 400 MG CAPSULE PO ×4 (09:32→20:43)
[2022-11-22] MEDS: polyethylene glycoL 3350 17 GM POWD.PACK PO ×2 (09:33→20:43)
--- NOTE | 2022-11-22 15:46 | PM.IMPN ---
Progress Note: A&P Assessment and Plan (1) Acute respiratory failure: Qualifiers: Respiratory failure complication: hypoxia Qualified Code(s): J96.01 - Acute respiratory failure with hypoxia Code(s): J96.00 - Acute respiratory failure, unspecified whether with hypoxia or hypercapnia Status: Acute Assessment and Plan: Patient is on supplemental oxygen by nasal cannula Chest x-ray with infiltrate Patient started on broad-spectrum antibiotics Continue to monitor Supportive care (2) Colitis: Code(s): K52.9 - Noninfective gastroenteritis and colitis, unspecified Status: Acute Assessment and Plan: CT of abdomen and pelvis reviewed Started on Zosyn (3) Lung infiltrate: Code(s): R91.8 - Other nonspecific abnormal finding of lung field Status: Acute Assessment and Plan: Seen on chest x-ray Blood cultures in progress CT with increased dependent bilateral ground-glass and consolidative opacities with underlying coarse interstitial change and fibrosis. (4) Acute renal failure: Qualifiers: Acute renal failure type: unspecified Qualified Code(s): N17.9 - Acute kidney failure, unspecified Code(s): N17.9 - Acute kidney failure, unspecified Status: Acute Assessment and Plan: St catheter placed. Baseline creatinine 1.1. Admission creatinine of 2.9. Continue to monitor intake and output Will hold IV fluid due to congestion Renal ultrasound came back negative for hydronephrosis (5) COPD (chronic obstructive pulmonary disease): Qualifiers: COPD type: unspecified COPD Qualified Code(s): J44.9 - Chronic obstructive pulmonary disease, unspecified Code(s): J44.9 - Chronic obstructive pulmonary disease, unspecified Status: Chronic Assessment and Plan: Breathing treatments q.4 hours (6) Parkinsons disease: Code(s): G20 - Parkinson's disease Status: Chronic Assessment and Plan: Continue home meds (7) Schizophrenia: Qualifiers: Schizophrenia type: unspecified Qualified Code(s): F20.9 - Schizophrenia, unspecified Code(s): F20.9 - Schizophrenia, unspecified Status: Chronic Assessment and Plan: Continue home meds Plan DVT prophylaxis heparin subQ bladder wall thickening suggestive of cystitis outlet obstruction or inadequate distention. Subjective Date/time seen: 11/22/22 15:46 Interval history: This is an 82-year-old male with past medical history significant for Parkinson's disease, type 2 diabetes mellitus, peripheral diabetic neuropathy, diabetic foot, hypertension, chronic constipation, chronic back pain, COPD, schizophrenia.? Patient is a [facility] resident and he was brought to the emergency room for evaluation to recheck abnormal blood work as well as suspected bowel obstruction patient is unable to give any history his complaining mainly of back pain, most of the history has been obtained upon reviewing medical records and discussion with emergency room doctor.? Preliminary workup was significant for CT of abdomen and pelvis was reported as: IMPRESSION: Pulmonary opacities may reflect pulmonary edema in the appropriate clinical context. Infection is not excluded. Distal sigmoid colitis as can be seen with infectious, inflammatory, and ischemic etiologies. Bladder wall thickening may be secondary to cystitis, outlet obstruction, or inadequate distention. Chest x-ray was reported as: IMPRESSION: Left mid and lower lung airspace disease may reflect atelectasis or the consolidation of pneumonia. Possible small left pleural effusion. Chronic interstitial lung disease. Basic metabolic profile was significant for a creatinine of 2.9 BUN 34 11/22/2022: No overnight events. Patient appeared congested and hence IV fluid was stopped. Has been having bowel movement. Denies any diarrhea. Denies abdominal pain. KUB earlier today with possible
[2022-11-22 17:02] LABS: Anion Gap 6 mmol/L (8-16); Blood Urea Nitrogen 25 mg/dL (9-20); Calcium 8.4 mg/dL (8.4-10.2); Carbon Dioxide 27 mmol/L (22-30); Chloride 110 mmol/L (98-107); Estimated CRCL calculation 38 ml/min; Estimated Glomerular Filt Rate 47; Glucose 115 mg/dL (65-110); Potassium 3.9 mmol/L (3.4-5.0); Sodium 143 mmol/L (137-145)
[2022-11-22] MEDS: NORTRIPTYLINE HCL 25 MG CAPSULE PO (20:43)
[2022-11-22] MEDS: SENNA/DOCUSATE SODIUM TABLET 1 TAB PO (20:43)
[2022-11-22] MEDS: traZODone HCL 25 MG TABLET PO (20:43)
[2022-11-22] MEDS: TAMSULOSIN HCL 0.4 MG CAPSULE PO (20:44)
[2022-11-22] MEDS: DONEPEZIL HCL 10 MG TABLET 20 MG PO (20:44)
[2022-11-23] VITALS (9 sets, daily range): BP systolic 118–133; BP diastolic 43–78; PULSE 77–89; RESP 16–20; TEMP 36.6–36.9; O2SAT 90–96
[2022-11-23] MEDS: LEVOTHYROXINE SODIUM 88 MCG TABLET PO (05:09)
[2022-11-23] MEDS: CARBIDOPA/LEVODOPA 25/100 MG TABLET 1 TABLET PO ×3 (05:09→17:08)
[2022-11-23 06:55] LABS: Basophils Percent Auto 0.4 % (0.2-1.2); Eosinophils Percent Auto 0.4 % (0-4.4); Hematocrit 26.2 % (42.0-52.0); Hemoglobin 7.8 g/dL (14.0-18.0); Immature Granulocyte Absolute 0.05 K/mm3 (0.00-0.031); Immature Granulocyte Percent A 0.6 % (0-0.5); Lymphocytes Absolute Auto 1.56 K/mm3 (0.9-3.2); Lymphocytes Percent Auto 18.3 % (18.3-44.2); Mean Corpuscular HGB Conc 29.8 g/dl (32-36); Mean Corpuscular Hemoglobin 30.8 pg (26-34); Mean Corpuscular Volume 103.6 fl (80-100); Mean Platelet Volume 9.9 fl (7.4-10.4); Monocytes Absolute Auto 0.9 K/mm3 (0.1-0.6); Neutrophils Percent Auto 70.3 % (45.5-73.1); Nucleated Red Blood Cells Perc 0.4 % (0.0-0.2); Platelet Count Result 125 k/mm3 (150-375); Red Blood Count 2.53 M/mm3 (4.6-6.20); Red Cell Distribution Width 13.9 % (11.5-14.5); White Blood Count 8.5 K/mm3 (4.5-10.0)
[2022-11-23 07:07] LABS: Alanine Aminotransferase 9 U/L (6-50); Albumin Level 3.3 g/dL (3.5-5.1); Alkaline Phosphatase 77 U/L (38-126); Anion Gap 7 mmol/L (8-16); Aspartate Amino Transferase 27 U/L (17-59); Bilirubin,Total 0.6 mg/dL (0.2-1.3); Blood Urea Nitrogen 20 mg/dL (9-20); Calcium 8.2 mg/dL (8.4-10.2); Carbon Dioxide 25 mmol/L (22-30); Chloride 108 mmol/L (98-107); Estimated CRCL calculation 49 ml/min; Estimated Glomerular Filt Rate > 60; Glucose 161 mg/dL (65-110); Magnesium 1.9 mg/dL (1.6-2.3); Potassium 3.5 mmol/L (3.4-5.0); Sodium 140 mmol/L (137-145)
[2022-11-23] MEDS: CHOLECALCIFEROL 1,000 UNITS TABLET 5000 UNITS PO (08:09)
[2022-11-23] MEDS: GABAPENTIN 100 MG CAPSULE PO ×4 (08:09→20:14)
[2022-11-23] MEDS: polyethylene glycoL 3350 17 GM POWD.PACK PO ×2 (08:09→20:14)
[2022-11-23] MEDS: MONTELUKAST SODIUM 10 MG TABLET PO (08:09)
[2022-11-23] MEDS: GABAPENTIN 400 MG CAPSULE PO ×4 (08:09→20:14)
[2022-11-23] MEDS: HEPARIN SODIUM 5,000 UNITS/ML VIAL 5000 UNITS SUB-Q (08:09)
[2022-11-23] MEDS: METOPROLOL SUCCINATE EXT REL 50 MG TABCR PO (08:10)
[2022-11-23] MEDS: FAMOTIDINE 20 MG TABLET PO ×2 (08:10→16:43)
[2022-11-23] MEDS: HALOPERIDOL 5 MG TABLET 10 MG PO ×2 (08:10→20:14)
[2022-11-23] MEDS: FLUTICASONE/SALMETEROL 115-21 MCG INHALER 1 PUFF 2 PUFF INHALATION ×2 (08:30→22:19)
--- NOTE | 2022-11-23 10:50 | PM.IMPN ---
Progress Note: A&P Assessment and Plan (1) Acute respiratory failure: Qualifiers: Respiratory failure complication: hypoxia Qualified Code(s): J96.01 - Acute respiratory failure with hypoxia Code(s): J96.00 - Acute respiratory failure, unspecified whether with hypoxia or hypercapnia Status: Acute Assessment and Plan: Patient is on supplemental oxygen by nasal cannula Chest x-ray with infiltrate Patient started on broad-spectrum antibiotics Continue to monitor Supportive care Blood culture positive 102 for Gram- positive cocci in clusters. Currently on vancomycin Zosyn which will be continued Chest x-ray with infiltrate? Silent aspiration. Speech to see for swallow evaluation may need modified if has not been evaluated for ongoing aspiration. (2) Colitis: Code(s): K52.9 - Noninfective gastroenteritis and colitis, unspecified Status: Acute Assessment and Plan: CT of abdomen and pelvis reviewed Started on Zosyn initial suspicion of small bowel obstruction ruled out with CT scan and regular bowel movement (3) Lung infiltrate: Code(s): R91.8 - Other nonspecific abnormal finding of lung field Status: Acute Assessment and Plan: Seen on chest x-ray Blood cultures in progress CT with increased dependent bilateral ground-glass and consolidative opacities with underlying coarse interstitial change and fibrosis. (4) Acute renal failure: Qualifiers: Acute renal failure type: unspecified Qualified Code(s): N17.9 - Acute kidney failure, unspecified Code(s): N17.9 - Acute kidney failure, unspecified Status: Acute Assessment and Plan: St catheter placed. Baseline creatinine 1.1. Admission creatinine of 2.9. Continue to monitor intake and output Will hold IV fluid due to congestion Renal ultrasound came back negative for hydronephrosis creatinine continues to improve back to baseline (5) COPD (chronic obstructive pulmonary disease): Qualifiers: COPD type: unspecified COPD Qualified Code(s): J44.9 - Chronic obstructive pulmonary disease, unspecified Code(s): J44.9 - Chronic obstructive pulmonary disease, unspecified Status: Chronic Assessment and Plan: Breathing treatments q.4 hours (6) Parkinsons disease: Code(s): G20 - Parkinson's disease Status: Chronic Assessment and Plan: Continue home meds (7) Schizophrenia: Qualifiers: Schizophrenia type: unspecified Qualified Code(s): F20.9 - Schizophrenia, unspecified Code(s): F20.9 - Schizophrenia, unspecified Status: Chronic Assessment and Plan: Continue home meds Plan DVT prophylaxis heparin subQ bladder wall thickening suggestive of cystitis outlet obstruction or inadequate distention. Subjective Date/time seen: 11/23/22 10:50 Interval history: This is an 82-year-old male with past medical history significant for Parkinson's disease, type 2 diabetes mellitus, peripheral diabetic neuropathy, diabetic foot, hypertension, chronic constipation, chronic back pain, COPD, schizophrenia.? Patient is a [facility] resident and he was brought to the emergency room for evaluation to recheck abnormal blood work as well as suspected bowel obstruction patient is unable to give any history his complaining mainly of back pain, most of the history has been obtained upon reviewing medical records and discussion with emergency room doctor.? Preliminary workup was significant for CT of abdomen and pelvis was reported as: IMPRESSION: Pulmonary opacities may reflect pulmonary edema in the appropriate clinical context. Infection is not excluded. Distal sigmoid colitis as can be seen with infectious, inflammatory, and ischemic etiologies. Bladder wall thickening may be secondary to cystitis, outlet obstruction, or inadequate distention. Chest x-ray was reported as: IMPRESSION: Left mid and lower lung airsp
--- NOTE | 2022-11-23 14:14 | PCSTNOTE ---
Modified Barium Swallow Study. Patient became uncomfortable and complained of neck pain during procedure, so it was stopped before trialing mixed or solid consistencies so he could be repositioned with a pillow behind his head as he requested. Trials of thin liquids and pureed consistency food were given. Patient demonstrated tongue pumping, reduced tongue control and reduced tongue movement, reduced labial seal, delayed triggering of swallow, reduced laryngeal elevation, poor tongue base retraction. Residue in pyriform sinuses and valleculae cleared with multiple swallows. No penetration or aspiration observed. Patient is not a candidate for swallowing therapy due to diminished cognition. Current diet is pureed (level 4) with thin liquids, and this is appropriate. Swallowing precaution recommendations will be posted in chart. Thank you for the referral of this patient.
[2022-11-23 17:28] LABS: IFOB Positive Control Positive; Immunochemical Fecal Occult Bl Negative (N)
[2022-11-23] MEDS: SENNA/DOCUSATE SODIUM TABLET 1 TAB PO (20:14)
[2022-11-23] MEDS: traZODone HCL 25 MG TABLET PO (20:14)
[2022-11-23] MEDS: TAMSULOSIN HCL 0.4 MG CAPSULE PO (20:14)
[2022-11-23] MEDS: DONEPEZIL HCL 10 MG TABLET 20 MG PO (20:14)
[2022-11-23] MEDS: NORTRIPTYLINE HCL 25 MG CAPSULE PO (20:14)
[2022-11-24] VITALS (7 sets, daily range): BP systolic 108–145; BP diastolic 48–78; PULSE 74–88; RESP 18–22; TEMP 36.1–36.6; O2SAT 91–99
[2022-11-24] MEDS: CARBIDOPA/LEVODOPA 25/100 MG TABLET 1 TABLET PO ×5 (00:31→23:50)
[2022-11-24] MEDS: LEVOTHYROXINE SODIUM 88 MCG TABLET PO (05:12)
[2022-11-24 05:48] LABS: Basophils Percent Auto 0.2 % (0.2-1.2); Eosinophils Percent Auto 0.5 % (0-4.4); Hematocrit 26.2 % (42.0-52.0); Hemoglobin 8.3 g/dL (14.0-18.0); Immature Granulocyte Absolute 0.06 K/mm3 (0.00-0.031); Immature Granulocyte Percent A 0.7 % (0-0.5); Immature Platelet Fraction Pct 3.8 % (0.9-11.2); Lymphocytes Absolute Auto 1.66 K/mm3 (0.9-3.2); Lymphocytes Percent Auto 19.7 % (18.3-44.2); Mean Corpuscular HGB Conc 31.7 g/dl (32-36); Mean Corpuscular Hemoglobin 31.2 pg (26-34); Mean Corpuscular Volume 98.5 fl (80-100); Mean Platelet Volume 10.1 fl (7.4-10.4); Monocytes Percent Auto 11.5 % (2.6-8.5); Neutrophils Absolute Auto 5.7 K/mm3 (1.3-6.7); Neutrophils Percent Auto 67.4 % (45.5-73.1); Platelet Count Result 147 k/mm3 (150-375); Red Blood Count 2.66 M/mm3 (4.6-6.20); Red Cell Distribution Width 13.6 % (11.5-14.5); White Blood Count 8.4 K/mm3 (4.5-10.0)
[2022-11-24 06:20] LABS: Alanine Aminotransferase 10 U/L (6-50); Albumin Level 3.2 g/dL (3.5-5.1); Alkaline Phosphatase 79 U/L (38-126); Anion Gap 4 mmol/L (8-16); Aspartate Amino Transferase 35 U/L (17-59); Bilirubin,Total 0.8 mg/dL (0.2-1.3); Blood Urea Nitrogen 14 mg/dL (9-20); Calcium 8.3 mg/dL (8.4-10.2); Carbon Dioxide 28 mmol/L (22-30); Chloride 103 mmol/L (98-107); Estimated CRCL calculation 70 ml/min; Estimated Glomerular Filt Rate > 60; Glucose 114 mg/dL (65-110); Potassium 3.5 mmol/L (3.4-5.0); Sodium 135 mmol/L (137-145)
[2022-11-24] MEDS: FLUTICASONE/SALMETEROL 115-21 MCG INHALER 1 PUFF 2 PUFF INHALATION ×2 (08:43→20:09)
[2022-11-24] MEDS: GABAPENTIN 400 MG CAPSULE PO ×4 (09:10→20:52)
[2022-11-24] MEDS: GABAPENTIN 100 MG CAPSULE PO ×4 (09:10→20:52)
[2022-11-24] MEDS: METOPROLOL SUCCINATE EXT REL 50 MG TABCR PO (09:10)
[2022-11-24] MEDS: polyethylene glycoL 3350 17 GM POWD.PACK PO ×2 (09:10→20:52)
[2022-11-24] MEDS: HALOPERIDOL 5 MG TABLET 10 MG PO ×2 (09:10→20:51)
[2022-11-24] MEDS: FAMOTIDINE 20 MG TABLET PO ×2 (09:10→17:22)
[2022-11-24] MEDS: CHOLECALCIFEROL 1,000 UNITS TABLET 5000 UNITS PO (09:11)
[2022-11-24] MEDS: MONTELUKAST SODIUM 10 MG TABLET PO (10:15)
[2022-11-24] MEDS: ACETAMINOPHEN 325 MG TABLET 650 MG PO (11:57)
--- NOTE | 2022-11-24 18:32 | PM.IMPN ---
Progress Note: A&P Assessment and Plan (1) Acute respiratory failure: Qualifiers: Respiratory failure complication: hypoxia Qualified Code(s): J96.01 - Acute respiratory failure with hypoxia Code(s): J96.00 - Acute respiratory failure, unspecified whether with hypoxia or hypercapnia Status: Acute Assessment and Plan: Patient is on supplemental oxygen by nasal cannula Chest x-ray with infiltrate Patient started on broad-spectrum antibiotics Continue to monitor Supportive care Blood culture positive 102 for Gram- positive cocci in clusters. Currently on vancomycin Zosyn which will be continued Chest x-ray with infiltrate? Silent aspiration. Speech to see for swallow evaluation MBS done which looked okay (2) Colitis: Code(s): K52.9 - Noninfective gastroenteritis and colitis, unspecified Status: Acute Assessment and Plan: CT of abdomen and pelvis reviewed Started on Zosyn initial suspicion of small bowel obstruction ruled out with CT scan and regular bowel movement (3) Lung infiltrate: Code(s): R91.8 - Other nonspecific abnormal finding of lung field Status: Acute Assessment and Plan: Seen on chest x-ray Blood cultures in progress CT with increased dependent bilateral ground-glass and consolidative opacities with underlying coarse interstitial change and fibrosis. (4) Acute renal failure: Qualifiers: Acute renal failure type: unspecified Qualified Code(s): N17.9 - Acute kidney failure, unspecified Code(s): N17.9 - Acute kidney failure, unspecified Status: Acute Assessment and Plan: St catheter placed. Baseline creatinine 1.1. Admission creatinine of 2.9. Continue to monitor intake and output Will hold IV fluid due to congestion Renal ultrasound came back negative for hydronephrosis creatinine continues to improve back to baseline (5) COPD (chronic obstructive pulmonary disease): Qualifiers: COPD type: unspecified COPD Qualified Code(s): J44.9 - Chronic obstructive pulmonary disease, unspecified Code(s): J44.9 - Chronic obstructive pulmonary disease, unspecified Status: Chronic Assessment and Plan: Breathing treatments q.4 hours (6) Parkinsons disease: Code(s): G20 - Parkinson's disease Status: Chronic Assessment and Plan: Continue home meds (7) Schizophrenia: Qualifiers: Schizophrenia type: unspecified Qualified Code(s): F20.9 - Schizophrenia, unspecified Code(s): F20.9 - Schizophrenia, unspecified Status: Chronic Assessment and Plan: Continue home meds Plan DVT prophylaxis heparin subQ bladder wall thickening suggestive of cystitis outlet obstruction or inadequate distention. Bacteremia Gram-positive cocci in clusters await identification already on vancomycin. Subjective Date/time seen: 11/24/22 18:32 Interval history: This is an 82-year-old male with past medical history significant for Parkinson's disease, type 2 diabetes mellitus, peripheral diabetic neuropathy, diabetic foot, hypertension, chronic constipation, chronic back pain, COPD, schizophrenia.? Patient is a [facility] resident and he was brought to the emergency room for evaluation to recheck abnormal blood work as well as suspected bowel obstruction patient is unable to give any history his complaining mainly of back pain, most of the history has been obtained upon reviewing medical records and discussion with emergency room doctor.? Preliminary workup was significant for CT of abdomen and pelvis was reported as: IMPRESSION: Pulmonary opacities may reflect pulmonary edema in the appropriate clinical context. Infection is not excluded. Distal sigmoid colitis as can be seen with infectious, inflammatory, and ischemic etiologies. Bladder wall thickening may be secondary to cystitis, outlet obstruction, or inadequate distention. Chest x-ray was reported as:
[2022-11-24] MEDS: TAMSULOSIN HCL 0.4 MG CAPSULE PO (20:52)
[2022-11-24] MEDS: NORTRIPTYLINE HCL 25 MG CAPSULE PO (20:52)
[2022-11-24] MEDS: DONEPEZIL HCL 10 MG TABLET 20 MG PO (20:52)
[2022-11-24] MEDS: traZODone HCL 25 MG TABLET PO (20:52)
[2022-11-24] MEDS: SENNA/DOCUSATE SODIUM TABLET 1 TAB PO (20:52)
[2022-11-25] VITALS (13 sets, daily range): BP systolic 119–141; BP diastolic 57–69; PULSE 85–101; RESP 14–22; TEMP 36.4–36.8; O2SAT 91–94
[2022-11-25] MEDS: LEVOTHYROXINE SODIUM 88 MCG TABLET PO (06:08)
[2022-11-25] MEDS: CARBIDOPA/LEVODOPA 25/100 MG TABLET 1 TABLET PO ×3 (06:08→17:57)
[2022-11-25 07:34] LABS: Basophils Percent Auto 0.1 % (0.2-1.2); Eosinophils Absolute Auto 0.1 K/mm3 (0-0.3); Eosinophils Percent Auto 0.7 % (0-4.4); Hematocrit 24.2 % (42.0-52.0); Hemoglobin 7.7 g/dL (14.0-18.0); Immature Granulocyte Absolute 0.05 K/mm3 (0.00-0.031); Immature Granulocyte Percent A 0.6 % (0-0.5); Lymphocytes Absolute Auto 1.63 K/mm3 (0.9-3.2); Lymphocytes Percent Auto 20.1 % (18.3-44.2); Mean Corpuscular HGB Conc 31.8 g/dl (32-36); Mean Corpuscular Hemoglobin 30.2 pg (26-34); Mean Corpuscular Volume 94.9 fl (80-100); Mean Platelet Volume 10.1 fl (7.4-10.4); Monocytes Percent Auto 12.8 % (2.6-8.5); Neutrophils Absolute Auto 5.3 K/mm3 (1.3-6.7); Neutrophils Percent Auto 65.7 % (45.5-73.1); Platelet Count Result 160 k/mm3 (150-375); Red Blood Count 2.55 M/mm3 (4.6-6.20); Red Cell Distribution Width 13.5 % (11.5-14.5); White Blood Count 8.1 K/mm3 (4.5-10.0)
[2022-11-25 07:43] LABS: Alanine Aminotransferase 7 U/L (6-50); Albumin Level 3.1 g/dL (3.5-5.1); Alkaline Phosphatase 89 U/L (38-126); Anion Gap 6 mmol/L (8-16); Aspartate Amino Transferase 29 U/L (17-59); Bilirubin,Total 0.9 mg/dL (0.2-1.3); Blood Urea Nitrogen 11 mg/dL (9-20); Calcium 8.6 mg/dL (8.4-10.2); Carbon Dioxide 28 mmol/L (22-30); Chloride 104 mmol/L (98-107); Estimated CRCL calculation 70 ml/min; Estimated Glomerular Filt Rate > 60; Glucose 114 mg/dL (65-110); Potassium 2.9 mmol/L (3.4-5.0); Sodium 138 mmol/L (137-145)
[2022-11-25] MEDS: FLUTICASONE/SALMETEROL 115-21 MCG INHALER 1 PUFF 2 PUFF INHALATION ×2 (08:04→20:25)
[2022-11-25] MEDS: POTASSIUM CHLORIDE 20 MEQ TABLET 40 MEQ PO (09:51)
[2022-11-25] MEDS: FAMOTIDINE 20 MG TABLET PO ×2 (09:53→17:56)
[2022-11-25] MEDS: GABAPENTIN 400 MG CAPSULE PO ×4 (09:53→20:45)
[2022-11-25] MEDS: GABAPENTIN 100 MG CAPSULE PO ×4 (09:53→20:45)
[2022-11-25] MEDS: MONTELUKAST SODIUM 10 MG TABLET PO (09:53)
[2022-11-25] MEDS: HALOPERIDOL 5 MG TABLET 10 MG PO ×2 (09:54→20:43)
[2022-11-25] MEDS: CHOLECALCIFEROL 1,000 UNITS TABLET 5000 UNITS PO (09:57)
[2022-11-25] MEDS: METOPROLOL SUCCINATE EXT REL 50 MG TABCR PO (10:09)
[2022-11-25 11:03] LABS: Vancomycin Trough 22.6 ug/mL (10.0-20.0)
[2022-11-25] MEDS: ALBUTEROL SULFATE NEB 2.5 MG/3 ML INH INHALATION ×3 (11:43→20:25)
[2022-11-25] MEDS: IPRATROPIUM BR 0.02% INH SOLN 0.5 MG/2.5 ML VIAL INHALATION (11:43)
--- NOTE | 2022-11-25 15:11 | PM.IMPN ---
Progress Note: A&P Assessment and Plan (1) Acute respiratory failure: Qualifiers: Respiratory failure complication: hypoxia Qualified Code(s): J96.01 - Acute respiratory failure with hypoxia Code(s): J96.00 - Acute respiratory failure, unspecified whether with hypoxia or hypercapnia Status: Acute Assessment and Plan: Patient is on supplemental oxygen by nasal cannula Chest x-ray with infiltrate Patient started on broad-spectrum antibiotics Continue to monitor Supportive care Blood culture positive 102 for Gram- positive cocci in clusters which found to be Staph warneri 2/2. Will repeat blood cultures. Currently on vancomycin Zosyn which will be continued Chest x-ray with infiltrate? Silent aspiration. Speech to see for swallow evaluation MBS done which looked okay (2) Colitis: Code(s): K52.9 - Noninfective gastroenteritis and colitis, unspecified Status: Acute Assessment and Plan: CT of abdomen and pelvis reviewed Started on Zosyn initial suspicion of small bowel obstruction ruled out with CT scan and regular bowel movement (3) Lung infiltrate: Code(s): R91.8 - Other nonspecific abnormal finding of lung field Status: Acute Assessment and Plan: Seen on chest x-ray Blood cultures in progress CT with increased dependent bilateral ground-glass and consolidative opacities with underlying coarse interstitial change and fibrosis. (4) Acute renal failure: Qualifiers: Acute renal failure type: unspecified Qualified Code(s): N17.9 - Acute kidney failure, unspecified Code(s): N17.9 - Acute kidney failure, unspecified Status: Acute Assessment and Plan: St catheter placed. Baseline creatinine 1.1. Admission creatinine of 2.9. Continue to monitor intake and output Will hold IV fluid due to congestion Renal ultrasound came back negative for hydronephrosis creatinine continues to improve back to baseline (5) COPD (chronic obstructive pulmonary disease): Qualifiers: COPD type: unspecified COPD Qualified Code(s): J44.9 - Chronic obstructive pulmonary disease, unspecified Code(s): J44.9 - Chronic obstructive pulmonary disease, unspecified Status: Chronic Assessment and Plan: Breathing treatments q.4 hours (6) Parkinsons disease: Code(s): G20 - Parkinson's disease Status: Chronic Assessment and Plan: Continue home meds (7) Schizophrenia: Qualifiers: Schizophrenia type: unspecified Qualified Code(s): F20.9 - Schizophrenia, unspecified Code(s): F20.9 - Schizophrenia, unspecified Status: Chronic Assessment and Plan: Continue home meds Plan DVT prophylaxis heparin subQ bladder wall thickening suggestive of cystitis outlet obstruction or inadequate distention. Staphylococcus warneri bacteremia: 12/28 on vancomycin Subjective Date/time seen: 11/25/22 15:11 Interval history: This is an 82-year-old male with past medical history significant for Parkinson's disease, type 2 diabetes mellitus, peripheral diabetic neuropathy, diabetic foot, hypertension, chronic constipation, chronic back pain, COPD, schizophrenia.? Patient is a [facility] resident and he was brought to the emergency room for evaluation to recheck abnormal blood work as well as suspected bowel obstruction patient is unable to give any history his complaining mainly of back pain, most of the history has been obtained upon reviewing medical records and discussion with emergency room doctor.? Preliminary workup was significant for CT of abdomen and pelvis was reported as: IMPRESSION: Pulmonary opacities may reflect pulmonary edema in the appropriate clinical context. Infection is not excluded. Distal sigmoid colitis as can be seen with infectious, inflammatory, and ischemic etiologies. Bladder wall thickening may be secondary to cystitis, outlet obstruction, or inadequate distention.
[2022-11-25] MEDS: polyethylene glycoL 3350 17 GM POWD.PACK PO (20:43)
[2022-11-25] MEDS: traZODone HCL 25 MG TABLET PO (20:43)
[2022-11-25] MEDS: DONEPEZIL HCL 10 MG TABLET 20 MG PO (20:44)
[2022-11-25] MEDS: SENNA/DOCUSATE SODIUM TABLET 1 TAB PO (20:44)
[2022-11-25] MEDS: NORTRIPTYLINE HCL 25 MG CAPSULE PO (20:45)
[2022-11-25] MEDS: TAMSULOSIN HCL 0.4 MG CAPSULE PO (20:45)
[2022-11-26] VITALS (16 sets, daily range): BP systolic 108–123; BP diastolic 58–60; PULSE 73–97; RESP 18–24; TEMP 36.5–36.9; O2SAT 91–94
[2022-11-26] MEDS: CARBIDOPA/LEVODOPA 25/100 MG TABLET 1 TABLET PO ×5 (00:21→22:18)
[2022-11-26] MEDS: ALBUTEROL SULFATE NEB 2.5 MG/3 ML INH INHALATION ×6 (00:38→20:25)
[2022-11-26] MEDS: LEVOTHYROXINE SODIUM 88 MCG TABLET PO (06:09)
[2022-11-26 06:18] LABS: Basophils Percent Auto 0.2 % (0.2-1.2); Eosinophils Percent Auto 0.3 % (0-4.4); Immature Granulocyte Percent A 1.2 % (0-0.5); Lymphocytes Absolute Auto 2.29 K/mm3 (0.9-3.2); Lymphocytes Percent Auto 26.6 % (18.3-44.2); Mean Corpuscular Hemoglobin 30.4 pg (26-34); Mean Corpuscular Volume 95.1 fl (80-100); Monocytes Absolute Auto 1.3 K/mm3 (0.1-0.6); Monocytes Percent Auto 14.6 % (2.6-8.5); Neutrophils Absolute Auto 4.9 K/mm3 (1.3-6.7); Neutrophils Percent Auto 57.1 % (45.5-73.1); Nucleated Red Blood Cells Perc 0.3 % (0.0-0.2); Platelet Count Result 179 k/mm3 (150-375); Red Blood Count 2.63 M/mm3 (4.6-6.20); Red Cell Distribution Width 13.6 % (11.5-14.5); White Blood Count 8.6 K/mm3 (4.5-10.0)
[2022-11-26 06:35] LABS: Alanine Aminotransferase 8 U/L (6-50); Albumin Level 3.2 g/dL (3.5-5.1); Alkaline Phosphatase 96 U/L (38-126); Anion Gap 5 mmol/L (8-16); Aspartate Amino Transferase 29 U/L (17-59); Bilirubin,Total 0.9 mg/dL (0.2-1.3); Blood Urea Nitrogen 12 mg/dL (9-20); Calcium 9.1 mg/dL (8.4-10.2); Carbon Dioxide 29 mmol/L (22-30); Chloride 105 mmol/L (98-107); Estimated CRCL calculation 53 ml/min; Estimated Glomerular Filt Rate > 60; Glucose 112 mg/dL (65-110); Magnesium 2.3 mg/dL (1.6-2.3); Potassium 2.9 mmol/L (3.4-5.0); Sodium 139 mmol/L (137-145)
[2022-11-26 07:56] LABS: Hypochromasia 2+ (NORMAL); Platelet Estimate Adequate (Adequate)
[2022-11-26 07:57] LABS: Schistocytes None Seen (NORMAL); Target Cells 1+ (NORMAL)
[2022-11-26] MEDS: POTASSIUM CHLORIDE 20 MEQ TABLET 40 MEQ PO (08:37)
[2022-11-26] MEDS: GABAPENTIN 100 MG CAPSULE PO ×4 (08:38→22:16)
[2022-11-26] MEDS: MONTELUKAST SODIUM 10 MG TABLET PO (08:38)
[2022-11-26] MEDS: METOPROLOL SUCCINATE EXT REL 50 MG TABCR PO (08:39)
[2022-11-26] MEDS: HALOPERIDOL 5 MG TABLET 10 MG PO ×2 (08:41→22:17)
[2022-11-26] MEDS: MULTIVITAMINS /C LUTEIN (CENTRUM SILVER) TABLET *BKC 1 TAB PO (08:41)
[2022-11-26] MEDS: CHOLECALCIFEROL 1,000 UNITS TABLET 5000 UNITS PO (08:42)
[2022-11-26] MEDS: FAMOTIDINE 20 MG TABLET PO ×2 (08:42→18:09)
[2022-11-26] MEDS: GABAPENTIN 400 MG CAPSULE PO ×4 (08:42→22:17)
[2022-11-26] MEDS: FLUTICASONE/SALMETEROL 115-21 MCG INHALER 1 PUFF 2 PUFF INHALATION ×2 (08:49→20:26)
--- NOTE | 2022-11-26 12:59 | PM.IMPN ---
Progress Note: A&P Assessment and Plan (1) Acute respiratory failure: Qualifiers: Respiratory failure complication: hypoxia Qualified Code(s): J96.01 - Acute respiratory failure with hypoxia Code(s): J96.00 - Acute respiratory failure, unspecified whether with hypoxia or hypercapnia Status: Acute Assessment and Plan: Patient is on supplemental oxygen by nasal cannula Chest x-ray with infiltrate Patient started on broad-spectrum antibiotics Continue to monitor Supportive care Blood culture positive 102 for Gram- positive cocci in clusters which found to be Staph warneri 2/2. Will repeat blood cultures. Currently on vancomycin Zosyn which will be continued Chest x-ray with infiltrate? Silent aspiration. Speech to see for swallow evaluation MBS done which looked okay Oxygen requirement has worsened. Re check chest x-ray He does have underlying interstitial lung disease which has been chronic finding unclear etiology (2) Colitis: Code(s): K52.9 - Noninfective gastroenteritis and colitis, unspecified Status: Acute Assessment and Plan: CT of abdomen and pelvis reviewed Started on Zosyn initial suspicion of small bowel obstruction ruled out with CT scan and regular bowel movement (3) Lung infiltrate: Code(s): R91.8 - Other nonspecific abnormal finding of lung field Status: Acute Assessment and Plan: Seen on chest x-ray Blood cultures in progress CT with increased dependent bilateral ground-glass and consolidative opacities with underlying coarse interstitial change and fibrosis. (4) Acute renal failure: Qualifiers: Acute renal failure type: unspecified Qualified Code(s): N17.9 - Acute kidney failure, unspecified Code(s): N17.9 - Acute kidney failure, unspecified Status: Acute Assessment and Plan: St catheter placed. Baseline creatinine 1.1. Admission creatinine of 2.9. Continue to monitor intake and output Will hold IV fluid due to congestion Renal ultrasound came back negative for hydronephrosis creatinine continues to improve back to baseline (5) COPD (chronic obstructive pulmonary disease): Qualifiers: COPD type: unspecified COPD Qualified Code(s): J44.9 - Chronic obstructive pulmonary disease, unspecified Code(s): J44.9 - Chronic obstructive pulmonary disease, unspecified Status: Chronic Assessment and Plan: Breathing treatments q.4 hours (6) Parkinsons disease: Code(s): G20 - Parkinson's disease Status: Chronic Assessment and Plan: Continue home meds (7) Schizophrenia: Qualifiers: Schizophrenia type: unspecified Qualified Code(s): F20.9 - Schizophrenia, unspecified Code(s): F20.9 - Schizophrenia, unspecified Status: Chronic Assessment and Plan: Continue home meds Plan DVT prophylaxis heparin subQ bladder wall thickening suggestive of cystitis outlet obstruction or inadequate distention. Staphylococcus warneri bacteremia: 12/28 on vancomycin Subjective Date/time seen: 11/26/22 12:59 Interval history: This is an 82-year-old male with past medical history significant for Parkinson's disease, type 2 diabetes mellitus, peripheral diabetic neuropathy, diabetic foot, hypertension, chronic constipation, chronic back pain, COPD, schizophrenia.? Patient is a [facility] resident and he was brought to the emergency room for evaluation to recheck abnormal blood work as well as suspected bowel obstruction patient is unable to give any history his complaining mainly of back pain, most of the history has been obtained upon reviewing medical records and discussion with emergency room doctor.? Preliminary workup was significant for CT of abdomen and pelvis was reported as: IMPRESSION: Pulmonary opacities may reflect pulmonary edema in the appropriate clinical context. Infection is not excluded. Distal sigmoid colitis as can be seen with
[2022-11-26 15:07] LABS: NT Pro B Type Natriuretic Pept 1310 pg/mL (5-100)
--- NOTE | 2022-11-26 15:22 | PCRCNOTE ---
Window of time for administration has passed. See next scheduled administration.
[2022-11-26] MEDS: FUROSEMIDE INJ 40 MG/4 ML VIAL IV PUSH (18:07)
[2022-11-26] MEDS: DONEPEZIL HCL 10 MG TABLET 20 MG PO (22:16)
[2022-11-26] MEDS: traZODone HCL 25 MG TABLET PO (22:17)
[2022-11-26] MEDS: NORTRIPTYLINE HCL 25 MG CAPSULE PO (22:17)
[2022-11-26] MEDS: TAMSULOSIN HCL 0.4 MG CAPSULE PO (22:18)
[2022-11-26] MEDS: WATER FOR IRRIGATION, STERILE 1,000 ML BOTTLE 1000 ML (22:18)
[2022-11-27] VITALS (28 sets, daily range): BP systolic 101–140; BP diastolic 44–60; PULSE 83–109; RESP 19–28; TEMP 34.9–36.6; O2SAT 95–100
[2022-11-27] MEDS: ALBUTEROL SULFATE NEB 2.5 MG/3 ML INH INHALATION ×4 (00:30→20:43)
--- NOTE | 2022-11-27 01:21 | P.PNCROSS_ITS ---
Event Note Event Note Event Note: I was called to come to patient's bedside for dyspnea as his O2 requirements in creased from 4 L to 10-15 L by nasal cannula. Patient has had worsening dyspnea increasing from 2 L to 4 L this morning again grew progressively worsening dyspnea throughout the day. Ordering chest x-ray and ABG. Last chest x-ray this morning showed worsening right-sided infiltrates. On lung exam patient has increase rhonchi on right lung which I suspect may be from aspiration considering his Parkinson's. Will moved to IMU for closer observation. If he continues to desaturate will place on Airvo to keep oxygen saturation greater 90%. Patient is already on antibiotics for aspiration pneumonia with Zosyn and vancomycin. Patient apparently passed a modified barium swallow study however considering the current clinical situation I suspect he is continuing to aspirate.
[2022-11-27 01:35] LABS: Alveolar/Arterial O2 Gradient 584.3 mmHg; Base Excess ABG 3.8 mEq/l (+/-2.0); Carboxyhemoglobin 0.3 % THb (0-2.0); Fractional Inspired Oxygen 100 %; HCO3 ABG 27.9 mEq/l (22.0-26.0); Methemoglobin ABG 0.2 %THb (0-1.5); Oxygen Content ABG 12.1 %vol (16.0-22.0); Oxygen Saturation ABG 97.2 % (95.0-100.0); Oxyhemoglobin 95.4 % THb (90.0-100.0); PCO2 ABG 39.9 mmHg (35.0-45.0); PO2 ABG 88.8 mmHg (80.0-100.0); PO2 FiO2 Ratio Arterial Blood 0.89 %; Reduced Hemoglobin 4.1 %THb (0-5.0); Total Hemoglobin 8.9 g/dL (12.0-18.0); pH ABG 7.462 (7.350-7.450)
[2022-11-27 01:36] LABS: Modified Allen's Test Pass; Site Drawn RIGHT BRACHIAL
[2022-11-27 01:37] LABS: Device NON-REBREATHER MASK
[2022-11-27] MEDS: CARBIDOPA/LEVODOPA 25/100 MG TABLET 1 TABLET PO ×3 (05:37→17:56)
[2022-11-27] MEDS: LEVOTHYROXINE SODIUM 88 MCG TABLET PO (05:37)
[2022-11-27 06:13] LABS: Alanine Aminotransferase 8 U/L (6-50); Albumin Level 3.3 g/dL (3.5-5.1); Alkaline Phosphatase 101 U/L (38-126); Anion Gap 8 mmol/L (8-16); Aspartate Amino Transferase 28 U/L (17-59); Bilirubin,Total 0.8 mg/dL (0.2-1.3); Blood Urea Nitrogen 16 mg/dL (9-20); Calcium 9.3 mg/dL (8.4-10.2); Carbon Dioxide 29 mmol/L (22-30); Chloride 105 mmol/L (98-107); Estimated CRCL calculation 46 ml/min; Estimated Glomerular Filt Rate 59; Glucose 120 mg/dL (65-110); Magnesium 2.2 mg/dL (1.6-2.3); Potassium 3.1 mmol/L (3.4-5.0); Sodium 142 mmol/L (137-145)
[2022-11-27 08:23] LABS: Basophils Absolute Auto 0.1 K/mm3 (0.0-0.1); Basophils Percent Auto 0.5 % (0.2-1.2); Eosinophils Absolute Auto 0.1 K/mm3 (0-0.3); Eosinophils Percent Auto 0.6 % (0-4.4); Hematocrit 23.8 % (42.0-52.0); Hemoglobin 7.5 g/dL (14.0-18.0); Immature Granulocyte Absolute 0.22 K/mm3 (0.00-0.031); Immature Granulocyte Percent A 2.2 % (0-0.5); Lymphocytes Absolute Auto 2.74 K/mm3 (0.9-3.2); Lymphocytes Percent Auto 27.5 % (18.3-44.2); Mean Corpuscular HGB Conc 31.5 g/dl (32-36); Mean Corpuscular Hemoglobin 30.9 pg (26-34); Mean Corpuscular Volume 97.9 fl (80-100); Mean Platelet Volume 10.3 fl (7.4-10.4); Monocytes Absolute Auto 1.3 K/mm3 (0.1-0.6); Monocytes Percent Auto 12.8 % (2.6-8.5); Neutrophils Absolute Auto 5.6 K/mm3 (1.3-6.7); Neutrophils Percent Auto 56.4 % (45.5-73.1); Nucleated Red Blood Cells Absolute Auto 0.1 K/mm3 (0.0-0.012); Nucleated Red Blood Cells Perc 0.6 % (0.0-0.2); Platelet Count Result 206 k/mm3 (150-375); Red Blood Count 2.43 M/mm3 (4.6-6.20)
[2022-11-27] MEDS: CHOLECALCIFEROL 1,000 UNITS TABLET 5000 UNITS PO (08:45)
[2022-11-27] MEDS: FAMOTIDINE 20 MG TABLET PO (08:46)
[2022-11-27] MEDS: METOPROLOL SUCCINATE EXT REL 50 MG TABCR PO (08:46)
[2022-11-27] MEDS: HALOPERIDOL 5 MG TABLET 10 MG PO ×2 (08:47→20:15)
[2022-11-27] MEDS: MONTELUKAST SODIUM 10 MG TABLET PO (08:47)
[2022-11-27] MEDS: GABAPENTIN 100 MG CAPSULE PO ×3 (08:47→20:15)
[2022-11-27] MEDS: GABAPENTIN 400 MG CAPSULE PO ×4 (08:47→20:15)
[2022-11-27] MEDS: MULTIVITAMINS /C LUTEIN (CENTRUM SILVER) TABLET *BKC 1 TAB PO (08:47)
[2022-11-27] MEDS: FLUTICASONE/SALMETEROL 115-21 MCG INHALER 1 PUFF 2 PUFF INHALATION (09:00)
[2022-11-27 09:06] LABS: Atypical Lymphocytes Present; Hypochromasia 1+ (NORMAL); Platelet Estimate Adequate (Adequate); Target Cells 1+ (NORMAL)
[2022-11-27 09:07] LABS: Schistocytes None Seen (NORMAL)
[2022-11-27] MEDS: POTASSIUM CHLORIDE 20 MEQ TABLET 40 MEQ PO (10:54)
[2022-11-27] MEDS: FUROSEMIDE INJ 40 MG/4 ML VIAL 20 MG IV PUSH (10:54)
--- NOTE | 2022-11-27 12:12 | PCSTNOTE ---
Please refer to the Bedside Swallow Evaluation in the EMR. Please note, silent aspiration cannot be ruled out at bedside.
[2022-11-27] MEDS: methylPREDNISolone SOD SUCC 125 MG VIAL IV PUSH (12:51)
--- NOTE | 2022-11-27 13:08 | PC.NURSE ---
Fat Purification Worker rounding on patient at 1225 to administer medications. Patient was oriented, verbalizing and following commands. Patient became lethargic and unresponsive while proposal lead writer was at bedside. A rapid response was called. Dr Sharma at bedside during rapid response to give additional orders. Patient was transferred to ICU - 7 @ 1305
[2022-11-27 13:09] LABS: Glucose Point of Care 201 mg/dl (65-105)
--- NOTE | 2022-11-27 13:25 | WPDCNINT ---
Assessment and Plan Assessment and plan (1) Acute respiratory failure with hypercapnia: Code(s): J96.02 - Acute respiratory failure with hypercapnia Status: Acute Assessment and Plan: Patient with worsening respiratory status and oxygen requirements along with worsening chest x-ray findings -intubated on 11/27/2022 for impending respiratory failure secondary to hypoxia, hypercapnia and significant tachypnea. -chest x-ray post intubation shows Worsened diffuse lung disease, consistent with chronic interstitial lung disease with superimposed pneumonia versus pulmonary edema. -continue mechanical ventilation and oxygenation to prevent end-organ damage -patient seems to be in ARDS physiology, will use low tidal volume and high PEEP strategy -wean FiO2 to maintain O2 sats > 92% -post intubation ABGs pending -sedated with propofol infusion -continue bronchodilators -continue Pulmicort (2) CRISTA (acute kidney injury): Code(s): N17.9 - Acute kidney failure, unspecified Status: Acute Assessment and Plan: Acute kidney injury could be related to hypoxia, history of diabetes essential hypertension, diuretics, volume overload -monitor urine output, renal function electrolytes -low potassium, will replace (3) Bacteremia due to Gram-positive bacteria: Code(s): R78.81 - Bacteremia Status: Acute Assessment and Plan: 06/14/2022: Blood cultures growing Staph warneri, 2/2 bottles. Patient on vancomycin, 11/25/2022: Repeat blood cultures negative so far -continue vancomycin and Zosyn (4) COPD (chronic obstructive pulmonary disease): Qualifiers: COPD type: unspecified COPD Qualified Code(s): J44.9 - Chronic obstructive pulmonary disease, unspecified Code(s): J44.9 - Chronic obstructive pulmonary disease, unspecified Status: Chronic Assessment and Plan: Patient with history of COPD -mechanical ventilation, bronchodilators, will add steroids (5) Diabetes: Qualifiers: Diabetes mellitus type: type 2 Diabetes mellitus hand bender insulin use: without hand bender use Diabetes mellitus complication status: with neurologic complications Diabetes mellitus complication detail: with polyneuropathy Qualified Code(s): E11.42 - Type 2 diabetes mellitus with diabetic polyneuropathy Code(s): E11.9 - Type 2 diabetes mellitus without complications Status: Chronic Assessment and Plan: Will start Accu-Cheks and sliding scale insulin given the patient is going to be on steroids (6) Parkinsons disease: Code(s): G20 - Parkinson's disease Status: Chronic Assessment and Plan: Continue carbidopa/levodopa (7) Schizophrenia: Qualifiers: Schizophrenia type: unspecified Qualified Code(s): F20.9 - Schizophrenia, unspecified Code(s): F20.9 - Schizophrenia, unspecified Status: Chronic Assessment and Plan: Hold Haldol this patient is sedated with propofol (8) ILD (interstitial lung disease): Code(s): J84.9 - Interstitial pulmonary disease, unspecified Status: Acute Assessment and Plan: Could be a flare of interstitial lung disease -start patient steroids, continue antibiotics as above Plan DVT prophylaxis: Heparin SQ Stress ulcer prophylaxis: Protonix Nutrition: Will start tube feeds in a.m. Code Status: Full code Critical Care Time Spent: 55 minutes Due to a high probability of clinically significant, life threatening deterioration, the patient required my highest level of preparedness to intervene emergently and I personally spent this critical care time directly and personally managing the patient. This critical care time included obtaining a history; examining the patient; pulse oximetry; ordering and review of studies; arranging urgent treatment with development of a management plan; evaluation of patient's response to treatment; frequent reassessment; and discussions with ot
[2022-11-27] MEDS: IPRATROPIUM BR 0.02% INH SOLN 0.5 MG/2.5 ML VIAL 1 MG INHALATION (13:30)
[2022-11-27] MEDS: ALBUTEROL SULFATE NEB 2.5 MG/3 ML INH 15 MG INHALATION (13:30)
--- NOTE | 2022-11-27 14:05 | WPDPROCEDUR ---
Procedures Intubation Intubation Date: 11/27/22 Intubation Time: 12:20 Consent: Hospitalist discussed with patient's family and they were agreeable for intubation and requested that the patient be a full code Sedative: etomidate Paralytic: succinylcholine Laryngoscope: fiber optic video scope Assist device used: fiber optic device ET tube size: 8 Tube secured depth (cm): 24 Tube secured location: lips Tube placement confirmation: visualized tube passing through cords, equal breath sounds bilaterally, no breath sounds over epigastrium and confirmation by capnometry Patient tolerated procedure: well Intubation complications: none
[2022-11-27] MEDS: PROPOFOL IV EMULSION 100 ML 7.02 MG IV CONT (14:11)
[2022-11-27 14:33] LABS: Glucose Point of Care 176 mg/dl (65-105)
--- NOTE | 2022-11-27 14:37 | PC.NURSE ---
This patient, Norm Maldonado, was received from [address] [place] [address] on 11/27/22 at 1320. Patient/family oriented to unit policies and routines
[2022-11-27 14:41] LABS: Alveolar/Arterial O2 Gradient 519.1 mmHg; Base Excess ABG 4.9 mEq/l (+/-2.0); Carboxyhemoglobin 0.6 % THb (0-2.0); Fractional Inspired Oxygen 90 %; HCO3 ABG 31.1 mEq/l (22.0-26.0); Methemoglobin ABG 0.2 %THb (0-1.5); Oxygen Content ABG 10.9 %vol (16.0-22.0); Oxygen Saturation ABG 91.6 % (95.0-100.0); Oxyhemoglobin 88.8 % THb (90.0-100.0); PCO2 ABG 56.2 mmHg (35.0-45.0); PO2 FiO2 Ratio Arterial Blood 0.72 %; Reduced Hemoglobin 10.4 %THb (0-5.0); Total Hemoglobin 8.7 g/dL (12.0-18.0); pH ABG 7.361 (7.350-7.450)
[2022-11-27 14:42] LABS: Arterial Blood Gas PEEP 8 cmH2O; Arterial Blood Gas Vent Mode CMV; Arterial Blood Gas Ventilator rate 24 /MIN; Device VENTILATOR; Modified Allen's Test Pass; Site Drawn LEFT RADIAL
[2022-11-27 14:43] LABS: Arterial Blood Gas Tidal Volume 400 ml
[2022-11-27] MEDS: POTASSIUM CHLORIDE 20 MEQ PACKET (FOR LIQUID) 40 MEQ FEED TUBE (15:50)
--- NOTE | 2022-11-27 15:58 | PM.IMPN ---
Progress Note: A&P Assessment and Plan (1) Acute respiratory failure: Qualifiers: Respiratory failure complication: hypoxia Qualified Code(s): J96.01 - Acute respiratory failure with hypoxia Code(s): J96.00 - Acute respiratory failure, unspecified whether with hypoxia or hypercapnia Status: Acute Assessment and Plan: Patient is on supplemental oxygen by nasal cannula Chest x-ray with infiltrate Patient started on broad-spectrum antibiotics Continue to monitor Supportive care Blood culture positive 102 for Gram- positive cocci in clusters which found to be Staph warneri 2/2. Will repeat blood cultures. Currently on vancomycin Zosyn which will be continued Chest x-ray with infiltrate? Silent aspiration. Speech to see for swallow evaluation MBS done which looked okay Oxygen requirement has worsened. Re check chest x-ray with worsening opacities BNP is elevated congestion versus aspiration. Dose Lasix yesterday will be dose again there is slight bump in the creatinine today. Possible pulmonary fibrosis flare. Will start him on Solu-Medrol He does have underlying interstitial lung disease which has been chronic finding unclear etiology 11/27/2022 ABG with hypoxic and hypercapnic respiratory failure (2) Colitis: Code(s): K52.9 - Noninfective gastroenteritis and colitis, unspecified Status: Acute Assessment and Plan: CT of abdomen and pelvis reviewed Started on Zosyn initial suspicion of small bowel obstruction ruled out with CT scan and regular bowel movement (3) Lung infiltrate: Code(s): R91.8 - Other nonspecific abnormal finding of lung field Status: Acute Assessment and Plan: Seen on chest x-ray Blood cultures in progress CT with increased dependent bilateral ground-glass and consolidative opacities with underlying coarse interstitial change and fibrosis. On broad-spectrum antibiotics (4) Acute renal failure: Qualifiers: Acute renal failure type: unspecified Qualified Code(s): N17.9 - Acute kidney failure, unspecified Code(s): N17.9 - Acute kidney failure, unspecified Status: Acute Assessment and Plan: St catheter placed. Baseline creatinine 1.1. Admission creatinine of 2.9. Continue to monitor intake and output Will hold IV fluid due to congestion Renal ultrasound came back negative for hydronephrosis creatinine continues to improve back to baseline (5) COPD (chronic obstructive pulmonary disease): Qualifiers: COPD type: unspecified COPD Qualified Code(s): J44.9 - Chronic obstructive pulmonary disease, unspecified Code(s): J44.9 - Chronic obstructive pulmonary disease, unspecified Status: Chronic Assessment and Plan: Breathing treatments q.4 hours Solu Medrol possible COPD flare (6) Parkinsons disease: Code(s): G20 - Parkinson's disease Status: Chronic Assessment and Plan: Continue home meds (7) Schizophrenia: Qualifiers: Schizophrenia type: unspecified Qualified Code(s): F20.9 - Schizophrenia, unspecified Code(s): F20.9 - Schizophrenia, unspecified Status: Chronic Assessment and Plan: Continue home meds Plan DVT prophylaxis heparin subQ bladder wall thickening suggestive of cystitis outlet obstruction or inadequate distention. Staphylococcus warneri bacteremia: / on vancomycin Time Spent With Patient Time: Critical care time 30 minutes Subjective Date/time seen: 11/27/22 15:58 Interval history: This is an 82-year-old male with past medical history significant for Parkinson's disease, type 2 diabetes mellitus, peripheral diabetic neuropathy, diabetic foot, hypertension, chronic constipation, chronic back pain, COPD, schizophrenia.? Patient is a long term resident and he was brought to the emergency room for evaluation to recheck abnormal blood work as well as suspected bowel obstruction patient is unable to give
[2022-11-27] MEDS: methylPREDNISolone SOD SUCC 40 MG VIAL IV PUSH (17:56)
[2022-11-27 18:37] LABS: Glucose Point of Care 181 mg/dl (65-105)
[2022-11-27 19:12] LABS: Vancomycin Trough 23.6 ug/mL (10.0-20.0)
[2022-11-27] MEDS: PROPOFOL IV EMULSION 100 ML 15.96 MG IV CONT (20:10)
[2022-11-27] MEDS: NORTRIPTYLINE HCL 25 MG CAPSULE PO (20:14)
[2022-11-27] MEDS: PANTOPRAZOLE SODIUM IV 40 MG VIAL IV PUSH (20:15)
[2022-11-27] MEDS: SENNA/DOCUSATE SODIUM TABLET 1 TAB PO (20:15)
[2022-11-27] MEDS: traZODone HCL 25 MG TABLET PO (20:15)
[2022-11-27] MEDS: DONEPEZIL HCL 10 MG TABLET 20 MG PO (20:15)
[2022-11-27] MEDS: MINERAL OIL/WHITE PETROLATUM OINTMENT 1 APPLIC EACH EYE (20:15)
[2022-11-27] MEDS: TAMSULOSIN HCL 0.4 MG CAPSULE PO (20:15)
[2022-11-27] MEDS: IPRATROPIUM BR 0.02% INH SOLN 0.5 MG/2.5 ML VIAL INHALATION (20:43)
[2022-11-27] MEDS: BUDESONIDE RESPULE NEB 0.5 MG/2 ML AMP INHALATION (20:43)
--- NOTE | 2022-11-27 20:45 | PCRCNOTE ---
Patient on vent, cannot administer mdi.
[2022-11-27 23:19] LABS: Vancomycin Trough 24.4 ug/mL (10.0-20.0)
[2022-11-28] VITALS (42 sets, daily range): BP systolic 116–166; BP diastolic 50–76; PULSE 65–99; RESP 18–30; TEMP 35.9–36.6; O2SAT 91–100; BMI 30.4
--- NOTE | 2022-11-28 | ECHO_ITS ---
Patient Info Name: Norm Maldonado Age: 82 years : 1940 Gender: Male Ht: 73 in Wt: 234 lbs BSA: 2.36 m2 HR: 85 bpm BP: 129 / 50 mmHg Heart Rhythm: Sinus Rhythm Technical Quality: Fair Exam Date: 11/28/2022 10:23 AM Exam Location: [facility] Card Pulmonary Patient Status: Inpatient Admit Date: 11/23/2022 Staff Ordering Physician: Shruthi Lang MD Grounds And Nursery Specialist: Blanca Perez RDCS Attending Provider: Gage Sharma MD Referring Physician: Rickey DAVIDSON; Exam Type: CA echo dop color flow w con Study Info Indications - Diffuse lung disease, pulmonary edema Complete two-dimensional, color flow and Doppler transthoracic echocardiogram is performed with contrast to opacify the left ventricle and to improve the deliniation of the left ventricle endocardial borders. Contrast/Agitated Saline Contrast/Ag. Saline: Definity Amount: 2.00 ml Administered By: Blanca Perez RDCS Existing IV Access: Yes IV Access Condition: patent with no signs of infiltration Summary 1. Left ventricular chamber dimension is normal. 2. Left ventricular systolic function is hyperdynamic, estimated at >70%. 3. The left ventricular diastolic function is grade I diastolic dysfunction. 4. Right ventricular systolic function is normal. 5. There is trace mitral valve regurgitation. 6. There is trace tricuspid valve regurgitation. Left Ventricle Left ventricular chamber dimension is normal. Left ventricular systolic function is hyperdynamic, estimated at >70%. There is no increased left ventricular wall thickness. The left ventricular diastolic function is grade I diastolic dysfunction. Right Ventricle Right ventricular chamber dimension is normal. Right ventricular systolic function is normal. Left Atria Left atrial chamber dimension is normal. Right Atria Right atrial chamber dimension is normal. Atrial Septum Intact interatrial septum visualized by color flow imaging. Aortic Valve The aortic valve is trileaflet. There is no aortic valve stenosis. There is no aortic valve regurgitation. There is moderate aortic valve calcification. Pulmonic Valve The pulmonic valve is not well visualized. Mitral Valve There is trace mitral valve regurgitation. The mitral valve annulus is mildly calcified. Tricuspid Valve There is trace tricuspid valve regurgitation. Pericardium/Pleural There is no pericardial effusion. Inferior Vena Cava Normal inferior vena cava with <50% collapse upon inspiration consistent with elevated right atrial pressure. Aorta The aortic root size at the sinus of Valsalva is normal. Left Ventricular Outflow Tract Name Value Normal LVOT 2D LVOT Diameter 2.29 cm LVOT Doppler LVOT Peak Gradient 3 mmHg LVOT Mean Gradient 2 mmHg LVOT VTI 18.14 cm LVOT VTI/AV VTI Ratio 0.63 LVOT Stroke Volume 74.42 ml LVOT CO 6.31 l/min LVOT CI
[2022-11-28 00:08] LABS: Glucose Point of Care 233 mg/dl (65-105)
[2022-11-28] MEDS: INSULIN ASPART (*BKC) 100 UNITS/ML SUB-Q ×2 (00:10→11:32)
[2022-11-28] MEDS: methylPREDNISolone SOD SUCC 40 MG VIAL IV PUSH ×4 (00:15→17:19)
[2022-11-28] MEDS: CARBIDOPA/LEVODOPA 25/100 MG TABLET 1 TABLET PO ×4 (00:15→17:18)
[2022-11-28] MEDS: ALBUTEROL SULFATE NEB 2.5 MG/3 ML INH INHALATION ×6 (00:20→20:25)
[2022-11-28] MEDS: PROPOFOL IV EMULSION 100 ML 15.96 MG IV CONT ×2 (01:35→21:19)
[2022-11-28] MEDS: IPRATROPIUM BR 0.02% INH SOLN 0.5 MG/2.5 ML VIAL INHALATION (03:50)
[2022-11-28 04:58] LABS: Hematocrit 23.4 % (42.0-52.0); Hemoglobin 7.4 g/dL (14.0-18.0); Mean Corpuscular HGB Conc 31.6 g/dl (32-36); Mean Corpuscular Hemoglobin 30.6 pg (26-34); Mean Corpuscular Volume 96.7 fl (80-100); Mean Platelet Volume 9.8 fl (7.4-10.4); Platelet Count Result 213 k/mm3 (150-375); Red Blood Count 2.42 M/mm3 (4.6-6.20); Red Cell Distribution Width 14.2 % (11.5-14.5); White Blood Count 9.9 K/mm3 (4.5-10.0)
[2022-11-28 05:09] LABS: Lactic Acid Reflex 1.4 mmol/L (0.7-2.0)
[2022-11-28 05:10] LABS: Alanine Aminotransferase 13 U/L (6-50); Albumin Level 3.4 g/dL (3.5-5.1); Alkaline Phosphatase 104 U/L (38-126); Anion Gap 7 mmol/L (8-16); Aspartate Amino Transferase 32 U/L (17-59); Bilirubin,Total 0.6 mg/dL (0.2-1.3); Blood Urea Nitrogen 20 mg/dL (9-20); Calcium 9.2 mg/dL (8.4-10.2); Carbon Dioxide 29 mmol/L (22-30); Chloride 100 mmol/L (98-107); Estimated CRCL calculation 40 ml/min; Estimated Glomerular Filt Rate 50; Glucose 199 mg/dL (65-110); Magnesium 2.4 mg/dL (1.6-2.3); Phosphorus 3.5 mg/dL (2.5-4.5); Potassium 3.5 mmol/L (3.4-5.0); Sodium 136 mmol/L (137-145)
[2022-11-28 05:30] LABS: Atypical Lymphocytes Present; Band Neutrophils Percent 12 % (0-6); Eosinophils Absolute Manual 0.19 K/mm3 (0.02-0.5); Eosinophils Percent Manual 2 % (0-4); Hypochromasia 2+ (NORMAL); Lymphocytes Absolute Manual 1.38 K/mm3 (1.1-4.5); Metamyelocytes Percent 1 %; Monocytes Absolute Manual 0.29 K/mm3 (0.1-0.90); Monocytes Percent Manual 3 % (3-9); Myelocytes Percent 1 %; Neutrophils Absolute Manual 7.82 K/mm3 (1.3-6.7); Neutrophils Percent Manual 67 % (46-73); Platelet Estimate Adequate (Adequate); Schistocytes None Seen (NORMAL); Total Cells Counted 100
[2022-11-28 05:31] LABS: Macrocytosis 1+ (NORMAL)
[2022-11-28] MEDS: LEVOTHYROXINE SODIUM 88 MCG TABLET PO (05:58)
[2022-11-28 06:26] LABS: Alveolar/Arterial O2 Gradient 144.9 mmHg; Base Excess ABG 2.5 mEq/l (+/-2.0); Carboxyhemoglobin 0.3 % THb (0-2.0); Fractional Inspired Oxygen 40 %; Methemoglobin ABG 0.2 %THb (0-1.5); Oxygen Content ABG 12.5 %vol (16.0-22.0); Oxygen Saturation ABG 97.3 % (95.0-100.0); Oxyhemoglobin 95.7 % THb (90.0-100.0); PCO2 ABG 41.4 mmHg (35.0-45.0); PO2 ABG 92.7 mmHg (80.0-100.0); PO2 FiO2 Ratio Arterial Blood 2.32 %; Reduced Hemoglobin 3.8 %THb (0-5.0); Total Hemoglobin 9.2 g/dL (12.0-18.0); pH ABG 7.432 (7.350-7.450)
[2022-11-28 06:27] LABS: Device VENTILATOR; Modified Allen's Test Pass; Site Drawn RIGHT RADIAL
[2022-11-28 06:28] LABS: Arterial Blood Gas PEEP 8 cmH2O; Arterial Blood Gas Tidal Volume 450 ml; Arterial Blood Gas Vent Mode CMV; Arterial Blood Gas Ventilator rate 24 /MIN
[2022-11-28] MEDS: PROPOFOL IV EMULSION 100 ML 19.15 MG IV CONT (07:31)
[2022-11-28] MEDS: TOLNAFTATE 1% POWDER 45 GM BTL 1 APPLIC TOPICAL (07:53)
[2022-11-28] MEDS: HALOPERIDOL 5 MG TABLET 10 MG PO (07:53)
[2022-11-28] MEDS: PANTOPRAZOLE SODIUM IV 40 MG VIAL IV PUSH ×2 (07:53→19:55)
[2022-11-28] MEDS: GABAPENTIN 400 MG CAPSULE PO ×4 (07:54→19:55)
[2022-11-28] MEDS: METOPROLOL SUCCINATE EXT REL 50 MG TABCR PO (07:54)
[2022-11-28] MEDS: GABAPENTIN 100 MG CAPSULE PO ×4 (07:54→19:55)
[2022-11-28] MEDS: MULTIVITAMINS /C LUTEIN (CENTRUM SILVER) TABLET *BKC 1 TAB PO (07:55)
[2022-11-28] MEDS: MONTELUKAST SODIUM 10 MG TABLET PO (07:55)
[2022-11-28] MEDS: CHOLECALCIFEROL 1,000 UNITS TABLET 5000 UNITS PO (07:56)
[2022-11-28] MEDS: MINERAL OIL/WHITE PETROLATUM OINTMENT 1 APPLIC EACH EYE ×2 (08:01→19:56)
[2022-11-28] MEDS: BUDESONIDE RESPULE NEB 0.5 MG/2 ML AMP INHALATION ×2 (08:32→20:25)
[2022-11-28] MEDS: FLUTICASONE/SALMETEROL 115-21 MCG INHALER 1 PUFF 2 PUFF INHALATION ×2 (08:32→20:24)
[2022-11-28] MEDS: PERFLUTREN LIPID MICROSPHERES 1.5 ML VIAL DILUTED TO 10 ML TOTAL VOLUME IV PUSH (11:03)
--- NOTE | 2022-11-28 11:03 | IVDEFINITY ---
Prior to administration of IV Definity the patient was educated on the risks and benefits of the imaging enhancing agent including potential adverse side effects. The patient verbalized understanding. Allergies were verified. No exclusion criteria were identified and at least one of the following inclusion criteria were met: 1) physician request, 2) patient technically difficult to image (per the [place] [employer] Echocardi[employer] guidelines of two or more segments not discernable within the apical view), or 3) questionable left ventricular function. ?
[2022-11-28 11:19] LABS: Toxigenic C. Diff NEGATIVE (NEGATIVE)
[2022-11-28] MEDS: amLODIPine BESYLATE 5 MG TABLET PO (11:33)
[2022-11-28 11:47] LABS: Glucose Point of Care 228 mg/dl (65-105)
--- NOTE | 2022-11-28 12:55 | WPDINTPN ---
Progress Note: A&P Assessment and Plan (1) Acute respiratory failure with hypercapnia: Code(s): J96.02 - Acute respiratory failure with hypercapnia Status: Acute Assessment and Plan: Patient with worsening respiratory status and oxygen requirements along with worsening chest x-ray findings -intubated on 11/27/2022 for impending respiratory failure secondary to hypoxia, hypercapnia and significant tachypnea. -chest x-ray this morning shows: Probable moderate to advanced pulmonary edema pattern with possible underlying chronic interstitial disease. -continue mechanical ventilation and oxygenation to prevent end-organ damage -patient seems to be in ARDS physiology, currently on low tidal volume and high PEEP strategy -wean FiO2 to maintain O2 sats > 92% -ABGs reviewed -sedated with propofol infusion, maintain RASS of 0 to -1 -continue bronchodilators -continue Pulmicort (2) CRISTA (acute kidney injury): Code(s): N17.9 - Acute kidney failure, unspecified Status: Acute Assessment and Plan: Acute kidney injury could be related to hypoxia, history of diabetes essential hypertension, diuretics, volume overload -monitor urine output, renal function electrolytes -patient continues to make urine, creatinine elevated to 1.60 this morning -potassium will be replaced (3) Bacteremia due to Gram-positive bacteria: Code(s): R78.81 - Bacteremia Status: Acute Assessment and Plan: 06/14/2022: Blood cultures growing Staph warneri, 2/2 bottles. Patient on vancomycin, -11/25/2022: Repeat blood cultures, preliminary results are negative so far -11/27/2022: Urine cultures pending -11/28/2022 sputum cultures pending -11/28/2022 stool cultures pending -continue vancomycin and Zosyn (4) COPD (chronic obstructive pulmonary disease): Qualifiers: COPD type: unspecified COPD Qualified Code(s): J44.9 - Chronic obstructive pulmonary disease, unspecified Code(s): J44.9 - Chronic obstructive pulmonary disease, unspecified Status: Chronic Assessment and Plan: Patient with history of COPD -mechanical ventilation, bronchodilators, continue steroids (5) Diabetes: Qualifiers: Diabetes mellitus type: type 2 Diabetes mellitus long distance operator insulin use: without skilled nursing use Diabetes mellitus complication status: with neurologic complications Diabetes mellitus complication detail: with polyneuropathy Qualified Code(s): E11.42 - Type 2 diabetes mellitus with diabetic polyneuropathy Code(s): E11.9 - Type 2 diabetes mellitus without complications Status: Chronic Assessment and Plan: Continue Accu-Cheks and sliding scale insulin given the patient is going to be on steroids (6) Parkinsons disease: Code(s): G20 - Parkinson's disease Status: Chronic Assessment and Plan: Continue carbidopa/levodopa (7) Schizophrenia: Qualifiers: Schizophrenia type: unspecified Qualified Code(s): F20.9 - Schizophrenia, unspecified Code(s): F20.9 - Schizophrenia, unspecified Status: Chronic Assessment and Plan: Hold Haldol this patient is sedated with propofol (8) ILD (interstitial lung disease): Code(s): J84.9 - Interstitial pulmonary disease, unspecified Status: Acute Assessment and Plan: Could be a flare of interstitial lung disease -start patient steroids, continue antibiotics as above Plan DVT prophylaxis: Heparin SQ on hold due to anemia and drop in hemoglobin, continue SCDs Stress ulcer prophylaxis: Protonix Nutrition: Start tube feeds Code Status: Full code Critical Care Time Spent: 34 minutes Due to a high probability of clinically significant, life threatening deterioration, the patient required my highest level of preparedness to intervene emergently and I personally spent this critical care time directly and personally managing the patient. This critical care time included obtain
[2022-11-28] MEDS: POTASSIUM CHLORIDE 20 MEQ PACKET (FOR LIQUID) 40 MEQ FEED TUBE (13:48)
[2022-11-28] MEDS: PROPOFOL IV EMULSION 100 ML 12.77 MG IV CONT (14:12)
[2022-11-28 17:33] LABS: Glucose Point of Care 152 mg/dl (65-105)
[2022-11-28] MEDS: hydrALAZINE HCL 20 MG/ML VIAL 10 MG IV PUSH (18:22)
[2022-11-28] MEDS: traZODone HCL 25 MG TABLET PO (19:55)
[2022-11-28] MEDS: TAMSULOSIN HCL 0.4 MG CAPSULE PO (19:55)
[2022-11-28] MEDS: NORTRIPTYLINE HCL 25 MG CAPSULE PO (19:55)
[2022-11-28] MEDS: DONEPEZIL HCL 10 MG TABLET 20 MG PO (19:55)
[2022-11-28] MEDS: SENNA/DOCUSATE SODIUM TABLET 1 TAB PO (19:55)
[2022-11-29] VITALS (43 sets, daily range): BP systolic 116–164; BP diastolic 54–68; PULSE 77–95; RESP 14–27; TEMP 35.3–36.8; O2SAT 92–99
[2022-11-29 00:10] LABS: Glucose Point of Care 201 mg/dl (65-105)
[2022-11-29] MEDS: ALBUTEROL SULFATE NEB 2.5 MG/3 ML INH INHALATION ×7 (00:10→23:39)
[2022-11-29] MEDS: CARBIDOPA/LEVODOPA 25/100 MG TABLET 1 TABLET PO ×5 (00:10→23:55)
[2022-11-29] MEDS: methylPREDNISolone SOD SUCC 40 MG VIAL IV PUSH ×5 (00:11→23:55)
[2022-11-29] MEDS: INSULIN ASPART (*BKC) 100 UNITS/ML SUB-Q ×3 (00:15→23:54)
[2022-11-29] MEDS: PROPOFOL IV EMULSION 100 ML 19.15 MG IV CONT ×2 (02:49→22:20)
[2022-11-29] MEDS: LEVOTHYROXINE SODIUM 88 MCG TABLET PO (05:14)
[2022-11-29 05:31] LABS: Basophils Absolute Auto 0.1 K/mm3 (0.0-0.1); Basophils Percent Auto 0.4 % (0.2-1.2); Eosinophils Percent Auto 0.1 % (0-4.4); Hematocrit 22.3 % (42.0-52.0); Hemoglobin 7.1 g/dL (14.0-18.0); Immature Granulocyte Absolute 0.54 K/mm3 (0.00-0.031); Immature Granulocyte Percent A 3.7 % (0-0.5); Lymphocytes Absolute Auto 1.81 K/mm3 (0.9-3.2); Lymphocytes Percent Auto 12.4 % (18.3-44.2); Mean Corpuscular HGB Conc 31.8 g/dl (32-36); Mean Corpuscular Hemoglobin 30.7 pg (26-34); Mean Corpuscular Volume 96.5 fl (80-100); Monocytes Absolute Auto 0.6 K/mm3 (0.1-0.6); Monocytes Percent Auto 3.8 % (2.6-8.5); Neutrophils Absolute Auto 11.6 K/mm3 (1.3-6.7); Neutrophils Percent Auto 79.6 % (45.5-73.1); Nucleated Red Blood Cells Absolute Auto 0.1 K/mm3 (0.0-0.012); Nucleated Red Blood Cells Perc 0.8 % (0.0-0.2); Platelet Count Result 240 k/mm3 (150-375); Red Blood Count 2.31 M/mm3 (4.6-6.20); Red Cell Distribution Width 14.6 % (11.5-14.5); White Blood Count 14.6 K/mm3 (4.5-10.0)
[2022-11-29 05:34] LABS: Alveolar/Arterial O2 Gradient 110.2 mmHg; Base Excess ABG 5.3 mEq/l (+/-2.0); Carboxyhemoglobin 0.3 % THb (0-2.0); Device VENTILATOR; Fractional Inspired Oxygen 40 %; HCO3 ABG 31.1 mEq/l (22.0-26.0); Methemoglobin ABG 0.4 %THb (0-1.5); Modified Allen's Test Unable to perform; Oxygen Content ABG 11.3 %vol (16.0-22.0); Oxyhemoglobin 96.9 % THb (90.0-100.0); PCO2 ABG 53.1 mmHg (35.0-45.0); PO2 ABG 113.9 mmHg (80.0-100.0); PO2 FiO2 Ratio Arterial Blood 2.85 %; Reduced Hemoglobin 2.4 %THb (0-5.0); Site Drawn RIGHT RADIAL; Total Hemoglobin 8.1 g/dL (12.0-18.0); pH ABG 7.385 (7.350-7.450)
[2022-11-29 05:35] LABS: Arterial Blood Gas PEEP 8 cmH2O; Arterial Blood Gas Tidal Volume 450 ml; Arterial Blood Gas Vent Mode CMV; Arterial Blood Gas Ventilator rate 24 /MIN
[2022-11-29 05:47] LABS: Alanine Aminotransferase 8 U/L (6-50); Albumin Level 3.2 g/dL (3.5-5.1); Alkaline Phosphatase 118 U/L (38-126); Anion Gap 5 mmol/L (8-16); Aspartate Amino Transferase 44 U/L (17-59); Bilirubin,Total 0.6 mg/dL (0.2-1.3); Blood Urea Nitrogen 29 mg/dL (9-20); Calcium 8.9 mg/dL (8.4-10.2); Carbon Dioxide 31 mmol/L (22-30); Chloride 103 mmol/L (98-107); Estimated CRCL calculation 43 ml/min; Estimated Glomerular Filt Rate 54; Glucose 178 mg/dL (65-110); Magnesium 2.7 mg/dL (1.6-2.3); Phosphorus 3.6 mg/dL (2.5-4.5); Potassium 3.8 mmol/L (3.4-5.0); Sodium 139 mmol/L (137-145); Triglycerides 216 mg/dL (<150)
[2022-11-29] MEDS: BUDESONIDE RESPULE NEB 0.5 MG/2 ML AMP INHALATION ×2 (08:47→20:21)
[2022-11-29] MEDS: PROPOFOL IV EMULSION 100 ML 15.96 MG IV CONT ×2 (09:08→17:43)
[2022-11-29] MEDS: PANTOPRAZOLE SODIUM IV 40 MG VIAL IV PUSH ×2 (09:11→20:52)
[2022-11-29] MEDS: CHOLECALCIFEROL 1,000 UNITS TABLET 5000 UNITS PO (09:12)
[2022-11-29] MEDS: MULTIVITAMINS /C LUTEIN (CENTRUM SILVER) TABLET *BKC 1 TAB PO (09:12)
[2022-11-29] MEDS: MONTELUKAST SODIUM 10 MG TABLET PO (09:13)
[2022-11-29] MEDS: MINERAL OIL/WHITE PETROLATUM OINTMENT 1 APPLIC EACH EYE ×2 (09:13→20:50)
[2022-11-29] MEDS: METOPROLOL SUCCINATE EXT REL 50 MG TABCR PO (09:13)
[2022-11-29] MEDS: amLODIPine BESYLATE 5 MG TABLET PO (09:13)
--- NOTE | 2022-11-29 10:31 | PCFNICU ---
ICU Rounding Note: Pt current nutrition is Vital AF 1.2 at 55 ml/hr. Last recorded weight is 103.1 kg. Bowel Motility:+BM reported 1/3 Labs Reviewed:Mg 1.4, Cr 1.5,Glu 178,TG 216,GFR 54, Alb 3.2 Meds Noted:Propofol at 20 buvo=966 kcals. Zosyn, Vancomycin, Protonix, Vit D Skin: WNL Additional Notes: Patient remains on mechanical vent. Tolerating tube feedings per nursing of Vital AF 1.2 at 55 ml/hr. Flush 30 ml q 4 hours. Current nutrition: 1789 kcals/99 gms protein/982 ml water. Agree with diet orders at this time. Following daily in ICU rounds. Will monitor daily in ICU rounds and reassessing every Sunday and Sunday.
[2022-11-29 11:20] LABS: NT Pro B Type Natriuretic Pept 736 pg/mL (5-100)
[2022-11-29 11:40] LABS: Glucose Point of Care 250 mg/dl (65-105)
--- NOTE | 2022-11-29 13:35 | WPDINTPN ---
Progress Note: A&P Assessment and Plan (1) Acute respiratory failure with hypercapnia: Code(s): J96.02 - Acute respiratory failure with hypercapnia Status: Acute Assessment and Plan: Patient with worsening respiratory status and oxygen requirements along with worsening chest x-ray findings -intubated on 11/27/2022 for impending respiratory failure secondary to hypoxia, hypercapnia and significant tachypnea. -chest x-ray this morning shows: Suspected mild to moderate pulmonary edema pattern with probable underlying diffuse chronic interstitial disease. -continue mechanical ventilation and oxygenation to prevent end-organ damage --wean FiO2 to maintain O2 sats > 92% -ABGs reviewed -sedated with propofol infusion, maintain RASS of 0 to -1 -continue bronchodilators -continue Pulmicort -will give Lasix -continue Zosyn (2) CRISTA (acute kidney injury): Code(s): N17.9 - Acute kidney failure, unspecified Status: Acute Assessment and Plan: Acute kidney injury could be related to hypoxia, history of diabetes essential hypertension, diuretics, volume overload -monitor urine output, renal function electrolytes -patient continues to make urine, creatinine 1.5 -Lasix for volume overload (3) Bacteremia due to Gram-positive bacteria: Code(s): R78.81 - Bacteremia Status: Acute Assessment and Plan: 06/14/2022: Blood cultures growing Staph warneri, 2/2 bottles. Patient on vancomycin, -11/25/2022: Repeat blood cultures, preliminary results are negative so far -11/27/2022: Urine cultures pending -11/28/2022 sputum cultures pending -11/28/2022 stool cultures pending -continue vancomycin and Zosyn (4) COPD (chronic obstructive pulmonary disease): Qualifiers: COPD type: unspecified COPD Qualified Code(s): J44.9 - Chronic obstructive pulmonary disease, unspecified Code(s): J44.9 - Chronic obstructive pulmonary disease, unspecified Status: Chronic Assessment and Plan: Patient with history of COPD -mechanical ventilation, bronchodilators, continue steroids (5) Diabetes: Qualifiers: Diabetes mellitus type: type 2 Diabetes mellitus snf insulin use: without terminal makeup operator use Diabetes mellitus complication status: with neurologic complications Diabetes mellitus complication detail: with polyneuropathy Qualified Code(s): E11.42 - Type 2 diabetes mellitus with diabetic polyneuropathy Code(s): E11.9 - Type 2 diabetes mellitus without complications Status: Chronic Assessment and Plan: Continue Accu-Cheks and sliding scale insulin given the patient is going to be on steroids (6) Parkinsons disease: Code(s): G20 - Parkinson's disease Status: Chronic Assessment and Plan: Continue carbidopa/levodopa (7) Schizophrenia: Qualifiers: Schizophrenia type: unspecified Qualified Code(s): F20.9 - Schizophrenia, unspecified Code(s): F20.9 - Schizophrenia, unspecified Status: Chronic Assessment and Plan: Hold Haldol this patient is sedated with propofol (8) ILD (interstitial lung disease): Code(s): J84.9 - Interstitial pulmonary disease, unspecified Status: Acute Assessment and Plan: Could be a flare of interstitial lung disease Continue steroids, continue antibiotics as above (9) Colitis: Code(s): K52.9 - Noninfective gastroenteritis and colitis, unspecified Status: Acute Assessment and Plan: C diff negative Continue Zosyn Plan DVT prophylaxis: Heparin SQ on hold due to anemia and drop in hemoglobin, continue SCDs Stress ulcer prophylaxis: Protonix Nutrition: Continue tube feeds Code Status: Full code Critical Care Time Spent: 30 minutes Due to a high probability of clinically significant, life threatening deterioration, the patient required my highest level of preparedness to intervene emergently and I personally spent this critical care t
[2022-11-29] MEDS: SALINE LOCK FLUSH 10 ML IV PUSH ×2 (14:19→20:52)
[2022-11-29] MEDS: hydrALAZINE HCL 20 MG/ML VIAL 10 MG IV PUSH (17:47)
[2022-11-29 17:51] LABS: Glucose Point of Care 198 mg/dl (65-105)
[2022-11-29 18:19] LABS: Hematocrit 23.9 % (42.0-52.0); Hemoglobin 7.5 g/dL (14.0-18.0); Mean Corpuscular HGB Conc 31.4 g/dl (32-36); Mean Corpuscular Hemoglobin 30.4 pg (26-34); Mean Corpuscular Volume 96.8 fl (80-100); Mean Platelet Volume 10.1 fl (7.4-10.4); Platelet Count Result 263 k/mm3 (150-375); Red Blood Count 2.47 M/mm3 (4.6-6.20); Red Cell Distribution Width 14.6 % (11.5-14.5); White Blood Count 14.7 K/mm3 (4.5-10.0)
--- NOTE | 2022-11-29 18:21 | PM.IMPN ---
Progress Note: A&P Assessment and Plan (1) Acute respiratory failure: Qualifiers: Respiratory failure complication: hypoxia Qualified Code(s): J96.01 - Acute respiratory failure with hypoxia Code(s): J96.00 - Acute respiratory failure, unspecified whether with hypoxia or hypercapnia Status: Acute Assessment and Plan: Patient is on supplemental oxygen by nasal cannula Chest x-ray with infiltrate Patient started on broad-spectrum antibiotics Continue to monitor Supportive care Blood culture positive 102 for Gram- positive cocci in clusters which found to be Staph warneri 2/. Will repeat blood cultures. Currently on vancomycin Zosyn which will be continued Chest x-ray with infiltrate? Silent aspiration. Speech to see for swallow evaluation MBS done which looked okay Oxygen requirement has worsened. Re check chest x-ray with worsening opacities BNP is elevated congestion versus aspiration. Dose Lasix yesterday will be dose again there is slight bump in the creatinine today. Possible pulmonary fibrosis flare. Will start him on Solu-Medrol He does have underlying interstitial lung disease which has been chronic finding unclear etiology 11/27/2022 ABG with hypoxic and hypercapnic respiratory failure 11/29/2022 interval history: patient with acute respiratory hypercapnic failure on ventilator patient respiratory status is worsening requiring higher oxygen whirley operator suspect has ARDS, pulmonary edema and chronic interstitial disease, patient being treated with IV antibiotic, bronchodilator and pulmonary, appreciate whirley operator will continue to monitor, prognosis is guarded (2) Colitis: Code(s): K52.9 - Noninfective gastroenteritis and colitis, unspecified Status: Acute Assessment and Plan: CT of abdomen and pelvis reviewed Started on Zosyn initial suspicion of small bowel obstruction ruled out with CT scan and regular bowel movement (3) Lung infiltrate: Code(s): R91.8 - Other nonspecific abnormal finding of lung field Status: Acute Assessment and Plan: Seen on chest x-ray Blood cultures in progress CT with increased dependent bilateral ground-glass and consolidative opacities with underlying coarse interstitial change and fibrosis. On broad-spectrum antibiotics (4) Acute renal failure: Qualifiers: Acute renal failure type: unspecified Qualified Code(s): N17.9 - Acute kidney failure, unspecified Code(s): N17.9 - Acute kidney failure, unspecified Status: Acute Assessment and Plan: St catheter placed. Baseline creatinine 1.1. Admission creatinine of 2.9. Continue to monitor intake and output Will hold IV fluid due to congestion Renal ultrasound came back negative for hydronephrosis creatinine continues to improve back to baseline (5) COPD (chronic obstructive pulmonary disease): Qualifiers: COPD type: unspecified COPD Qualified Code(s): J44.9 - Chronic obstructive pulmonary disease, unspecified Code(s): J44.9 - Chronic obstructive pulmonary disease, unspecified Status: Chronic Assessment and Plan: Breathing treatments q.4 hours Solu Medrol possible COPD flare (6) Parkinsons disease: Code(s): G20 - Parkinson's disease Status: Chronic Assessment and Plan: Continue home meds (7) Schizophrenia: Qualifiers: Schizophrenia type: unspecified Qualified Code(s): F20.9 - Schizophrenia, unspecified Code(s): F20.9 - Schizophrenia, unspecified Status: Chronic Assessment and Plan: Continue home meds Plan DVT prophylaxis heparin subQ bladder wall thickening suggestive of cystitis outlet obstruction or inadequate distention. Staphylococcus warneri bacteremia: 2/ on vancomycin Subjective Date/time seen: 11/29/22 18:21 11/29/2022 interval history: patient with acute respiratory hypercapnic failure on ventilator patient respiratory status is worsening
[2022-11-29] MEDS: IPRATROPIUM BR 0.02% INH SOLN 0.5 MG/2.5 ML VIAL INHALATION (20:21)
[2022-11-29] MEDS: DONEPEZIL HCL 10 MG TABLET 20 MG PO (20:51)
[2022-11-29] MEDS: SENNA/DOCUSATE SODIUM TABLET 1 TAB PO (20:51)
[2022-11-30] VITALS (34 sets, daily range): BP systolic 53–158; BP diastolic 29–80; PULSE 0–156; RESP 0–61; TEMP 36.1–37.3; O2SAT 37–100
[2022-11-30 00:22] LABS: Glucose Point of Care 228 mg/dl (65-105)
[2022-11-30] MEDS: PROPOFOL IV EMULSION 100 ML 19.15 MG IV CONT (02:19)
[2022-11-30 05:02] LABS: Alveolar/Arterial O2 Gradient 85.8 mmHg; Base Excess ABG 1.6 mEq/l (+/-2.0); Carboxyhemoglobin 0.8 % THb (0-2.0); Fractional Inspired Oxygen 30 %; HCO3 ABG 26.7 mEq/l (22.0-26.0); Methemoglobin ABG 0.2 %THb (0-1.5); Oxygen Content ABG 15.6 %vol (16.0-22.0); Oxygen Saturation ABG 95.2 % (95.0-100.0); Oxyhemoglobin 93.1 % THb (90.0-100.0); PCO2 ABG 44.1 mmHg (35.0-45.0); PO2 ABG 76.3 mmHg (80.0-100.0); PO2 FiO2 Ratio Arterial Blood 2.54 %; Reduced Hemoglobin 5.9 %THb (0-5.0); Total Hemoglobin 11.9 g/dL (12.0-18.0)
[2022-11-30 05:03] LABS: Arterial Blood Gas Ventilator rate 24 /MIN; Device VENTILATOR; Modified Allen's Test Unable to perform; Site Drawn RIGHT RADIAL
[2022-11-30 05:04] LABS: Arterial Blood Gas PEEP 8 cmH2O; Arterial Blood Gas Tidal Volume 450 ml; Arterial Blood Gas Vent Mode CMV
[2022-11-30] MEDS: ALBUTEROL SULFATE NEB 2.5 MG/3 ML INH INHALATION (05:12)
[2022-11-30 06:05] LABS: Glucose Point of Care 217 mg/dl (65-105)
[2022-11-30] MEDS: INSULIN ASPART (*BKC) 100 UNITS/ML SUB-Q (06:05)
[2022-11-30] MEDS: methylPREDNISolone SOD SUCC 40 MG VIAL IV PUSH (06:05)
[2022-11-30] MEDS: CARBIDOPA/LEVODOPA 25/100 MG TABLET 1 TABLET PO (06:05)
[2022-11-30] MEDS: LEVOTHYROXINE SODIUM 88 MCG TABLET PO (06:06)
[2022-11-30] MEDS: SALINE LOCK FLUSH 10 ML IV PUSH (06:06)
[2022-11-30] MEDS: PROPOFOL IV EMULSION 100 ML 22.34 MG IV CONT (06:52)
[2022-11-30 06:53] LABS: Basophils Absolute Auto 0.1 K/mm3 (0.0-0.1); Basophils Percent Auto 0.5 % (0.2-1.2); Eosinophils Percent Auto 0.1 % (0-4.4); Hematocrit 24.6 % (42.0-52.0); Hemoglobin 7.8 g/dL (14.0-18.0); Immature Granulocyte Absolute 0.84 K/mm3 (0.00-0.031); Immature Granulocyte Percent A 4.9 % (0-0.5); Lymphocytes Absolute Auto 2.25 K/mm3 (0.9-3.2); Lymphocytes Percent Auto 13.2 % (18.3-44.2); Mean Corpuscular HGB Conc 31.7 g/dl (32-36); Mean Corpuscular Hemoglobin 30.8 pg (26-34); Mean Corpuscular Volume 97.2 fl (80-100); Mean Platelet Volume 9.4 fl (7.4-10.4); Monocytes Absolute Auto 0.7 K/mm3 (0.1-0.6); Monocytes Percent Auto 4.1 % (2.6-8.5); Neutrophils Absolute Auto 13.1 K/mm3 (1.3-6.7); Neutrophils Percent Auto 77.2 % (45.5-73.1); Nucleated Red Blood Cells Absolute Auto 0.2 K/mm3 (0.0-0.012); Nucleated Red Blood Cells Perc 1.1 % (0.0-0.2); Platelet Count Result 271 k/mm3 (150-375); Red Blood Count 2.53 M/mm3 (4.6-6.20); Red Cell Distribution Width 14.6 % (11.5-14.5)
[2022-11-30 07:09] LABS: Alanine Aminotransferase 12 U/L (6-50); Albumin Level 3.4 g/dL (3.5-5.1); Alkaline Phosphatase 97 U/L (38-126); Anion Gap 6 mmol/L (8-16); Aspartate Amino Transferase 39 U/L (17-59); Bilirubin,Total 0.5 mg/dL (0.2-1.3); Blood Urea Nitrogen 40 mg/dL (9-20); Carbon Dioxide 32 mmol/L (22-30); Chloride 99 mmol/L (98-107); Estimated CRCL calculation 44 ml/min; Estimated Glomerular Filt Rate > 60; Glucose 201 mg/dL (65-110); Magnesium 2.8 mg/dL (1.6-2.3); Phosphorus 4.4 mg/dL (2.5-4.5); Potassium 3.9 mmol/L (3.4-5.0); Sodium 137 mmol/L (137-145)
[2022-11-30 07:11] LABS: Vancomycin Trough 25.5 ug/mL (10.0-20.0)
--- NOTE | 2022-11-30 08:54 | ECG_ITS ---
Measurements Intervals [place] Rate: 126 P: AL: 0 QRS: -7 QRSD: 89 T: 136 QT: 237 QTc: 344 Interpretive Statements ATRIAL FIBRILLATION WITH RAPID VENTRICULAR RESPONSE LEFT VENTRICULAR HYPERTROPHY WITH ST-T CHANGE INFERIOR INFARCT, AGE INDETERMINATE ST-T WAVE ABNORMALITY IN ANTEROLATERAL LEADS- CONSIDER ISCHEMIA BASELINE ARTIFACT- V4-V5 ABNORMAL ECG COMPARED TO ECG 01/13/2022 19:16:56 ATRIAL FIBRILLATION NOW PRESENT ST-T WAVE ABNORMALITY NOW PRESENT Electronically Signed On 11-30-2022 12:41:40 SPRINKLING SYSTEM INSTALLER by Haeseb Hoff D.O.
[2022-11-30] MEDS: MIDAZOLAM HCL (*CRX) 2 MG/2 ML VIAL (08:57)
[2022-11-30] MEDS: LORazepam INJ (*CRX) 2 MG/ML VIAL IV PUSH (09:25)
[2022-11-30] MEDS: MORPHINE SULFATE INJ (*CRX) 10 MG/ML AMP 5 MG IV PUSH (09:26)
[2022-11-30] MEDS: MORPHINE SULFATE (*CRX) 4 MG/ML INJ IV PUSH (10:13)
--- NOTE | 2022-11-30 10:58 | PM.EVENT ---
Event Note Event Note Event Note: This morning I evaluated patient. I reviewed his labs imaging and chart. Events from overnight. I placed patient on sedation holiday. On holding propofol patient did not follow commands or wake although he did get a synchronous with the ventilator with high peak pressure alarm tachypnea. Patient then became bradycardic and lost his pulse. CPR was initiated patient was given 1 dose of epinephrine and ROSC was obtained. Patient was still bradycardic and was given 1 dose of atropine. He was bag ventilated. He had equal breath sounds but was difficult to bag. He was suction at thick large amount of secretions. Patient also had a bowel movement. Post resuscitation patient was asynchronous with the ventilator use of accessory muscles and tachypnea. He was given mg of Versed. He was in AFib with RVR but with adequate blood pressure. Overnight Associate had spoken to patient's POA who is patient's niece and notified her with events from this morning. Soon patient again bradycardic again lost his pulse. CPR was re-initiated and patient was given 2 dose of epinephrine before ROSC was obtained. I spoke to patient's niece Karyn Rasmussen who is in [place] and disabled. I discussed with her patient's current status including multiple medical problems, poor quality of life coming into the hospital and dementia. Also updated her with patient's current status with current treatment plan. Also explained to her in detail about the events from this morning of the fact that patient had cardiac arrest twice. She told me the patient would not want to continue life support considering significant amount of medical problems he has, poor quality of life, dementia and advanced age. She sat there is no family in town. She wanted patient to be kept comfortable preop. I explained option of palliative extubation and comfort care and she verbalized understanding agreed to proceed with. She stated that she wants patient to in peace and comfort. She agreed to proceed with palliative extubation and comfort care and I explained her that I will discontinue all medical therapy and institute comfort measures only. I will use opioids, anxiolytics and other agents on as needed basis to promote comfort and discontinue all medical therapy, lab testing and invasive monitoring. Patient was palliatively extubated and at 10:30 a.m. Patient's niece was notified by phone I also spoke to patient's primary physician Dr. Menezes Total Critical Care Time - 40 minutes except separately billed procedures Due to a high probability of clinically significant, life threatening deterioration, the patient required my highest level of preparedness to intervene emergently and I personally spent this critical care time directly and personally managing the patient. This critical care time included obtaining a history; examining the patient; pulse oximetry; ordering and review of studies; arranging urgent treatment with development of a management plan; evaluation of patient's response to treatment; frequent reassessment; and discussions with other providers. It was exclusive of separately billable procedures and treating other patients and teaching time. Please see Assessment and Plan section and the rest of the note for further information on patient assessment and treatment
--- NOTE | 2022-11-30 11:07 | PDCODEBLUE ---
Code Blue Note Code Blue Note Time Arrived at Code Blue: 845 Initial Rhythm on Arrival: Bradycardia which converted into PEA Airway Management: Initiated bagging pt on arrival Chest Compressions: Initiated upon arrival Cardiac Rhythm Post Code: AFib with RVR Code Blue Summary: See separate note
--- NOTE | 2022-11-30 11:16 | PCFNICU ---
ICU Rounding Note: Pt current nutrition is Vital AF 1.2 at 55 ml/hr. Last recorded weight is 99.2 kg. Bowel Motility:+BM reported 11/30 Labs Reviewed: Mg 2.8,Glu 201,BUN 40, Alb 3.4, Hct 24.6,Hgb 7.8 Skin: WNL Additional Notes: Patient currently on comfort care. Extubated. No further nutritional interventions at this time. Following daily in ICU rounds.
== END 2022-11-30 10:30 | disposition expired | DRG 682 ==
LOC: ANHED 22:13 → ANH3MED 23:55 → ANHICU 11-27 13:17
PROVIDERS: Internal Medicine; Student in an Organized Health Care Education/Training Program; Admitting Provider Internal Medicine; Emergency Provider Emergency Medicine; Visit Provider Family Medicine
DX: N17.9 Acute kidney failure, unspecified (principal); J96.01 Acute respiratory failure with hypoxia; J96.02 Acute respiratory failure with hypercapnia; J84.9 Interstitial pulmonary disease, unspecified; R78.81 Bacteremia; K52.9 Noninfective gastroenteritis and colitis, unspecified; J44.9 Chronic obstructive pulmonary disease, unspecified; G20 Parkinson's disease; F20.9 Schizophrenia, unspecified; E11.42 Type 2 diabetes mellitus with diabetic polyneuropathy; G89.29 Other chronic pain; M54.9 Dorsalgia, unspecified; E03.9 Hypothyroidism, unspecified; E87.70 Fluid overload, unspecified; D64.9 Anemia, unspecified; Z20.822 Contact with and (suspected) exposure to COVID-19; Z87.891 Personal history of nicotine dependence; Z79.82 Long term (current) use of aspirin; Z79.51 Long term (current) use of inhaled steroids; Z79.899 Other long term (current) drug therapy; Z80.1 Family history of malignant neoplasm of trachea, bronchus and lung; Z80.8 Family history of malignant neoplasm of other organs or systems
CPT/HCPCS: 31500; 36415; 36569; 36600; 71045; 71250; 74176; 76775; 80048; 80053; 80202; 81001; 82274; 82375; 82805; 82948; 83050; 83605; 83690; 83735; 83880; 84100; 84478; 85025; 85027; 85055; 85610; 85730; 86140; 87040; 87070; 87077; 87086; 87186; 87205; 87493; 87637; 92610; 92611; 93005; 94002; 94003; 94640; 96361; 96365; 96366; 96372; 96374; 96376; 99285; A9270; C1751; C8929; C9113; G0378; J0171; J0330; J0360; J0461; J1644; J1815; J1940; J2060; J2250; J2270; J2543; J2704; J2920; J2930; J3370; J7030; Q9957